=== PATIENT | female | born 1985 | race Caucasian/White ===

== ENCOUNTER 2025-04-06 15:46 | Emergency (ER) | payer OTHER, SELFPAY ==
--- OUTSIDE RECORDS SUMMARY | 2017-07-27 09:50 | XMS_ITS | Continuity of Care Document ---
Author Organization [facility] Address [address] [place] [address] Phone Care Team Providers Care Medical Technologist Chemistry Name Role Phone Unavailable Unavailable Unavailable Allergies, Adverse Reactions, Alerts Substance Reaction Status Criticality PSEUDOEPHEDRINE HCL hallucinations Active No Inf ormation PHENYLEPHRINE HCL hallucinations Active No Infor mation BROMPHENIRAMINE MALEATE hallucinations Active No Information Thiazides shut down organs, sepsis Active No Information Medications Medication Instructions Dosage Effective Dates (start - stop) Status Comments Blephamide 10 %-0.2 % eye drops,suspension one drop to erica left eye TID for six days - Active Ceftin 500 mg tablet take 1 tablet by or al route every 12 hours - Active Bystolic 2.5 mg tablet take 2 tablet by oral route every day 5 MG - Active Zantac 150 mg tablet take 1 tablet by or al route 2 times every day - Active Nexium 20 mg capsule,delayed release take 1 capsule by oral route every day - Active Xanax 0.5 mg tablet take 1 tablet by ora l route 3 times every day 0.5 MG - Active folic acid 1 mg tablet take 1 tablet by oral route every day 1 MG - Active Procedures Procedure Date OFFICE/OUTPATIENT VISIT, NEW Advance Directives Directive Yes / No Effective Date File Name No Information Encounters Encounter Description Practice Location Reason(s) For Visit Diagnoses Date Provider Providers Copied on Encounter OFFICE/OUTPAT IENT VISIT, [facility] , [address] [place], [address], tel:[phone] Formerly [facility] Urgents uveitis and iritis per ER (chief complaint) Acute recurrent maxillary sinusitisDry eye of left side 201 7 No Information Referring Provider: ER Emergency Room. Family History Family Member Type Diagnosis Age At Onset Mother Problem (finding) glaucoma Mother Problem (finding) Cancer, unknown Mother Problem (finding) Maternal history of luanne betes mellitus Mother Problem (finding) hypertension Payers Payer name Insurance type Covered constitution party ID Debbie Boyd (s) [id number] Social History Type Description Quantity Date Captured Comments Alcohol Use Details No Caffeine Use Details Unknown Tobacco Use Status Cigarette smoker Smoking Status Current every day smoker Non-Smoking Tobacco Use Details : No Details Available : No Details Available Sex Female Chief Complaint And Reason For Visit From encounter dated '07/27/2017 13:50'. uveitis and iritis per ER (chief complaint). Description: The 31 year old female presents for evaluation of uveitis and iritis per ER in the left eye. The patient awoke early this morning with intermittent diplopia, and intermittent pain. Both have worsened since starting. The diplopia stopped and the vision became constantly blurry. The pain has become constant, and is describes as stabbing . She went to [facility] ER where she was diagnosed with uveitis and iritis. No rx's given. Proparicaine given in ER helped with the pain. The ER referred her to [facility] for treatment. Reason For Referral Reason For Referral No Information Plan Of Treatment Date Type Action Status Referral Ordered: Ab Lee -Internal Medicine (related to Dry eye) ordered Referral Referred To: Ab Lee [address] [place] [address] [phone] Ordered: Referrals: Internal Medicine. Ab Lee. Assume care ordered History Of Present Illness Encounter Date Complaint History Of Prese nt Illness uveitis and iritis per ER The 31 year old female presents for evaluation of uveitis and iritis per ER in the left eye. The patient awoke early this morning with intermittent diplopia, and intermittent pain. Both have worsened since starting. The diplopia stopped and the vision became constantly blurry. The pain has become constant, and is describes as stabbing . She went to [facility] ER where she was diagnosed with uveitis and iritis. No rx's given. Proparicaine given in ER helped with the pain. The ER referred her to [facility] for treatment. Functional Status Date Functional Assessmen t No Information Instructions Date Instruction Additional Infor ronny - patient with recen t onset of left maxiallry sinusitis and otitis.today with c/o OS irriation and temproary blurred visionSPK on exam with rare cell OSAT QID as needed and Blephamide TID to the OS for 6 days Return PRN any new symptoms Related to See impression details Assessments Type Assessment Date assessment Acute recurrent maxillary sinusi tis assessment Dry eye of left side Patient Care Teams Name Effective Dates (start - stop) Status Members No Information
--- OUTSIDE RECORDS SUMMARY | 2024-04-16 13:15 | XMS_ITS ---
Author Organization [facility] Address [address] [place] [address] Care Team Providers Care Front Desk Team Member Name Role Phone [facility] ramirez bonds Primary Care Prov ider Unavailable Provider, [id number] [phone] Unavailable REASON FOR VISIT cough, sore throat, runny nose and fever Encounters Encounter Location Date Provider Diagnosis [address] [facility] [address] [place] [address] 04/16/2024 52133 Provider Plan Of Treatment No Information Progress Notes * Andria BUSHOB:1985 (39 yo F)Acc No.[id number]:04/16/2024 Progress Notes Patient: Arelis MCKEON Provider: 1 8403 Provider :1985 A ge:38 Y S ex:Female Date:04/16/2024 External Visit ID:[id number] 1 Address:[address] [place], [place] [address], [address] [facility] Subjective: * Chief Complaints: * 1 . Cough, sore throat, runny nose and fever. * Medical History: Objective: * Vitals: Assessment: Plan: * Treatment: * Billing Information: * Visit Code: * Procedure Codes: Care Plan Details* * Electronic signature of GH49 130 [id number] Provider on 04/06/2025 at 03:21 PM CDT Sign off status: Pending * Provider: 1 8403 Provider Date: 0 04/16/2024 Generated for Printi ng/Faxing/eTransmitting on: 0 04/06/2025 03:21 PM CDT
--- OUTSIDE RECORDS SUMMARY | 2024-12-18 05:00 | XMS_ITS ---
Author Organization [facility] Address [address] [place] [address] Care Team Providers Care Eyeglass Inspector Name Role Phone [facility] ramirez bonds Primary Care Prov ideNancy Alexander Unavailable [phone] REASON FOR VISIT Not Feeling Well Encounters Encounter Location Date Provider Diagnosis [address] [address] 12/18/2024 Nancy Asencio Plan Of Treatment No Information Progress Notes * Andria BUSHOB:1985 (39 yo F)Acc No.[id number]:12/18/2024 Progress Notes Patient: Arelis MCKEON Provider: Vlad Asencio CNP :1985 A ge:39 Y S ex:Female Date:12/18/2024 External Visit ID:[id number] 0 Address:[address] [place], [place] [address], [address] [facility] Pcp[facility] Subjective: * Chief Complaints: * 1 . Not Feeling Well. * Medical History: Objective: * Vitals: Assessment: Plan: * Treatment: * Billing Information: * Visit Code: * Procedure Codes: Care Plan Details* * Electronic signature of Mahin Asencio APRN on 04/06/2025 at 03:21 PM CDT Sign off status: Pending * Provider: Vlad Asencio CNP Date: 12/18/2024 Generated for Printi ng/Faestebang/eTransmitting on: 0 04/06/2025 03:21 PM CDT
--- OUTSIDE RECORDS SUMMARY | 2025-03-04 08:30 | XMS_ITS | Encounter Summary ---
Author Organization [facility] Address [address] [place] [address] [place] [address] Phone Care Team Providers Care Leaf Tier Name Role Phone Ab Lee MD Primary Care Provider [phone] Reason for Visit * Reason Comments Follow-up Pain scale 8/10 Pain Pain scale 8/10 Medication Refill Gabapentin 03/02/25 Encounter Details Date Type Department Care Team (Latest Contact Info) Description 03/04/2025 8:30 AM EDT Office Visit [facility] [place] [facility] [address] [place] [address] Floers Dawn, APPLICATIONS SUPPORT LEAD [address] [facility] [address] [place] [address] Lumbar radiculopathy (Primary Dx); Facet [...] file Not on file Not on file 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 Employer: [employer] Tobacco Use Smoking status: Former Types: [...] Resource Strain: Low Risk (11/16/2024) Received from [facility] Overall Financial Resource Strain (CARDIA) Difficulty of Paying Living Expenses: Not hard at all Food Insecurity: No Food Insecurity (11/16/2024) Received from [facility] Hunger Vital Sign Worried About Running Out of Food in the Last Year: Never true Ran Out of Food in the Last Year: Never true Transportation Needs: No Transportation Needs (11/16/2024) Received from [facility] IP Transportation In the past 12 months, has lack of reliable transportation kept you from medical appointments, meetings, work or from getting things needed for daily living?: No Physical Activity: Inactive (11/16/2024) Received from [facility] Exercise Vital Sign Days of Exercise per Week: 0 days Minutes of Exercise per Session: 0 min Stress: No Stress Concern Present (11/16/2024) Received from [facility] [place] [facility] [employer] [facility] - Occupational Stress Questionnaire [...] file Lisinopril, Metoprolol, Nitrofurantoin, Amitriptyline, Bromfed dm [[id number]], Chocolate (food), Diclofenac, and Thiazide-type diuretics Outpatient [...] Apply to affected areas BID nystatin (MYCOSTATIN) 433728 UNIT/GM OINT Apply topically 2 (two) times daily. chlorhexidine (HIBICLENS) 4 % LIQD Apply topically daily. Apply daily in shower ibuprofen (ADVIL,MOTRIN) 200 mg tablet Take 200 mg by mouth every 6 (six) hours as needed for Mild Pain (1-3). Liniments (BIOFREEZE EX) Apply topically. Multiple Vitamin (MULTIVITAMIN) TABS Take 1 tablet by mouth daily. nystatin (MYCOSTATIN) 314471 UNIT/GM POWD Apply topically 2 (two) times [...] LUMBOSACRAL JUNCTION: There are five lumbar type [id number]-[id number] vertebral bodies. The lowest lumbar type vertebral [...] Description 04/17/2025 3:15 PM EDT Office Visit [facility] [address] [place] [phone] Thalia Singer, APPLICATIONS SUPPORT LEAD [address] [place] [phone] 09/16/2025 8:30 AM EST Office Visit [facility] [place] - [facility] [address] [place] [address] Flores Dawn, APPLICATIONS SUPPORT LEAD [address] [facility] [address] [place] [address] documented as of this encounter [...] thigh documented in this encounter Care Teams Leaf Tier Relationship Specialty Start Date End Date Ab Lee MD PCP - General 11/13/07 documented as of this encounter
--- OUTSIDE RECORDS SUMMARY | 2025-03-04 09:50 | XMS_ITS | Encounter Summary ---
Author Organization [facility] Address [address] [place] [address] [place] [address] Phone Care Team Providers Care Support Manager Name Role Phone Ab Lee MD Primary Care Provider Reason for Visit * Reason Comments Blood Pressure Elevated @ 162/101 e arlier today Encounter Details Date Type Department Care Team (Late st Contact Info) Description 03/04/2025 9:50 AM EDT Office Visit [facility] [address] [place] [address] Cinthya May PA-C [address] [place] [address] Essential hypertension (Primary Dx) Social [...] file Not on file 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 * HYPERTENSION (PERSIAN) documented in this encounter Progress Notes * Cinthya May PA-C - 03/04/2025 9:50 AM EDT Primary Care Provider: Ab Lee MD [facility] Tripp Hoff [facility] [address] Subjective Subjective: Arelis Bush is a 39 [...] gi endoscopy,exam (1999); other (2007); Colonoscopy (04/04/2013); [place] tooth extraction; lap,cholecystectomy (06/03/2016); and hc kyleena [...] Angioedema and Anaphylaxis Amitriptyline moser Bromfed Dm [Jksbaffod-Avqktzwc-Eo] Other (See Comments) Blacked out. Shaking, hallucinations [...] Description 04/17/2025 3:15 PM EDT Office Visit [facility] [address] [place] [phone] Thalia Singer, CONTROL PANEL TESTER [address] [place] [phone] 09/16/2025 8:30 AM EST Office Visit [facility] [place] [facility] [address] [place] [phone] Flores Dawn, CONTROL PANEL TESTER [address] [facility] [address] [place], [place] [id number] documented as of this encounter Visit Diagnoses Diagnosis Essential hypertension- Primary Unspecified essential hypertension documented in this encounter Care Teams Support Manager Relationship Specialty Start Date End Date Ab Lee MD PCP - General 11/13/07 documented as of this encounter
--- OUTSIDE RECORDS SUMMARY | 2025-03-05 14:06 | XMS_ITS | Encounter Summary ---
Author Organization [place] [address] Care Team Providers Care Title I Director Name Role Phone Ab Lee MD Primary Care Provider Reason for Visit * Reason Comments Hypertension BP been running high , can't get into pcp until 03/14; been dizzy since 5am, pcp told to come in for possible TIA; +ROBINS, blurry vision Encounter Details Date Type Department Care Team (Late Contact Info) Description 03/05/2025 2:06 PM EDT - 03/05/2025 5:12 PM EDT Emergency [facility] Emergency [address] [place] [address] Lashawn Whelan MD [address] [place] [address] Uncontrolled hypertension (Primary Dx) Discharge Disposition: Home or Self Care Social History Tobacco Use Types Packs/Day Years Used Date Smoking Tobacco: Former Cigarettes 1 10 Smokeless Tobacco: Never Tobacco Cessation:Counseling Given: Not Answered Alcohol Use Standard Drinks/Week Comments No 0 (1 standard drink = 0.6 oz pur e alcohol) [facility] Utilities Answer Date Recorded In the past 12 months has [employer] electric, gas, oil, or water company threatened to shut off services in your home? No 11/16/2024 Overall Financial Resource Strain (CARDIA) Answe r Date Recorded How hard is it for you to pa y for the very basics like food, housing, medical care, and heating? Not hard at all 11/16/2024 PHQ-2 Answer Date Recorded PHQ-2 Total Score 0 11/16/2024 [facility] [place] of Occupat ional Health - Occupational Stress Questionnaire Answer Date Recorded Do you feel stress - tense, restless, nervous, or anxious, or unable to sleep at night because your mind is troubled all the time - these days? Only a little 11/16/2024 Exercise Vital Sign Answer Date Recorde d On average, how many days pe r week do you engage in moderate to strenuous exercise (like a brisk walk)? 0 days 11/16/2024 On average, how many minutes do you engage in exercise at this level? 0 min 11/16/2024 Hunger Vital Sign Answer Date Recorded Within the past 12 months, y ou worried that your food would run out before you got the money to buy more. Never true 11/17/19 25 Within the past 12 months, t he food you bought just didn't last and you didn't have money to get more. Never true 11/16/2024 [facility] IP Transportation Answer D ate Recorded In the past 12 months, has l ack of reliable transportation kept you from medical appointments, meetings, work or from getting things needed for daily living? No 11/16/2024 Sexually Active Control Partners Comments Yes Condom Male Comments No Sex and Gender Information Value Date Recorded Sex Assigned at Not on file Legal Sex Female 8:03 PM EDT Gender Identity Not on file Sexual Orientation Not on file documented as of this encounter Last Filed Vital Signs Vital Sign Reading Time Taken Comments Blood Pressure 143/92 03/05/2025 4:10 PM EDT Pulse 95 03/05/2025 5:00 PM EDT Temperature 36.5 C (97.7 F) 03/05/2025 2:03 PM EDT Respiratory Rate 23 03/05/2025 5:00 PM EDT Oxygen Saturation 100% 03/05/2025 5:00 PM EDT Inhaled Oxygen Concentration - - Weight 151 kg (333 lb) 03/05/2025 2:03 PM EDT Height - - Body Mass Index 47.78 11/16/2024 8:27 AM EST documented in this encounter Functional Status * Is the person deaf or does he/she have serious difficulty hearing? Answer Date of Assessment Author No 11/17/2024 9:17 AM EST Soraida Buckner RN * Is the person blind or does he/she have serious difficulty seeing even when wearing glasses? Answer Date of Assessment Author No 11/17/2024 9:17 AM Soraida Willoughby RN * Does this person have serious difficulty walking or climbing stairs? Answer Date of Assessment Author No 11/17/2024 9:17 AM Soraida Willoughby RN * Does this person have difficulty dressing or bathing? Answer Date of Assessment Author No 11/17/2024 9:17 AM Soraida Willoughby RN * Because of a physical, mental or emotional condition, does this person have difficulty doing errands alone such as visiting a doctor's office or shopping? Answer Date of Assessment Author No 11/17/2024 9:17 AM Soraida Willoughby RN * Suicide Severity Rating Answer Date of Assessment Author No Risk 03/05/2025 2:02 PM EDT Tina Lao RN * [place] Suicide Severity Rating Scale (Q shift for moderate and high) Question Answer Date of Assessment Author 1. In the past month, have y ou wished you were or wished you could go to sleep and not wake up? 0 03/05/2025 2:02 PM EDT Tina Lao RN 2. In the past month, have y ou actually had any thoughts of killing yourself? (If no, skip to question 6) 0 03/05/2025 2:02 PM EDT Tina Lao RN 6. Have you ever done anythi ng, started to do anything, or prepared to do anything to end your life? 0 03/05/2025 2:02 PM EDT Tina Lao RN documented as of this encounter Mental Status * Because of a physical, mental or emotional condition, does this person have serious difficulty concentrating, remembering or making decisions? Answer Entry Date Author No 11/17/2024 9:17 AM Soraida Willoughby RN documented in this encounter Discharge Instructions * Discharge Instructions* Nette Wyatt APRN - 03/05/2025 4:[address] imaging, blood work, EKG, x-ray are all reassuring. Your symptoms are likely related to thefluctuations in your blood pressure. Your blood pressure corrected without intervention. No indication for admission to rapidly lower your blood pressure. Please continue to check your blood pressure twice a day at the same time per day. Keep a log and take this with you to a formal blood pressure check with your primary care doctor. This will help your primary care doctor decide to restart blood pressure medication and whether to restart it in the morning or in the evening. Please return if worse. documented in this encounter Medications at Time of Discharge esomeprazole (NEXIUM) 20 mg Oral Capsule, Delayed Release(E.C.) Take by mouth daily. FLUoxetine (PROZAC) 20 mg Oral Capsule TAKE 1 CAPSULE BY MOUTH DAILY 100 Capsule 01/10/2025 ALPRAZolam (XANAX) 1 mg Oral TabletIndication s:Generalized anxiety disorder,Panic disorder with agoraphobia,Van c disorder,MIGUELINA (generalized anxiety disorder),Adjust ment disorder with anxiety,Anxiety and depression TAKE 1 TABLET BY MOUTH 4 TIMES A DAY NEEDED 120 Tablet 2 12/31/2024 03/26/2025 ondansetron (ZOFRAN-ODT) 4 mg Oral Tablet, Rapid Dissolve Dissolve 1 Tablet by mouth every 6 hours as needed for Nausea for up to 30 days. 10 Tablet 03/05/2025 04/04/2025 documented as of this encounter Ordered Prescriptions Prescription Sig Dispense Quantity Refills Last Filled Start Date End Date ondansetron (ZOFRAN-ODT) 4 mg Oral Tablet, Rapid Dissolve Dissolve 1 Tablet by mouth every 6 hours as needed for Nausea for up to 30 days. 10 Tablet 03/05/2025 documented in this encounter Discharge Disposition Disposition Code Departure Means Destination Comment s Home or Self Penitent[facility] documented in this encounter ED Notes * Nano Beard RN - 03/05/2025 3:14 PM EDT The patient declined to provide a urine specimen at this time * Nette Wyatt, ERECTOR OPERATOR - 03/05/2025 1:58 PM EDT CC: Chief Complaint Patient presents with Hypertension BP been running high, can't get into pcp until 03/14; been dizzy since 5am, pcp told to come in for possible TIA; +ROBINS, blurry vision Patient is seen for my supervising physician, Dr. Whelan who was available for consultation throughout the patient's emergency department course. HPI: Jaya Bush is a 39 y.o. female with a past medical history significant for hypertension, elevated BMI, fibromyalgia, POTS, dizziness, occupation related stress disorder who presents to the emergency department for evaluation of fluctuating blood pressures. States that she has been on several an tihypertensive medications over the past several years however has had multiple undesired side effects as well as electrolyte derangements and kidney injury which has caused her to change her antihypertensive medication. Most recently she was on amlodipine however discontinued this medication due to lower leg edema as well as generally feeling unwell. She has been off of antihypertensive medication for about the past 3 months. Recently stopped smoking. States that she has been getting fluctuating blood pressures with systolic blood pressures 110s-160s. Was seen yesterday at an urgent care with blood pressure 160/100. Intermittent dizziness, headache. Persistent general fatigue. Has not appre ciated any focal deficit. History obtained via: Patient, family member at bedside, electronic medical record review. ROS: All Pertinent ROS Negative Unless otherwise stated within HPI. VITALS: Vitals: 03/05/25 1401 03/05/25 1403 03/05/25 1412 03/05/25 1422 BP: (!) 183/103 140/83 Pulse: (!) 124 110 102 Resp: 20 17 20 Temp: 97.7 ??F (36.5 ??C) TempSrc: Oral SpO2: 97% 97% 98% Weight: (!) 328 lb (148.8 kg) (!) 333 lb (151 kg) 03/05/25 1430 03/05/25 1437 03/05/25 1452 03/05/25 1530 BP: 134/91 149/92 Pulse: 105 100 96 94 Resp: 18 20 (!) 22 (!) 25 Temp: TempSrc: SpO2: 97% 98% 95% 98% Weight: 03/05/25 1555 03/05/25 1600 03/05/25 1610 03/05/25 1619 BP: 137/91 143/92 Pulse: 96 92 90 86 Resp: 18 (!) 24 (!) 23 20 Temp: TempSrc: SpO2: 98% 98% 95% 98% Weight: 03/05/25 1700 BP: Pulse: 95 Resp: (!) 23 Temp: TempSrc: SpO2: 100% Weight: PHYSICAL EXAM: General: Appears generally well and nontoxic. Afebrile hemodynamically stable. HEENT: Atraumatic. Normocephalic. Pupils equal and round bilaterally. EOMI. Facial features symmetric. Speech is clear and intelligible. Phonation is appropriate. Neck: Full active ROM normal, supple. Chest: Equal Chest Rise. Cardiovascular: Well-perfused. Distal pulses and capillary refill appropriate. Lungs: Respiratory effort normal. No retractions or accessory muscle use. No orthopnea. Abdomen: Nondistended. /Anorectal: Deferred. Musculoskeletal: Moving all four extremities without difficulty or deformity. Skin: Warm and dry. Psych: Appropriate. Neurologic: Awake & Alert, Nonfocal. GCS 15. Cognition intact. Ambulatory with observed steady gait. LABS/IMAGING: Reviewed (See Orders) CT HEAD WO CONTRAST Final Result No acute intracranial abnormality. - Note: Radiology results need to be interpreted within a comprehensive clinical context. If you have questions about the radiology report, please contact the office of the ordering clinician. XR CHEST PA AND LATERAL Final Result No acute finding. - Note: Radiology results need to be interpreted within a comprehensive clinical context. If you have questions about the radiology report, please contact the office of the ordering clinician. EK EKG 12 LEAD ED Interpretation Sinus tachycardia at a rate of 103. IA interval shortened at 112. [place] is normal. There are nonspecific changes. Rate is increased otherwise not significantly changed from prior dated 11/16/2024 Final Result [facility] Test Date: 2025-03-05 Pat Name: JAYA BUSH Department: DEPID Room: Gender: Female 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: Mamadou : 1985 Requested By: [facility] Order Number: [id number] Christiano INGRAM: Frank Gloria Measurements Intervals [place] Rate: 103 P: -4 IA: 112 QRS: 32 QRSD: 110 T: 32 QT: 349 QTc: 459 Interpretive Statements SINUS TACHYCARDIA WITH SHORT IA INTERVAL ABNORMAL RHYTHM ECG WHEN COMPARED TO PREVIOUS ECG:NO SIGNIFICANT CHANGES ARE NOTED Electronically Signed On 03-05-2025 17:40:40 EDT by Frank Gloria Abnormal Labs Reviewed CBC WITH DIFF - Abnormal; Notable for the following components: Result Value Hct 45.7 (*) All other components within normal limits BASIC METABOLIC PANEL - Abnormal; Notable for the following components: Glucose Lvl 183 (*) All other components within normal limits GLUCOSE METER POC - Abnormal; Notable for the following components: Glucose Meter POC 177 (*) All other components within normal limits MEDICATIONS ADMINISTERED: Medications sodium chloride 0.9% syringe 5-10 mL (has no administration in time range) sodium chloride 0.9% IV line flush 50 mL (has no administration in time range) MEDICAL DECISION MAKING: Jaya Bush is a 39 y.o. female who presents with above much concerns as detailed in her HPI, Acute. Concerning for possible uncontrolled hypertension versus hypertensive urgency versus hypertensive emergency. No focal deficit or slurred speech from concern for LVO. No truncal instability or IVconcern for posterior circulation. Recommended cardiac workup. Patient is agreeable. Initial blood pressure reading on review of triage vitals 183/103 with heart rate 124. Independent Imaging/EKG Interpretations: Sinus rhythm with a rate of 103. Normal axis. IA interval 112 ms. QRS duration 110 ms. QTc 4 and 59ms. Generalized T wave flattening of lead III and V1 (on prior dated 11/16/2024 showed inversions in lead III and V1). No ST elevations. No ectopy or lethal dysrhythmia. Two-view chest x-ray unremarkable. Random [id number] fingerstick glucose 177. Stable CBC as wellas BMP. Glucose 183 with anion gap closing, dioxide appropriate at 22. Troponin 9 which is improvedfrom prior serology or the patient's values were 50-60. hCG quantitative negative. Urine analysis un remarkable. CT head without IV contrast unremarkable for lesions, masses, LVO. I had considered CTAhowever again there is no slurred speech, facial droop, focal deficit where I am concerned for LVO. Reviewed reassuring diagnostics directly with the patient and her family member at bedside. All questions were answered to satisfaction. Discussed likely uncontrolled hypertension as there is no evidence of endorgan damage suggestive of hypertensive urgency or emergency or the patient will require rapid blood pressure lowering. Patient without intervention in the emergency department has self corrected blood pressure with appropriate downtrend to 143/92, 120/80. Tachycardia additionally improved into the 80s and 90s. Patient does have a blood pressure cuff at home. Was encouraged to manage her blood pressure twice daily and maintain a log and take it to her primary care doctor for formal blood pressure check and consider restarting antihypertensive medication. I had considered restarting amlodipine however given the patient's blood pressure self corrected without intervention in the emergency department and restarting antihypertensive medication from emergency medicine was deferred asto avoid a hypotension. Patient is comfortable and agreeable with this plan. Care of patient discussed with nursing team and nursing documentation reviewed. Prescriptions Written: ED Current Prescriptions Medication Dispense Auth. Provider ondansetron (ZOFRAN-ODT) 4 mg Oral Tablet, Rapid Dissolve 10 Tablet Nette Wyatt APRN IMPRESSION: 1. Uncontrolled hypertension DISPOSITION: Appropriate for discharge with close PCP follow-up, home blood pressure log Condition at Discharge/Transfer from Department: Improved In cases where narcotics are prescribed, COLIN report was obtained, reviewed, and made part of record. After examining available information, and risks of prescribing or dispensing controlled substances was explained to the patient (including non-treatment or other treatment), it is considered medically appropriate to administer narcotics as prescribed. Nette Wyatt NP Emergency Medicine 03/05/25 This chart was completed using voice recognition technology and may contain unintended errors Nette Wyatt APRN 03/05/252037 Cosigned by Lashawn Whelan MD at 03/14/2025 7:49 AM EDT Associated attestation - Lashawn Whelan MD - 03/14/2025 7:49 AM EDT The patient was seen and evaluated independently by the advance practice provider. I was available in the ED for consultation. SCANNED EKG EK EKG 12 LEAD ED Interpretation by Lashawn Whealn MD (03/05 1428) Sinus tachycardia at a rate of 103. IA interval shortened at 112. [place] is normal. There are nonspecific changes. Rate is increased otherwise not significantly changed from prior dated 11/16/2024 This chart was completed using voice recognition technology and may contain unintended errors documented in this encounter Plan of Treatment Not on file documented as of this encounter Procedures Procedure Name Priority Date/Time Associated Diagnosis Comments SCANNED EKG 03/06/2025 9:[address] HEAD WO CONTRAST STAT 03/05/2025 4 :31 PM EDT URINALYSIS REFLEX STAT 03/05/2025 3:2 4 PM EDT UA W/REFLEX TO CULTURE STAT 03/05/2025 3:24 PM EDT EXTRA BAE URINE CX STAT 03/05/2025 3 :24 PM EDT XR CHEST PA AND LATERAL STAT 03/05/2025 3:06 PM EDT TROPONIN-T HIGH SENSITIVITY BASELINE W/ REFLEX STAT 03/05/2025 2:22 PM EDT CBC WITH DIFF STAT 03/05/2025 2:22 PM EDT HUMAN CHORIONIC GONADOTROPIN QUANTITATIVE STAT 03/05/2025 2:22 PM EDT BASIC METABOLIC PANEL STAT 03/05/2025 2:22 PM EDT GLUCOSE METER POC Routine 03/05/2025 2:0 7 PM EDT EK EKG 12 LEAD STAT 03/05/2025 2:01 PM EDT documented in this encounter Results * SCANNED EKG (03/06/2025 9:33 AM EDT) Anatomical Region Laterality Modality Other 03/06/2025 9:33 AM EDT us Unknown Provider IMG ECG ORDERABLES Final Result * CT HEAD WO CONTRAST (03/05/2025 4:31 PM EDT) Anatomical Region Laterality Modality Head Computed Tomogra phy 03/05/2025 4:31 PM EDT Impressions 03/05/2025 4:48 PM EDT No acute intracranial abnormality. - Note: Radiology results need to be interpreted within a comprehensive clinical context. If you have questions about the radiology report, please contact the office of the ordering clinician. Narrative 03/05/2025 4:[address] HEAD WO CONTRAST 03/05/2025 4:31 PM CLINICAL HISTORY: -headache, new characteristics. COMPARISON: None. PROCEDURE COMMENTS: Routine noncontrast head CT with multiplanar reconstructions. Dose 1 : CT DLP Total : 809.56 mGycm DLP Spiral Max : 803.68 mGycm Maximum CTDI Vol : 48.15 mGy FINDINGS: Ventricular size and configuration normal. No evidence of acute stroke, mass, or hemorrhage. No evidence of fracture or extra-axial collection. Included paranasal sinuses, mastoids, and orbits unremarkable. Procedure Note Zachary Grimm MD - 03/05/2025 CT HEAD WO CONTRAST 03/05/2025 4:31 PM CLINICAL HISTORY: -headache, new characteristics. COMPARISON: None. PROCEDURE COMMENTS: Routine noncontrast head CT with multiplanar reconstructions. Dose 1 : CT DLP Total : 809.56 mGycm DLP Spiral Max : 803.68 mGycm Maximum CTDI Vol : 48.15 mGy FINDINGS: Ventricular size and configuration normal. No evidence of acute stroke,mass, or hemorrhage. No evidence of fracture or extra-axial collection. Included paranasal sinuses, mastoids, and orbits unremarkable. IMPRESSION: No acute intracranial abnormality. - Note: Radiology results need to be interpreted within a comprehensiveclinical context. If you have questions about the radiology report, please contactthe office of the ordering clinician. us Nette Wyatt APRN IMG CT ORDERABLES Final Result * EXTRA BAE URINE CX (03/05/2025 3:24 PM EDT) Urine STRUCTURE OF URINARY TRACT PROPER / Unknown 03/05/2025 3:24 PM EDT 03/05/2025 3:27 PM EDT Nette Wyatt APRN MICROBIOLOGY - GENERAL ORDERABLES Final Result [facility] [address] [place] [address] * URINALYSIS REFLEX (03/05/2025 3:24 PM EDT) UA Color Yellow 03/05/2025 3:30 PM EDT [facility] UA Appear Clear Clear 03/05/2025 3:30 PM EDT [facility] UA Glucose Negative Negative mg/dL 03/05/2025 3:30 PM EDT [facility] UA Ketones Negative Negative mg/dL 03/05/2025 3:30 PM EDT [facility] UA Blood Negative Negative 03/05/2025 3:30 PM EDT [facility] UA pH 6.0 5.0 - 8.0 pH 03/05/2025 3:30 PM EDT [facility] UA Protein Negative Negative mg/dL 03/05/2025 3:30 PM EDT [facility] UA Urobilinogen 0.2 <=1 mg/dL 3:30 PM EDT [facility] UA Bili Negative Negative 03/05/2025 3:30 PM EDT [facility] UA Nitrite Negative Negative 03/05/2025 3:30 PM EDT [facility] UA Leuk Est Negative Negative 03/05/2025 3:30 PM EDT [facility] UA Spec Grav <=1.005 1.001 - 1.035 no units 03/05/2025 3:30 PM EDT [facility] Comment:Reference range pat d for random specimens only. Urine STRUCTURE OF URINARY TRACT PROPER / Unknown 03/05/2025 3:24 PM EDT 03/05/2025 3:27 PM EDT Nette Wyatt ERECTOR OPERATOR URINE ORDERABLES Final Result [facility] [address] [place] [address] * XR CHEST PA AND LATERAL (03/05/2025 3:06 PM EDT) Anatomical Region Laterality Modality Chest Radiographic Helen ging 03/05/2025 3:06 PM EDT Impressions 03/05/2025 3:09 PM EDT No acute finding. - Note: Radiology results need to be interpreted within a comprehensive clinical context. If you have questions about the radiology report, please contact the office of the ordering clinician. Narrative 03/05/2025 3:09 PM EDT PA AND LATERAL CHEST X-RAY, 03/05/2025 3:06 PM CLINICAL HISTORY: -HTN COMPARISON: 03/31/2025 PROCEDURE COMMENTS: Frontal and lateral views of the chest. FINDINGS: Heart and mediastinal contours within normal limits for technique. No active failure, pneumonia, or visible effusion. No visible pneumothorax. Procedure Note Ryan Meredith III, MD - 03/05/2025 PA AND LATERAL CHEST X-RAY, 03/05/2025 3:06 PM CLINICAL HISTORY: -HTN COMPARISON: 03/31/2025 PROCEDURE COMMENTS: Frontal and lateral views of the chest. FINDINGS: Heart and mediastinal contours within normal limits for technique. Noactive failure, pneumonia, or visible effusion. No visible pneumothorax. IMPRESSION: No acute finding. - Note: Radiology results need to be interpreted within a comprehensiveclinical context. If you have questions about the radiology report, please contactthe office of the ordering clinician. Nette Wyatt ERECTOR OPERATOR IMG DIAGNOSTIC IMAGING ORDERABLES Final Result * HUMAN CHORIONIC GONADOTROPIN QUANTITATIVE (03/05/2025 2:22 PM EDT) Hcg Quant <1 <5 mIU/mL 03/05/2025 2:48 PM EDT [facility] Blood VENOUS BLOOD / Unknown Venipuncture / Unknown 03/05/2025 2:22 PM EDT 03/05/2025 2:26 PM EDT Narrative [facility] - 03/05/2025 2:48 PM EDT Female (non-): 0-4.9 mIU/mL Female (postmenopausal): 0-8.1 mIU/mL Indeterminate values for (e.g., 5-25 mIU/mL) may be confirmed with a repeat test in 48-72 hours. Values in should double every 2-3 days for the first six weeks. Ingestion of nelly doses of biotin (>5 mg/day) taken within 8 hours of drawing blood sample can interfere with this immunoassay test. Nette Wyatt APRN CHEMISTRY ORDERABLES nal Result Performing Organization Address [facility] de Phone Number [facility] [address] [place] [address] * TROPONIN-T HIGH SENSITIVITY BASELINE W/ REFLEX (03/05/2025 2:22 PM EDT) [id number] 9 <14 ng/L 03/05/2025 2:48 PM EDT [facility] Blood VENOUS BLOOD / Unknown Venipuncture / Unknown 03/05/2025 2:22 PM EDT 03/05/2025 2:26 PM EDT Narrative [facility] - 03/05/2025 2:48 PM EDT Ingestion of nelly doses of biotin (>5 mg/day) taken within 8 hours of drawing blood sample can interfere with this immunoassay test. Nette Wyatt APRN CHEMISTRY ORDERABLES Fi nal Result Performing Organization Address [facility] de Phone Number [facility] [address] [place] [address] * (ABNORMAL) BASIC METABOLIC PANEL (03/05/2025 2:22 PM EDT) Sodium 139 136 - 145 mmol/L 03/05/2025 2:48 PM EDT [facility] Potassium 3.7 3.5 - 5.0 mmol/L 03/05/2025 2:48 PM EDT [facility] Chloride 103 98 - 107 mmol/L 03/05/2025 2:48 PM EDT [facility] Total CO2 22 22 - 29 mmol/L 03/05/2025 2:48 PM EDT [facility] Anion Gap 14 7 - 16 mmol/L 03/05/2025 2:48 PM EDT [facility] Calcium 8.8 8.6 - 10.4 mg/dL 03/05/2025 2:48 PM EDT [facility] Glucose Lvl 183(H) 70 - 99 mg/dL 03/05/2025 2:48 PM EDT [facility] BUN 8 6 - 20 mg/dL 03/05/2025 2:48 PM EDT [facility] Creatinine 0.60 0.51 - 1.30 mg/dL 03/05/2025 2:48 PM EDT [facility] eGFR (CKD-EPIcr 2020) 115 >=60 mL/min/1.7 3 m2 03/05/2025 2:48 PM EDT [facility] Comment:Estimated GFR was ca lculated using the CKD-EPIcr (2020) equation refit without race. The equation is recommended by the National Kidney Foundation - [place] [employer] of Nephrology Task Force. Blood VENOUS BLOOD / Unknown Venipuncture / Unknown 03/05/2025 2:22 PM EDT 03/05/2025 2:26 PM EDT us Nette Wyatt APRN CHEMISTRY ORDERABLES Fi nal Result [facility] [address] [place] [address] * (ABNORMAL) CBC WITH DIFF (03/05/2025 2:22 PM EDT) WBC 7.6 3.7 - 10.3 x10(3)/mcL 03/05/2025 2:29 PM EDT [facility] RBC 5.00 3.90 - 5.20 x10(6)/mcL 03/05/2025 2:29 PM EDT [facility] Hgb 15.6 11.2 - 15.7 g/dL 03/05/2025 2:29 PM EDT [facility] Hct 45.7(H) 34.0 - 45.0 % 03/05/2025 2:29 PM EDT [facility] MCV 91.4 80.0 - 100.0 fL 03/05/2025 2:29 PM EDT [facility] MCH 31.2 26.0 - 34.0 pg 03/05/2025 2:29 PM EDT [facility] MCHC 34.1 30.7 - 35.5 g/dL 03/05/2025 2:29 PM EDT [facility] RDW 11.9 <=14.9 % 03/05/2025 2:29 PM EDT [facility] Platelet 275 155 - 369 x10(3)/mcL 03/05/2025 2:29 PM EDT [facility] MPV 10.7 8.8 - 12.5 fL 03/05/2025 2:29 PM EDT [facility] Neut Percent 57.2 % 03/05/2025 2:29 PM EDT [facility] Comment:Neutrophils equals s egs plus bands Imm Gran% 0.1 % 03/05/2025 2:29 PM EDT [facility] Comment:Automated count of m etamyelocytes, myelocytes and promyelocytes. Lymph Percent 32.2 % 03/05/2025 2:29 PM EDT [facility] [place] Percent 8.2 % 03/05/2025 2:29 PM EDT [facility] Eos Percent 1.5 % 03/05/2025 2:29 PM EDT [facility] Baso Percent 0.8 % 03/05/2025 2:29 PM EDT [facility] Neut # 4.3 1.6 - 6.1 x10(3)/mcL 03/05/2025 2:29 PM EDT [facility] Comment:Neutrophils equals s egs plus bands IMMGRAN# 0.0 0.0 - 0.1 x10(3)/mcL 03/05/2025 2:29 PM EDT [facility] Comment:Automated count of m etamyelocytes, myelocytes and promyelocytes. An absolute IG <0.1 is reported as 0.0. Lymph # 2.4 1.2 - 3.9 x10(3)/mcL 03/05/2025 2:29 PM EDT [facility] [place] # 0.6 0.3 - 0.9 x10(3)/mcL 03/05/2025 2:29 PM EDT [facility] Eos# 0.1 0.0 - 0.5 x10(3)/[facility] 03/05/2025 2:29 PM EDT [facility] Baso # 0.1 0.0 - 0.1 x10(3)/mcL 03/05/2025 2:29 PM EDT [facility] Blood VENOUS BLOOD / Unknown Venipuncture / Unknown 03/05/2025 2:22 PM EDT 03/05/2025 2:26 PM EDT Nette Wyatt APRN HEMATOLOGY ORDERABLES F inal Result [facility] [address] [place] [address] * (ABNORMAL) GLUCOSE METER POC (03/05/2025 2:07 PM EDT) [facility] Glucose Meter POC 177(H) 70 - 100 mg/dL 03/05/2025 2:09 PM EDT [facility] Sample Type Capillary 03/05/2025 2:09 PM EDT [facility] Patient Status Non-Critical Patient 03/05/2025 2:09 PM EDT [facility] Blood BLOOD SPECIMEN / Unknown 03/05/2025 2:07 PM EDT 03/05/2025 2:09 PM EDT us Lab Test POINT OF CARE TEST ORDERABLES Fi nal Result 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 : 1985 Requested By: [employer] [facility] Order Number: [id number] Reading MD: Frank Gloria Measurements Intervals [place] Rate: 103 P: -4 IA: 112 QRS: 32 QRSD: 110 T: 32 QT: 349 QTc: 459 Interpretive Statements SINUS TACHYCARDIA WITH SHORT IA INTERVAL ABNORMAL RHYTHM ECG WHEN COMPARED TO PREVIOUS ECG:NO SIGNIFICANT CHANGES ARE NOTED Electronically Signed On 03-05-2025 17:40:40 EDT by Frank Gloria Narrative Procedure Note Frank Gloria MD - 03/05/2025 IMPRESSION [facility] Test Date: 2025-03-05 Pat Name: JAYA GOLWALDEMAR Department: DEPID Room: Gender: Female 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: Mamadou : 1985 Requested By: [employer] [facility] Order Number: [id number] Reading MD: Frank Gloria Measurements Intervals [place] Rate: 103 P: -4 IA: 112 QRS: 32 QRSD: 110 T: 32 QT: 349 QTc: 459 Interpretive Statements SINUS TACHYCARDIA WITH SHORT IA INTERVAL ABNORMAL RHYTHM ECG WHEN COMPARED TO PREVIOUS ECG:NO SIGNIFICANT CHANGES ARE NOTED Electronically Signed On 03-05-2025 17:40:40 EDT by Frank Gloria us Lashawn Whelan MD IMG ECG ORDERABLES Final Res ult documented in this encounter Visit Diagnoses Diagnosis Uncontrolled hypertension- Primary Unspecified essential hypertension documented in this encounter Administered Medications Inactive Administered Medications - up to 1 most recent administrations Medication Order MAR Action Action Date Dose Rate Site sodium chloride 0.9% IV line flush 50 mL 50 mL, Intravenous, at 999 mL/hr, PRN, Starting on Tue03/05/25 at 1412, Until Tue03/05/25 at 2111, Line Care, Flush with 50 mL after IVPB to insure complete administration of the dose. May use the saline infusion to back flush IVPB tubing as needed., Use this order to document priming and flushing IV line after medication administration. sodium chloride 0.9% syringe 5-10 mL 5-10 mL, Intravenous, PRN, Starting on Tue03/05/25 at 1412, Until Tue03/05/25 at 2111, Line Care, Flush with 5 mL saline pre/post IVP, and 5 mL prior to IVPB or blood product administration. Protocol for PERIPHERAL IV saline lock maintenance, flush with 3-5 mL saline syringe every 8 hours., Flush peripheral lines every 12 hours, central lines every 8 hours, and after IV medication documented in this encounter Active and Recently Administered Medications Times are shown in EDT. PRN Medication Order 03/03/2025 03/04/2025 03/05/2025 sodium chloride 0.9% IV line flush 50 mL 50 mL, Intravenous, at 999 mL/hr, PRN, Starting on Tue03/05/25 at 1412, Until Tue03/05/25 at 2111, Line Care, Flush with 50 mL after IVPB to insure complete administration of the dose. May use the saline infusion to back flush IVPB tubing as needed., Use this order to document priming and flushing IV line after medication administration. sodium chloride 0.9% syringe 5-10 mL 5-10 mL, Intravenous, PRN, Starting on Tue03/05/25 at 1412, Until Tue03/05/25 at 2111, Line Care, Flush with 5 mL saline pre/post IVP, and 5 mL prior to IVPB or blood product administration. Protocol for PERIPHERAL IV saline lock maintenance, flush with 3-5 mL saline syringe every 8 hours., Flush peripheral lines every 12 hours, central lines every 8 hours, and after IV medication documented in this encounter Orders Medications Ordered That Cornelius ht Not Have Been Administered Count Last Ordered Date First Ordered Date sodium chloride 0.9% IV line flush 50 mL 1 03/05/2025 sodium chloride 0.9% syringe 5-10 mL 1 02/11 documented in this encounter Care Teams Title I Director Relationship Specialty Start Date End Date Ab Lee MD PCP - General 09/15/08 documented as of this encounter
--- OUTSIDE RECORDS SUMMARY | 2025-03-06 09:45 | XMS_ITS | Encounter Summary ---
Author Organization [facility] SBO AND [facility] P Address [facility] [place] [address] Phone Care Team Providers Care Paster Operator Name Role Phone Ab Lee MD Primary Care Provider [phone] Reason for Referral * Consultation (Routine) - Pending Review Specialty Diagnoses / Procedures Referred By Rao katz Referred To Contact Neurology Diagnoses Chronic tension-type headache, not intractable Loss of balance Muscle twitching Family history of stroke Ab Lee MD [address] [place] [address] Phone: tel: fax: Ariel Malhotra MD [address] [place] [address] Phone: tel: fax: Referral ID Status Reason Start Date Expiration Date Visits Requested Visits Authorized [id number] Pending Review Specialty Services Required 03/06/2025 03/06/2026 1 1 Scheduling Instructions [facility] - Neurology Call to schedule [facility] [address] [place] [address] [place] [address] Reason for Visit * Reason Comments Follow-up Hypertension Headache Encounter Details Date Type Department Care Team (Late st Contact Info) Description 03/06/2025 9:45 AM EDT Office Visit [facility] [address] [place] [address] Ab Lee MD [address] [place] [address] Chronic tension-type headache, not intractable [...] file Not on file Not on file liquor clerk Not on file Not on file [...] yet scheduled her mammogram. She follow a convenience store clerk and reports no skin concerns. SOCIAL HISTORY [...] colon/normal IBS HC KYLEENA IUD 11/03/2017 lot: [id number] exp: 02/28 LAP,CHOLECYSTECTOMY 06/03/2016 Dr. Christiano Meza [...] Angioedema and Anaphylaxis Amitriptyline moser Bromfed Dm [Uhhtdinqy-Jfbozyos-Xd] Other (See Comments) Blacked out. Shaking, hallucinations [...] regular follow-ups with eye doctor, dentist, and convenience store clerk. - adv for aspirin 81 mg daily [...] contact the author as some errors in exhibit specialist may have occurred. documented in this encounter Plan of Treatment Upcoming Encounters Date Type Department Care Team (Late st Contact Info) Description 04/17/2025 3:15 PM EDT Office Visit [facility] [address] [place] [address] Thalia Singer BELT BUILDER HELPER [address] [place] [address] 09/16/2025 8:30 AM EST Office Visit [facility] [place] [facility] [address] [place] [phone] Flores Dawn, BELT BUILDER HELPER [address] [facility] [address] [place] [address] Scheduled Referrals Name Type Priority Associated Diagnoses [...] insulin documented in this encounter Care Teams Paster Operator Relationship Specialty Start Date End Date Ab Lee MD PCP - General 11/13/07 documented as of this encounter
[2025-04-06 15:59] VITALS: BP 149/104; PULSE 96; RESP 19; TEMP 36.4; O2SAT 98; BMI 48.7
--- NOTE | 2025-04-06 16:20 | ED_ITS ---
Discharge Plan Disposition Patient Disposition: Home, Self-Care Condition: Good Prescriptions Prescriptions: New ketorolac 10 mg tablet 10 mg PO Q8H 3 Days Qty: 9 0RF cephalexin 500 mg capsule 500 mg PO Q8H 7 Days Qty: 21 0RF Referrals Follow up/Referrals: Provider,Referral, [Primary Care Provider, Medical] - See instructions Activity Restrictions/Add. Instructions Additional Instructions/Restrictions: You were evaluated in the emergency department today. Out of an abundance of precaution, we are prescribing antibiotic in case this could be cellulitis, but I feel it is most likely superficial thrombophlebitis, for which I am prescribing you Toradol which is an NSAID. Also take Tylenol every 4-6 hours as needed for pain. Follow-up closely with your primary care provider. Please follow-up outpatient for your formal ultrasound of your leg, which will be scheduled during the week. Return to the emergency department for new or worsening symptoms. Clinical Impressions Clinical Impression: Superficial thrombophlebitis Stand Alone Forms Stand Alone Forms: Work/School Release Instructions Patient Instructions: DI for Superficial Thrombophlebitis, DI for Acute Pain -- Adult Print Language Print Language: Bolivian Discharge ED Provider: Catherine Diaz General Adult HPI General Chief complaint: PAIN Stated complaint: right leg and foot swelling knot formed Time Seen by Provider: 04/06/25 16:02 Mode of Arrival: Ambulatory Source of Information: Patient Description of Symptoms (Recalled from ER Triage Doc. by RN): Patient presents to ED from home with c/p right foot and leg pain, reports pain started yesterday. Denies injury. Reports a knot to the top of her right foot and the back of her right thigh. History of Present Illness HPI narrative: This patient is a 39-year-old female who denies significant past medical history presenting to the emergency department for evaluation with concern for a knot on her right calf. She also states that he has foot swelling and is concerned for a blood clot. She denies any history of blood clots or clotting disorders. No recent surgery, travel, or immobilizations and she does not use any sort of hormonal medications or control. No known recent trauma or injuries. No fevers, chills, or other concerns noted. Related Data Previous Rx's ?Medication ?Instructions ?Recorded cephalexin 500 mg capsule 500 mg PO Q8H 7 days #21 cap s 04/06/25 ketorolac 10 mg tablet 10 mg PO Q8H pain 3 days #9 tabs 04/06/25 Allergies Allergy/AdvReac Type Severity Reaction Status Date / Time amitriptyline AdvReac Unknown Verified 04/06/25 16:08 allergy reaction brompheniramine (From AdvReac Unknown Verified 04/06/25 16:08 Bromfed) allergy reaction chocolate AdvReac Unknown Verified 04/06/25 16:08 allergy reaction phenylephrine (From Bromfed) AdvReac Unknown Verified 04/06/25 16:08 allergy reaction pseudoephedrine (From AdvReac Unknown Verified 04/06/25 16:08 Bromfed) allergy reaction PFSH PFSH Disclaimer: The information contained in this section may have been updated after the patient was seen, as this information can be updated by other users. Social History Smoking Status: Current every day smoker alcohol intake: never current occupational status: employed Travel in the last 8 weeks?: None ROS Obtained: Yes All systems reviewed & no additional complaints except as documented Physical Exam General General appearance: alert, in no apparent distress and obese Head Head exam: atraumatic and normocephalic Eye Eye exam: Present normal appearance, PERRL and EOMI ENT ENT exam: Present normal exam, normal oropharynx, mucous membranes moist and normal external ear exam Neck Neck exam: Present normal inspection, full ROM and trachea midline; Absent tenderness Chest Chest inspection: Present normal inspection and symmetric chest wall rise; Absent tenderness Respiratory Respiratory exam: Present normal lung sounds bilaterally; Absent respiratory distress, wheezes, stridor or accessory muscle use Cardiovascular Cardiovascular exam: Present regular rate and normal rhythm Abdominal Exam Abdominal exam: Present soft; Absent distention, tenderness or guarding Extremities Exam Extremities exam: Present full ROM, tenderness and normal capillary refill; Absent edema Expanded Lower Extremity Exam Right: Leg image: 2 1. Small painful tender mobile firm lump with minimal overlying erythema. No fluctuance or induration. 2. Minimal pedal edema with tenderness to palpation as well. Comment: No significant joint swelling. No rashes or skin lesions. No calf pain, swelling, or tenderness aside from the 1 tiny nodule. Back Exam Back exam: Present normal inspection and full ROM; Absent tenderness Neurological Exam Neurological exam: Present alert, oriented X3, CN II-XII intact and normal gait; Absent motor sensory deficit Psychiatric Psychiatric exam: Present normal affect and normal mood Skin Skin exam: Present warm and dry Medical Decision Making Medical Records Medical records reviewed: Yes I reviewed the patient's medical records. Screening: Per USPSTF and CDC recommendations, given the prevalence of disease in our region, it is our hospital?s policy to screen for HIV and viral Hepatitis for all patients aged 18 and over and those with ongoing risk factors. Ac Inquiry Pt receiving controlled substance: No Vital Signs: 04/06/25 15:59 04/06/25 16:46 04/06/25 17:01 Temperature 97.5 F L Temperature Source Oral Pulse Rate 85 85 Pulse Rate [Left] 96 H Respiratory Rate 19 18 17 Blood Pressure 130/82 141/80 H Blood Pressure [Right Arm] 149/104 H Blood Pressure Mean 107 100 Blood Pressure Mean [Right Arm] 119 Blood Pressure Source Blood Pressure Source [Right Arm] Automatic Cuff Blood Pressure Position Blood Pressure Position [Right Arm] Sitting 02 Sat by Pulse Oximetry 98 97 97 Oxygen Delivery Method Room Air Room Air 04/06/25 17:31 04/06/25 17:36 04/06/25 17:56 Temperature 97.5 F L Temperature Source Oral Pulse Rate 80 85 74 Pulse Rate [Left] Respiratory Rate 17 17 19 Blood Pressure 91/72 L 133/85 133/85 Blood Pressure [Right Arm] Blood Pressure Mean 78 101 Blood Pressure Mean [Right Arm] Blood Pressure Source Automatic Cuff Blood Pressure Source [Right Arm] Blood Pressure Position Sitting Blood Pressure Position [Right Arm] 02 Sat by Pulse Oximetry 96 98 Oxygen Delivery Method Room Air Room Air Room Air Lab Data Lab results reviewed: Yes I reviewed the patient's lab results. Lab Results 04/06/25 16:35: WBC 6.4, RBC 4.93, Hgb 15.4, Hct 45.0, MCV 91.3, MCH 31.2, MCHC 34.2, RDW 11.9, Plt Count 265, MPV 10.5 H, Neut % (Auto) 64.1, Lymph % (Auto) 24.8, [place] % (Auto) 8.2, Eos % (Auto) 1.6, Baso % (Auto) 1.1, Neut # (Auto) 4.1, Lymph # (Auto) 1.6, [place] # (Auto) 0.5, Eos # (Auto) 0.1, Baso # (Auto) 0.1, D- Dimer 0.79 H, Sodium 141, Potassium 4.1, Chloride 101, Carbon Dioxide 34 H, Anion Gap 10.1, BUN 11, Creatinine 0.60, Estimated Creat Clear 129, Estimated GFR 110, Est GFR ( Amer) 133, Glucose 132 H, Calcium 9.4, Total Bilirubin 0.2, AST 48 H, ALT 42, Alkaline Phosphatase 109, Total Protein 7.0, Albumin 3.7, Globulin 3.3 H, Albumin/Globulin Ratio 1.1 04/06/25 16:35 04/06/25 16:35 Orders (Tests/Meds): ED MEDICATIONS Discontinued Medications Generic Name Dose Route Start Last Admin Trade Name Margarito PRN Reason Stop Dose Admin Cephalexin HCl 500 mg 04/06/25 17:29 04/06/25 17:37 Cephalexin 500mg Capsule PO 04/06/25 17:30 500 mg ONCE ONE Administration Ketorolac Tromethamine 30 mg 04/06/25 17:29 04/06/25 17:37 Ketorolac 30mg/Ml Vial IV 04/06/25 17:30 30 mg ONCE ONE Administration Ondansetron HCl 4 mg 04/06/25 17:29 04/06/25 17:37 Ondansetron 4mg/2ml Vial IV 04/06/25 17:30 4 mg ONCE ONE Administration ORDERS Category Date Time Status POCUS Point of Care (ER Only) Stat Exams 04/06/25 16:02 Completed CBC w/Auto Diff [Complete Blood Count Auto Diff] Stat Lab 04/06/25 16:35 Completed CMP [Comprehensive Metabolic Panel] Stat Lab 04/06/25 16:35 Completed D-Dimer Stat Lab 04/06/25 16:35 Completed Medical Decision Narrative: In summary, this patient is a 39-year-old female presenting to the Emergency Department for evaluation of a painful swollen lump to her right calf and pain and swelling of the dorsum of her right foot. She is worried about a blood clot. Differential diagnoses considered include but are not limited to superficial thrombophlebitis, musculoskeletal strain/sprain, cellulitis, DVT. Ruling out the most morbid conditions drove assessment. On exam, the patient is well-appearing. She has a small tender firm mobile lump to the right calf as well as a mild amount of pedal edema with tenderness on the right foot. She is neurovascularly intact with no rashes. She has no significant calf swelling or tenderness, so do not feel that DVT is most likely. I feel she be more likely to have superficial thrombophlebitis. Workup included CBC, CMP, D-dimer, POCUS. DVT ultrasound does not show DVT, there is also no cobblestoning consistent with cellulitis. She does have significant tenderness. No gas noted. Labs are reassuring with no significant leukocytosis to suggest bad infection. D-dimer is mildly elevated. The DVT ultrasound at bedside is negative, but out of an abundance of precaution I gave the patient an outpatient DVT ultrasound order for formal ultrasound during the weekday. I do not feel that it is important to start her on blood thinner right now since my ultrasound was reassuring. I feel she likely a superficial thrombophlebitis. Out of an abundance of precaution given redness and warmth, I elected to put her on Keflex. Also prescribed NSAIDs. She was discharged with strict return precautions Procedures Limited Ultrasound Findings:: Limited DVT ultrasound Indication: Limited compression ultrasonography of the right lower extremity was performed to evaluate for non-compressibility of the deep veins in the patient. The ultrasound was performed with the following indications, as noted in the H&P: Right leg pain and swelling Identified structures: Right [common femoral vein, femoral vein, popliteal vein were examined.] Findings: Lower Extremity: Right CFV: Good compressibility Right FV: Good compressibility Right Popliteal vein: Good compressibility Impression: Normal right lower extremity DVT Images were saved to permanent archive The study was technically adequate CPT: 92534-75-DJ [id number] 49553-72 (complete bilateral study) This study was performed by me, and I personally interpreted all images/videos. Based on my clinical judgement, these images were to quit and not necessitate further imaging. Critical Care Critical Care Time Critical Care Time: No
--- OUTSIDE RECORDS SUMMARY | 2025-04-06 16:21 | XMS_ITS | Encounter Summary ---
Author Organization [facility] SBO AND TP P Address [facility] [place] [address] Phone Care Team Providers Care Superintendent Construction Name Role Phone Ab Lee MD Primary Care Provider [phone] Encounter Details Date Type Department Care Team (Latest Contact Info) Description 05/03/2024 Telephone - Conversion [address] [place] [address] Flores Dawn, GINNER 100 [facility] [address] [place] [address] Neuralgia and neuritis, unspecified Social History Tobacco Use Types Packs/Day Years Used Date Smoking Tobacco: Every Day Cigarettes 0.5 14 Smokeless Tobacco: Never Alcohol Use Standard Drinks/Week Comments No 0 (1 standard drink = 0.6 oz pur e alcohol) Food Insecurities Answer Date Recorded Worried about [...] or the highest degree you have received? 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 (5 years old or older) Answer Entry Date Author No 07/22/2021 8:[address] xenia Rice Registered Nurse documented in this encounter Plan of Treatment Upcoming Encounters Date Type Department Care Team (Late st Contact Info) Description 04/17/2025 3:15 PM EDT Office Visit [address] [phone] Thalia Singer, GINNER [address] [place] [phone] 09/16/2025 8:30 AM EST Office Visit [facility] [place] - [facility] [address] [place] [phone] Flores Dawn, GINNER 100 [facility] [address] [place] [address] documented as of this encounter Visit Diagnoses Diagnosis Neuralgia and neuritis, unspecified documented in this encounter Care Teams Superintendent Construction Relationship Specialty Start Date End Date Ab Lee MD PCP - General 11/13/07 documented as of this encounter
--- OUTSIDE RECORDS SUMMARY | 2025-04-06 16:21 | XMS_ITS | Encounter Summary ---
Author Organization [facility] SBO AND TP P Address [facility] [address] [place] [address] Phone Care Team Providers Care County Sheriff Name Role Phone Ab Lee MD Primary Care Provider [phone] Reason for Visit * Reason Onset Date Comments Refill Request 02/24/2024 Encounter Details Date Type Department Care Team (Late st Contact Info) Description 02/24/[address] [place] [address] Flores Dawn, MAKE UP GIRL 100 [facility] [address] [place] [address] Neuropathic pain; Lumbar radiculopathy Social History Tobacco Use Types Packs/Day Years [...] Start Date Job End Date 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 Not on file [...] Rice, Registered Nurse documented in this encounter Plan of Treatment Upcoming Encounters Date Type Department Care Team (Late st Contact Info) Description 04/17/2025 3:15 PM EDT Office Visit [facility] [address] [place] [phone] Thalia Singer, MAKE UP GIRL [address] [place] [phone] 09/16/2025 8:30 AM EST Office Visit [facility] [place] [facility] [address] [place] [phone] Flores Dawn, MAKE UP GIRL 100 [facility] [address] [place] [address] documented as of this encounter Visit Diagnoses Diagnosis Neuropathic pain Neuralgia, neuritis, and radiculitis, unspecified Lumbar radiculopathy Thoracic or lumbosacral neuritis or radiculitis, unspecified documented in this encounter Care Teams County Sheriff Relationship Specialty Start Date End Date Ab Lee MD PCP - General 11/13/07 documented as of this encounter
--- OUTSIDE RECORDS SUMMARY | 2025-04-06 16:21 | XMS_ITS | Encounter Summary ---
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 Not on file [...] Description 04/17/2025 3:15 PM EDT Office Visit [address] [phone] Thalia Singer, LAB CLERK [address] [place] [phone] 09/16/2025 8:30 AM EST Office Visit [facility] [place] - [facility] [address] [place] [phone] Flores Dawn, LAB CLERK 100 [facility] [address] [place] [address] documented as of this encounter Visit Diagnoses Diagnosis Neuralgia and neuritis, unspecified documented in this encounter Care Teams Sandblast Operator Relationship Specialty Start Date End Date Ab Lee MD PCP - General 11/13/07 documented as of this encounter
--- OUTSIDE RECORDS SUMMARY | 2025-04-06 16:21 | XMS_ITS | Encounter Summary ---
Author Organization [facility] SBO AND TP P Address [facility] [place] [address] Phone Care Team Providers Care Sack Cleaner Name Role Phone Ab Lee MD Primary Care Provider [phone] Reason for Visit * Reason Comments Refill Request Encounter Details Date Type Department Care Team (Late st Contact Info) Description 06/25/2024 Refill [facility] [address] [place] [address] Thalia Flaherty MD [address] [place] [address] Chronic pelvic pain in female; General counseling and advice for contraceptive management Social History Tobacco Use Types Packs/Day Years [...] Start Date Job End Date 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 Flaherty Last pap date : 10/31/23 Result: Normal Last annual lead customer service representative exam date 10/31/23 Future office visit: none Patient notified of 24-48 hour turn around on refills, or new medication request or changes. Patient is informed to check with her pharmacy in 24-48 hours for prescription approval and is aware our office will only contact the patient if we have additional questions. Please review and sign orders. Route to triage pool. documented in this encounter Plan of Treatment Upcoming Encounters Date Type Department Care Team (Late st Contact Info) Description 04/17/2025 3:15 PM EDT Office Visit [facility] [address] [place] [phone] Thalia Singer, AERONAUTICAL PRODUCTS SALES ENGINEER [address] [place] [phone] 09/16/2025 8:30 AM EST Office Visit [facility] [place] [facility] [address] [place] [phone] Flores Dawn, AERONAUTICAL PRODUCTS SALES ENGINEER 100 [facility] [address] [place] [address] documented as of this encounter Visit Diagnoses Diagnosis Chronic pelvic pain in female Unspecified symptom associated with female genital organs General counseling and advice for contraceptive management Other general counseling and advice for contraceptive management documented in this encounter Care Teams Sack Cleaner Relationship Specialty Start Date End Date Ab Lee MD PCP - General 11/13/07 documented as of this encounter
--- OUTSIDE RECORDS SUMMARY | 2025-04-06 16:21 | XMS_ITS | Encounter Summary ---
Author Organization [facility] SBO AND TP P Address [address] [place] [address] [place] [address] Phone Care Team Providers Care Heart Doctor Name Role Phone Ab Lee MD Primary Care Provider [phone] Encounter Details Date Type Department Care Team (Late st Contact Info) Description 05/28/2024 Telephone - Conversion [facility] [place] [facility] [address] [place] [phone] Flores Dawn, GREY ROLL WORKER 100 [facility] [address] [place] [address] Social History Tobacco Use Types Packs/Day Years [...] Start Date 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 Date 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 Not on file [...] Description 04/17/2025 3:15 PM EDT Office Visit [address] [phone] Thalia Singer, GREY ROLL WORKER [address] [facility] [place] [phone] 09/16/2025 8:30 AM EST Office Visit [facility] [place] [facility] [address] [place] [phone] Flores Dawn, GREY ROLL WORKER 100 [facility] [address] [place] [address] documented as of this encounter Visit Diagnoses Not on filedocumented in this encounter Care Teams Heart Doctor Relationship Specialty Start Date End Date Ab Lee MD PCP - General 11/13/07 documented as of this encounter
--- OUTSIDE RECORDS SUMMARY | 2025-04-06 16:21 | XMS_ITS | Encounter Summary ---
Author Organization [facility] SBO AND TP P Address [facility] [place] [address] Phone Care Team Providers Care Accounting Recruiter Name Role Phone Ab Lee MD Primary Care Provider [phone] Reason for Visit * Reason Onset Date Comments Refill Request 08/22/2024 Encounter Details Date Type Department Care Team (Late st Contact Info) Description 08/22/2024 Refill [facility] [address] [place] [phone] [facility] [address] [place] [phone] Controlled type 2 diabetes mellitus without complication, without long-term current use of insulin (HCC) Social History Tobacco Use Types Packs/Day Years [...] Start Date 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 Date 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 Not on file [...] Author No 07/22/2021 8:[address] xenia Rcie Registered Nurse documented in this encounter Plan of Treatment Upcoming Encounters Date Type Department Care Team (Late Contact Info) Description 04/17/2025 3:15 PM EDT Office Visit [facility] [address] [place] [phone] Thalia Singer, SLIP PRESSER [address] [place] [phone] 09/16/2025 8:30 AM EST Office Visit [facility] [place] [facility] [address] [place] [phone] Flores Dawn, SLIP PRESSER 100 [facility] [address] [place] [address] documented as of this encounter Visit Diagnoses Diagnosis Controlled type 2 diabetes mellitus without complication, without long-term current use of insulin documented in this encounter Care Teams Accounting Recruiter Relationship Specialty Start Date End Date Ab Lee MD PCP - General 11/13/07 documented as of this encounter
--- OUTSIDE RECORDS SUMMARY | 2025-04-06 16:21 | XMS_ITS | Encounter Summary ---
Author Organization [facility] SBO AND TP P Address [facility] [place] [address] Phone Care Team Providers Care Supervisor Mold Shop Name Role Phone Ab Lee MD Primary Care Provider [phone] Encounter Details Date Type Department Care Team (Late st Contact Info) Description 02/09/2024 Telephone [facility] Medical Weight Management [facility] [address] [place] [address] Neha Katz, DINING CAR SERVER [address] [place] [address] Social History Tobacco Use Types Packs/Day Years [...] Start Date 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 documented in this encounter Plan of Treatment Upcoming Encounters Date Type Department Care Team (Late st Contact Info) Description 04/17/2025 3:15 PM EDT Office Visit [facility] [address] [place] [address] Thalia Singer, INSIDE METER TESTER [address] [place] [address] 09/16/2025 8:30 AM EST Office Visit [facility] [place] [facility] [address] [place] [phone] Flores Dawn, INSIDE METER TESTER 100 [facility] [address] [place] [address] documented as of this encounter Visit Diagnoses Not on filedocumented in this encounter Care Teams Supervisor Mold Shop Relationship Specialty Start Date End Date Ab Lee MD PCP - General 11/13/07 documented as of this encounter
--- OUTSIDE RECORDS SUMMARY | 2025-04-06 16:21 | XMS_ITS | Encounter Summary ---
Author Organization [facility] SBO AND TP P Address [facility] [address] [place] [address] Phone Care Team Providers Care Cashier Supervisor Name Role Phone Ab Lee MD Primary Care Provider [phone] Reason for Visit * Reason Onset Date Comments Refill Request 03/20/2024 Encounter Details Date Type Department Care Team (Late st Contact Info) Description 03/20/[address] [place] [address] Flores Dawn, FILLING HAULER 100 [facility] [address] [place] [address] Neuropathic pain; Lumbar radiculopathy; Left hip pain; Idiopathic peripheral neuropathy; High risk medication use Social History Tobacco Use Types Packs/Day Years [...] Start Date 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 Last OV-- 03/02/24 Next OV-- 05/28/24 documented in this encounter Plan of Treatment Upcoming Encounters Date Type Department Care Team (Late st Contact Info) Description 04/17/2025 3:15 PM EDT Office Visit [facility] [address] [place] [phone] Thalia Singer, FILLING HAULER [address] [place] [phone] 09/16/2025 8:30 AM EST Office Visit [facility] [place] [facility] [address] [place] [phone] Flores Dawn, FILLING HAULER 100 [facility] [address] [place] [address] documented as of this encounter Visit Diagnoses Diagnosis Neuropathic pain Neuralgia, neuritis, and radiculitis, unspecified Lumbar radiculopathy Thoracic or lumbosacral neuritis or radiculitis, unspecified Left hip pain Pain in joint, pelvic region and thigh Idiopathic peripheral neuropathy Unspecified hereditary and idiopathic peripheral neuropathy High risk medication use Encounter for long-term (current) use of other medications documented in this encounter Care Teams Cashier Supervisor Relationship Specialty Start Date End Date Ab Lee MD PCP - General 11/13/07 documented as of this encounter
--- OUTSIDE RECORDS SUMMARY | 2025-04-06 16:21 | XMS_ITS | Encounter Summary ---
Author Organization [facility] AND TP P Address [address] [place] [address] [place] [address] Phone Care Team Providers Care Car Spotter Name Role Phone Ab Lee MD Primary Care Provider [phone] Encounter Details Date Type Department Care Team (Late st Contact Info) Description 12/05/2023 Telephone - Conversion [facility] [place] [facility] [address] [place] [phone] Flores Dawn, PRINCIPAL CLOUD ARCHITECT 100 [facility] [address] [place] [address] Pain in left hip Social History Tobacco Use Types Packs/Day Years [...] 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 Date 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 Not [...] Description 04/17/2025 3:15 PM EDT Office Visit [address] [phone] Thalia Singer, PRINCIPAL CLOUD ARCHITECT [address] [place] [phone] 09/16/2025 8:30 AM EST Office Visit [facility] [place] [facility] [address] [place] [phone] Flores Dawn, PRINCIPAL CLOUD ARCHITECT 100 [facility] [address] [place] [address] documented as of this encounter Visit Diagnoses Diagnosis Pain in left hip Pain in joint, pelvic region and thigh documented in this encounter Care Teams Car Spotter Relationship Specialty Start Date End Date Ab Lee MD PCP - General 11/13/07 documented as of this encounter
--- OUTSIDE RECORDS SUMMARY | 2025-04-06 16:21 | XMS_ITS | Encounter Summary ---
Author Organization [facility] SBO AND TP P Address [facility] [place] [address] Phone Care Team Providers Care Taker Away Name Role Phone Ab Lee MD Primary Care Provider [phone] Reason for Visit * Reason Comments Refill Request Encounter Details Date Type Department Care Team (Late st Contact Info) Description 02/04/2024 Refill 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 Orth[facility] & [facility] [place] [facility] [address] [place] [phone] Flores Dawn, MAGNETO REPAIRER 100 [facility] [address] [place] [address] documented as of this encounter Visit Diagnoses Diagnosis Controlled type 2 diabetes mellitus without complication, without long-term current use of insulin documented in this encounter Care Teams Taker Away Relationship Specialty Start Date End Date Ab Lee MD PCP - General 11/13/07 documented as of this encounter
--- OUTSIDE RECORDS SUMMARY | 2025-04-06 16:21 | XMS_ITS | Encounter Summary ---
Author Organization [facility] SBO AND TP P Address [facility] [place] [address] Phone Care Team Providers Care Xray Tech Name Role Phone Ab Lee MD Primary Care Provider [phone] Encounter Details Date Type Department Care Team (Late st Contact Info) Description 06/28/2023 Telephone [facility] Medical Weight Management [facility] [address] [place] [phone] [facility] [address] [place] [address] Social History Tobacco Use Types Packs/Day Years Used Date Smoking Tobacco: Every Day Cigarettes 0.5 14 Smokeless Tobacco: Never Alcohol Use Standard Drinks/Week Comments No 0 (1 standard drink = 0.6 oz pur e alcohol) Education Answer Date Recorded What is the [...] Date 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 No / Unsure 06/25/2023 9:30 PM EDT documented as of this encounter Functional Status [...] encounter Miscellaneous Notes * Telephone Encounter - Amy Richardson (Adarsh) - 06/28/2023 7:51 AM EDT Pt requesting refill for Ozempic. She came in today and had to reschedule due to a scheduling error. Labs are in as well if you'd like to take a look. Please advise, Adarsh Sun documented in this encounter Plan of Treatment Upcoming Encounters Date Type Department Care Team (Late st Contact Info) Description 04/17/2025 3:15 PM EDT Office Visit [facility] [address] [place] [address] Thalia Singer, RERECORDING MIXER [address] [place] [phone] 09/16/2025 8:30 AM EST Office Visit [facility] [place] [facility] [address] [place] [phone] Flores Dawn, RERECORDING MIXER 100 [facility] [address] [place], [place] [phone] documented as of this encounter Visit Diagnoses Not on filedocumented in this encounter Care Teams Xray Tech Relationship Specialty Start Date End Date Ab Lee MD PCP - General 11/13/07 documented as of this encounter
--- OUTSIDE RECORDS SUMMARY | 2025-04-06 16:21 | XMS_ITS | Encounter Summary ---
Author Organization [facility] SBO AND TP P Address [facility] [place] [address] Phone Care Team Providers Care Senior Database Engineer Name Role Phone Ab Lee MD Primary Care Provider [phone] Reason for Visit * Reason Comments Refill Request Encounter Details Date Type Department Care Team (Late st Contact Info) Description 03/13/2023 Refill [facility] Medical Weight Management [facility] [address] [place] [phone] [facility] [address] [place] [phone] Controlled type 2 diabetes mellitus without complication, without long-term current use of insulin ([facility]) Social History Tobacco Use Types Packs/Day Years [...] Start Date 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 Not on file [...] Entry Date Author No 07/22/2021 8:[address] [facility] Registered Nurse documented in this encounter Plan of Treatment Upcoming Encounters Date Type Department Care Team (Late st Contact Info) Description 04/17/2025 3:15 PM EDT Office Visit [facility] [address] [place] [address] Thalia Singer, SALES PRODUCT MANAGER [address] [place] [address] 09/16/2025 8:30 AM EST Office Visit [facility] [place] [address] [phone] Flores Dawn, SALES PRODUCT MANAGER 100 [facility] [address] [place] [address] documented as of this encounter Visit Diagnoses Diagnosis Controlled type 2 diabetes mellitus without complication, without long-term current use of insulin documented in this encounter Care Teams Senior Database Engineer Relationship Specialty Start Date End Date Ab Lee MD PCP - General 11/13/07 documented as of this encounter
--- OUTSIDE RECORDS SUMMARY | 2025-04-06 16:21 | XMS_ITS | Encounter Summary ---
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 Not on [...] 07/22/2021 8:16 AM Sugey Rice Registered Nurse * Because of a physical, [...] Description 04/17/2025 3:15 PM EDT Office Visit [address] [phone] Thalia Singer, FORESTRY PATROLMAN [address] [place] [phone] 09/16/2025 8:30 AM EST Office Visit [facility] Orthopedic [facility] [place] [facility] [address] [place] [phone] Flores Dawn, FORESTRY PATROLMAN 100 [facility] [address] [place] [address] documented as of this encounter Visit Diagnoses Diagnosis Neuralgia and neuritis, unspecified documented in this encounter Care Teams Death Surveys Coder Relationship Specialty Start Date End Date Ab Lee MD PCP - General 11/13/07 documented as of this encounter
--- OUTSIDE RECORDS SUMMARY | 2025-04-06 16:21 | XMS_ITS | Encounter Summary ---
Author Organization [facility] SBO AND TP P Address [facility] [place] [address] Phone Care Team Providers Care Electrical Estimator Name Role Phone Ab Lee MD Primary Care Provider [phone] Reason for Visit * Reason Comments Refill Request Encounter Details Date Type Department Care Team (Late st Contact Info) Description 01/10/2023 Refill [facility] Medical Weight Management - [place] [address] [place] [address] Neha Katz, SCALPING MACHINE OPERATOR [address] [place] [address] Controlled type 2 diabetes mellitus without complication, [...] Start Date 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 [address] [place] [phone] Thalia Singer, PLANNER INTERNSHIP [address] [place] [phone] 09/16/2025 8:30 AM EST Office Visit [facility] Orthopedic & Sports [place] [facility] [address] [place] [phone] Flores Dawn, PLANNER INTERNSHIP 100 [facility] [address] [place], [place] [phone] documented as of this encounter Visit Diagnoses Diagnosis Controlled type 2 diabetes mellitus without complication, without long-term current use of insulin documented in this encounter Care Teams Electrical Estimator Relationship Specialty Start Date End Date Ab Lee MD PCP - General 11/13/07 documented as of this encounter
--- OUTSIDE RECORDS SUMMARY | 2025-04-06 16:21 | XMS_ITS | Referral Summary ---
Author Organization [facility] Address [address] [place] [address] Phone Care Team Providers Care Striping Machine Operator Name Role Phone Ab Lee MD Primary Care Provider Encounters Date Type Department Care Team Description 03/26/2025 Telephone [facility] Central Scheduling [address] [place] [address] Ariel Malhotra MD 03/25/2025 Refill [facility] [address] [place] [address] Thalia Singer, ELECTRICIAN APPRENTICE Hidradenitis suppurativa (Primary Dx) 03/06/2025 9:45 AM EDT Office Visit [facility] [address] [place] [address] Ab Lee MD Chronic tension-type headache, not intractable (Primary Dx); Loss of balance; Muscle twitching; Family history of stroke; Depression, recurrent (HCC); Essential hypertension; Morbid obesity with BMI of 45.0-49.9, adult (HCC); Controlled type 2 diabetes mellitus without complication, without long-term current use of insulin 03/05/[address] [facility] [address] [place] [address] Clinton Howell, Registered Nurse 03/04/2025 9:50 AM EDT Office Visit [facility] [address] [place] [phone] Cinthya May PA-C Essential hypertension (Primary Dx) 03/04/2025 8:30 AM EDT Office Visit [facility] [address] [place] [phone] Flores Dawn CNP Lumbar radiculopathy (Primary Dx); Facet arthritis of lumbar region; Encounter for medication management; High risk medication use; Neuropathic pain; Idiopathic peripheral neuropathy; Neuralgia and neuritis, unspecified; Left hip pain 02/28/2025 Refill [facility] [address] [place] [phone] Flores Dawn CNP Idiopathic peripheral neuropathy; High risk medication use; Neuropathic pain; Lumbar radiculopathy; Neuralgia and neuritis, unspecified; Left hip pain; Encounter for medication management 02/26/2025 Refill [facility] [address] [place] [address] Thalia Singer CNP 02/11/2025 Results Follow-Up [facility] [address] [place] [phone] Cielo Mock CNP CYTOLOGY CLOTHESPIN MACHINE OPERATOR 01/28/2025 6:25 PM EDT [facility] [address] [place] [address] Cielo Mock CNP Encounter for gynecological examination without abnormal finding 01/28/2025 6:00 PM EDT Office Visit [facility] [address] [place] [phone] Cielo Mock CNP Encounter for gynecological examination without abnormal finding (Primary Dx); Chronic pelvic pain in female; Encounter for surveillance of contraceptive pills; Visit for screening mammogram; Yeast vaginitis; PMS (premenstrual syndrome) from Last 3 Months Allergies Active Allergy Reactions Criticality Noted Date Comments Amitriptyline 12/14/2002 moser Xkoktafon-Lvdcmahh-Re Other (See Comments) 10/22/2013 Blacked out. Shaking, hallucinations Chocolate (Food) 11/21/2007 Sneeze, itch Diclofenac 12/14/2002 diarrhea Lisinopril Anaphylaxis High 11/20/2024 Metoprolol Anaphylaxis High 11/20/2024 Nitrofurantoin Angioedema,Anaphyla xis High 09/17/2021 Thiazide-Type Diuretics Other (See Comments) 01/04/2014 Increased liver enzymes Medications ALPRAZolam (XANAX) 1 MG TABSIndications: PRN Take 1 mg by mouth. Active nystatin (MYCOSTATIN) 653096 UNIT/GM POWD Apply topically 2 (two) times daily. 45 g 1 07/25/20 Active Additional Information Patient not taking.Reported on 03/04/2025 Multiple Vitamin (MULTIVITAMIN) TABS Take 1 tablet by mouth daily. Active ibuprofen (ADVIL,MOTRIN) 200 mg tablet Take 200 mg by mouth every 6 (six) hours as needed for Mild Pain (1-3). Active Liniments (BIOFREEZE EX) Apply topically. Active chlorhexidine (HIBICLENS) 4 % LIQD Apply topically daily. Apply daily in shower 236 mL 5 08/23/20 Active Additional Information Patient not taking.Reason: Other (PRN HS), Reported on 03/04/2025 nystatin (MYCOSTATIN) 776567 UNIT/GM OINT Apply topically 2 (two) times daily. 30 g 1 10/31/19 24 Active Additional Information Patient not taking.Reason: Other (PRN yeast), Reported on 03/04/2025 ketoconazole (NIZORAL) 2 % CREA Apply to affected areas BID 60 g 1 02/27/20 24 Active Additional Information Patient taking differently: No details specified, Reason: PRN for HS, Reported on 03/04/2025 famotidine (PEPCID) 20 mg TABS Take 1 tablet by mouth 2 (two) times daily. 180 tablet 5 3:24 PM EDT 11/21/19 25 Active amLODIPine (NORVASC) 5 MG TABS Take 1 tablet by mouth daily. 30 tablet 5 2:21 PM EDT 03/11/20 25 Active Additional Information Patient not taking.Reason: Other (made B/P go up per patient), Reported on 03/04/2025 norethindrone (JENCYCLA) 0.35 MG TABSIndications: Chronic pelvic pain in female,Encounter for surveillance of contraceptive pills TAKE 1 TABLET BY MOUTH DAILY 84 tablet 4 01/29/20 Active fluconazole (DIFLUCAN) 150 mg tabletIndication s:Yeast vaginitis One now and repeat in 3 days. 2 tablet 1 01/29/20 Active Additional Information Patient not taking.Reason: Other (completed), Reported on 03/04/2025 cyclobenzaprine (FLEXERIL) 5 MG TABSIndications: Muscle Spasm Take 1-2 tablets by mouth daily as needed for up to 15 days. Indications: Muscle Spasm 30 tablet 11:34 AM EDT 03/04/20 Active Additional Information Patient not taking.Reason: Other (not started yet), Reported on 03/04/2025 gabapentin (NEURONTIN) 400 MG CAPSIndications: Neuropathic Pain Take 1 capsule by mouth 4 (four) times daily as needed for up to 180 days. Indications: Neuropathic Pain 360 capsule 1 11:34 AM EDT 03/04/20 25 2024 Active hydroCHLOROthiaz edd (MICROZIDE) 12.5 MG CAPS Take 1 capsule by mouth every morning. 90 capsule 03/06/20 Active amLODIPine (NORVASC) 2.5 MG TABS Take 1 tablet by mouth daily. 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 Overview (07/06/2022): Found with Genesigt testing Idiopathic peripheral neuropathy 06/24/2021 Ganglion cyst of right foot 04/28/2021 Controlled type 2 diabetes m ellitus without complication, without long-term current use of insulin 12/21/2020 Major depression, recurrent, chronic 10/08/2020 Cholelithiasis without cholangitis 06/03/2016 Urinary frequency 02/17/2016 Vestibulitis of vagina 02/17/2016 High-tone pelvic floor dysfunction 02/17/2016 Dyspareunia 02/17/2016 Skin lesion 02/17/2016 Recurrent UTI 02/17/2016 Class 3 body mass index (BMI) of 50.0 to 59.9 Pure hypercholesterolemia 06/20/2014 Pelvic pain in female 04/08/2014 HTN (hypertension) 10/05/2013 Other and unspecified ovarian cyst 06/21/2012 Tobacco use disorder 04/11/2012 Myalgia and myositis 11/14/2002 Overview (11/14/2002): fibromyalgia Varicella Other acne Esophageal reflux Depression, recurrent Overview (05/29/2012): Dr. Clarence Bo Family history of malignant neoplasm of breast Overview (06/13/2012): MOTHER AGE 27 Resolved Problems Problem Noted Date Diagnosed Date Resolved Date Morbid obesity with BMI of 50.0-59.9, adult 12/06/2020 08/11/2022 Morbid obesity with body mas s index (BMI) of 45.0 to 49.9 in adult 09/22/2019 08/11/2022 GhaFired Patient 10/12/2004 10/20/2005 Immunizations Immunization Administration Dates Next Due Betamethasone 01/13/2015 COVID-19 mRNA Vaccine 100 mc g dose (Moderna 18+) 07/31/2021,12/04/2020,11/06/2020 FLU VACCINE, 3 YRS AND OLDER 07/03/2013 Hepatitis B, Adult 08/18/2000,02/27/1999, 999 Influenza Whole, IM 06/22/2017,07/02/2013,2002 Measles/Mumps/Rubella, SQ 04/15/1995 Pneumococcal Polysaccharide (PPV23) Pneumovax-23 10/23/2013 Tdap (Tetanus, Diphtheria & Pertussis) 1 dT, adult 01/03/1995 Social History Tobacco Use Types Packs/Day Years [...] file Not on file 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 Not on file Not on file Last Filed Vital Signs Vital Sign Reading Time Taken Comments Blood Pressure 148/108 03/06/2025 9:56 AM EDT Pulse 90 03/06/2025 9:56 AM EDT Temperature 36.8 C (98.2 F) 03/04/2025 9:58 AM EDT Respiratory Rate 16 03/04/2025 9:58 AM EDT Oxygen Saturation 100% 03/04/2025 9:58 AM EDT Inhaled Oxygen Concentration - - Weight 150.6 kg (332 lb) 03/06/2025 9:56 AM EDT Height 175.3 cm (5' 9 ) 03/06/2025 9:56 AM EDT Body Mass Index 49.03 03/06/2025 9:56 AM EDT Functional Status * Are you deaf or [...] 8:[address] xenia Rice, Registered Nurse Mental Status * Because of a physical, mental, or emotional condition, do you have serious difficulty concentrating, remembering, or making decisions? (5 years old or older) Answer Entry Date Author No 07/22/2021 8:16 AM Sugey Rice Registered Nurse Plan of Treatment Upcoming Encounters Date Type Department Care Team (Late st Contact Info) Description 04/17/2025 3:15 PM EDT Office Visit [facility] [address] [place] [phone] Thalia Singer, ELECTRICIAN APPRENTICE [address] [place] [phone] 09/16/2025 8:30 AM EST Office Visit [facility] [address] [place] [phone] Flores Dawn, ELECTRICIAN APPRENTICE [address] [facility] [address] [place] [address] Medical Devices Implanted Type Area Patent Attorney Device Identifier Shelf Expiration Date Model / Serial / Lot Gallbladder Clip-06/03/2016 Implanted: 016 (Quantity not on file) Clip ETHICON LIGAMAX 5MM CLIP / / Description:3T OR LESS MAX SPATIAL GRADIENT OF 6.5T/M 1.7 W/KG FOR 20 MIN OF SCANNING (PER SEQUENCE) Procedures Procedure Name Priority Date/Time Associated Diagnosis Comments CYTOLOGY CLOTHESPIN MACHINE OPERATOR Today 01/28/2025 6:22 PM EDT Encounter for gynecological examination without abnormal finding CMP (BAMP,TP,ALB,TBIL,A LK,AST,ALT) Routine 12/15/2024 10:13 AM EDT Abnormal chest x-ray HEMOGLOBIN A1C Routine 10/12/2024 1:47 PM EST Controlled type 2 diabetes mellitus without complication, without long-term current use of insulin (HCC) MICROALBUMIN, URINE RANDOM (INCLUDES MALB/CREAT RATIO) Routine 10/11/2023 9:57 AM EST Controlled type 2 diabetes mellitus without complication, without long-term current use of insulin (HCC) LIPID PANEL (CHOL, TRIG, HDL, LDL) Routine 06/20/2023 8:39 AM EDT Morbid obesity with BMI of 45.0-49.9, adult (HCC) Routine general medical examination at a health care facility SURI DIAG BILAT Routine 06/04/2010 2:57 PM EDT from Last 3 Months or Most Recently Relevant to Health Maintenance Results * CYTOLOGY CLOTHESPIN MACHINE OPERATOR (01/28/2025 6:22 PM EDT) CYTOLOGY-CLOTHESPIN MACHINE OPERATOR CYTOLOGY GYNECOLOGICAL REPORT Name: JAYA BUSH EPI#: [id number] Case #: [id number] Final Cytologic Diagnosis A. Thinprep Cervical/Endocervic al with HPV screen and 16/18 Genotyping if Indicated: Adequacy: Satisfactory for evaluation, ABSENT endocervical transformation zone component. Interpretation: Negative for intraepithelial lesion or malignancy. Fungal organisms morphologically consistent with Ana spp. This specimen has been analyzed by the ThinPrep Imaging System (Praedicat.), an automated imaging and review system, which assists the frit mixer and burner and/or pathologist in evaluation of cells on Thinprep Pap tests. Electronically Signed Out By TYRON Artis (ASCP) HPV HIGH RISK WITH REFLEX Not Detected 01/30/2025 Text/Comments: This test was performed using the FDA Approved APTIMA HPV mRNA assay which detects E6/E7 messenger RNA of High Risk HPV types (16, 18, 31, 33, 35, 39, 45, 51, 52, 56, 58, 59, 66, and 68). This assay is intended for use in women 21 years or older with ASC-US cervical cytology or women 30 years or older. This assay is not intended to substitute for regular cervical cytology screening. Detection of HPV using the APTIMA HPV Assay does not differentiate HPV types and cannot evaluate persistence of any one type. The use of this assay has not been evaluated for the management of HPV vaccinated women, women with prior ablative or excisional therapy, hysterectomy, or who are . Sensitivities may be affected by collection methods, stage of infection, and the presence of interfering substances. Results of this assay should be interpreted in conjunction with other available laboratory and clinical data. Thin Prep 01/29/2025 CERVIX 01/29/2025 Source of Specimen(s) A: Thinprep Cervical/Endocervic al with HPV screen and 16/18 Genotyping if Indicated Clinical History Menstrual History: Hormone therapy, NOS Normal Contraceptive History: OC/BCP Signed out at [facility], [address] [place] [address] [facility] Non-Formatted Report [facility] 01/28/2025 6:22 PM EDT 01/29/2025 9:04 AM EDT Cielo Mock CNP PATHOLOGY/CYTOLOGY ORDERABLES Fi nal Result [facility] [address] [place] [address] * (ABNORMAL) CMP (BMP,TP,ALB,TBIL,ALK,AST,ALT) (12/15/2024 10:13 AM EDT) SODIUM 137 135 - 145 mmol/L [facility] POTASSIUM 4.4 3.6 - 5.1 mmol/L [facility] CHLORIDE 105 98 - 111 mmol/L [facility] CO2 27 21 - 31 mmol/L [facility] GLUCOSE, RANDOM 167(H) 70 - 99 mg/dL [facility] BLD UREA NITROGEN 8 8 - 26 mg/dL [facility] CREATININE 0.71 0.60 - 1.20 mg/dL [facility] CALCIUM 8.4(L) 8.5 - 10.4 mg/dL [facility] TOTAL PROTEIN 6.2 6.0 - 8.0 g/dL [facility] ALBUMIN 3.8 3.5 - 5.7 g/dL [facility] TOTAL BILIRUBIN 0.4 0.0 - 1.2 mg/dL [facility] ALK PHOSPHATASE 70 35 - 135 IU/L [facility] AST 43(H) 10 - 40 IU/L [facility] ALT 33 10 - 60 IU/L [facility] ESTIMATED GFR 109 >59 mL/min/1.7 3 m2 [facility] Comment:Estimated GFR was ca lculated using the CKD-EPI cr (2020) equation refit without race. The equation is recommended by the National Kidney Foundation - [place] Society of Nephrology Task Force. ANION GAP 5 4 - 16 mmol/L [facility] Comment:Tested at [facility] [address] [place] [id number] Whole Blood 12/15/2024 10:1 3 AM EDT 12/15/2024 10:14 AM EDT us Ab Lee MD LAB BLOOD ORDERABLES Final Resu lt [facility] [address] [place] [address] [facility] [address] [place] [address] * (ABNORMAL) HEMOGLOBIN A1C (10/12/2024 1:47 PM EST) HEMOGLOBIN A1C 5.7(H) 4.2 - 5.6 % [facility] TEST SITE EST AVERAGE GLUCOSE 117 mg/dL [facility] Comment: (NOTE) REFERENCE RANGE: Normal: 4.0-5.6% Pre-diabetes: 5.7-6.4% Provisional diagnosis of diabetes: >6.4% Hgb F>10% and anything which shortens red cell survival, such as hemolytic anemia, or unstable hemoglobin variants such as HbSS, HbSC, or HbCC, will lower the HbA1c value associated with a given level of glycemic control. Tested at: [place] [address] Whole Blood 10/12/2024 1:47 PM EST 10/12/2024 5:38 PM EST Ab Lee MD LAB BLOOD ORDERABLES Final Resu lt Performing Organization Address [facility] de Phone Number [facility] [address] [place], [place] [id number] [facility] TEST SITE * MICROALBUMIN, URINE RANDOM (INCLUDES MALB/CREAT RATIO) (10/11/2023 9:57 AM EST) MICROALBUMIN, UR <12.0 mg/L [facility] 1 CREATININE, URINE RANDOM 127.5 mg/dL [facility] 1 MICROALB/CREAT RATIO See Comment mg/g [facility] 1 Comment: (NOTE) Because the albumin level is below the level of detection in this urine specimen, the laboratory is unable to calculate a reliable albumin/creatinine ratio. Microalbuminuria is unlikely if the urine albumin concentration is less than 20-30 mg/L in a random specimen. Tested at: [facility], [address] [place] [address] Urine 10/11/2023 9:57 AM EST 10/11/2023 12:00 PM EST Ab Lee MD URINE ORDERABLES NO PER Final R esult Performing Organization Address [facility] Co de Phone Number [facility] [address] [place] [address] [facility] 1 * (ABNORMAL) LIPID PANEL (CHOL, TRIG, HDL, LDL) (06/20/2023 8:39 AM EDT) CHOLESTEROL 191 <200 mg/dL CREDIT [facility]ARD INTERVIEW[facility] TRIGLYCERIDE 142 <150 mg/dL [facility] Comment: Reference Interval: Fasting <150 mg/dL Non-Fasting <175 mg/dL HDL CHOLESTEROL 47(L) >50 mg/dL [facility] LDL CHOLESTEROL (CALCULATED) 116 <130 mg/dL [facility] Comment: Interpretive Guidelines: <100 Optimal 100-129 Near Optimal 130-159 Borderline High >159 High TOTAL NON HDL CHOL 144(H) <130 mg/dL [facility] Comment:Tested at [facility] [address] [facility] [address] Whole Blood 06/20/2023 8:39 AM EDT 06/20/2023 12:07 PM EDT us Nadia Graff ELECTRICIAN APPRENTICE LAB BLOOD ORDERABLES Fin al Result Performing Organization Address City/State/[facility] Co de Phone Number [facility] [address] [place], [place] [phone] CHEMISTRY HEMATOLOGY [address] [place] [address] * Mammogram Bilat Digital W Cad (06/04/2010 2:57 PM EDT) Anatomical Region Laterality Modality Chest Bilateral Mammography 06/04/2010 2:57 PM EDT Narrative 06/05/2010 8:22 AM EDT This document is confidential medical information. Unauthorized disclosure or use of this information is prohibited by law. If you are not the intended recipient of this document, please advise us by calling immediately [phone]. [place], [place] [address] Mammography Report Date: 06/04/10 Name: JAYA GERMAN Unit #: [id number] Loc: [facility] Location: [facility] BREAST COVINA : 81 Ordering Physician: Paula Fink M.D. Procedure: Mammogram Bilat Digital W CAD Exam Date/Time: 06/04/10 1457 Admitting Diagnosis: RICKY BREAST LUMPS, POSSIBLE FBD BASELINE MAMMOGRAM WITH CAD 06/04/10 INDICATIONS: Lumpy breasts. Strong family history (mother, age 27; grandmother, age 27). FINDINGS: The breast tissue is almost entirely fat. No discrete mass or asymmetric density is identified. No suspicious calcifications are seen. CAD detects no abnormal findings. IMPRESSION: Negative. RECOMMENDATIONS: Annual screening mammography. ACR CATEGORY 1: NEGATIVE Dictated by: Shahram Parmar M.D. DD 22 12 Procedure Note Shahram Parmar MD - 02/12/2012 This document is confidential medical information. Unauthorizeddisclosure or use of this information is prohibited by law. If you are not the intended recipientof this document, please advise us by calling immediately [phone]. [place], [place] [address] Mammography Report Date: 06/04/10 Name: JAYA GERMAN Unit #: [id number] Loc: [facility] Location: [facility] : 81 Ordering Physician: Paula Fink M.D. Procedure: Mammogram Bilat Digital W CAD Exam Date/Time: 06/04/10 145 Admitting Diagnosis: RICKY BREAST LUMPS, POSSIBLE FBD BASELINE MAMMOGRAM WITH CAD 06/04/10 INDICATIONS: Lumpy breasts. Strong family history (mother, age 27;grandmother, age 27). FINDINGS: The breast tissue is almost entirely fat. No discrete massor asymmetric density is identified. No suspicious calcifications are seen. CAD detects no abnormal findings. IMPRESSION: Negative. RECOMMENDATIONS: Annual screening mammography. ACR CATEGORY 1: NEGATIVE Dictated by: Shahram Parmar M.D. DD 22 12 us Paula Fink MD [facility] Final Result from Last 3 Months or Most Recently Relevant to Health Maintenance Administered Medications Insurance [facility] LIZZY TIER 1 Care Teams Striping Machine Operator Relationship Specialty Start Date End Date Ab Lee MD PCP - General 11/13/07
--- OUTSIDE RECORDS SUMMARY | 2025-04-06 16:22 | XMS_ITS | Encounter Summary ---
Author Organization [facility] Address [address] [address] Phone Care Team Providers Care Shoe Cobbler Name Role Phone Ab Lee MD Primary Care Provider [phone] Reason for Referral * - Closed Specialty Diagnoses / Procedures Referred By Rao katz Referred To Contact Radiology Procedures CT HEAD WO CONTRAST [facility] Internal Medicine [address] [place] [address] Phone: tel: Referral ID Status Reason Start Date Expiration Date Visits Re quested Visits Authorized [id number] Closed 01/04/2013 01/04/2014 1 1 Encounter Details Date Type Department Care Team ([facility] Contact Info) Description 01/04/2013 SCAN [facility] Internal Medicine [address] [place] [address] Social History Tobacco Use Types Packs/Day Years Used Date Smoking Tobacco: Every Day Cigarettes 0.5 5 Smokeless Tobacco: Never Alcohol Use Standard Drinks/Week Comments No 0 (1 standard drink = 0.6 oz pur e alcohol) Comments No Sex and Gender Information Value Date Recorded Sex Assigned at Not on file Legal Sex Female 3:25 AM EDT Gender Identity Not on file Sexual Orientation Not on file Occupation Industry Job Start Date Job End Date Not on file Not on file Not on file Not on file documented as of this encounter Plan of Treatment Upcoming Encounters Date Type Department Care Team (Late st Contact Info) Description 04/17/2025 3:15 PM EDT Office Visit [facility] [address] [place] [address] Thalia Singer, POWERHOUSE ELECTRICIAN [address] [place] [phone] 09/16/2025 8:30 AM EST Office Visit [facility] [address] [place] [address] Flores Dawn, POWERHOUSE ELECTRICIAN [address] [facility] [place] [address] documented as of this encounter Procedures Procedure Name Priority Date/Time Associated Diagnosis Comments CT HEAD WO CONTRAST Routine 10/25/2012 documented in this encounter Results * CT HEAD WO CONTRAST (10/25/2012) Anatomical Region Laterality Modality Brain Computed Tomogra phy us Historical Med CT Final Result documented in this encounter Visit Diagnoses Not on filedocumented in this encounter Additional Health Concerns Infection Onset Date Last Indicated Resolved Time COVID-19 Suspect 10/20/2021 10/20/2021 10/20/2021 3:59 PM EST COVID-19 Suspect 10/20/2021 10/20/2021 10/20/2021 4:10 PM EST documented as of this encounter Care Teams Shoe Cobbler Relationship Specialty Start Date End Date Ab Lee MD PCP - General 11/13/07 documented as of this encounter
--- OUTSIDE RECORDS SUMMARY | 2025-04-06 16:22 | XMS_ITS | Encounter Summary ---
Author Organization [facility] Address [facility] [place] [address] Phone Care Team Providers Care Soda Room Operator Name Role Phone Ab Lee MD Primary Care Provider [phone] Reason for Visit * Reason Comments Refill Request Encounter Details Date Type Department Care Team (Late st Contact Info) Description 11/04/2024 Refill [facility] Medical Weight Management [facility] [address] [place] [phone] [facility] [address] [place] [phone] Controlled type 2 diabetes mellitus without complication, without long-term current use of insulin ([facility]) Social History Tobacco Use Types [...] Description 04/17/2025 3:15 PM EDT Office Visit [facility] [address] [place] [address] Thalia Singer, FLAME CUTTING MACHINE OPERATOR [address] [place] [address] 09/16/2025 8:30 AM EST Office Visit [facility] Orthopedic & Sports Paige [facility] [address] [place] [phone] Flores Dawn, FLAME CUTTING MACHINE OPERATOR [address] [facility] [address] [place] [address] documented as of this encounter Visit Diagnoses Diagnosis Controlled type 2 diabetes mellitus without complication, without long-term current use of insulin documented in this encounter Care Teams Soda Room Operator Relationship Specialty Start Date End Date Ab Lee MD PCP - General 11/13/07 documented as of this encounter
--- OUTSIDE RECORDS SUMMARY | 2025-04-06 16:22 | XMS_ITS | Encounter Summary ---
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 Not on file [...] Rice Registered Nurse documented in this encounter Miscellaneous Notes * Telephone Encounter - Skye Borrero - 03/26/2025 9:26 AM EDT Left message for patient to schedule appointment per Neurology referral / Outreach sent through Meme- delayed [email or web address] set for one week documented in this encounter Plan of Treatment Upcoming Encounters Date Type Department Care Team (Late st Contact Info) Description 04/17/2025 3:15 PM EDT Office Visit [facility] [address] [place] [phone] Thalia Singer, AWNING CRAFTSMAN [address] [place] [phone] 09/16/2025 8:30 AM EST Office Visit [facility] Orth[facility] [place] [facility] [address] [place] [phone] Flores Dawn, AWNING CRAFTSMAN [address] [facility] [address] [place] [address] documented as of this encounter Visit Diagnoses Not on filedocumented in this encounter Care Teams General Labor Forklift Operator Relationship Specialty Start Date End Date Ab Lee MD PCP - General 11/13/07 documented as of this encounter
--- OUTSIDE RECORDS SUMMARY | 2025-04-06 16:22 | XMS_ITS | Clinical Summary ---
Author Organization [facility] Address [place] [address] Phone Care Team Providers Care Nipping Machine Operator Name Role Phone Ab Lee MD Primary Care Provider [phone] Allergies Active Allergy Reactions Criticality Noted Date Comments Adhesive Tape-Silicones 10/24/2013 Amitriptyline 10/25/2012 Bromphed 10/23/2013 Chocolate Flavor Itching Medium Lisinopril Other (See Comments) 11/16/2024 Angiodema Brexpiprazole Nausea And Vomiting 03/03/2017 Thiazides Swelling Medium 12/02/2015 Medications * This document contains information received from the source organization and may not represent a complete record from that organization. esomeprazole (NEXIUM) 20 mg Oral Capsule, Delayed Release(E.C.) Take by mouth daily. Active FLUoxetine (PROZAC) 20 mg Oral Capsule TAKE 1 CAPSULE BY MOUTH DAILY 100 Capsule 5 Active dexmethylpheni date (FOCALIN) 10 mg Oral Tablet Take 1 Tablet by mouth 2 times daily. 60 Tablet 5 Active ALPRAZolam (XANAX) 1 mg Oral TabletIndicati ons:Generalize d anxiety disorder,Panic disorder with agoraphobia,Pa maren disorder,MIGUELINA (generalized anxiety disorder),Adju stment disorder with anxiety,Anxiet y and depression TAKE 1 TABLET BY MOUTH 4 TIMES A DAY NEEDED 120 Tablet 5 Active ALPRAZolam (XANAX) 1 mg Oral TabletIndicati ons:Generalize d anxiety disorder,Panic disorder with agoraphobia,Pa maren disorder,MIGUELINA (generalized anxiety disorder),Adju stment disorder with anxiety,Anxiet y and depression TAKE 1 TABLET BY MOUTH 4 TIMES A DAY NEEDED 120 Tablet 2 5 025 Discontinued ondansetron (ZOFRAN-ODT) 4 mg Oral Tablet, Rapid Dissolve Dissolve 1 Tablet by mouth every 6 hours as needed for Nausea for up to 30 days. 10 Tablet 5 025 Active Problems Patient Care Coordination No te Formatting of this note migh t be different from the original. Dr. Corrales CSA NEEDS UP DATED FOR UDS 09/27/16 DUE Ac 10/02/18 Problem Noted Date Diagnosed Date Delirium 11/16/2024 CO2 narcosis 11/16/2024 Acute on chronic respiratory failure with hyperc apnia 11/16/2024 Obesity hypoventilation syndrome 11/16/2024 Angioedema 11/16/2024 AMS (altered mental status) 04/26/2024 Episode of confusion 04/26/2024 Dizziness 04/26/2024 POTS (postural orthostatic tachycardia syndrome) 04/26/2024 Essential hypertension 04/26/2024 Decreased level of consciousness 04/25/2024 Occupation-related stress disorder 12/07/2016 Generalized anxiety disorder 12/07/2016 Binge eating 09/27/2016 Major depression, recurrent, chronic 09/27/2016 Chest pain 01/21/2016 Syncope, near 10/24/2013 Medication adverse effect 10/24/2013 Fatty liver 10/24/2013 HTN 10/25/2012 Morbid obesity 10/25/2012 Anxiety and depression 10/25/2012 Headache 10/25/2012 GERD (gastroesophageal reflux disease) 3 Fibromyalgia 10/25/2012 Tobacco abuse 10/25/2012 Resolved Problems Problem Noted Date Diagnosed Date Resolved Date Acute left-sided weakness 10/25/2012 Encounters * This document contains information received from the source organization and may not represent a complete record from that organization. Date Type Department Care Team Description 03/05/2025 2:06 PM EDT - 03/05/2025 5:12 PM EDT Emergency [facility] Emergency [address] [place] [address] Lashawn Whelan MD Uncontrolled hypertension (Primary Dx) Discharge Disposition: Home or Self Care from Last 3 Months Immunizations Immunization Administration Dates Next Due Influenza Patient Reported 07/02/2013 Pneumococcal Polysaccharide 23 Valent 10/23/2013 Surgical History Surgery Date Site/Laterality Comments WISDOM TOOTH EXTRACTION GENITAL WARTS SURGERY CHOLECYSTECTOMY 05/13/2016 - 06/11/2016 Medical History Medical History Date Comments Dystonia Hypertension Anxiety Obese Heartburn Fibromyalgia Concussion hit her head Oct 23 Brain ischemia october 2012 Miscarriage 2012 Fibromyalgia TIA (transient ischemic attack) PCOS (polycystic ovarian syndrome) Family History Medical History Relation Name Comments Diabetes Father Heart Disease Father High Blood Pressure Father Stroke Mother Relation Name Status Comments Father Mother Social History Tobacco Use Types Packs/Day Years Used Date Smoking Tobacco: Former Cigarettes 1 10 Smokeless Tobacco: Never Tobacco Cessation:Counseling Given: Not Answered Alcohol Use Standard Drinks/Week Comments No 0 (1 standard drink = 0.6 oz pur e alcohol) [facility] Utilities Answer Date Recorded In the past 12 months has th e electric, gas, oil, or water company threatened to shut off services in your home? No 11/16/2024 Overall Financial Resource Strain (CARDIA) Answe r Date Recorded How hard is it for you to pa y for the very basics like food, housing, medical care, and heating? Not hard at all 11/16/2024 PHQ-2 Answer Date Recorded PHQ-2 Total Score 0 11/16/2024 [facility] [place] [facility] Occupat ional Health - Occupational Stress [...] money to get more. Never true 11/16/2024 [facility] IP Transportation Answer D ate Recorded In [...] on file Sexual Orientation Not on file Obstetrics History Last Filed Vital Signs Vital Sign Reading Time Taken Comments Blood Pressure 143/92 03/05/2025 4:10 PM EDT Pulse 95 03/05/2025 5:00 PM EDT Temperature 36.5 C (97.7 F) 03/05/2025 2:03 PM EDT Respiratory Rate 23 03/05/2025 5:00 PM EDT Oxygen Saturation 100% 03/05/2025 5:00 PM EDT Inhaled Oxygen Concentration - - Weight 151 kg (333 lb) 03/05/2025 2:03 PM EDT Height 177.8 cm (5' 10 ) 11/16/2024 8:27 AM EST Body Mass Index 47.78 11/16/2024 8:27 AM EST Plan of Treatment Health Maintenance Due Date Last Done Comments Annual Wellness Exam 1986 Diabetic Eye Exam 2001 HPV/Pap Cotest 2013 DTaP/TDaP/Td (3 - Td or Tdap) 01/05/2021 01/05/2011, 01/03/1995 Breast Cancer Screening 2023 COVID-19 Vaccine ( season) 2024 06/03/2023, 07/31/2021, 12/04/2020, Additional history exists Lipids 06/20/2024 06/20/2023, 11/10, 01/21/2016, Additional history exists Kidney Health: uACR 10/11/2024 10/11/2023, 10/11/2023, 11/26/2021 Hemoglobin A1c 04/11/2025 10/12/2024, 09/14, 06/20/2023, Additional history exists Influenza Vaccine (#1) 2025 , 07/06/2019, 06/22/2017, Additional history exists Kidney Health: eGFR 03/05/2026 03/05/2025, 11/17/2024, 11/16/2024, Additional history exists Cervical Cancer Screening 01/29/2028 Pap Smear 01/29/2028 01/28/2025, 10/13, 10/06/2021, Additional history exists Hepatitis B Vaccine Completed 08/18/2000, 02/27/1999, 01/26/1999 Pneumococcal Vaccine 0-49 Aged Out 10/23/2013 No longer eligible based on patient's age to complete this topic Meningococcal B Vaccine Aged Out No l onger eligible based on patient's age to complete this topic Procedures Procedure Name Priority Date/Time Associated Diagnosis Comments SCANNED EKG 03/06/2025 9:[address] HEAD WO CONTRAST STAT 03/05/2025 4 :31 PM EDT URINALYSIS REFLEX STAT 03/05/2025 3:2 4 PM EDT UA W/REFLEX TO CULTURE STAT 03/05/2025 3:24 PM EDT EXTRA BAE URINE CX STAT 03/05/2025 3 :24 PM EDT XR CHEST PA AND LATERAL STAT 03/05/2025 3:06 PM EDT HUMAN CHORIONIC GONADOTROPIN QUANTITATIVE STAT 03/05/2025 2:22 PM EDT TROPONIN-T HIGH SENSITIVITY BASELINE W/ REFLEX STAT 03/05/2025 2:22 PM EDT BASIC METABOLIC PANEL STAT 03/05/2025 2:22 PM EDT CBC WITH DIFF STAT 03/05/2025 2:22 PM EDT GLUCOSE METER POC Routine 03/05/2025 2:0 7 PM EDT EK EKG 12 LEAD STAT 03/05/2025 2:01 PM EDT LIPID SCREEN Routine 01/21/2016 2:48 PM EDT HEMOGLOBIN A1C Routine 10/25/2012 12:02 PM EST from Last 3 Months or Most Recently Relevant to Health Maintenance Results * SCANNED EKG (03/06/2025 9:33 AM [...] the ordering clinician. Nette Wyatt APRN IMG CT ORDERABLES Final Result * URINALYSIS REFLEX (03/05/2025 3:24 PM EDT) UA Color Yellow 03/05/2025 3:30 PM EDT [facility] UA Appear Clear Clear 03/05/2025 3:30 PM EDT [facility] UA Glucose Negative Negative mg/dL 03/05/2025 3:30 PM EDT [facility] UA Ketones Negative Negative mg/dL 03/05/2025 3:30 PM EDT [facility] UA Blood Negative Negative 03/05/2025 3:30 PM EDT [facility] UA pH 6.0 5.0 - 8.0 pH 03/05/2025 3:30 PM EDT [facility] UA Protein Negative Negative mg/dL 03/05/2025 3:30 PM EDT [facility] UA Urobilinogen 0.2 <=1 mg/dL 3:30 PM EDT [facility] UA Bili Negative Negative 03/05/2025 3:30 PM EDT [facility] UA Nitrite Negative Negative 03/05/2025 3:30 PM EDT [facility] UA Leuk Est Negative Negative 03/05/2025 3:30 PM EDT [facility] UA Spec Grav <=1.005 1.001 - 1.035 no units 03/05/2025 3:30 PM EDT [facility] Comment:Reference range pat d for random specimens only. Urine STRUCTURE OF URINARY TRACT PROPER / Unknown 03/05/2025 3:24 PM EDT 03/05/2025 3:27 PM EDT Nette A Edmundo PROJECT CONTROLS SCHEDULER URINE ORDERABLES Final Result Performing Organization Address [facility]/ZIP Co de Phone Number [facility] [address] [facility] [place] [address] * EXTRA BAE URINE CX (03/05/2025 3:24 PM EDT) Urine STRUCTURE OF URINARY TRACT PROPER / Unknown 03/05/2025 3:24 PM EDT 03/05/2025 3:27 PM EDT Nette A Edmundo PROJECT CONTROLS SCHEDULER MICROBIOLOGY - GENERAL ORDERABLES Final Result Performing Organization Address [facility] Co de Phone Number [facility] [address] [facility] [place] [address] * XR CHEST PA AND LATERAL (03/05/2025 [...] contactthe office of the ordering clinician. Nette Wytat APRN IMG DIAGNOSTIC IMAGING ORDERABLES Final Result * TROPONIN-T HIGH SENSITIVITY BASELINE W/ REFLEX (03/05/2025 2:22 PM EDT) [facility] qj-nIxqzlooi-G 9 <14 ng/L 03/05/2025 2:48 PM EDT [facility] Blood VENOUS BLOOD / Unknown Venipuncture / Unknown 03/05/2025 2:22 PM EDT 03/05/2025 2:26 PM EDT Narrative [facility] - 03/05/2025 2:48 PM EDT Ingestion of nelly doses of biotin (>5 mg/day) taken within 8 hours of drawing blood sample can interfere with this immunoassay test. Nette Wyatt APRN CHEMISTRY ORDERABLES Fi nal Result [facility] [address] [place] [address] * (ABNORMAL) CBC WITH DIFF (03/05/2025 2:22 PM EDT) [facility] WBC 7.6 3.7 - 10.3 x10(3)/mcL 03/05/2025 2:29 PM EDT [facility] RBC 5.00 3.90 - 5.20 x10(6)/mcL 03/05/2025 2:29 PM EDT [facility] Hgb 15.6 11.2 - 15.7 g/dL 03/05/2025 2:29 PM EDT [facility] Hct 45.7(H) 34.0 - 45.0 % 03/05/2025 2:29 PM EDT [facility] MCV 91.4 80.0 - 100.0 fL 03/05/2025 2:29 PM EDT [facility] MCH 31.2 26.0 - 34.0 pg 03/05/2025 2:29 PM EDT [facility] MCHC 34.1 30.7 - 35.5 g/dL 03/05/2025 2:29 PM EDT [facility] RDW 11.9 <=14.9 % 03/05/2025 2:29 PM EDT [facility] Platelet 275 155 - 369 x10(3)/mcL 03/05/2025 2:29 PM EDT [facility] MPV 10.7 8.8 - 12.5 fL 03/05/2025 2:29 PM EDT [facility] Neut Percent 57.2 % 03/05/2025 2:29 PM EDT [facility] Comment:Neutrophils equals s egs plus bands Imm Gran% 0.1 % 03/05/2025 2:29 PM EDT [facility] Comment:Automated count of m etamyelocytes, myelocytes and promyelocytes. Lymph Percent 32.2 % 03/05/2025 2:29 PM EDT [facility] [place] Percent 8.2 % 03/05/2025 2:29 PM EDT [facility] Eos Percent 1.5 % 03/05/2025 2:29 PM EDT [facility] Baso Percent 0.8 % 03/05/2025 2:29 PM EDT [facility] Neut # 4.3 1.6 - 6.1 x10(3)/mcL 03/05/2025 2:29 PM EDT [facility] Comment:Neutrophils equals s egs plus bands IMMGRAN# 0.0 0.0 - 0.1 x10(3)/mcL 03/05/2025 2:29 PM EDT [facility] Comment:Automated count of m etamyelocytes, myelocytes and promyelocytes. An absolute IG <0.1 is reported as 0.0. Lymph # 2.4 1.2 - 3.9 x10(3)/mcL 03/05/2025 2:29 PM EDT [facility] [place] # 0.6 0.3 - 0.9 x10(3)/mcL 03/05/2025 2:29 PM EDT [facility] Eos# 0.1 0.0 - 0.5 x10(3)/mcL 03/05/2025 2:29 PM EDT [facility] Baso # 0.1 0.0 - 0.1 x10(3)/mcL 03/05/2025 2:29 PM EDT [facility] Blood VENOUS BLOOD / Unknown Venipuncture / Unknown 03/05/2025 2:22 PM EDT 03/05/2025 2:26 PM EDT Nette Wyatt APRN HEMATOLOGY ORDERABLES F inal Result Performing Organization Address [facility] de Phone Number [facility] [address] [place] [address] * HUMAN CHORIONIC GONADOTROPIN QUANTITATIVE (03/05/2025 2:22 PM EDT) Pathologist [facility] Hcg Quant <1 <5 mIU/mL 03/05/2025 2:48 PM EDT [facility] Blood VENOUS BLOOD / Unknown Venipuncture / Unknown 03/05/2025 2:22 PM EDT 03/05/2025 2:26 PM EDT Narrative [facility] - 03/05/2025 2:48 PM EDT [...] Organization Address [facility] de Phone Number [facility] [address] [place] [address] * (ABNORMAL) BASIC METABOLIC PANEL (03/05/2025 2:22 PM EDT) Sodium 139 136 - 145 mmol/L 03/05/2025 2:48 PM EDT [facility] Potassium 3.7 3.5 - 5.0 mmol/L 03/05/2025 2:48 PM EDT [facility] Chloride 103 98 - 107 mmol/L 03/05/2025 2:48 PM EDT [facility] Total CO2 22 22 - 29 mmol/L 03/05/2025 2:48 PM EDT [facility] Anion Gap 14 7 - 16 mmol/L 03/05/2025 2:48 PM EDT [facility] Calcium 8.8 8.6 - 10.4 mg/dL 03/05/2025 2:48 PM EDT [facility] Glucose Lvl 183(H) 70 - 99 mg/dL 03/05/2025 2:48 PM EDT [facility] BUN 8 6 - 20 mg/dL 03/05/2025 2:48 PM EDT [facility] Creatinine 0.60 0.51 - 1.30 mg/dL 03/05/2025 2:48 PM EDT [facility] eGFR (CKD-EPIcr 2020) 115 >=60 mL/min/1.7 3 m2 03/05/2025 2:48 PM EDT [facility] Comment:Estimated GFR was ca lculated using the CKD-EPIcr (2020) equation refit without race. The equation is recommended by the National Kidney Foundation - [place] [employer] of Nephrology Task Force. Blood VENOUS BLOOD / Unknown Venipuncture / Unknown 03/05/2025 2:22 PM EDT 03/05/2025 2:26 PM EDT us Nette Wyatt APRN CHEMISTRY ORDERABLES Fi nal Result [facility] [address] [place] [address] * (ABNORMAL) GLUCOSE METER POC (03/05/2025 2:07 PM EDT) Glucose Meter POC 177(H) 70 - 100 mg/dL 03/05/2025 2:09 PM EDT [facility] Sample Type Capillary 03/05/2025 2:09 PM EDT [facility] Patient Status Non-Critical Patient 03/05/2025 2:09 PM EDT [facility] Blood BLOOD SPECIMEN / Unknown 03/05/2025 2:07 PM EDT 03/05/2025 2:09 PM EDT us Lab Test POINT OF CARE TEST ORDERABLES Fi nal Result [facility] [address] [facility] [place] [address] * EK EKG 12 LEAD (03/05/2025 2:01 PM EDT) Anatomical Region Laterality Modality Electrocardiogra phy 03/05/2025 2:14 PM EDT Impressions 03/05/2025 5:40 PM EDT [facility] Test Date: 2025-03-05 Pat Name: JAYA BUSH Department: DEPID Room: Gender: Female Chemical Process Equipment Operator: Mamadou : 1985 Requested By: [facility] Order Number: [id number] Reading : Frank Gloria Measurements Intervals [place] Rate: 103 P: -4 TX: 112 QRS: 32 QRSD: 110 T: 32 QT: 349 QTc: 459 Interpretive Statements SINUS TACHYCARDIA WITH SHORT TX INTERVAL ABNORMAL RHYTHM ECG WHEN COMPARED TO PREVIOUS ECG:NO SIGNIFICANT CHANGES ARE NOTED Electronically Signed On 03-05-2025 17:40:40 EDT by Frank Gloria Narrative Procedure Note Frank Gloria MD - 03/05/2025 IMPRESSION [facility] Test Date: 2025-03-05 Pat Name: JAYA GOLWALDEMAR Department: DEPID Room: Gender: Female Chemical Process Equipment Operator: Mamadou : 1985 Requested By: [facility] Order Number: [id number] Reading MD: Frank Gloria Measurements Intervals [place] Rate: 103 P: -4 TX: 112 QRS: 32 QRSD: 110 T: 32 QT: 349 QTc: 459 Interpretive Statements SINUS TACHYCARDIA WITH SHORT TX INTERVAL ABNORMAL RHYTHM ECG WHEN COMPARED TO PREVIOUS ECG:NO SIGNIFICANT CHANGES ARE NOTED Electronically Signed On 03-05-2025 17:40:40 EDT by Frank Gloria Lashawn Whelan MD IMG ECG ORDERABLES Final Res ult * (ABNORMAL) LIPID SCREEN (01/21/2016 2:48 PM EDT) Cholesterol 200 <=200 mg/dL [facility] Comment: < 200 Desirable 200 - 239 Borderline High >= 240 High Triglyceride 116 <=150 mg/dL [facility] Comment: < 150 Normal 150 - 199 Borderline High 200 - 499 High >= 500 Very High HDL 49 >=40 mg/dL [facility] Comment: > 60 Optimal 40 - 60 Acceptable < 40 Low LDL Calculated 128(H) <=100 mg/dL [facility] Comment: < 100 Optimal 100 - 129 Near or above optimal 130 - 159 Borderline High 160 - 189 High >= 190 Very High Blood specimen (specimen) UPPER LIMB STRUCTURE / Unknown 01/21/2016 2:48 PM EDT 01/21/2016 2:54 PM EDT Joesph Crowder DO CHEMISTRY ORDERABLES Edited Resu lt - Final [facility] [address] [place] [address] * HEMOGLOBIN A1C (10/25/2012 12:02 PM EST) Hgb A1c 5.3 <=7.0 % [facility] Comment: Initial Diagnostic Criteria < 5.7 % Normal 5.7 - 6.4 % At risk for diabetes mellitus >= 6.5 % Consistent with diabetes mellitus Diabetes monitoring Target Value (ADA recommended): < 7 % Blood specimen (specimen) UPPER LIMB STRUCTURE / Unknown 10/25/2012 12:02 PM EST 10/25/2012 12:43 PM EST Gloria Farrell MD CHEMISTRY ORDERABLES Final Resul t [facility] [address] [place] [address] from Last 3 Months or Most Recently Relevant to Health Maintenance Insurance [email or web address] [id number] [email or web address] [phone] [place] [id number] Advance Directives For more information, please contact: [phone] * Full Code (Latest Code Status on File) Date Activated Date Inactivated Comments 11/16/2024 8:25 AM 11/17/2024 4:10 PM * Full Code Date Activated Date Inactivated Comments 04/26/2024 2:35 AM 04/26/2024 6:24 PM * Full Code Date Activated Date Inactivated Comments 04/26/2024 12:03 AM 04/26/2024 2:35 AM * Full Code Date Activated Date Inactivated Comments 01/21/2016 2:02 PM 01/22/2016 6:55 PM Care Teams Nipping Machine Operator Relationship Specialty Start Date End Date Ab Lee MD PCP - General 09/15/08
--- OUTSIDE RECORDS SUMMARY | 2025-04-06 16:22 | XMS_ITS | Encounter Summary ---
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 Not on file [...] Description 04/17/2025 3:15 PM EDT Office Visit [address] [phone] Thalia Singer, SCIENTIST/ENGINEER [address] [place] [phone] 09/16/2025 8:30 AM EST Office Visit [facility] [address] [place] [phone] Flores Dawn, SCIENTIST/ENGINEER [address] [facility] [address] [place] [address] documented as of this encounter Visit Diagnoses Not on filedocumented in this encounter Care Teams Morning Babysitter Relationship Specialty Start Date End Date Ab Lee MD PCP - General 11/13/07 documented as of this encounter
--- OUTSIDE RECORDS SUMMARY | 2025-04-06 16:22 | XMS_ITS | Encounter Summary ---
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 Not on file 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 Not on file Not on file COVID-19 Exposure Response Date Recorded In the last 10 days, have angela u been in contact with someone who [...] encounter Miscellaneous Notes * Telephone Encounter - Shital Denney LPN - 07/14/2023 7:49 AM EDT Medication requested: doxy Outcome of last refill request [Approved/denied/appt required/appt made]: 12/21/22 approved Date/quantity dispensed/refills given at last refill: 12/21/22 90 1R Date of last office visit: 12/21/22 Expected follow-up from last office visit note: 6 Next scheduled dermatology visit:08/23/23 No shows/cancellations since last office visit:07/11/23 documented in this encounter Plan of Treatment Upcoming Encounters Date Type Department Care Team (Late st Contact Info) Description 04/17/2025 3:15 PM EDT Office Visit [facility] [address] [place] [phone] Thalia Singer, FLUME RIDE OPERATOR [address] [place] [phone] 09/16/2025 8:30 AM EST Office Visit [facility] [place] [address] [phone] Flores Dawn, FLUME RIDE OPERATOR [address] [facility] [address] [place] [address] documented as of this encounter Visit Diagnoses Not on filedocumented in this encounter Care Teams Fire Extinguisher Mechanic Relationship Specialty Start Date End Date Ab Lee MD PCP - General 11/13/07 documented as of this encounter
--- OUTSIDE RECORDS SUMMARY | 2025-04-06 16:22 | XMS_ITS | Clinical Summary ---
Author Organization [facility] Address [address] [place] [address] Phone Care Team Providers Care Automatic Lathe Tender Name Role Phone Ab Lee MD Primary Care Provider [phone] Allergies Active Allergy Reactions Criticality Noted Date Comments Amitriptyline 12/14/2002 moser Jhargysnm-Guwlsyaj-Tp Other (See Comments) 10/22/2013 Blacked out. Shaking, hallucinations Chocolate (Food) 11/21/2007 Sneeze, itch Diclofenac 12/14/2002 diarrhea Lisinopril Anaphylaxis High 11/20/2024 Metoprolol Anaphylaxis High 11/20/2024 Nitrofurantoin Angioedema,Anaphyla xis High 09/17/2021 Thiazide-Type Diuretics Other (See Comments) 01/04/2014 Increased liver enzymes Medications ALPRAZolam (XANAX) 1 MG TABSIndications: PRN Take 1 mg by mouth. Active nystatin (MYCOSTATIN) 376338 UNIT/GM POWD Apply topically 2 (two) times daily. 45 g 1 07/25/20 20 Active Additional Information Patient not taking.Reported on [...] (PRN HS), Reported on 03/04/2025 nystatin (MYCOSTATIN) 524410 UNIT/GM OINT Apply topically 2 (two) times daily. 30 g 1 10/31/19 24 Active Additional Information Patient not taking.Reason: Other (PRN yeast), Reported on 03/04/2025 ketoconazole (NIZORAL) 2 % CREA Apply to affected areas BID 60 g 1 02/27/20 Active Additional Information Patient taking differently: No details specified, Reason: PRN for HS, Reported on 03/04/2025 famotidine (PEPCID) 20 mg TABS Take 1 tablet by mouth 2 (two) times daily. 180 tablet 5 3:24 PM EDT 11/21/19 Active amLODIPine (NORVASC) 5 MG TABS Take 1 tablet by mouth daily. 30 tablet 5 2:21 PM EDT 11/21/19 Active Additional Information Patient not taking.Reason: Other [...] 15 days. Indications: Muscle Spasm 30 tablet 5 11:34 AM EDT 03/04/20 25 Active Additional Information Patient not taking.Reason: Other (not started yet), Reported on 03/04/2025 gabapentin (NEURONTIN) 400 MG CAPSIndications: Neuropathic Pain Take 1 capsule by mouth 4 (four) times daily as needed for up to 180 days. Indications: Neuropathic Pain 360 capsule 1 5 11:34 AM EDT 03/04/20 25 2024 Active [...] adult 09/22/2019 08/11/2022 GhaFired Patient 10/12/2004 10/20/2005 Encounters Date Type Department Care Team Description 03/26/2025 Telephone [facility] Central Scheduling [address] [place] [address] [place] [address] Ariel Malhotra MD 03/25/[address] [facility] [address] [place] [address] Thalia Singer, MIKA Hidradenitis suppurativa (Primary Dx) 03/06/2025 9:45 AM EDT Office Visit [facility] [address] [place] [address] Ab Lee MD Chronic tension-type headache, not intractable (Primary Dx); Loss of balance; Muscle twitching; Family history of stroke; Depression, recurrent (HCC); Essential hypertension; Morbid obesity with BMI of 45.0-49.9, adult (HCC); Controlled type 2 diabetes mellitus without complication, without long-term current use of insulin 03/05/2025 Telephone [facility] [address] [place] [phone] Clinton Howell, Registered Nurse 03/04/2025 9:50 AM EDT Office Visit [address] [address] Cinthya May PA-C Essential hypertension (Primary Dx) 03/04/2025 8:30 AM EDT Office Visit [facility] [place] [address] [address] Flores Dawn, MIKA Lumbar radiculopathy (Primary Dx); Facet arthritis of lumbar region; Encounter for medication management; High risk medication use; Neuropathic pain; Idiopathic peripheral neuropathy; Neuralgia and neuritis, unspecified; Left hip pain 02/28/2025 Refill [facility] [place] [facility] [address] [place] [address] Flores Dawn CNP Idiopathic peripheral neuropathy; High risk medication use; Neuropathic pain; Lumbar radiculopathy; Neuralgia and neuritis, unspecified; Left hip pain; Encounter for medication management 02/26/[address] 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 01/28/2025 6:25 PM EDT [facility] [address] [place] [phone] Cielo Mock CNP Encounter for gynecological examination without abnormal finding 01/28/2025 6:00 PM EDT Office Visit [facility] [address] [place] [address] Cielo Mock CNP Encounter for gynecological examination without abnormal finding (Primary Dx); Chronic pelvic pain in female; Encounter for surveillance of contraceptive pills; Visit for screening mammogram; Yeast vaginitis; PMS (premenstrual syndrome) from Last 3 Months Immunizations Immunization Administration Dates Next Due Betamethasone 01/13/2015 COVID-19 mRNA Vaccine 100 mc g dose (Moderna 18+) 07/31/2021,12/04/2020,11/06/2020 FLU VACCINE, 3 YRS AND OLDER 07/03/2013 Hepatitis B, Adult 08/18/2000,02/27/1999, 999 Influenza Whole, IM 06/22/2017,07/02/2013,2002 Measles/Mumps/Rubella, SQ 04/15/1995 Pneumococcal Polysaccharide (PPV23) Pneumovax-23 10/23/2013 Tdap (Tetanus, Diphtheria & Pertussis) 1 dT, adult 01/03/1995 Family History Medical History Relation Name Comments Diabetes Father Heart Disease Father [place] Hypertension Father CGD Maternal Grandfather Chronic Granulomatous Disease Cancer Maternal Grandmother breast/ GREAT - BREAST/lung Diabetes Maternal Grandmother Heart Disease Maternal Grandmother [place] X 5 - OPENHEART SURGERY High BP Maternal Grandmother High Cholesterol Maternal Grandmother Colon cancer Maternal Uncle COLON CGD Mother Chronic Granulo matous Disease Diabetes Mother High BP Mother Hypertension Mother Psychiatry Mother h/o depression Rheumatoid Arthritis Mother Seizures Mother Stroke Mother tobacco use Thyroid cancer Mother Thyroid, Lung colon polyps Mother Other Other 2 cousins MS mo therside Kidney Disease Neg Hx Lung Disease Neg Hx Thyroid Disease Neg Hx Relation Name Status Comments Father Maternal Grandfather Maternal Grandmother Maternal Uncle Mother Other Social History Tobacco Use Types Packs/Day Years [...] file Not on file 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 Not on file [...] Mass Index 49.03 03/06/2025 9:56 AM EDT Plan of Treatment Upcoming Encounters Date Type Department Care Team (Late st Contact Info) Description 04/17/2025 3:15 PM EDT Office Visit [facility] [address] [place] [phone] Thalia Singer, LICENSED CLINICAL SOCIAL WORKER [address] [place] [phone] 09/16/2025 8:30 AM EST Office Visit [facility] [place] [facility] [address] [place] [phone] Flores Dawn, LICENSED CLINICAL SOCIAL WORKER [address] [facility] [address] [place] [address] Health Maintenance Due Date Last Done Comments Eye Exam 1983 HPV (1 - 3-dose SCDM series) 2010 Pneumococcal 0-49 (2 of 2 - PCV) 10/23/2014 10/23/2013 DTap,Tdap,and Td (2 - Td or Tdap) 01/05/2021 01/05/2011 Mammogram Screening 2023 06/04/2010 COVID-19 Vaccine ( season) 2024 07/31/2021, 12/04/2020, 11/06/2020 Cholesterol Diabetic 06/20/2024 06/20/2023, 11/28/2020, 07/23/2019, Additional history exists Foot Exam 09/12/2024 Microalb/Creat Ratio 09/12/2024 10/11/2023, 11/27/19 22 HbA1c 04/11/2025 10/12/2024, 05/2023, 06/03/2022, Additional history exists Influenza Vaccine (#1) 2025 , 07/06/2019, 06/22/2017, Additional history exists GFR 12/15/2025 12/15/2024, 09/14, 06/20/2023, Additional history exists Pap Screening 01/29/2028 01/28/2025, 10/13, 10/06/2021, Additional history exists RSV Vaccine (60+ or ) (1 - 1-dose 75+ series) 2058 Meningococcal conjugate valent 4 (MCV4) Aged Out No longer eligible based on patient's age to complete this topic RSV Immunization (<20 months) Aged Out No longer eligible based on patient's age to complete this topic Medical Devices Implanted Type Area Metal Molder Device Identifier Shelf Expiration Date Model / Serial / Lot Gallbladder Clip-06/03/2016 Implanted: 016 (Quantity not on file) Clip ETHICON LIGAMAX 5MM CLIP / / Description:3T OR LESS MAX SPATIAL GRADIENT OF 6.5T/M 1.7 W/KG FOR 20 MIN OF SCANNING (PER SEQUENCE) Procedures Procedure Name Priority Date/Time Associated Diagnosis Comments 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 Thinprep Cervical/Endocervic al with HPV screen and 16/18 Genotyping if Indicated: Adequacy: Satisfactory for evaluation, ABSENT endocervical transformation zone component. Interpretation: Negative for intraepithelial lesion or malignancy. Fungal organisms morphologically consistent with Ana spp. This specimen has been analyzed by the ThinPrep Imaging System (Preedo.), an automated imaging and review system, which assists the cooling system operator and/or pathologist in evaluation of cells on [...] Normal Contraceptive History: OC/BCP Signed out at [facility], [id number] [place] [address] [facility] Non-Formatted Report [facility] 01/28/2025 6:22 PM EDT 01/29/2025 9:04 AM EDT Cielo Mock CNP PATHOLOGY/CYTOLOGY ORDERABLES Fi nal Result [facility] [address] [place] [address] * (ABNORMAL) CMP (BMP,TP,ALB,TBIL,ALK,AST,ALT) (12/15/2024 10:13 AM EDT) SODIUM 137 135 - 145 mmol/L [facility] POTASSIUM 4.4 3.6 - 5.1 mmol/L [facility] CHLORIDE 105 98 - 111 mmol/L [facility] CO2 27 21 - 31 mmol/L [facility] GLUCOSE, RANDOM 167(H) 70 - 99 mg/dL [facility] BLD UREA NITROGEN 8 8 - 26 mg/dL [facility] CREATININE 0.71 0.60 - 1.20 mg/dL [facility] CALCIUM 8.4(L) 8.5 - 10.4 mg/dL [facility] TOTAL PROTEIN 6.2 6.0 - 8.0 g/dL [facility] ALBUMIN 3.8 3.5 - 5.7 g/dL [facility] TOTAL BILIRUBIN 0.4 0.0 - 1.2 mg/dL [facility] ALK PHOSPHATASE 70 35 - 135 IU/L [facility] AST 43(H) 10 - 40 IU/L [facility] ALT 33 10 - 60 IU/L [facility] ESTIMATED GFR 109 >59 mL/min/1.7 3 m2 [facility] Comment:Estimated GFR was ca lculated using the CKD-EPI cr (2020) equation refit without race. The equation is recommended by the National Kidney Foundation - [place] Society of Nephrology Task Force. ANION GAP 5 4 - 16 mmol/L [facility] Comment:Tested at [facility] [address] [facility] [address] Whole Blood 12/15/2024 10:1 3 AM EDT 12/15/2024 10:14 AM EDT Ab Lee MD LAB BLOOD ORDERABLES Final Resu lt Performing Organization Address City/[facility]/ZIP Co de Phone Number [address] [phone] [facility] [address] [place] [address] * (ABNORMAL) HEMOGLOBIN A1C (10/12/2024 1:47 PM [...] given level of glycemic control. Tested at: [place] [address] Whole Blood 10/12/2024 1:47 PM EST 10/12/2024 5:38 PM EST Ab Lee MD LAB BLOOD ORDERABLES Final Resu lt Performing Organization Address [facility]/ZIP Co de Phone Number [address] [address] [facility] TEST SITE * MICROALBUMIN, URINE RANDOM (INCLUDES MALB/CREAT RATIO) (10/11/2023 9:57 AM EST) MICROALBUMIN, UR <12.0 mg/L KRYSTINA Raegan [place] [address] CREATININE, URINE RANDOM 127.5 mg/dL [place] [address] MICROALB/CREAT RATIO See Comment mg/g CREAT [place] [address] Comment: (NOTE) Because the albumin level is below the level of detection in this urine specimen, the laboratory is unable to calculate a reliable albumin/creatinine ratio. Microalbuminuria is unlikely if the urine albumin concentration is less than 20-30 mg/L in a random specimen. Tested at: [place] [address] Urine 10/11/2023 9:57 AM EST 10/11/2023 12:00 PM EST us Ab Lee MD URINE ORDERABLES NO PER Final R esult Performing Organization Address [facility]/ZIP Co de Phone Number [facility] [address] [place], [place] [phone] [place] [address] * (ABNORMAL) LIPID PANEL (CHOL, TRIG, HDL, LDL) (06/20/2023 8:39 AM EDT) CHOLESTEROL 191 <200 mg/dL [facility] TRIGLYCERIDE 142 <150 mg/dL [facility] Comment: Reference Interval: Fasting <150 mg/dL Non-Fasting <175 mg/dL HDL CHOLESTEROL 47(L) >50 mg/dL [facility] LDL CHOLESTEROL (CALCULATED) 116 <130 mg/dL [facility] Comment: Interpretive Guidelines: <100 Optimal 100-129 Near Optimal 130-159 Borderline High >159 High TOTAL NON HDL CHOL 144(H) <130 mg/dL [facility] Comment:Tested at [facility] [address] [address] Whole Blood 06/20/2023 8:39 AM EDT 06/20/2023 12:07 PM EDT us Nadia Graff [facility] LAB BLOOD ORDERABLES Fin al Result Performing Organization Address City/[facility]/ZIP Co de Phone Number [facility] [address] [place] [address] CHEMISTRY HEMATOLOGY [address] [place] [address] * Mammogram Bilat Digital W Cad (06/04/2010 2:57 PM EDT) Anatomical Region Laterality Modality Chest Bilateral Mammography 06/04/2010 2:57 PM EDT Narrative 06/05/2010 8:22 AM EDT This document is confidential medical information. Unauthorized disclosure or use of this information is prohibited by law. If you are not the intended recipient of this document, please advise us by calling immediately [phone]. [place], [place] [address] Mammography Report Date: 06/04/10 Name: JAYA GERMAN Unit #: [id number] Loc: [facility] Location: [facility] : 83 Ordering Physician: Paula Fink M.D. [...] NEGATIVE Dictated by: Shahram Parmar M.D. DD 1523 [id number] Procedure Note Shahram Parmar MD - 02/12/2012 This document is confidential medical information. Unauthorizeddisclosure or use of this information is prohibited by law. If you are not the intended recipientof this document, please advise us by calling immediately [phone]. [place], [place] [address] Mammography Report Date: 06/04/10 Name: JAYA GERMAN Unit #: [id number] Loc: [facility] Location: [facility] : 83 Ordering Physician: Paula Fink M.D. [...] NEGATIVE Dictated by: Shahram Parmar M.D. DD 1523 12 Paula Fink MD [facility] Final Result from Last 3 Months or Most Recently Relevant to Health Maintenance Insurance Sam Rey Mikcarlos enrique [place] [phone] [facility] [address] [place] [phone] [address] [place] [phone] Advance Directives * Full Code (Latest Code Status on File) Date Activated Date Inactivated Comments 06/02/2016 4:37 PM 06/03/2016 6:05 PM Care Teams Automatic Lathe Tender Relationship Specialty Start Date End Date Ab Lee MD PCP - General 11/13/07
--- OUTSIDE RECORDS SUMMARY | 2025-04-06 16:22 | XMS_ITS | Patient Health Record ---
Author Organization [facility] Address [address] [place] [address] Care Team Providers Care Cell Tuber Machine Name Role Phone [facility] ramirez bonds Primary Care Prov ider Unavailable Provider, [id number] Unavailable [phone] Reshma Paige Unavailable [phone] Nancy Asencio Unavailable [phone] Allergies Allergen (clinical drug ingredient) Drug/Non Drug Allergy documented on EMR Reaction Allergy Type Onset Date Status Brompheniramine-Phen yle phrine anaphylaxis Drug Allergy Active hydrochlorothiazide hydroCHLOROthiazide liver toxicity Drug Allergy Active nitrofurantoin, macrocrystals / nitrofurantoin, monohydrate Macrobid hives Drug Allergy Active Reason For Referral No Information Medications Medication SIG (Take, Route, Frequency, Duration) Notes Start Date End Date Status Multivitamin - 1 tab(s) orally once a day Active Doxycycline 40 MG 1 capsule in the morning on an empty stomach Orally Once a day Active Xanax 0.25 MG 1 tab(s) orally Every 6 hours PRN PRN Active Albuterol Sulfate HFA 108 (90 Base) MCG/ACT 1 puff as needed Inhalation every 4 hrs for 7 days 04/13/2024 Active CONTROL PILL 0 0 0 0 ortho trycy clin *Please review for potential replacement for e-prescription and drug interaction check* Active Ozempic (0.25 or 0.5 MG/DOSE) 2 MG/1.5ML as directed Subcutaneous Active NexIUM 20 MG 1 cap(s) orally once a day Active Lisinopril 20 MG 1 tab(s) orally once a day Active Immunizations Vaccine Route Administration Date Status Comme [facility] [id number] Quad PFS (0.5mL Admin) 18 y/o & older IM Intramuscular 06/02/2020 Administered [id number] Quad PFS (0.5 mL Admin) 6 months & older Unknown 02/01/2022 Refused z2022 FluBLOK Quad PFS (0.5mL Admin) 18 y/o & older Unknown 08/27/2022 Others Social History Alcohol Misuse/Abuse (Audit C): Question Answer Notes Did you have a drink contain ing alcohol in the past year? Yes How often did you have a drink containing alcoho l? Monthly or less (1 point) How many drinks did you have on a typical occasi on? 1 or 2 (0 points) Points: 1 Interpretation: Negative Tobacco Use Question Answer Notes Are you a Current smoker How often do you smoke cigarettes Every day How many cigarettes a day do you smoke? Tobacco Control (Standard) Question Answer Notes Additional Findings: Tobacco user Moderate cigar ette smoker (10-19 cigs/day) Problems Problem Type SNOMED Code ICD Code Onset Dates Problem Status W/U Status Risk Notes Problem Gastroesophageal reflux disease (790582556) GERD (gastroesophageal reflux disease) (K21.9) Active confirmed Problem Essential hypertension (50730363) Essential hypertension (I10) Active confirmed Problem Anxiety (06617770) Anxiety (F41.9) Active confi rmed Problem Smoker (74896549) Smoker (F17.200) Active confi rmed Problem Essential hypertension (74447194) Essential (primary) hypertension (I10) Active confirmed Problem Fibromyalgia (284097381) Fibromyalgia (M79.7) Active confirmed Problem Type II diabetes mellitus without complication (179740897) Type 2 diabetes mellitus without complications (E11.9) Active confirmed Problem Anxiety disorder (288972650) Anxiety disorder, unspecified (F41.9) Active confirmed Problem Displacement of lumbar intervertebral disc without myelopathy (50312130) Other intervertebral disc displacement, 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) Active confirmed Problem Intervertebral disc disorder (98330531) Unspecified thoracic, thoracolumbar and lumbosacral intervertebral disc disorder (M51.9) Active confirmed Problem 055034855 Generalized hyperhidrosis (R61) Active confirmed Problem History of otitis media (259563229) History of otitis media (Z86.69) Active confirmed Problem Body mass index 40+ - severely obese (499746231) BMI 45.0-49.9, adult (Z68.42) Active confirmed Problem Essential hypertension (99897671) Elevated blood pressure reading with diagnosis of hypertension (I10) Active confirmed Vital Signs Temperature 98.9 degrees Fahrenheit 04/13/2024 Respiratory Rate 18 /min 04/13/2024 Blood pressure diastolic 78 mm Hg 04/13/2024 Height 69 in 04/13/2024 Blood pressure systolic 118 mm Hg 04/13/2024 Weight 300 lbs 04/13/2024 BMI 44.3 kg/m2 04/13/2024 Encounters Encounter Location Date Provider Diagnosis [address] [address] 04/13/2024 Reshma Paige Viral upper respiratory tract infection with cough J06.9 Assessments Encounter Date Diagnosis (ICD Code) Assessment Notes Treatment Notes Treatment Clinical Notes Section Notes 04/13/2024 Viral upper respiratory tract infection with cough (ICD-10 - J06.9) Symptoms appear viral in nature. If symptoms persist or worsen greater than 10 days, follow up in the clinic or with PCP for further evaluation. Use saline (saltwater) nasal washes. This can help keep your nasal passages open and wash out mucus and allergens.You can buy saline nose washes at a grocery store or drugstore. Follow the instructions on the package.You can make your own at home. Add 1 teaspoon of non-iodized salt and 1 teaspoon of baking soda to 2 cups of distilled or boiled and cooled water. Fill a squeeze bottle or a nasal cleansing pot (such as a neti pot) with the nasal wash. Then put the tip into your nostril, and lean over the sink. With your mouth open, gently squirt the liquid. Repeat on the other side.If needed, take an ivlp-vss-ndtbopw pain medicine, such as acetaminophen (Tylenol), ibuprofen (Advil, Motrin), or naproxen (Aleve). Read and follow all instructions on the label.Be careful when taking vhdn-ock-colzxtp cold or flu medicines and Tylenol at the same time. Many of these medicines have acetaminophen, which is Tylenol. Read the labels to make sure that you are not taking more than the recommended dose. Too much acetaminophen (Tylenol) can be harmful.Try a steroid nasal spray. It may help with your symptoms.Breathe warm, moist air. You can use a steamy shower, a hot bath, or a sink filled with hot water. Avoid cold, dry air. Using a humidifier in your home may help. Follow the directions for cleaning the machine. Patient refuses covid test. Plan Of Treatment No Information Insurance Providers Payer Name Payer Address Payer Phone Subscriber Number Group Number Insured Name Patient Relationship to Insured Coverage Start Date Coverage End Date [employer] [address] [place] [address] [id number] Arelis Bush Self - patient is the insured Medical (General) History Medical History History ICD Code Essential (primary) hypertension I10 Fibromyalgia M79.7 Anxiety disorder, unspecified F41.9 Type 2 diabetes mellitus without complic ations E11.9 Other intervertebral disc displacement, lumbosacral region M51.27 Surgical History Surgery Date(Month/Year) wisdom teeth gallbladder 2011 Hospitalization History Reason Date(Month/Year) see above
--- OUTSIDE RECORDS SUMMARY | 2025-04-06 16:22 | XMS_ITS | Encounter Summary ---
Author Organization [facility] Address [address] [place] [address] Phone Care Team Providers Care Runway Model Name Role Phone Ab Lee MD Primary Care Provider [phone] Encounter Details Date Type Department Care Team (Late st Contact Info) Description 09/01/2011 [facility] Internal Medicine [address] [place] [address] Social History Tobacco Use Types [...] Description 04/17/2025 3:15 PM EDT Office Visit [facility] [address] [place] [address] Thalia Singer, ACADEMIC COACH [address] [place] [phone] 09/16/2025 8:30 AM EST Office Visit [facility] [place] [address] [address] Flores Dawn, ACADEMIC COACH 100 [facility] [address] [place] [address] documented as of this encounter Procedures Procedure Name Priority Date/Time Associated Diagnosis Comments MRI, LUMBAR SPINE Routine 05/25/2011 documented in this encounter Results * MRI, LUMBAR SPINE (05/25/2011) Anatomical Region Laterality Modality Other Historical Med SPECIAL IMAGING STUDIES Final Re sult documented in this encounter Visit Diagnoses Not on filedocumented in this encounter Additional Health Concerns Infection Onset Date Last Indicated Resolved Time COVID-19 Suspect 10/20/2021 10/20/2021 10/20/2021 3:59 PM EST COVID-19 Suspect 10/20/2021 10/20/2021 10/20/2021 4:10 PM EST documented as of this encounter Care Teams Runway Model Relationship Specialty Start Date End Date Ab Lee MD PCP - General 11/13/07 documented as of this encounter
--- OUTSIDE RECORDS SUMMARY | 2025-04-06 16:22 | XMS_ITS | Encounter Summary ---
Author Organization [facility] Address 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 Pt was referred [facility] from her [facility] Management appointment for hypertension. She was asymptomatic at that time. BPwas 162/101. Pt was 136/101 at [facility]. Pt reports stopping her Amlodipine the last part of November 2024 because of side effects. Today she states she feels dizzy. She has a 3/10 bitemporal headache. She describes her balance as being off .She has bilateral leg weakness. BP now was 142/100 with pulse of 111. BP this morning was 160/111. LKW was when she went to bed at 1930 03/04/25. Woke today at 0430 with symptoms. Pt thinks she may have had a TIA . No unilateral symptoms, speech or visual complaints. Patient was referred to the ED for evaluation of symptomatic hypertension and tachycardia. Complaint of dizziness and imbalance with bilateral leg weakness. She will call for a hospital follow up after evaluation. documented in this encounter Plan of Treatment Upcoming Encounters Date Type Department Care Team (Late st Contact Info) Description 04/17/2025 3:15 PM EDT Office Visit [facility] [address] [place] [phone] Thalia Singer JOINTER OPERATOR [address] [place] [address] 09/16/2025 8:30 AM EST [facility] [place] [facility] [address] [place] [address] Flores Dawn, JOINTER OPERATOR 100 [facility] [address] [place] [address] documented as of this encounter Visit Diagnoses Not on filedocumented in this encounter Care Teams Fraternity Adviser Relationship Specialty Start Date End Date Ab Lee MD PCP - General 11/13/07 documented as of this encounter
--- OUTSIDE RECORDS SUMMARY | 2025-04-06 16:22 | XMS_ITS | Encounter Summary ---
Author Organization [facility] Address [address] [place] [address] [place] [address] Phone Care Team Providers Care Nut Processing Supervisor Name Role Phone Ab Lee MD Primary Care Provider [phone] Reason for Visit * Reason Comments Refill Request Encounter Details Date Type Department Care Team (Late st Contact Info) Description 02/28/2025 Refill [facility] Orth[facility] [place] [facility] [address] [place] [address] Flores Dawn, [employer] FLATBED TRUCK DRIVER 100 [facility] [address] [place] [address] Idiopathic peripheral neuropathy; High risk medication use; Neuropathic pain; Lumbar radiculopathy; Neuralgia and neuritis, unspecified; Left hip pain; Encounter for medication management Social History Tobacco Use Types Packs/Day [...] file Not on file Not on file 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 [address] [place] [address] Thalia Singer, [employer] FLATBED TRUCK DRIVER [address] [place] [phone] 09/16/2025 8:30 AM EST Office Visit [facility] [place] [facility] [address] [place] [phone] Flores Dawn, [employer] FLATBED TRUCK DRIVER 100 [facility] [address] [place] [address] documented as of this encounter Visit Diagnoses Diagnosis Idiopathic peripheral neuropathy Unspecified hereditary and idiopathic peripheral neuropathy High risk medication use Encounter for long-term (current) use of other medications Neuropathic pain Neuralgia, neuritis, and radiculitis, unspecified Lumbar radiculopathy Thoracic or lumbosacral neuritis or radiculitis, unspecified Neuralgia and neuritis, unspecified Left hip pain Pain in joint, pelvic region and thigh Encounter for medication management documented in this encounter Care Teams Nut Processing Supervisor Relationship Specialty Start Date End Date Ab Lee MD PCP - General 11/13/07 documented as of this encounter
--- OUTSIDE RECORDS SUMMARY | 2025-04-06 16:22 | XMS_ITS | Encounter Summary ---
Author Organization [facility] Address [facility] [place] [address] Phone Care Team Providers Care Decorator Hand Name Role Phone Ab Lee MD Primary Care Provider [phone] Encounter Details Date Type Department Care Team (Late st Contact Info) Description 05/03/2023 Telephone [facility] Medical Weight Management [facility] [address] [place] [address] Neha Katz, [facility] [address] [place] [address] Social History Tobacco Use Types [...] Start Date 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 Not on file [...] 04/17/2025 3:15 PM EDT Office Visit [facility] [address] [place] [address] Thalia Singer, MASH FILTER OPERATOR [address] [place] [phone] 09/16/2025 8:30 AM EST Office Visit [facility] Orthopedic & Sports [place] [facility] [address] [place] [phone] Flores Dawn, MASH FILTER OPERATOR 100 [facility] [address] [place], [place] [id number] documented as of this encounter Visit Diagnoses Not on filedocumented in this encounter Care Teams Decorator Hand Relationship Specialty Start Date End Date Ab Lee MD PCP - General 11/13/07 documented as of this encounter
--- OUTSIDE RECORDS SUMMARY | 2025-04-06 16:22 | XMS_ITS | Encounter Summary ---
Author Organization [facility] Address [facility] [place] [address] Phone Care Team Providers Care Ash Handler Name Role Phone Ab Lee MD Primary Care Provider [phone] Reason for Visit * Reason Onset Date Comments Appt. 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 Not on [...] encounter Miscellaneous Notes * Telephone Encounter - Meaghan Traore - 06/22/2023 12:48 PM EDT Patient needs to reschedule to next available, left a message to call and schedule documented in this encounter Plan of Treatment Upcoming Encounters Date Type Department Care Team (Late st Contact Info) Description 04/17/2025 3:15 PM EDT Office Visit [facility] [address] [place] [address] Thalia Singer, BEARING PR[employer] MACHINE OPERATOR [address] [place] [address] 09/16/2025 8:30 AM EST Office Visit [facility] Orthopedic & [facility] [place] [facility] [address] [place] [address] Flores Dawn, BEARING PRESS MACHINE OPERATOR 100 [facility] [address] [place], [place] [phone] documented as of this encounter Visit Diagnoses Not on filedocumented in this encounter Care Teams Ash Handler Relationship Specialty Start Date End Date Ab Lee MD PCP - General 11/13/07 documented as of this encounter
--- OUTSIDE RECORDS SUMMARY | 2025-04-06 16:22 | XMS_ITS | Encounter Summary ---
Author Organization [facility] Address [address] [place] [address] Phone Care Team Providers Care Deliverer Food Name Role Phone Ab Lee MD Primary Care Provider [phone] Encounter Details Date Type Department Care Team (Late Contact Info) Description 01/18/2013 [facility] Internal Medicine [address] [place] [address] Social History Tobacco Use Types [...] Description 04/17/2025 3:15 PM EDT Office Visit [facility] [address] [place] [address] Thalia Singer, [facility] [address] [place] [address] 09/16/2025 8:30 AM EST Office Visit [facility] Orthopedic & Sports [place] [facility] [address] [place] [address] Flores Dawn, CONE PICKER [address] [facility] [address] [place] [address] documented as of this encounter Procedures Procedure Name Priority Date/Time Associated Diagnosis Comments MRI BRAIN W & W/O CONTRAST Routine 10/25/2012 documented in this encounter Results * MRI BRAIN W & W/O CONTRAST (10/25/2012) Anatomical Region Laterality Modality Other us Historical Med SPECIAL IMAGING STUDIES Final Re sult documented in this encounter Visit Diagnoses Not on filedocumented in this encounter Additional Health Concerns Infection Onset Date Last Indicated Resolved Time COVID-19 Suspect 10/20/2021 10/20/2021 10/20/2021 3:59 PM EST COVID-19 Suspect 10/20/2021 10/20/2021 10/20/2021 4:10 PM EST documented as of this encounter Care Teams Deliverer Food Relationship Specialty Start Date End Date Ab Lee MD PCP - General 11/13/07 documented as of this encounter
--- OUTSIDE RECORDS SUMMARY | 2025-04-06 16:22 | XMS_ITS | Encounter Summary ---
Author Organization [facility] Address [facility] [place] [address] Phone Care Team Providers Care Side Hemmer Name Role Phone Ab Lee MD Primary Care Provider [phone] Reason for Visit * Reason Comments Refill Request Encounter Details Date Type Department Care Team (Late st Contact Info) Description 03/25/2025 Refill [facility] [address] [place] [address] [place] [address] Thalia Singer, PRODUCT SAFETY SPECIALIST [address] [place] [address] Hidradenitis suppurativa (Primary Dx) Social History Tobacco Use Types [...] file Not on file Not on file 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 Not on file [...] encounter Miscellaneous Notes * Telephone Encounter - Edmundo Bravo Registered Nurse - 03/25/2025 1:59 PM EDT Medication requested: doxycycline 100 mg Outcome of last refill request [Approved/denied/appt required/appt made]: approved Date/quantity dispensed/refills given at last refill: 02/26/25, 60 tablets, 0 refills Date of last office visit: 08/27/24 Expected follow-up from last office visit note: 6 mo Next scheduled dermatology visit:04/17/25 No shows/cancellations since last office visit:3 cancellations documented in this encounter Plan of Treatment Upcoming Encounters Date Type Department Care Team (Late st Contact Info) Description 04/17/2025 3:15 PM EDT Office Visit [facility] [address] [place] [phone] Thalia Singer, PRODUCT SAFETY SPECIALIST [address] [place] [address] 09/16/2025 8:30 AM EST Office Visit [facility] Orthopedic & Sports [place] - [facility] [place] [address] [place] [phone] Flores Dawn, PRODUCT SAFETY SPECIALIST 100 [facility] [address] [place] [address] documented as of this encounter Visit Diagnoses Diagnosis Hidradenitis suppurativa- Primary Hidradenitis documented in this encounter Care Teams Side Hemmer Relationship Specialty Start Date End Date Ab Lee MD PCP - General 11/13/07 documented as of this encounter
--- OUTSIDE RECORDS SUMMARY | 2025-04-06 16:22 | XMS_ITS | Encounter Summary ---
Author Organization [facility] Address [facility] [address] [place] [address] Phone Care Team Providers Care Barrel Washer Machine Name Role Phone Ab Lee MD Primary Care Provider [phone] Reason for Visit * Reason Comments Refill Request Encounter Details Date Type Department Care Team (Late st Contact Info) Description 02/26/2025 Refill [facility] [address] [place] [address] [place] [address] Thalia Singer, RAMP LEAD [address] [place] [address] Social History Tobacco Use Types Packs/Day [...] file Not on file 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 on 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 Not on file [...] encounter Miscellaneous Notes * Telephone Encounter - Thalia Singer, MIKA - 02/26/2025 12:27 PM EDT Sent refill ; needs f/u Thanks * Telephone Encounter - Edmundo Bravo Registered Nurse - 02/26/2025 7:51 AM EDT Medication requested: doxycycline 100 mg tabs Outcome of last refill request [Approved/denied/appt required/appt made]: approved Date/quantity dispensed/refills given at last refill: 08/27/24, 180 tablets, 1 refill Date of last office visit: 08/27/24 Expected follow-up from last office visit note: 6 mo Next scheduled dermatology visit:none No shows/cancellations since last office visit:3 cancellations documented in this encounter Plan of Treatment Upcoming Encounters Date Type Department Care Team (Late st Contact Info) Description 04/17/2025 3:15 PM EDT Office Visit [facility] [address] [place] [phone] Thalia Singer, RAMP LEAD [address] [place] [address] 09/16/2025 8:30 AM EST Office Visit [facility] Orthopedic & Sports [place] - [facility] [address] [place] [phone] Flores Dawn, RAMP LEAD 100 [facility] [address] [place] [address] documented as of this encounter Visit Diagnoses Not on filedocumented in this encounter Care Teams Barrel Washer Machine Relationship Specialty Start Date End Date Ab Lee MD PCP - General 11/13/07 documented as of this encounter
--- OUTSIDE RECORDS SUMMARY | 2025-04-06 16:22 | XMS_ITS | Encounter Summary ---
Author Organization [facility] Address [address] [place] [place] [address] Phone Care Team Providers Care Formula Maker Name Role Phone Ab Lee MD Primary Care Provider [phone] Encounter Details Date Type Department Care Team (Late st Contact Info) Description 07/23/2009 [facility] Internal Medicine [address] [place] [address] Social History Tobacco Use Types Packs/Day Years Used Date Smoking Tobacco: Every Day Cigarettes 0.5 5 Alcohol Use Standard Drinks/Week Comments No 0 [...] Description 04/17/2025 3:15 PM EDT Office Visit [facility] [address] [place] [address] Thalia Singer, [facility] [address] [place] [address] 09/16/2025 8:30 AM EST Office Visit [facility] Orthopedic & Sports [place] [address] [address] Flores Dawn, TOBACCO BUYER 100 [facility] [address] [place] [address] documented as of this encounter Procedures Procedure Name Priority Date/Time Associated Diagnosis Comments CHEST X-RAY 2VW Routine 07/04/2009 documented in this encounter Results * CHEST X-RAY 2VW (07/04/2009) Anatomical Region Laterality Modality Other Historical Med GENERAL IMAGING Final Result documented in this encounter Visit Diagnoses Not on filedocumented in this encounter Additional Health Concerns Infection Onset Date Last Indicated Resolved Time COVID-19 Suspect 10/20/2021 10/20/2021 10/20/2021 3:59 PM EST COVID-19 Suspect 10/20/2021 10/20/2021 10/20/2021 4:10 PM EST documented as of this encounter Care Teams Formula Maker Relationship Specialty Start Date End Date Ab Lee MD PCP - General 11/13/07 documented as of this encounter
[2025-04-06 16:46] VITALS: BP 130/82; PULSE 85; RESP 18; O2SAT 97
[2025-04-06 16:52] LABS: Hematocrit 45.0 % (37.0-47.0); Hemoglobin 15.4 g/dL (12.2-16.2); Immature Granulocytes % 0.2 %; Mean Corpuscular HGB Conc 34.2 g/dL (31.8-35.4); Mean Corpuscular Hemoglobin 31.2 pg (27.0-31.2); Mean Corpuscular Volume 91.3 fl (81-99); Nucleated Red Blood Cells % 0 %; Platelet Count 265 K/mm3 (142-424); Red Blood Count 4.93 M/mm3 (4.20-5.40); Red Cell Distribution Width-SD 39.0 fL; White Blood Count 6.4 K/mm3 (4.8-10.8)
[2025-04-06 16:57] LABS: Alanine Aminotransferase 42 U/L (12-78); Albumin Level 3.7 g/dl (3.5-5.0); Albumin/Globulin Ratio 1.1 (1.1-1.8); Alkaline Phosphatase 109 U/L (38-126); Anion Gap 10.1 mEq/L (5-15); Aspartate Amino Transferase 48 U/L (14-36); Bilirubin,Total 0.2 mg/dl (0.2-1.3); Blood Urea Nitrogen 11 mg/dl (7-17); Calcium 9.4 mg/dl (8.4-10.2); Carbon Dioxide 34 mmol/L (22.0-30.0); Chloride 101 mmol/L (98-107); Creatinine Clearance Estimated 129 mL/min (50-200); Creatinine,Serum 0.60 mg/dl (0.52-1.04); Estimated Glomerular Filt Rate 110 ml/min (>60); GFR (African American) 133 ML/MIN (>60); Globulin 3.3 g/dL (1.3-3.2); Glucose 132 mg/dl (74-100); Potassium 4.1 mmoL/L (3.5-5.1); Sodium 141 mmol/L (136-145); Total Protein,Serum 7.0 g/dl (6.3-8.2)
[2025-04-06 17:01] VITALS: BP 141/80; PULSE 85; RESP 17; O2SAT 97
[2025-04-06 17:02] LABS: D-Dimer 0.79 ug/mL (0.0-0.5)
[2025-04-06 17:31] VITALS: BP 91/72; PULSE 80; RESP 17; O2SAT 96
[2025-04-06 17:36] VITALS: BP 133/85; PULSE 85; RESP 17; O2SAT 98
[2025-04-06] MEDS: ONDANSETRON 4MG/2ML VIAL 4 MG IV (17:37)
[2025-04-06] MEDS: KETOROLAC 30MG/ML VIAL 30 MG IV (17:37)
[2025-04-06 17:56] VITALS: BP 133/85; PULSE 74; RESP 19; TEMP 36.4; O2SAT 99
== END 2025-04-06 17:58 | disposition home or self-care (01) ==
PROVIDERS: Emergency Provider Emergency Medicine
DX: I80.02 Phlebitis and thrombophlebitis of superficial vessels of left lower extremity (principal); R22.41 Localized swelling, mass and lump, right lower limb; F17.210 Nicotine dependence, cigarettes, uncomplicated
CPT/HCPCS: 80053; 85025; 85378; 96374; 96375; 99284; J1885; J2405

== ENCOUNTER 2025-04-09 10:10 | Emergency (ER) | payer OTHER, SELFPAY ==
--- OUTSIDE RECORDS SUMMARY | 2024-04-16 13:15 | XMS_ITS ---
Author Organization [facility] Address [address] [place] [address] Care Team Providers Care Premium Service Representative Name Role Phone [facility] ramirez bonds Primary Care Prov ider Unavailable Provider, [id number] Unavailable REASON FOR VISIT cough, sore throat, runny nose and fever Encounters Encounter Location Date Provider Diagnosis [address] [facility] [address] [place] [address] 04/16/2024 [address]4764 Provider Plan Of Treatment No Information Progress Notes * Andria BUSHOB:1985 (39 yo F)Acc No.[id number]:04/16/2024 Progress Notes Patient: Arelis MCKEON Provider: 1 8403 Provider :1985 A ge:38 Y S ex:Female Date:04/16/2024 External Visit ID:[id number] 1 Address:[address] [place], [place] [address], [address] [facility] Subjective: * Chief Complaints: * 1 . Cough, sore throat, runny nose and fever. * Medical History: Objective: * Vitals: Assessment: Plan: * Treatment: * Billing Information: * Visit Code: * Procedure Codes: Care Plan Details* * Electronic signature of GH49 130 [id number] Provider on 04/09/2025 at 09:20 AM CDT Sign off status: Pending * Provider: 1 8403 Provider Date: 0 04/16/2024 Generated for Printi ng/Faxing/eTransmitting on: 0 04/09/2025 09:20 AM CDT
--- OUTSIDE RECORDS SUMMARY | 2024-12-18 05:00 | XMS_ITS ---
Author Organization [facility] Address [address] [place] [address] Care Team Providers Care Architectural Representative Name Role Phone [facility] ramirez bonds Primary Care Prov ideNancy Alexander Unavailable [phone] REASON FOR VISIT Not Feeling Well Encounters Encounter Location Date Provider Diagnosis [address] [address] 12/18/2024 Nancy Asencio Plan Of Treatment No Information Progress Notes * Andria BUSHOB:1985 (39 yo F)Acc No.[id number]:12/18/2024 Progress Notes Patient: Arelis MCKEON Provider: Vlad Asencio CNP :1985 A ge:39 Y S ex:Female Date:12/18/2024 External Visit ID:[id number] 0 Address:[address] [place], [place] [address], [address] [facility] P[facility] Subjective: * Chief Complaints: * 1 . Not Feeling Well. * Medical History: Objective: * Vitals: Assessment: Plan: * Treatment: * Billing Information: * Visit Code: * Procedure Codes: Care Plan Details* * Electronic signature of Mahin Asencio APRN on 04/09/2025 at 09:20 AM CDT Sign off status: Pending * Provider: Vlad Asencio CNP Date: 12/18/2024 Generated for Printi ng/Faxing/eTransmitting on: 0 04/09/2025 09:20 AM CDT
--- OUTSIDE RECORDS SUMMARY | 2025-03-04 08:30 | XMS_ITS | Encounter Summary ---
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 develop UDT will be done. Patient is newand first time patient will always have a UDT preformed to potentially screen for illicit substances and verify medication use with the potential of opioids to be part of the treatment plan. UD compliance testing was reviewed and not tested today 12/17/21 started with Figure wt loss- now on adipex- no longer on this Testing: - Pertinent testing was reviewed - XRAY of cervical spine, thoracic spine and lumbar spine was reviewed in detail. - CT of lumbar spine will be considered if not improved with conservative management. - MRI of lumbar spine was reviewed in detail. - EMG of both legs will be considered if not improved with conservative management. - Labs: reviewed. Medications: <on xanax/zaleplon> -alprazolam 1mg Q6 per Zeiba -on zaleplon (Sonata) 10mg per Sleep MD x 2 tabs for sleep study -cont nabumetone 750mg BID - no refill needed -cont gabapentin 400mg QID PRN -restart cyclobenzaprine 5mg Daily PRN 12/05/2023 - we did discuss in detail that she would not take her xanax with her hydrocodone, discussed black box warning with opioids and benzo's(xanax), she only takes the xanax for panic attacks, managed per her Psychiatrist. -tried and failed lyrica: gained excessive weight - and she had withdrawal on this. She would also like to avoid gabapentin for this reason. She tried cyclobenzaporine but this causes her extreme sleepiness. -09/09/2021 - we did discuss in detail that she would not take her xanax with her hydrocodone, discussed black box warning with opioids and benzo's(xanax), she only takes the xanax for panic attacks,managed per her Psychiatrist. - She discussed that she's trying to wean off the xanax and does not take this daily. 01/06/2022 - call to Psych to discuss xanax wean or switch to alternate med for anxiety/panic attacks. Intolerant/Ineffective: -stop cyclobenzaprine 5mg x 15 tabs PRN -stop hydrocodone 5/325 Q12 PRN x 30 days <HIGH SOAPP -lyrica - wt gain -stop gabapentin 300mg 1-2# QHS - makes her feel fuzzy in her extremities/ wt gain -stop methocarmabol 500mg - ineffective -tried and failed tramadol in the past -stop methocarbamol 500mg for any muscle spasms - no refill needed I have received and assessed the information in the OARRS report, including information from Burt GIRARD, for this patient on 03/04/2025. Any concerns are documented in the note. - Gabapentin is indicated for neuropathic pain. - A muscle relaxant is indicated. She has a diagnosis of chronic pain (pain that has been present for longer than twelve weeks). A history, physical examination, and diagnostic data were obtained as outlined. Prior medications and treatments tried to date and responses were obtained and were reviewed as per chart. The patient was found to be adherent to medication and non-medication treatments without issue. Patient was screened for substance misuse and substance use disorder. An opiate risk assessment was performed, with patient scoring in the HIGH risk category. Diagnostic data (labs, results) were reviewed. Urine drug screening is used routinely and will be employed with any evidence of substance misuse or substance use disorder. Prior to treating / continuing to treat chronic pain with opiate medications, the attempt has been made to pursue non-opiate medication and non-pharmaceutical treatment options as documented. Based on an analysis of risks, benefits, and alternatives, prescription of opiates appears appropriate for management of her chronic pain. Opiate medications are part of her treatment plan for chronic pain as benefits outweigh risks and she has tried other medication / treatment options without adequate pain relief. Doses are and will be limited to the minimum quantity and potency needed to treat the expected duration of pain and improve the patient???s ability to function. The dangers of opiate medications (potential for abuse, dependence, nontherapeutic use, and divergence to the illicit market) have been taken into account and were weighed heavily. The purpose of the opiate prescriptionis to control chronic pain with additional treatment plans as outlined per chart notes. A functional pain assessment has been performed and includes the ability to engage in work or other purposeful activities, the pain intensity and its interference with activities of daily living, quality of family life and social activities, and the physical activity of the patient. Treatment plan is updated regularly and includes diagnosis (see chart), objective goals for treatment (treating pain with minimal dosing and quantity of medication with multifaceted approach as outlined), rationale for medication choice and dosage (medication is effective without intolerable side effects; failed other medications as outlined), and planned duration of treatment (currently chronic, to be reassessed within 90 d ays) and steps for further assessment and follow-up (as outlined). Activities of Daily Living: she is able to increase her activities, ability to function with medication. Adverse effects: none noted. Aberrant behavior / indicators of possible addiction, drug abuse, or drug diversion: none noted. Analgesia: effective. Progress with treatment goals: opiate medications are part of an overall plan for patient rehabilitation, including her ability to perform a home exercise program and activities of daily living. The importance of non- pharmacologic pain management techniques was discussed. The option of referral for cognitive behavioral therapy with counseling was considered. Our goal is to usea multifaceted approach to pain management with the patient's best health in mind. OARRS report wasobtained, reviewed 03/04/2025 ([place], [place], [place] states), with no unexpected activity noted. OARRS is reviewed at least every 90 days for use lasting more than 90 days. Based on OARRS report / opiate calculation, her morphine equivalent dosing (MED) was calculated as MED = 0 as the total morphine equivalent opiates per day. OARRS report was reviewed for presence of controlled substances other than opiates; if present, prescription of more than one controlled substance is medically necessary as benefitsoutweigh risks. It was discussed that alcohol and other medications such as benzodiazepines, sedative-hypnotics, or barbiturates, carisoprodol, tramadol, or gabapentin may interact with opiates. The FDA has created a black box warning for benzodiazepine use with opiates: there are serious risks associated with using these medications at the same time. Potential risks include increased extreme sleepiness, opiate toxicity, respiratory depression, increased sleep apnea risk, coma, and increased risk of overdose deaths and other potential adverse effects. Naloxone has been offered for any patients with the following: a) prior history of opioid overdose; b) dosage exceeding 50 MED or opiate co-prescribed with benzodiazepine, sedative hypnotic, carisoprodol, tramadol, or gabapentin; or c) patient with a concurrent substance abuse disorder. The patient should keep all physicians informed of all medications. A written pain agreement was signed on 12/05/2023-no longer on opioids ; she gave informed consent to proceed with treatment. A detailed discussion with the patient or guardian has occurred and includes the benefits and risks of medication (including potential for addiction and risk oroverdose) as well as the patient???s responsibility to safely store and appropriately dispose of the medication. The written pain agreement outlines the physician???s and patient???s responsibilitiesduring treatment and requires the patient or patient guardian???s agreement to all of the followingprovisions: (a) Permission for drug screening and release to speak with other practitioners concerning the patient???s condition or treatment; (b) Cooperation with pill counts or other checks designed to assure compliance with the treatment plan and to minimize the risk of misuse or diversion; (c) The understanding that the patient shall only receive opioid medications from the physician treatingthe chronic pain unless there is written agreement among all of the prescribers of opioids outlining the responsibilities and boundaries of prescribing for the patient; (d) The understanding that thedosage may be tapered if not effective or if the patient does not abide by the treatment agreement; and (e) The use of one pharmacy unless an exception is allowed. Discussed that regular office appointments are required for opiate prescriptions; she voiced understanding. This evaluation is considered to be a consultation with a specialist in the area of the body affected by the pain. Consideration will be made for 1) medication therapy management review by a pharmacist, or 2) consultation with a specialist in addiction medicine or addiction psychiatry if aberrant behaviors indicating medication misuse or substance use disorder are noted. - Risks / potential side effects, benefits, and alternatives of pain medications were discussed. Indications for medications are outlined in diagnoses. Benefits outweigh potential risk. Medications are prescribed as part of an overall monitoring / treatment plan with regular, scheduled follow up. The above medication counseling has been and will continue to be discussed with the patient, who agrees with the plan and voices understanding. Procedures: -To be determined -consider TF LESI Left L5 S1 - pending updated MRI (consider alt steroid: dexamethasone) - will discuss further next visit to space out next steroid injection History of Procedures: 07/24/21 LESI IL L5 S1 Referrals: -Working with [facility] - Continue to follow up with PCP for general health issues. -Weight management: Body mass index is 48.29 kg/m??. Goal BMI is 20-25. Therapy / self-care / exercise: - Physical therapy is indicated for stretching, progressive strengthening, modalities as indicated,and to establish home exercise program. - Continue home exercise program. - Discussed ergonomics in relation to activities. - Discussed back/neck hygiene, importance of stretching program. - Weight management:@ Goal BMI is 20-25. Discussed importance of maintaining an ideal weight. - Recommend anti-inflammatory diet with avoidance of simple sugars, processed / refined foods. - Weight management: Body mass index is 48.29 kg/m??. Goal BMI is 20-25. General medicine: - Vital signs were reviewed. Upper limit for BP is typically 120/80. Continue to follow up with PCPfor general health issues. Restrictions: - Discussed ergonomics in relation to activities. Future direction: - If she does not improve with conservative management, further work-up or treatment may be necessary. Patient understands that prescriptions for pain medications will be made only at the time of an office visit. Medications will not be phoned into the pharmacy or refilled without being seen at a scheduled clinic appointment. Orders Placed This Encounter Work Excuse cyclobenzaprine (FLEXERIL) 5 MG TABS gabapentin (NEURONTIN) 400 MG CAPS Provided patient with educational information Follow-up: Return in about 27 weeks (around 09/09/2025). Opioid agreement signed 12/05/2023 Narcan prescribed for opioid safety Patient understood and was in agreement with the plan. Patient understands that prescriptions for pain medications will be made only at the time of an office visit. Medications will not be phoned into the pharmacy or refilled without being seen at a scheduled pain clinic appointment. documented in this encounter Plan of Treatment Upcoming Encounters Date Type Department Care Team (Late st Contact Info) Description 04/17/2025 3:15 PM EDT Office Visit [facility] [address] [place] [phone] Thalia Singer, IS/IT PROJECT MANAGER [address] [place] [phone] 09/16/2025 8:30 AM EST Office Visit [facility] [place] [facility] [address] [place] [address] Flores Dawn, IS/IT PROJECT MANAGER [address] [facility] [address] [place] [address] documented as of this encounter Visit Diagnoses Diagnosis Lumbar radiculopathy- Primary Thoracic or lumbosacral neuritis or radiculitis, unspecified Facet arthritis of lumbar region Lumbosacral spondylosis without myelopathy Encounter for medication management High risk medication use Encounter for long-term (current) use of other medications Neuropathic pain Neuralgia, neuritis, and radiculitis, unspecified Idiopathic peripheral neuropathy Unspecified hereditary and idiopathic peripheral neuropathy Neuralgia and neuritis, unspecified Left hip pain Pain in joint, pelvic region and thigh documented in this encounter Care Teams Digital Editor Relationship Specialty Start Date End Date Ab Lee MD PCP - General 11/13/07 documented as of this encounter
--- OUTSIDE RECORDS SUMMARY | 2025-03-04 09:50 | XMS_ITS | Encounter Summary ---
Author Organization [facility] Address [address] [place] [address] [place] [address] Phone Care Team Providers Care Nursing Department Chairperson Name Role Phone Ab Lee MD Primary Care Provider [phone] Reason for Visit * Reason Comments Blood Pressure Elevated @ 162/101 e arlier today Encounter Details Date Type Department Care Team (Late st Contact Info) Description 03/04/2025 9:50 AM EDT Office Visit [facility] [address] [place] [address] Cinthya May PA-C [address] [place] [address] Essential hypertension (Primary Dx) Social [...] file Not on file 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 * HYPERTENSION (LUX[place]OURG[place]) documented in this encounter Progress Notes * Cinthya May PA-C - 03/04/2025 9:50 AM EDT Primary Care Provider: Ab Lee MD [facility] [address]pp [address] [facility] [address] Subjective Subjective: Arelis Bush is a 39 [...] gi endoscopy,exam (1999); other (2007); Colonoscopy (04/04/2013); [place] tooth extraction; lap,cholecystectomy (06/03/2016); and hc kyleena [...] Angioedema and Anaphylaxis Amitriptyline moser Bromfed Dm [[id number]-Yqwjcslh-Or] Other (See Comments) Blacked out. Shaking, hallucinations [...] 04/17/2025 3:15 PM EDT Office Visit [facility] [address] [place] [phone] Thalia Singer, FEED BLENDER [address] [place] [phone] 09/16/2025 8:30 AM EST Office Visit [facility] [place] [facility] [address] [place] [phone] Flores Dawn, FEED BLENDER [address] [facility] [address] [place], [place] [phone] documented as of this encounter Visit Diagnoses Diagnosis Essential hypertension- Primary Unspecified essential hypertension documented in this encounter Care Teams Nursing Department Chairperson Relationship Specialty Start Date End Date Ab Lee MD PCP - General 11/13/07 documented as of this encounter
--- OUTSIDE RECORDS SUMMARY | 2025-03-05 14:06 | XMS_ITS | Encounter Summary ---
Author Organization [place] [address] Care Team Providers Care Security Tester Name Role Phone Ab Lee MD Primary Care Provider [phone] Reason for Visit * Reason Comments Hypertension BP been running high , can't get into pcp until 03/14; been dizzy since 5am, pcp told to come in for possible TIA; +ROBINS, blurry vision Encounter Details Date Type Department Care Team (Late Contact Info) Description 03/05/2025 2:06 PM EDT - 03/05/2025 5:12 PM EDT Emergency [facility] Emergency [address] [place] [address] Lashawn Whelan MD [address] [place] [address] Uncontrolled hypertension (Primary Dx) Discharge Disposition: Home or Self Care Social History Tobacco Use Types Packs/Day Years Used Date Smoking Tobacco: Former Cigarettes 1 10 Smokeless Tobacco: Never Tobacco Cessation:Counseling Given: Not Answered Alcohol Use Standard Drinks/Week Comments No 0 (1 standard drink = 0.6 oz pur e alcohol) [facility] Utilities Answer Date Recorded In the past 12 months has [employer] electric, gas, oil, or water company threatened to shut off services in your home? No 11/16/2024 Overall Financial Resource Strain (CARDIA) Answe r Date Recorded How hard is it for you to pa y for the very basics like food, housing, medical care, and heating? Not hard at all 11/16/2024 PHQ-2 Answer Date Recorded PHQ-2 Total Score 0 11/16/2024 [facility] Onset of Occupat ional Health - Occupational Stress [...] money to get more. Never true 11/16/2024 [facility] IP Transportation Answer D ate Recorded In [...] 2:02 PM EDT Tina Lao RN * [place] Suicide Severity Rating Scale (Q shift for [...] Means Destination Comment s Home or Self Long-Term documented in this encounter ED Notes * [...] Sinus tachycardia at a rate of 103. WI interval shortened at 112. Sharon is normal. There are nonspecific changes. 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 Normal axis. WI interval 112 ms. QRS duration 110 ms. QTc 4 and 59ms. Generalized T wave flattening of lead III and V1 (on prior dated 11/16/2024 showed inversions in lead III and V1). No ST elevations. No ectopy or lethal dysrhythmia. Two-view chest x-ray unremarkable. Random [id number] fingerstick glucose 177. Stable CBC as wellas [...] Sinus tachycardia at a rate of 103. WI interval shortened at 112. Sharon is normal. There are nonspecific changes. Rate [...] APRN MICROBIOLOGY - GENERAL ORDERABLES Final Result [facility] [address] [place] [address] * URINALYSIS REFLEX (03/05/2025 3:24 PM EDT) UA Color Yellow 03/05/2025 3:30 PM EDT [facility] UA Appear Clear Clear 03/05/2025 3:30 PM EDT [facility] UA Glucose Negative Negative mg/dL 03/05/2025 3:30 PM EDT [facility] UA Ketones Negative Negative mg/dL 03/05/2025 3:30 PM EDT [facility] UA Blood Negative Negative 03/05/2025 3:30 PM EDT [facility] UA pH 6.0 5.0 - 8.0 pH 03/05/2025 3:30 PM EDT [facility] UA Protein Negative Negative mg/dL 03/05/2025 3:30 PM EDT [facility] UA Urobilinogen 0.2 <=1 mg/dL 3:30 PM EDT [facility] UA Bili Negative Negative 03/05/2025 3:30 PM EDT [facility] UA Nitrite Negative Negative 03/05/2025 3:30 PM EDT [facility] UA Leuk Est Negative Negative 03/05/2025 3:30 PM EDT [facility] UA Spec Grav <=1.005 1.001 - 1.035 no units 03/05/2025 3:30 PM EDT [facility] Comment:Reference range pat d for random specimens only. Urine STRUCTURE OF URINARY TRACT PROPER / Unknown 03/05/2025 3:24 PM EDT 03/05/2025 3:27 PM EDT Nette A Edmundo DELIVERY STOCK CLERK URINE ORDERABLES Final Result [facility] [address] [place] [address] * XR CHEST PA AND [...] <1 <5 mIU/mL 03/05/2025 2:48 PM EDT [facility] Blood VENOUS BLOOD / [...] ORDERABLES Fi nal Result Performing Organization Address [facility] de Phone Number [facility] [address] [place] [address] * TROPONIN-T HIGH SENSITIVITY BASELINE W/ REFLEX (03/05/2025 2:22 PM EDT) ii-[id number]-[id number] 9 <14 ng/L 03/05/2025 2:48 PM EDT [facility] Blood VENOUS BLOOD / Unknown Venipuncture / Unknown 03/05/2025 2:22 PM EDT 03/05/2025 2:26 PM EDT Narrative [facility] - 03/05/2025 2:48 PM EDT Ingestion of nelly doses of biotin (>5 mg/day) taken within 8 hours of drawing blood sample can interfere with this immunoassay test. Nette Wyatt APRN CHEMISTRY ORDERABLES Fi nal Result Performing Organization Address [facility] de Phone Number [facility] [address] [place] [address] * (ABNORMAL) BASIC METABOLIC PANEL (03/05/2025 2:22 PM EDT) Sodium 139 136 - 145 mmol/L 03/05/2025 2:48 PM EDT [facility] Potassium 3.7 3.5 - 5.0 mmol/L 03/05/2025 2:48 PM EDT [facility] Chloride 103 98 - 107 mmol/L 03/05/2025 2:48 PM EDT [facility] Total CO2 22 22 - 29 mmol/L 03/05/2025 2:48 PM EDT [facility] Anion Gap 14 7 - 16 mmol/L 03/05/2025 2:48 PM EDT [facility] Calcium 8.8 8.6 - 10.4 mg/dL 03/05/2025 2:48 PM EDT [facility] Glucose Lvl 183(H) 70 - 99 mg/dL 03/05/2025 2:48 PM EDT [facility] BUN 8 6 - 20 mg/dL 03/05/2025 2:48 PM EDT [facility] Creatinine 0.60 0.51 - 1.30 mg/dL 03/05/2025 2:48 PM EDT [facility] eGFR (CKD-EPIcr 2020) 115 >=60 mL/min/1.7 3 m2 03/05/2025 2:48 PM EDT [facility] Comment:Estimated GFR was ca lculated using the CKD-EPIcr (2020) equation refit without race. The equation is recommended by the National Kid[employer] - [place] [employer] Neph[employer] Task Force. Blood VENOUS BLOOD / Unknown Venipuncture / Unknown 03/05/2025 2:22 PM EDT 03/05/2025 2:26 PM EDT Nette Wyatt APRN CHEMISTRY ORDERABLES Fi nal Result [facility] [address] [place] [address] * (ABNORMAL) CBC WITH DIFF (03/05/2025 2:22 PM EDT) WBC 7.6 3.7 - 10.3 x10(3)/mcL 03/05/2025 2:29 PM EDT [facility] RBC 5.00 3.90 - 5.20 x10(6)/mcL 03/05/2025 2:29 PM EDT [facility] Hgb 15.6 11.2 - 15.7 g/dL 03/05/2025 2:29 PM EDT [facility] Hct 45.7(H) 34.0 - 45.0 % 03/05/2025 2:29 PM EDT [facility] MCV 91.4 80.0 - 100.0 fL 03/05/2025 2:29 PM EDT [facility] MCH 31.2 26.0 - 34.0 pg 03/05/2025 2:29 PM EDT [facility] MCHC 34.1 30.7 - 35.5 g/dL 03/05/2025 2:29 PM EDT [facility] RDW 11.9 <=14.9 % 03/05/2025 2:29 PM EDT [facility] Platelet 275 155 - 369 x10(3)/mcL 03/05/2025 2:29 PM EDT [facility] MPV 10.7 8.8 - 12.5 fL 03/05/2025 2:29 PM EDT [facility] Neut Percent 57.2 % 03/05/2025 2:29 PM EDT [facility] Comment:Neutrophils equals s egs plus bands Imm Gran% 0.1 % 03/05/2025 2:29 PM EDT [facility] Comment:Automated count of m etamyelocytes, myelocytes and promyelocytes. Lymph Percent 32.2 % 03/05/2025 2:29 PM EDT [facility] Gila Percent 8.2 % 03/05/2025 2:29 PM EDT [facility] Eos Percent 1.5 % 03/05/2025 2:29 PM EDT [facility] Baso Percent 0.8 % 03/05/2025 2:29 PM EDT [facility] Neut # 4.3 1.6 - 6.1 x10(3)/mcL 03/05/2025 2:29 PM EDT [facility] Comment:Neutrophils equals s egs plus bands IMMGRAN# 0.0 0.0 - 0.1 x10(3)/mcL 03/05/2025 2:29 PM EDT [facility] Comment:Automated count of m etamyelocytes, myelocytes and promyelocytes. An absolute IG <0.1 is reported as 0.0. Lymph # 2.4 1.2 - 3.9 x10(3)/mcL 03/05/2025 2:29 PM EDT [facility] Gila # 0.6 0.3 - 0.9 x10(3)/mcL 03/05/2025 2:29 PM EDT [facility] Eos# 0.1 0.0 - 0.5 x10(3)/mcL 03/05/2025 2:29 PM EDT [facility] Baso # 0.1 0.0 - 0.1 x10(3)/mcL 03/05/2025 2:29 PM EDT [facility] Blood VENOUS BLOOD / Unknown Venipuncture / Unknown 03/05/2025 2:22 PM EDT 03/05/2025 2:26 PM EDT Nette Wyatt APRN HEMATOLOGY ORDERABLES F inal Result [facility] [address] [place] [address] * (ABNORMAL) GLUCOSE METER POC (03/05/2025 2:07 PM EDT) [facility] Glucose Meter POC 177(H) 70 - 100 mg/dL 03/05/2025 2:09 PM EDT [facility] Sample Type Capillary 03/05/2025 2:09 PM EDT [facility] Patient Status Non-Critical Patient 03/05/2025 2:09 PM EDT [facility] Blood BLOOD SPECIMEN / Unknown 03/05/2025 2:07 PM EDT 03/05/2025 2:09 PM EDT Lab Test POINT OF CARE TEST ORDERABLES Fi nal Result 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
--- OUTSIDE RECORDS SUMMARY | 2025-03-06 09:45 | XMS_ITS | Encounter Summary ---
Author Organization [facility]BO AND [facility] P Address [facility] [place] [address] Phone Care Team Providers Care System Administration Advisor Name Role Phone Ab Lee MD Primary Care Provider [phone] Reason for Referral * Consultation (Routine) - Pending Review Specialty Diagnoses / Procedures Referred By Rao katz Referred To Contact Neurology Diagnoses Chronic tension-type headache, not intractable Loss of balance Muscle twitching Family history of stroke Ab Lee MD [address] [place] [address] Phone: tel: fax: Ariel Malhotra MD [address] [place] [address] Phone: tel: fax: Referral ID Status Reason Start Date Expiration Date Visits Requested Visits Authorized [id number] Pending Review Specialty Services Required 03/06/2025 03/06/2026 1 1 Scheduling Instructions [facility] - Neurology Call to schedule [facility] [address] [place] [address] [place] [address] Reason for Visit * Reason Comments Follow-up Hypertension Headache Encounter Details Date Type Department Care Team (Late st Contact Info) Description 03/06/2025 9:45 AM EDT Office Visit [facility] [address] [place] [address] Ab Lee MD [address] [place] [address] Chronic tension-type headache, not intractable [...] file Not on file Not on file judicial law clerk Not on file Not on file [...] yet scheduled her mammogram. She follow a marketing production coordinator and reports no skin concerns. SOCIAL HISTORY [...] colon/normal IBS HC KYLEENA IUD 11/03/2017 lot: [id number] exp: 02/28 LAP,CHOLECYSTECTOMY 06/03/2016 Dr. Christiano Meza [...] use Diabetes Father Heart Disease Father 55 NM Hypertension Father Heart Disease Maternal Grandmother 48 NM X 5- OPENHEART SURGERY Diabetes Maternal Grandmother [...] Angioedema and Anaphylaxis Amitriptyline moser Bromfed Dm [Gdfrdnytr-Ltomomyw-Si] Other (See Comments) Blacked out. Shaking, hallucinations [...] regular follow-ups with eye doctor, dentist, and marketing production coordinator. - adv for aspirin 81 mg daily [...] contact the author as some errors in death claim clerk may have occurred. documented in this encounter Plan of Treatment Upcoming Encounters Date Type Department Care Team (Late st Contact Info) Description 04/17/2025 3:15 PM EDT Office Visit [facility] [address] [place] [address] Thalia Singer SPECIAL EFFECTS PERSON [address] [place] [address] 09/16/2025 8:30 AM EST Office Visit [facility] [place] [facility] [address] [place] [id number] Flores Dawn, SPECIAL EFFECTS PERSON [address] [facility] [address] [place] [address] Scheduled Referrals Name Type Priority [...] insulin documented in this encounter Care Teams System Administration Advisor Relationship Specialty Start Date End Date Ab Lee MD PCP - General 11/13/07 documented as of this encounter
[2025-04-09] VITALS (7 sets, daily range): BP systolic 109–166; BP diastolic 65–88; PULSE 69–96; RESP 16–20; TEMP 36.6–36.9; O2SAT 98–100; BMI 48.7
--- OUTSIDE RECORDS SUMMARY | 2025-04-09 10:17 | XMS_ITS | Encounter Summary ---
Author Organization [facility] Address [facility] [place] [address] Phone Care Team Providers Care Regulator Pin Inserter Name Role Phone Ab Lee MD Primary Care Provider [phone] Encounter Details Date Type Department Care Team (Late st Contact Info) Description 02/09/2024 Telephone [facility] Medical Weight Management [facility] [address] [place] [address] Neha Katz, HISTORY FACULTY MEMBER [address] [place] [address] Social History Tobacco Use Types [...] Start Date 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 Date 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 Not [...] 3:15 PM EDT Office Visit [facility] [address] [place] [address] Thalia Singer, CLINICAL QUALITY RN [address] [place] [address] 09/16/2025 8:30 AM EST Office Visit [facility] [place] [facility] [address] [place] [phone] Flores Dawn, CLINICAL QUALITY RN 100 [facility] [address] [place] [address] documented as of this encounter Visit Diagnoses Not on filedocumented in this encounter Care Teams Regulator Pin Inserter Relationship Specialty Start Date End Date Ab Lee MD PCP - General 11/13/07 documented as of this encounter
--- OUTSIDE RECORDS SUMMARY | 2025-04-09 10:17 | XMS_ITS | Encounter Summary ---
Author Organization [facility] Address [address] [place] [address] [place] [address] Phone Care Team Providers Care Fat Pressroom Worker Name Role Phone Ab Lee MD Primary Care Provider [phone] Encounter Details Date Type Department Care Team (Late st Contact Info) Description 12/05/2023 Telephone - Conversion [facility] Orthopedic & Sports [place] [facility] [address] [place] [phone] Flores Dawn, FULL DECATOR OPERATOR 100 [facility] [address] [place] [address] Pain in left hip Social [...] Date 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 Not on [...] Description 04/17/2025 3:15 PM EDT Office Visit [address] [phone] Thalia Singer, FULL DECATOR OPERATOR [address] [place] [phone] 09/16/2025 8:30 AM EST Office Visit [facility] [place] [facility] [address] [place] [phone] Flores Dawn, FULL DECATOR OPERATOR 100 [facility] [address] [place] [address] documented as of this encounter Visit Diagnoses Diagnosis Pain in left hip Pain in joint, pelvic region and thigh documented in this encounter Care Teams Fat Pressroom Worker Relationship Specialty Start Date End Date Ab Lee MD PCP - General 11/13/07 documented as of this encounter
--- OUTSIDE RECORDS SUMMARY | 2025-04-09 10:17 | XMS_ITS | Encounter Summary ---
Author Organization [facility] Address [facility] [place] [address] Phone Care Team Providers Care Electric Plater Name Role Phone Ab Lee MD Primary Care Provider [phone] Reason for Visit * Reason Comments Refill Request Encounter Details Date Type Department Care Team (Late st Contact Info) Description 02/04/2024 Refill [facility] Medical Weight Management [facility] [address] [place] [address] [facility] [address] [place] [address] Controlled type 2 diabetes mellitus without complication, without long-term current use of insulin ([facility]) Social History Tobacco Use Types Packs/Day Years [...] Start Date 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 Not [...] 3:15 PM EDT Office Visit [facility] [address] [place] [address] Thalia Singer, APPRAISER REAL ESTATE [address] [place] [phone] 09/16/2025 8:30 AM EST Office Visit [facility] Orthopedic & Sports [place] [facility] [address] [place] [phone] Flores Dawn, APPRAISER REAL ESTATE 100 [facility] [address] [place] [address] documented as of this encounter Visit Diagnoses Diagnosis Controlled type 2 diabetes mellitus without complication, without long-term current use of insulin documented in this encounter Care Teams Electric Plater Relationship Specialty Start Date End Date Ab Lee MD PCP - General 11/13/07 documented as of this encounter
--- OUTSIDE RECORDS SUMMARY | 2025-04-09 10:17 | XMS_ITS | Encounter Summary ---
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 on [...] Description 04/17/2025 3:15 PM EDT Office Visit [address] [phone] Thalia Singer, MUFF WINDER [address] [place] [phone] 09/16/2025 8:30 AM EST Office Visit [facility] Orthopedic & Sports [place] [facility] [address] [place] [phone] Flores Dawn, MUFF WINDER 100 [facility] [address] [place] [address] documented as of this encounter Visit Diagnoses Diagnosis Neuralgia and neuritis, unspecified documented in this encounter Care Teams Supervisor Rubber Covering Relationship Specialty Start Date End Date Ab Lee MD PCP - General 11/13/07 documented as of this encounter
--- OUTSIDE RECORDS SUMMARY | 2025-04-09 10:18 | XMS_ITS | Referral Summary ---
Author Organization [facility] Address [address] [place] [address] Phone Care Team Providers Care Spinner Cap Frame Name Role Phone Ab Lee MD Primary Care Provider [phone] Encounters Date Type Department Care Team Description 03/26/2025 Telephone [facility] Central Scheduling [address] [place] [address] Ariel Malhotra MD 03/25/2025 Refill [facility] [address] [place] [address] Thalia Singer, GRAPHICS PRODUCTION SPECIALIST Hidradenitis suppurativa (Primary Dx) 03/06/2025 9:45 AM EDT Office Visit [facility] [address] [place] [address] Ab Lee MD Chronic tension-type headache, not intractable (Primary Dx); Loss of balance; Muscle twitching; Family history of stroke; Depression, recurrent (HCC); Essential hypertension; Morbid obesity with BMI of 45.0-49.9, adult (HCC); Controlled type 2 diabetes mellitus without complication, without long-term current use of insulin 03/05/2025 Telephone [facility] [address] [place] [address] Clinton Howell, Registered Nurse 03/04/2025 9:50 AM EDT Office Visit [facility] [address] [place] [phone] Cinthya May PA-C Essential hypertension (Primary Dx) 03/04/2025 8:30 AM EDT Office Visit [facility] [address] [place] [phone] Flores Dawn CNP Lumbar radiculopathy (Primary Dx); Facet arthritis of lumbar region; Encounter for medication management; High risk medication use; Neuropathic pain; Idiopathic peripheral neuropathy; Neuralgia and neuritis, unspecified; Left hip pain 02/28/2025 Refill [facility] [address] [place] [phone] Flores Dawn CNP Idiopathic peripheral neuropathy; High risk medication use; Neuropathic pain; Lumbar radiculopathy; Neuralgia and neuritis, unspecified; Left hip pain; Encounter for medication management 02/26/2025 Refill [facility] [address] [place] [address] Thalia Singer CNP 02/11/2025 Results Follow-Up [facility] [address] [place] [phone] Cielo Mock CNP CYTOLOGY PARCEL POST TRUCK DRIVER 01/28/2025 6:25 PM EDT Specimen [facility] [address] [place] [address] Cielo Mock CNP Encounter for gynecological examination without abnormal finding 01/28/2025 6:00 PM EDT Office Visit [facility] [address] [place] [phone] Cielo Mock CNP Encounter for gynecological examination without abnormal finding (Primary Dx); Chronic pelvic pain in female; Encounter for surveillance of contraceptive pills; Visit for screening mammogram; Yeast vaginitis; PMS (premenstrual syndrome) from Last 3 Months Allergies Active Allergy Reactions Criticality Noted Date Comments Amitriptyline 12/14/2002 moser Rezcfyahi-Llgubgqt-Kq Other (See Comments) 10/22/2013 Blacked out. Shaking, hallucinations Chocolate (Food) 11/21/2007 Sneeze, itch Diclofenac 12/14/2002 diarrhea Lisinopril Anaphylaxis High 11/20/2024 Metoprolol Anaphylaxis High 11/20/2024 Nitrofurantoin Angioedema,Anaphyla xis High 09/17/2021 Thiazide-Type Diuretics Other (See Comments) 01/04/2014 Increased liver enzymes Medications ALPRAZolam (XANAX) 1 MG TABSIndications: PRN Take 1 mg by mouth. 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 on file Not on file [...] 04/17/2025 3:15 PM EDT Office Visit [facility] [address] [place] [phone] Thalia Singer, GRAPHICS PRODUCTION SPECIALIST [address] [place] [phone] 09/16/2025 8:30 AM EST Office Visit [facility] Orthopedic [facility] [place] [facility] [address] [place] [phone] Flores Dawn, GRAPHICS PRODUCTION SPECIALIST 100 [facility] [address] [place] [address] Medical Devices Implanted Type Area Icd 9 Coder Device Identifier Shelf Expiration Date Model / Serial / Lot Gallbladder Clip-06/03/2016 Implanted: 016 (Quantity not on file) Clip ETHICON LIGAMAX 5MM CLIP / / Description:3T OR LESS MAX SPATIAL GRADIENT OF 6.5T/M 1.7 W/KG FOR 20 MIN OF SCANNING (PER SEQUENCE) Procedures Procedure Name Priority Date/Time Associated Diagnosis Comments CYTOLOGY PARCEL POST TRUCK DRIVER Today 01/28/2025 6:22 PM EDT Encounter for [...] Relevant to Health Maintenance Results * CYTOLOGY PARCEL POST TRUCK DRIVER (01/28/2025 6:22 PM EDT) CYTOLOGY-PARCEL POST TRUCK DRIVER CYTOLOGY GYNECOLOGICAL REPORT Name: JAYA BUSH EPI#: [id number] Case #: [id number] Final Cytologic Diagnosis A. Thinprep Cervical/Endocervic al with HPV screen and 16/18 Genotyping if Indicated: Adequacy: Satisfactory for evaluation, ABSENT endocervical transformation zone component. Interpretation: Negative for intraepithelial lesion or malignancy. Fungal organisms morphologically consistent with Ana spp. This specimen has been analyzed by the ThinPrep Imaging System ([email or web address].), an automated imaging and review system, which assists the core composer feeder and/or pathologist in evaluation of cells on [...] Normal Contraceptive History: OC/BCP Signed out at [facility], [address] [place] [address] [facility] Non-Formatted Report [facility] 01/28/2025 6:22 PM EDT 01/29/2025 9:04 AM EDT Cielo Mock CNP PATHOLOGY/CYTOLOGY ORDERABLES Fi nal Result [facility] [address] [place] [address] * (ABNORMAL) CMP (BMP,TP,ALB,TBIL,ALK,AST,ALT) (12/15/2024 10:13 AM EDT) SODIUM 137 135 - 145 mmol/L [facility] POTASSIUM 4.4 3.6 - 5.1 mmol/L [facility] CHLORIDE 105 98 - 111 mmol/L [facility] CO2 27 21 - 31 mmol/L [facility] GLUCOSE, RANDOM 167(H) 70 - 99 mg/dL [facility] BLD UREA NITROGEN 8 8 - 26 mg/dL [facility] CREATININE 0.71 0.60 - 1.20 mg/dL [facility] CALCIUM 8.4(L) 8.5 - 10.4 mg/dL [facility] TOTAL PROTEIN 6.2 6.0 - 8.0 g/dL [facility] ALBUMIN 3.8 3.5 - 5.7 g/dL [facility] TOTAL BILIRUBIN 0.4 0.0 - 1.2 mg/dL [facility] ALK PHOSPHATASE 70 35 - 135 IU/L [facility] AST 43(H) 10 - 40 IU/L [facility] ALT 33 10 - 60 IU/L [facility] ESTIMATED GFR 109 >59 mL/min/1.7 3 m2 [facility] Comment:Estimated GFR was ca lculated using the CKD-EPI cr (2020) equation refit without race. The equation is recommended by the National Kidney Foundation - [place] [employer] of Nephrology Task Force. ANION GAP 5 4 - 16 mmol/L [facility] Comment:Tested at [facility] [address] [place] [address] Whole Blood 12/15/2024 10:1 3 AM EDT 12/15/2024 10:14 AM EDT us Ab Lee MD LAB BLOOD ORDERABLES Final Resu lt [facility] [address] [place] [address] [facility] [address] [place] [address] * (ABNORMAL) HEMOGLOBIN A1C (10/12/2024 1:47 PM [...] given level of glycemic control. Tested at: [place] [address] Whole Blood 10/12/2024 1:47 PM EST 10/12/2024 5:38 PM EST Ab Lee MD LAB BLOOD ORDERABLES Final Resu lt Performing Organization Address [facility] de Phone Number [facility] [address] [place], [place] [phone] GSH TEST SITE * MICROALBUMIN, URINE RANDOM (INCLUDES MALB/CREAT RATIO) (10/11/2023 9:57 AM EST) MICROALBUMIN, UR <12.0 mg/L [facility] 1 CREATININE, URINE RANDOM 127.5 mg/dL [facility] 1 MICROALB/CREAT RATIO See Comment mg/g CREAT [facility] 1 Comment: (NOTE) Because the albumin level is below the level of detection in this urine specimen, the laboratory is unable to calculate a reliable albumin/creatinine ratio. Microalbuminuria is unlikely if the urine albumin concentration is less than 20-30 mg/L in a random specimen. Tested at: [facility] [place] [facility], [address] [place] [address] Urine 10/11/2023 9:57 AM EST 10/11/2023 12:00 PM EST Ab Lee MD URINE ORDERABLES NO PER Final R esult Performing Organization Address [facility] Co de Phone Number [facility] [address] [place] [address] [facility] 1 * (ABNORMAL) LIPID PANEL (CHOL, TRIG, HDL, LDL) (06/20/2023 8:39 AM EDT) CHOLESTEROL 191 <200 mg/dL CV[facility] RN RY HEMATOLOGY TRIGLYCERIDE 142 <150 mg/dL [facility] Comment: Reference Interval: Fasting <150 mg/dL Non-Fasting <175 mg/dL HDL CHOLESTEROL 47(L) >50 mg/dL [facility]M [facility] HEMATOLOGY LDL CHOLESTEROL (CALCULATED) 116 <130 mg/dL [facility] Comment: Interpretive Guidelines: <100 Optimal 100-129 Near Optimal 130-159 Borderline High >159 High TOTAL NON HDL CHOL 144(H) <130 mg/dL [facility] Comment:Tested at [facility] [address] [facility] [address] Whole Blood 06/20/2023 8:39 AM EDT 06/20/2023 12:07 PM EDT us Nadia Graff GRAPHICS PRODUCTION SPECIALIST LAB BLOOD ORDERABLES Fin al Result Performing Organization Address City/State/[facility] Co de Phone Number [facility] [address] [place], [place] [phone] CHEMISTRY HEMATOLOGY [address] [place] [address] * Mammogram Bilat Digital W Cad (06/04/2010 2:57 PM EDT) Anatomical Region Laterality Modality Chest Bilateral Mammography 06/04/2010 2:57 PM EDT Narrative 06/05/2010 8:22 AM EDT This document is confidential medical information. Unauthorized disclosure or use of this information is prohibited by law. If you are not the intended recipient of this document, please advise us by calling immediately [phone]. [place], [place] [address] Mammography Report Date: 06/04/10 Name: JAYA GERMAN Unit #: [id number] Loc: [facility] Location: [facility] [place] : 83 Ordering Physician: Paula Fink M.D. [...] document, please advise us by calling immediately [phone]. [place], [place] [address] Mammography Report Date: 06/04/10 Name: JAYA GERMAN Unit #: [id number] Loc: [facility] Location: [facility] : 83 Ordering Physician: Paula Fink [...] DD 22 12 us Paula Fink MD [facility] Final Result from Last 3 Months or Most Recently Relevant to Health Maintenance Administered Medications Insurance [facility] LIZZY TIER 1 Care Teams Spinner Cap Frame Relationship Specialty Start Date End Date Ab Lee MD PCP - General 11/13/07
--- OUTSIDE RECORDS SUMMARY | 2025-04-09 10:18 | XMS_ITS | Encounter Summary ---
Author Organization [facility] Address [facility] [place] [address] Phone Care Team Providers Care Supervisor Salvage Name Role Phone Ab Lee MD Primary Care Provider [phone] Encounter Details Date Type Department Care Team (Late st Contact Info) Description 05/03/2023 Telephone [facility] [place] [facility] Medical Weight Management [facility] [address] [place] [address] Neha Katz, [facility] [address] [place] [address] Social History Tobacco Use Types [...] 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 Date 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 Date 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 Not on file [...] Description 04/17/2025 3:15 PM EDT Office Visit [facility] [address] [place] [phone] hTalia Singer, INSTANT POTATO PROCESSING SUPERVISOR [address] [place] [phone] 09/16/2025 8:30 AM EST Office Visit [facility] Orthopedic & Sports [place] [facility] [address] [place] [phone] Flores Dawn, INSTANT POTATO PROCESSING SUPERVISOR 100 [facility] [address] [place], [place] [phone] documented as of this encounter Visit Diagnoses Not on filedocumented in this encounter Care Teams Supervisor Salvage Relationship Specialty Start Date End Date Ab Lee MD PCP - General 11/13/07 documented as of this encounter
--- OUTSIDE RECORDS SUMMARY | 2025-04-09 10:18 | XMS_ITS | Encounter Summary ---
Author Organization [facility] Address [address] [place] [address] [place] [address] Phone Care Team Providers Care Ancillary Specialist Name Role Phone Ab Lee MD Primary Care Provider [phone] Encounter Details Date Type Department Care Team (Late st Contact Info) Description 05/28/2024 Telephone - Conversion [facility] Orthopedic [facility] [place] [facility] [address] [place] [phone] Flores Dawn, MACHINE PRECISION ETCHER 100 [facility] [address] [place] [address] Social History Tobacco Use Types [...] Start Date Job End Date 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 [place] [phone] 09/16/2025 8:30 AM EST Office Visit [facility] Orth[facility] [place] [facility] [address] [place] [phone] Flores Dawn, MACHINE PRECISION ETCHER 100 [facility] [address] [place] [address] documented as of this encounter Visit Diagnoses Not on filedocumented in this encounter Care Teams Ancillary Specialist Relationship Specialty Start Date End Date Ab Lee MD PCP - General 11/13/07 documented as of this encounter
--- OUTSIDE RECORDS SUMMARY | 2025-04-09 10:18 | XMS_ITS | Encounter Summary ---
Author Organization [facility] Address [facility] [place] [address] Phone Care Team Providers Care Collection Officer Name Role Phone Ab Lee MD Primary Care Provider [phone] Reason for Visit * Reason Comments Refill Request Encounter Details Date Type Department Care Team (Late st Contact Info) Description 11/04/2024 Refill [facility] Medical Weight Management [facility] [address] [place] [address] [facility] [address] [place] [phone] Controlled type 2 diabetes mellitus without complication, without long-term current use of insulin ([facility]) Social History Tobacco Use Types Packs/Day Years [...] 3:15 PM EDT Office Visit [facility] [address] [place] [address] Thalia Singer, MOLD HOLDER [address] [place] [address] 09/16/2025 8:30 AM EST Office Visit [facility] Orthopedic & Sports [place] [facility] [address] [place] [phone] Flores Dawn, MOLD HOLDER 100 [facility] [address] [place] [address] documented as of this encounter Visit Diagnoses Diagnosis Controlled type 2 diabetes mellitus without complication, without long-term current use of insulin documented in this encounter Care Teams Collection Officer Relationship Specialty Start Date End Date Ab Lee MD PCP - General 11/13/07 documented as of this encounter
--- OUTSIDE RECORDS SUMMARY | 2025-04-09 10:18 | XMS_ITS | Encounter Summary ---
Author Organization [facility] SBO AND TP P Address [facility] [place] [address] Phone Care Team Providers Care Second Ride Fare Collector Name Role Phone Ab Lee MD Primary Care Provider [phone] Encounter Details Date Type Department Care Team (Latest Contact Info) Description 03/02/2024 Telephone - Conversion [address] [place] [address] Flores Dawn, GROUP ACCOUNT DIRECTOR 100 [facility] [address] [place] [address] Neuralgia and neuritis, unspecified Social [...] Start Date 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 Date 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 Not [...] Description 04/17/2025 3:15 PM EDT Office Visit [address] [phone] Thalia Singer, GROUP ACCOUNT DIRECTOR [address] [place] [phone] 09/16/2025 8:30 AM EST Office Visit [facility] [place] [facility] [address] [place] [phone] Flores Dawn, GROUP ACCOUNT DIRECTOR 100 [facility] [address] [place] [address] documented as of this encounter Visit Diagnoses Diagnosis Neuralgia and neuritis, unspecified documented in this encounter Care Teams Second Ride Fare Collector Relationship Specialty Start Date End Date Ab Lee MD PCP - General 11/13/07 documented as of this encounter
--- OUTSIDE RECORDS SUMMARY | 2025-04-09 10:18 | XMS_ITS | Encounter Summary ---
Author Organization [facility] AND TP P Address [facility] [place] [address] Phone Care Team Providers Care Assembler Mechanical Ordnance Name Role Phone Ab Lee MD Primary Care Provider [phone] Reason for Visit * Reason Comments Refill Request Encounter Details Date Type Department Care Team (Late st Contact Info) Description 06/25/2024 Refill [facility] [address] [place] [address] Thalia Flaherty MD [address] [place] [address] Chronic pelvic pain in female; [...] Start Date Job End Date 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 Flaherty Last pap date : 10/31/23 Result: Normal Last annual head piece assembler exam date 10/31/23 Future office visit: none [...] 3:15 PM EDT Office Visit [facility] [address] [place] [phone] Thalia Singer, PODIATRIST [address] [place] [phone] 09/16/2025 8:30 AM EST Office Visit [facility] [place] [facility] [address] [place] [phone] Flores Dawn, PODIATRIST 100 [facility] [address] [place] [address] documented as of this encounter Visit Diagnoses Diagnosis Chronic pelvic pain in female Unspecified symptom associated with female genital organs General counseling and advice for contraceptive management Other general counseling and advice for contraceptive management documented in this encounter Care Teams Assembler Mechanical Ordnance Relationship Specialty Start Date End Date Ab Lee MD PCP - General 11/13/07 documented as of this encounter
--- OUTSIDE RECORDS SUMMARY | 2025-04-09 10:18 | XMS_ITS | Encounter Summary ---
Author Organization [facility] TP P Address [facility] [place] [address] Phone Care Team Providers Care Boat Joiner Name Role Phone Ab Lee MD Primary Care Provider [phone] Reason for Visit * Reason Comments Refill Request Encounter Details Date Type Department Care Team (Late st Contact Info) Description 03/13/2023 Refill [facility] Medical Weight Management [facility] [address] [place] [phone] [facility] [address] [place] [phone] Controlled type 2 diabetes mellitus without complication, without long-term current use of insulin ([facility]) Social History Tobacco Use Types Packs/Day Years [...] Start Date Job 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 Date 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 e Not on file [...] Description 04/17/2025 3:15 PM EDT Office Visit [facility] [address] [place] [address] Thalia Singer, STICK WELDER [address] [place] [address] 09/16/2025 8:30 AM EST Office Visit [facility] [place] [address] [phone] Flores Dawn, STICK WELDER 100 [facility] [address] [place] [address] documented as of this encounter Visit Diagnoses Diagnosis Controlled type 2 diabetes mellitus without complication, without long-term current use of insulin documented in this encounter Care Teams Boat Joiner Relationship Specialty Start Date End Date Ab Lee MD PCP - General 11/13/07 documented as of this encounter
--- OUTSIDE RECORDS SUMMARY | 2025-04-09 10:18 | XMS_ITS | Encounter Summary ---
Author Organization [facility] TP P Address [facility] [place] [address] Phone Care Team Providers Care Senior Web Applications Developer Name Role Phone Ab Lee MD Primary Care Provider [phone] Reason for Visit * Reason Onset Date Comments Refill Request 02/24/2024 Encounter Details Date Type Department Care Team (Late st Contact Info) Description 02/24/[address] [place] [address] Flores Dawn, CASINO RUNNER 100 [facility] [address] [place] [address] Neuropathic pain; Lumbar radiculopathy Social [...] Start Date Job 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 Date 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 [...] Description 04/17/2025 3:15 PM EDT Office Visit [facility] [address] [place] [phone] Thalia Singer, CASINO RUNNER [address] [place] [phone] 09/16/2025 8:30 AM EST Office Visit [facility] [place] [facility] [address] [place] [phone] Flores Dawn, CASINO RUNNER 100 [facility] [address] [place] [address] documented as of this encounter Visit Diagnoses Diagnosis Neuropathic pain Neuralgia, neuritis, and radiculitis, unspecified Lumbar radiculopathy Thoracic or lumbosacral neuritis or radiculitis, unspecified documented in this encounter Care Teams Senior Web Applications Developer Relationship Specialty Start Date End Date Ab Lee MD PCP - General 11/13/07 documented as of this encounter
--- OUTSIDE RECORDS SUMMARY | 2025-04-09 10:18 | XMS_ITS | Encounter Summary ---
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 Date 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 Not on file [...] [facility] [address] [place] [phone] Thalia Singer, CLINIC SUPERVISOR [address] [place] [phone] 09/16/2025 8:30 AM EST Office Visit [facility] [place] [address] [phone] Flores Dawn, CLINIC SUPERVISOR 100 [facility] [address] [place] [address] documented as of this encounter Visit Diagnoses Not on filedocumented in this encounter Care Teams Student Support Advisor Relationship Specialty Start Date End Date Ab Lee MD PCP - General 11/13/07 documented as of this encounter
--- OUTSIDE RECORDS SUMMARY | 2025-04-09 10:18 | XMS_ITS | Encounter Summary ---
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 Orthopedic [facility] [place] [facility] [address] [place] [phone] Flores Dawn, SALVAGER HELPER 100 [facility] [address] [place] [address] documented as of this encounter Visit Diagnoses Diagnosis Neuralgia and neuritis, unspecified documented in this encounter Care Teams Cuffer Relationship Specialty Start Date End Date Ab Lee MD PCP - General 11/13/07 documented as of this encounter
--- OUTSIDE RECORDS SUMMARY | 2025-04-09 10:18 | XMS_ITS | Encounter Summary ---
Author Organization [facility] Address [facility] [place] [address] Phone Care Team Providers Care Steel Rule Die Maker Apprentice Name Role Phone Ab Lee MD Primary Care Provider [phone] Reason for Visit * Reason Onset Date Comments Refill Request 08/22/2024 Encounter Details Date Type Department Care Team (Late st Contact Info) Description 08/22/2024 Refill [facility] Medical Weight Management [facility] [address] [place] [phone] [facility] [address] [place] [phone] Controlled type 2 diabetes mellitus without complication, [...] Start Date Job 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 Date 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 [...] Description 04/17/2025 3:15 PM EDT Office Visit [facility] [address] [place] [phone] Thalia Singer, FISHER DIVING [address] [place] [phone] 09/16/2025 8:30 AM EST Office Visit [facility] [place] [address] [place] [phone] Flores Dawn, FISHER DIVING 100 [facility] [address] [place] [address] documented as of this encounter Visit Diagnoses Diagnosis Controlled type 2 diabetes mellitus without complication, without long-term current use of insulin documented in this encounter Care Teams Steel Rule Die Maker Apprentice Relationship Specialty Start Date End Date Ab Lee MD PCP - General 11/13/07 documented as of this encounter
--- OUTSIDE RECORDS SUMMARY | 2025-04-09 10:18 | XMS_ITS | Encounter Summary ---
Author Organization [facility] SBO AND TP P Address [facility] [address] [place] [address] Phone Care Team Providers Care Clean Up Helper Banquet Name Role Phone Ab Lee MD Primary Care Provider [phone] Reason for Visit * Reason Onset Date Comments Refill Request 03/20/2024 Encounter Details Date Type Department Care Team (Late st Contact Info) Description 03/20/[address] [place] [address] Flores Dawn, RN ONCOLOGY CLINICAL 100 [facility] [address] [place] [address] Neuropathic pain; Lumbar radiculopathy; Left [...] Start Date 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 Not on file [...] Description 04/17/2025 3:15 PM EDT Office Visit [facility] [address] [place] [phone] Thalia Singer, RN ONCOLOGY CLINICAL [address] [place] [phone] 09/16/2025 8:30 AM EST Office Visit [facility] Orth[facility] [place] [facility] [address] [place] [phone] Flores Dawn, RN ONCOLOGY CLINICAL 100 [facility] [address] [place] [address] documented as of this encounter Visit Diagnoses Diagnosis Neuropathic pain Neuralgia, neuritis, and radiculitis, unspecified Lumbar radiculopathy Thoracic or lumbosacral neuritis or radiculitis, unspecified Left hip pain Pain in joint, pelvic region and thigh Idiopathic peripheral neuropathy Unspecified hereditary and idiopathic peripheral neuropathy High risk medication use Encounter for long-term (current) use of other medications documented in this encounter Care Teams Clean Up Helper Banquet Relationship Specialty Start Date End Date Ab Lee MD PCP - General 11/13/07 documented as of this encounter
--- OUTSIDE RECORDS SUMMARY | 2025-04-09 10:18 | XMS_ITS | Encounter Summary ---
Author Organization [facility] AND TP P Address [facility] [place] [address] Phone Care Team Providers Care Machinist Set Up Name Role Phone Ab Lee MD Primary Care Provider Reason for Visit * Reason Onset Date Comments Appt. 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 Not on file [...] 3:15 PM EDT Office Visit [facility] [address] [place] [address] Thalia Singer, SLITTER AND REWINDER [address] [place] [address] 09/16/2025 8:30 AM EST Office Visit [facility] Orthopedic [facility] [place] [facility] [address] [place] [address] Flores Dawn, SLITTER AND REWINDER 100 [facility] [address] [place], [place] [phone] documented as of this encounter Visit Diagnoses Not on filedocumented in this encounter Care Teams Machinist Set Up Relationship Specialty Start Date End Date Ab Lee MD PCP - General 11/13/07 documented as of this encounter
--- OUTSIDE RECORDS SUMMARY | 2025-04-09 10:18 | XMS_ITS | Encounter Summary ---
Author Organization [facility] TP P Address [facility] [place] [address] Phone Care Team Providers Care Rolling Mill Operator Helper Name Role Phone Ab Lee MD Primary Care Provider [phone] Encounter Details Date Type Department Care Team (Late st Contact Info) Description 06/28/2023 Telephone [facility] Medical Weight Management [facility] [address] [place] [phone] [facility] [address] [place] [address] Social History Tobacco Use Types [...] Start Date 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 Date 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 Not on [...] Description 04/17/2025 3:15 PM EDT Office Visit [facility] [address] [place] [address] Thalai Singer, CORE DRILLING SUPERVISOR [address] [place] [phone] 09/16/2025 8:30 AM EST Office Visit [facility] [place] [facility] [address] [place] [phone] Flores Dawn, CORE DRILLING SUPERVISOR 100 [facility] [address] [place], [place] [phone] documented as of this encounter Visit Diagnoses Not on filedocumented in this encounter Care Teams Rolling Mill Operator Helper Relationship Specialty Start Date End Date Ab Lee MD PCP - General 11/13/07 documented as of this encounter
--- OUTSIDE RECORDS SUMMARY | 2025-04-09 10:18 | XMS_ITS | Clinical Summary ---
Author Organization [facility] Address [address] [place] [address] Phone Care Team Providers Care Chef Under Name Role Phone Ab Lee MD Primary Care Provider [phone] Allergies Active Allergy Reactions Criticality Noted Date Comments Amitriptyline 12/14/2002 moser Uaxjovmyg-Iqegypnl-Gu Other (See Comments) 10/22/2013 Blacked out. Shaking, hallucinations Chocolate (Food) 11/21/2007 Sneeze, itch Diclofenac 12/14/2002 diarrhea Lisinopril Anaphylaxis High 11/20/2024 Metoprolol Anaphylaxis High 11/20/2024 Nitrofurantoin Angioedema,Anaphyla xis High 09/17/2021 Thiazide-Type Diuretics Other (See Comments) 01/04/2014 Increased liver enzymes Medications ALPRAZolam (XANAX) 1 MG TABSIndications: PRN Take 1 mg by mouth. Active nystatin (MYCOSTATIN) 586604 UNIT/GM POWD Apply topically 2 (two) times [...] (PRN HS), Reported on 03/04/2025 nystatin (MYCOSTATIN) [id number] UNIT/GM OINT Apply topically 2 (two) times [...] Type Department Care Team Description 03/26/2025 Telephone [facility] Central Scheduling [address] [place] [address] [place] [address] Ariel Malhotra MD 03/25/2025 Refill [facility] [address] [place] [address] Thalia Singer, MIKA Hidradenitis suppurativa (Primary Dx) 03/06/2025 9:45 AM EDT Office Visit [facility] [address] [place] [address] Ab Lee MD Chronic tension-type headache, not intractable (Primary Dx); Loss of balance; Muscle twitching; Family history of stroke; Depression, recurrent (HCC); Essential hypertension; Morbid obesity with BMI of 45.0-49.9, adult (HCC); Controlled type 2 diabetes mellitus without complication, without long-term current use of insulin 03/05/2025 Telephone [facility] [address] [place] [phone] Clinton Howell, Registered Nurse 03/04/2025 9:50 AM EDT Office Visit [address] [address] Cinthya May PA-C Essential hypertension (Primary Dx) 03/04/2025 8:30 AM EDT Office Visit [facility] [place] [address] [address] Flores Dawn, MIKA Lumbar radiculopathy (Primary Dx); Facet arthritis of lumbar region; Encounter for medication management; High risk medication use; Neuropathic pain; Idiopathic peripheral neuropathy; Neuralgia and neuritis, unspecified; Left hip pain 02/28/2025 Refill [facility] [place] [facility] [address] [place] [address] Flores Dawn CNP Idiopathic peripheral neuropathy; High risk medication use; Neuropathic pain; Lumbar radiculopathy; Neuralgia and neuritis, unspecified; Left hip pain; Encounter for medication management 02/26/2025 Refill [facility] [address] [place] [phone] Thalia Singer CNP 02/11/2025 Results Follow-Up [facility] [address] [place] [address] Cielo Mock CNP CYTOLOGY INSPECTOR WEIGHTS AND MEASURES 01/28/2025 6:25 PM EDT [facility] [address] [place] [id number] Cielo Mock CNP Encounter for gynecological examination without abnormal finding 01/28/2025 6:00 PM EDT Office Visit [facility] [address] [place] [address] Cielo Mock CNP Encounter for [...] Name Comments Diabetes Father Heart Disease Father MD Hypertension Father CGD Maternal Grandfather Chronic Granulomatous Disease Cancer Maternal Grandmother breast/ GREAT - BREAST/lung Diabetes Maternal Grandmother Heart Disease Maternal Grandmother MD X 5 - OPENHEART SURGERY High BP [...] file Not on file Not on file 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 Not on file Not [...] 3:15 PM EDT Office Visit [facility] [address] [place] [address] Thalia Singer, SSN/SSBN [employer] E[employer]IPMENT OPERATOR [address] [place] [phone] 09/16/2025 8:30 AM EST Office Visit [facility] [place] [facility] [address] [place] [phone] Flores Dawn, SSN/SSBN WE[employer]ONS EQUIPMENT OPERATOR [address] [facility] [address] [place] [address] Health Maintenance Due Date Last [...] this topic Medical Devices Implanted Type Area Capacity Planner Device Identifier Shelf Expiration Date Model / Serial / Lot Gallbladder Clip-06/03/2016 Implanted: 016 (Quantity not on file) Clip ETHICON LIGAMAX 5MM CLIP / / Description:3T OR LESS MAX SPATIAL GRADIENT OF 6.5T/M 1.7 W/KG FOR 20 MIN OF SCANNING (PER SEQUENCE) Procedures Procedure Name Priority Date/Time Associated Diagnosis Comments CYTOLOGY INSPECTOR WEIGHTS AND MEASURES Today 01/28/2025 6:22 PM EDT Encounter for [...] Relevant to Health Maintenance Results * CYTOLOGY INSPECTOR WEIGHTS AND MEASURES (01/28/2025 6:22 PM EDT) CYTOLOGY-INSPECTOR WEIGHTS AND MEASURES CYTOLOGY GYNECOLOGICAL REPORT Name: JAYA BUSH EPI#: [id number] Case #: [id number] Final Cytologic Diagnosis A. Thinprep Cervical/Endocervic al with HPV screen and 16/18 Genotyping if Indicated: Adequacy: Satisfactory for evaluation, ABSENT endocervical transformation zone component. Interpretation: Negative for intraepithelial lesion or malignancy. Fungal organisms morphologically consistent with Ana spp. This specimen has been analyzed by the ThinPrep Imaging System (takokat.), an automated imaging and review system, which assists the steel tester and/or pathologist in evaluation of cells on [...] Normal Contraceptive History: OC/BCP Signed out at [facility], [address] [place] [address] [facility] Non-Formatted Report [facility] 01/28/2025 6:22 PM EDT 01/29/2025 9:04 AM EDT Cielo Mock CNP PATHOLOGY/CYTOLOGY ORDERABLES Fi nal Result [facility] [address] [place] [address] * (ABNORMAL) CMP (BMP,TP,ALB,TBIL,ALK,AST,ALT) (12/15/2024 10:13 AM EDT) SODIUM 137 135 - 145 mmol/L [facility] POTASSIUM 4.4 3.6 - 5.1 mmol/L [facility] CHLORIDE 105 98 - 111 mmol/L [facility] CO2 27 21 - 31 mmol/L [facility] GLUCOSE, RANDOM 167(H) 70 - 99 mg/dL [facility] BLD UREA NITROGEN 8 8 - 26 mg/dL [facility] CREATININE 0.71 0.60 - 1.20 mg/dL [facility] CALCIUM 8.4(L) 8.5 - 10.4 mg/dL [facility] TOTAL PROTEIN 6.2 6.0 - 8.0 g/dL [facility] ALBUMIN 3.8 3.5 - 5.7 g/dL [facility] TOTAL BILIRUBIN 0.4 0.0 - 1.2 mg/dL [facility] ALK PHOSPHATASE 70 35 - 135 IU/L [facility] AST 43(H) 10 - 40 IU/L [facility] ALT 33 10 - 60 IU/L [facility] ESTIMATED GFR 109 >59 mL/min/1.7 3 m2 [facility] Comment:Estimated GFR was ca lculated using the CKD-EPI cr (2020) equation refit without race. The equation is recommended by the National Kidney Foundation - [place] Society of Nephrology Task Force. ANION GAP 5 4 - 16 mmol/L [facility] Comment:Tested at [facility] [place] [facility] [address] [facility] [place] [address] Whole Blood 12/15/2024 10:1 3 AM EDT 12/15/2024 10:14 AM EDT Ab Lee MD LAB BLOOD ORDERABLES Final Resu lt Performing Organization Address City/[facility]/ZIP Co de Phone Number [address] [phone] [facility] [address] [place] [address] * (ABNORMAL) HEMOGLOBIN A1C (10/12/2024 1:47 PM [...] given level of glycemic control. Tested at: [place] [address] Whole Blood 10/12/2024 1:47 PM EST 10/12/2024 5:38 PM EST Ab Lee MD LAB BLOOD ORDERABLES Final Resu lt Performing Organization Address City/[facility]/ZIP Co de Phone Number [address] [address] [facility] TEST SITE * MICROALBUMIN, URINE RANDOM (INCLUDES MALB/CREAT RATIO) (10/11/2023 9:57 AM EST) MICROALBUMIN, UR <12.0 mg/L KRYSTINA Raegan [place] [address] CREATININE, URINE RANDOM 127.5 mg/dL [place] [address] MICROALB/CREAT RATIO See Comment mg/g CREAT [place] [address] Comment: (NOTE) Because the albumin level is below the level of detection in this urine specimen, the laboratory is unable to calculate a reliable albumin/creatinine ratio. Microalbuminuria is unlikely if the urine albumin concentration is less than 20-30 mg/L in a random specimen. Tested at: [place] [address] Urine 10/11/2023 9:57 AM EST 10/11/2023 12:00 PM EST us Ab Lee MD URINE ORDERABLES NO PER Final R esult Performing Organization Address [facility]/ZIP Co de Phone Number [facility] [address] [place], [place] [phone] [place] [address] * (ABNORMAL) LIPID PANEL (CHOL, TRIG, HDL, LDL) (06/20/2023 8:39 AM EDT) CHOLESTEROL 191 <200 mg/dL AGRONOMY ADVISOR [facility]AT[facility] TRIGLYCERIDE 142 <150 mg/dL [facility] Comment: Reference Interval: Fasting <150 mg/dL Non-Fasting <175 mg/dL HDL CHOLESTEROL 47(L) >50 mg/dL [facility] LDL CHOLESTEROL (CALCULATED) 116 <130 mg/dL [facility] Comment: Interpretive Guidelines: <100 Optimal 100-129 Near Optimal 130-159 Borderline High >159 High TOTAL NON HDL CHOL 144(H) <130 mg/dL [facility] Comment:Tested at [facility] [address] [address] Whole Blood 06/20/2023 8:39 AM EDT 06/20/2023 12:07 PM EDT us Nadia Graff [facility] LAB BLOOD ORDERABLES Fin al Result Performing Organization Address City/[facility]/ZIP Co de Phone Number [facility] [address] [place] [address] CHEMISTRY HEMATOLOGY [address] [place] [address] * Mammogram Bilat Digital W Cad (06/04/2010 2:57 PM EDT) Anatomical Region Laterality Modality Chest Bilateral Mammography 06/04/2010 2:57 PM EDT Narrative 06/05/2010 8:22 AM EDT This document is confidential medical information. Unauthorized disclosure or use of this information is prohibited by law. If you are not the intended recipient of this document, please advise us by calling immediately [phone]. [place], [place] [address] Mammography Report Date: 06/04/10 Name: JAYA GERMAN Unit #: [id number] Loc: [facility] Location: [facility] : 83 Ordering Physician: Paula [...] document, please advise us by calling immediately [phone]. [place] [address] Mammography Report Date: 06/04/10 Name: JAYA GERMAN Unit #: [id number] Loc: [facility] Location: [facility] : 83 Ordering [...] M.D. DD 1523 12 Paula Fink MD [facility] Final Result from Last 3 Months or Most Recently Relevant to Health Maintenance Insurance Sam Rey Mikcarlos enrique [place] [phone] [facility] TIER [address] [place] [phone] Sam [place] [phone] Advance Directives * Full Code (Latest Code Status on File) Date Activated Date Inactivated Comments 06/02/2016 4:37 PM 06/03/2016 6:05 PM Care Teams Chef Under Relationship Specialty Start Date End Date Ab Lee MD PCP - General 11/13/07
--- OUTSIDE RECORDS SUMMARY | 2025-04-09 10:20 | XMS_ITS | Patient Health Record ---
Author Organization [facility] Address [address] [place] [address] Care Team Providers Care Retail Representative Name Role Phone [facility] ramirez bonds Primary Care Prov ider Unavailable Provider, [id number] [phone] Unavailable Reshma Paige Unavailable [phone] Nancy Asencio Unavailable [phone] Allergies Allergen (clinical drug ingredient) Drug/Non Drug [...] Immunizations Vaccine Route Administration Date Status Comme [facility] [id number] Quad PFS (0.5mL Admin) 18 y/o & older IM Intramuscular 06/02/2020 Administered [id number] Quad PFS (0.5 mL Admin) 6 months [...] Status Risk Notes Problem Gastroesophageal reflux disease (773091192) GERD (gastroesophageal reflux disease) (K21.9) Active confirmed Problem Essential hypertension (I10) Active confirmed Problem Anxiety (54310581) Anxiety (F41.9) Active confi rmed Problem Smoker (51329859) Smoker (F17.200) Active confi rmed Problem Essential hypertension (81405090) Essential (primary) hypertension (I10) Active confirmed Problem Fibromyalgia (327046465) Fibromyalgia (M79.7) Active confirmed Problem Type II diabetes mellitus without complication (108544681) Type 2 diabetes mellitus without complications (E11.9) Active confirmed Problem Anxiety disorder (442001915) Anxiety disorder, unspecified (F41.9) Active confirmed Problem Displacement of lumbar intervertebral disc without myelopathy (01589256) Other intervertebral disc displacement, 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) Active confirmed Problem Unspecified thoracic, thoracolumbar and lumbosacral intervertebral disc disorder (M51.9) Active confirmed Problem 494471454 Generalized hyperhidrosis (R61) Active confirmed Problem History of otitis media (611962692) History of otitis media (Z86.69) Active confirmed Problem BMI 45.0-49.9, adult (Z68.42) Active confirmed Problem Elevated blood pressure reading with diagnosis of hypertension (I10) Active confirmed Vital Signs Temperature 98.9 degrees Fahrenheit 04/13/2024 Respiratory Rate 18 /min 04/13/2024 Blood pressure diastolic 78 mm Hg 04/13/2024 Height 69 in 04/13/2024 Blood pressure systolic 118 mm Hg 04/13/2024 Weight 300 lbs 04/13/2024 BMI 44.3 kg/m2 04/13/2024 Encounters Encounter Location Date Provider Diagnosis [address] [place] [address] 04/13/2024 Reshma Paige Viral upper respiratory tract [...] on the other side.If needed, take an jrqt-rsp-sumaocm pain medicine, such as acetaminophen (Tylenol), ibuprofen (Advil, Motrin), or naproxen (Aleve). Read and follow all instructions on the label.Be careful when taking sgic-bvb-evmnlyc cold or flu medicines and Tylenol at [...] Insured Coverage Start Date Coverage End Date [employer] [address] [place] [address] [id number] Arelis Bush Self - patient is the insured Medical (General) History Medical History History ICD Code Essential (primary) hypertension I10 Fibromyalgia M79.7 Anxiety disorder, unspecified F41.9 Type 2 diabetes mellitus without complic ations E11.9 Other intervertebral disc displacement, lumbosacral region M51.27 Surgical History Surgery Date(Month/Year) wisdom teeth gallbladder 2011 Hospitalization History Reason Date(Month/Year) see above
--- OUTSIDE RECORDS SUMMARY | 2025-04-09 10:20 | XMS_ITS | Encounter Summary ---
Author Organization [facility] Address [address] [place] [address] Phone Care Team Providers Care Head Of Mathematics Name Role Phone Ab Lee MD Primary Care Provider [phone] Reason for Referral * - Closed Specialty Diagnoses / Procedures Referred By Rao katz Referred To Contact Radiology Procedures CT HEAD WO CONTRAST [facility] Internal Medicine [address] [place] [address] Phone: tel: Referral ID Status Reason Start Date Expiration Date Visits Re quested Visits Authorized [id number] Closed 01/04/2013 01/04/2014 1 1 Encounter Details Date Type Department Care Team ([facility] Contact Info) Description 01/04/2013 SCAN [facility] Internal Medicine [address] [place] [address] Social History Tobacco Use Types [...] Description 04/17/2025 3:15 PM EDT Office Visit [facility] [address] [place] [address] Thalia Singer, CATALYST CONCENTRATION OPERATOR [address] [place] [address] 09/16/2025 8:30 AM EST Office Visit [facility] [address] [place] [address] Flores Dawn, CATALYST CONCENTRATION OPERATOR [address] [facility] [address] [place] [address] documented as of this encounter [...] documented as of this encounter Care Teams Head Of Mathematics Relationship Specialty Start Date End Date Ab Lee MD PCP - General 11/13/07 documented as of this encounter
--- OUTSIDE RECORDS SUMMARY | 2025-04-09 10:20 | XMS_ITS | Encounter Summary ---
Author Organization [facility] Address [address] [place] [address] Phone Care Team Providers Care Casino Floor Person Name Role Phone Ab Lee MD Primary Care Provider [phone] Encounter Details Date Type Department Care Team (Late st Contact Info) Description 07/23/2009 [facility] Internal Medicine [address] [place] [address] Social History Tobacco Use Types [...] EDT Office Visit [facility] [address] [place] [address] Thalia Singer, [facility] [address] [place] [address] 09/16/2025 8:30 AM EST Office Visit [facility] [place] [address] [address] Flores Dawn, ROUTE CONTRACTOR [address] [facility] [address] [place] [address] documented as of this encounter Procedures Procedure [...] documented as of this encounter Care Teams Casino Floor Person Relationship Specialty Start Date End Date Ab Lee MD PCP - General 11/13/07 documented as of this encounter
--- OUTSIDE RECORDS SUMMARY | 2025-04-09 10:20 | XMS_ITS | Clinical Summary ---
Author Organization [facility]ORI GALVANEsvin OD Address [address] [place] [address] Phone Care Team Providers Care Professional Wrestler Name Role Phone Ab Lee MD Primary Care Provider [phone] Allergies Active Allergy Reactions Criticality Noted Date [...] Delayed Release(E.C.) Take by mouth daily. Active ALPRAZolam (XANAX) 1 mg Oral TabletIndicati ons:Generalize d anxiety disorder,Panic disorder with agoraphobia,Pa maren disorder,MIGUELINA (generalized anxiety disorder),Adju stment disorder with anxiety,Anxiet y and depression Take 1 Tablet by mouth 3 times daily as needed (anxiety). 90 Tablet 2 5 Active dexmethylpheni date (FOCALIN) 10 mg Oral Tablet Take 1 Tablet by mouth 2 times daily. 60 Tablet 5 Active FLUoxetine (PROZAC) 20 mg Oral Capsule Take 1 Capsule by mouth daily. 100 Capsule 5 Active ALPRAZolam (XANAX) 1 mg Oral [...] Dr. Corrales CSA NEEDS UP DATED FOR UDSugey 09/27/16 DUE Ac 10/02/18 Problem Noted Date [...] EDT - 03/05/2025 5:12 PM EDT Emergency [facility] Emergency [address] [place] [address] Lashawn Whelan MD Uncontrolled hypertension (Primary Dx) [...] drink = 0.6 oz pur e alcohol) [facility] Utilities Answer Date Recorded In the past [...] Date Recorded PHQ-2 Total Score 0 11/16/2024 [facility] Occupat ional Health - Occupational Stress [...] money to get more. 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), predominantly inattentive type Moderate episode of recurrent major depressive disorder (HCC) Panic disorder MIGUELINA (generalized anxiety disorder) Adjustment disorder with anxiety Anxiety and depression SCANNED EKG 03/06/2025 9:[address] [...] Recently Relevant to Health Maintenance Results * (ABNORMAL) DRUGS OF ABUSE WITH REFLEX TO CONFIRMATION, URINE (04/08/2025 3:03 PM EDT) 6 AM (Heroin) Absent Cutoff 10 ng/mL 04/08/2025 11:38 PM EDT [facility] Amphetamines Absent Cutoff 500 ng/mL 04/08/2025 11:38 PM EDT [facility] Barbiturates Absent Cutoff 200 ng/mL 04/08/2025 11:38 PM EDT [facility] Benzodiazepines Presumptive Pos(A) Cutoff 200 ng/mL 04/08/2025 11:38 PM EDT [facility] Buprenorphine Absent Cutoff 5 ng/mL 04/08/2025 11:38 PM EDT [facility] Cannabinoid Metabolite Presumptive Pos(A) Cutoff 50 ng/mL 04/08/2025 11:38 PM EDT [facility] Cocaine Metabolite Absent Cutoff 150 ng/mL 04/08/2025 11:38 PM EDT [facility] Fentanyl Absent Cutoff 5 ng/mL 04/08/2025 11:38 PM EDT [facility] Methadone and Metabolite Absent Cutoff 300 ng/mL 04/08/2025 11:38 PM EDT [facility] Opiate Absent Cutoff 300 ng/mL 04/08/2025 11:38 PM EDT [facility] Oxycodone Lvl Absent Cutoff 100 ng/mL 04/08/2025 11:38 PM EDT [facility] Urine Creatinine 39.1 mg/dL 04/08/20 11:38 PM EDT [facility] Comment: Greater than 20: Consistent with valid sample Greater than 2 but less than 20: Possible dilution Less than 2: Questionable valid sample Urine STRUCTURE OF URINARY TRACT PROPER / Unknown 04/08/2025 3:03 PM EDT 04/08/2025 3:03 PM EDT Narrative [facility] - 04/08/2025 11:38 PM EDT These drug classes have been qualitatively screened by immunoassay and are for medical purposes only. Results should not be used for non-medical purposes. Results reported as presumptive positive will be sent for confirmation. Due to possible factors, such as, dilute/adulterated urine, concentration of drug/metabolite being below the cut-off, or antibody specificity of test reagent, a negative result does not rule out drug use. These results are only valid for urine specimens. Any contamination with vaginal pool/amniotic fluid could cause erroneous results. us Hi Corrales MD URINE ORDERABLES Final Result [facility] [address] [facility], [place] [place] [address] * SCANNED EKG (03/06/2025 9:33 AM EDT) [...] APRN IM CT ORDERABLES Final Result * URINALYSIS REFLEX (03/05/2025 3:24 PM EDT) UA Color Yellow 03/05/2025 3:30 PM EDT [facility] UA Appear Clear Clear 03/05/2025 3:30 PM EDT [facility] UA Glucose Negative Negative mg/dL 03/05/2025 3:30 PM EDT [facility] UA Ketones Negative Negative mg/dL 03/05/2025 3:30 PM EDT [facility] UA Blood Negative Negative 03/05/2025 3:30 PM EDT [facility] UA pH 6.0 5.0 - 8.0 pH 03/05/2025 3:30 PM EDT [facility] UA Protein Negative Negative mg/dL 03/05/2025 3:30 PM EDT [facility] UA Urobilinogen 0.2 <=1 mg/dL 3:30 PM EDT [facility] UA Bili Negative Negative 03/05/2025 3:30 PM EDT [facility] UA Nitrite Negative Negative 03/05/2025 3:30 PM EDT [facility] UA Leuk Est Negative Negative 03/05/2025 3:30 PM EDT [facility] UA Spec Grav <=1.005 1.001 - 1.035 no units 03/05/2025 3:30 PM EDT [facility] Comment:Reference range pat d for random specimens only. Urine STRUCTURE OF URINARY TRACT PROPER / Unknown 03/05/2025 3:24 PM EDT 03/05/2025 3:27 PM EDT Nette Wyatt APRN URINE ORDERABLES Final Result Performing Organization Address [facility] Phone Number [address] [address] * EXTRA BAE URINE CX (03/05/2025 3:24 PM EDT) Urine STRUCTURE OF URINARY TRACT PROPER / Unknown 03/05/2025 3:24 PM EDT 03/05/2025 3:27 PM EDT Nette Wyatt GEOPHYSICAL LABORATORY SUPERVISOR MICROBIOLOGY - GENERAL ORDERABLES Final Result Performing Organization Address [facility] de Phone Number [address] [address] * XR CHEST PA AND LATERAL (03/05/2025 [...] BASELINE W/ REFLEX (03/05/2025 2:22 PM EDT) [facility] [id number] 9 <14 ng/L 03/05/2025 2:48 PM EDT [facility] Blood VENOUS BLOOD / Unknown Venipuncture / Unknown 03/05/2025 2:22 PM EDT 03/05/2025 2:26 PM EDT Narrative [facility] - 03/05/2025 2:48 PM EDT Ingestion of nelly doses of biotin (>5 mg/day) taken within 8 hours of drawing blood sample can interfere with this immunoassay test. Nette Wyatt APRN CHEMISTRY ORDERABLES Fi nal Result [facility] [address] [place] [address] * (ABNORMAL) CBC WITH DIFF (03/05/2025 2:22 PM EDT) [facility] WBC 7.6 3.7 - 10.3 x10(3)/mcL 03/05/2025 2:29 PM EDT [facility] RBC 5.00 3.90 - 5.20 x10(6)/mcL 03/05/2025 2:29 PM EDT [facility] Hgb 15.6 11.2 - 15.7 g/dL 03/05/2025 2:29 PM EDT [facility] Hct 45.7(H) 34.0 - 45.0 % 03/05/2025 2:29 PM EDT [facility] MCV 91.4 80.0 - 100.0 fL 03/05/2025 2:29 PM EDT [facility] MCH 31.2 26.0 - 34.0 pg 03/05/2025 2:29 PM EDT [facility] MCHC 34.1 30.7 - 35.5 g/dL 03/05/2025 2:29 PM EDT [facility] RDW 11.9 <=14.9 % 03/05/2025 2:29 PM EDT [facility] Platelet 275 155 - 369 x10(3)/mcL 03/05/2025 2:29 PM EDT [facility] MPV 10.7 8.8 - 12.5 fL 03/05/2025 2:29 PM EDT [facility] Neut Percent 57.2 % 03/05/2025 2:29 PM EDT [facility] Comment:Neutrophils equals s egs plus bands Imm Gran% 0.1 % 03/05/2025 2:29 PM EDT [facility] Comment:Automated count of m etamyelocytes, myelocytes and promyelocytes. Lymph Percent 32.2 % 03/05/2025 2:29 PM EDT [facility] [place] Percent 8.2 % 03/05/2025 2:29 PM EDT [facility] Eos Percent 1.5 % 03/05/2025 2:29 PM EDT [facility] Baso Percent 0.8 % 03/05/2025 2:29 PM EDT [facility] Neut # 4.3 1.6 - 6.1 x10(3)/mcL 03/05/2025 2:29 PM EDT [facility] Comment:Neutrophils equals s egs plus bands IMMGRAN# 0.0 0.0 - 0.1 x10(3)/mcL 03/05/2025 2:29 PM EDT [facility] Comment:Automated count of m etamyelocytes, myelocytes and promyelocytes. An absolute IG <0.1 is reported as 0.0. Lymph # 2.4 1.2 - 3.9 x10(3)/[facility] 03/05/2025 2:29 PM EDT [facility] [place] # 0.6 0.3 - 0.9 x10(3)/[facility] 03/05/2025 2:29 PM EDT [facility] Eos# 0.1 0.0 - 0.5 x10(3)/[facility] 03/05/2025 2:29 PM EDT [facility] Baso # 0.1 0.0 - 0.1 x10(3)/[facility] 03/05/2025 2:29 PM EDT [facility] Blood VENOUS BLOOD / Unknown Venipuncture / Unknown 03/05/2025 2:22 PM EDT 03/05/2025 2:26 PM EDT Nette Wyatt APRN HEMATOLOGY ORDERABLES F inal Result [address] [address] * HUMAN CHORIONIC GONADOTROPIN QUANTITATIVE (03/05/2025 2:22 PM EDT) [facility] Hcg Quant <1 <5 mIU/mL 03/05/2025 2:48 PM EDT [facility] Blood VENOUS BLOOD / Unknown Venipuncture / Unknown 03/05/2025 2:22 PM EDT 03/05/2025 2:26 PM EDT Narrative [facility] - 03/05/2025 2:48 PM EDT [...] Nette Wyatt APRN CHEMISTRY ORDERABLES nal Result [facility] [address] [place] [address] * (ABNORMAL) BASIC METABOLIC PANEL (03/05/2025 2:22 PM EDT) Sodium 139 136 - 145 mmol/L 03/05/2025 2:48 PM EDT [facility] Potassium 3.7 3.5 - 5.0 mmol/L 03/05/2025 2:48 PM EDT [facility] Chloride 103 98 - 107 mmol/L 03/05/2025 2:48 PM EDT [facility] Total CO2 22 22 - 29 mmol/L 03/05/2025 2:48 PM EDT [facility] Anion Gap 14 7 - 16 mmol/L 03/05/2025 2:48 PM EDT [facility] Calcium 8.8 8.6 - 10.4 mg/dL 03/05/2025 2:48 PM EDT [facility] Glucose Lvl 183(H) 70 - 99 mg/dL 03/05/2025 2:48 PM EDT [facility] BUN 8 6 - 20 mg/dL 03/05/2025 2:48 PM EDT [facility] Creatinine 0.60 0.51 - 1.30 mg/dL 03/05/2025 2:48 PM EDT [facility] eGFR (CKD-EPIcr 2020) 115 >=60 mL/min/1.7 3 m2 03/05/2025 2:48 PM EDT [facility] Comment:Estimated GFR was ca lculated using the CKD-EPIcr (2020) equation refit without race. The equation is recommended by the National Kidney Foundation - [place] Society of Nephrology Task Force. Blood VENOUS BLOOD / Unknown Venipuncture / Unknown 03/05/2025 2:22 PM EDT 03/05/2025 2:26 PM EDT Nette Wyatt APRN CHEMISTRY ORDERABLES Fi nal Result Performing Organization Address [facility] Phone Number [facility] [address] [place] [address] * (ABNORMAL) GLUCOSE METER POC (03/05/2025 2:07 PM EDT) [facility] Glucose Meter POC 177(H) 70 - 100 mg/dL 03/05/2025 2:09 PM EDT [facility] Sample Type Capillary 03/05/2025 2:09 PM EDT [facility] Patient Status Non-Critical Patient 03/05/2025 2:09 PM EDT [facility] Blood BLOOD SPECIMEN / Unknown 03/05/2025 2:07 PM EDT 03/05/2025 2:09 PM EDT Lab Test POINT OF CARE TEST ORDERABLES Fi nal Result Performing Organization Address [facility] Phone Number [facility] [address] [place] [address] * EK EKG 12 LEAD (03/05/2025 2:01 PM EDT) Anatomical Region Laterality Modality Electrocardiogra phy 03/05/2025 2:14 PM EDT Impressions 03/05/2025 5:40 PM EDT [facility] Test Date: 2025-03-05 Pat Name: JAYA BUSH Department: DEPID Room: Gender: Female Supervisor Data Processing: Mamadou : 1985 Requested By: [facility] Order Number: [id number] Reading MD: Frank Gloria Measurements Intervals [place] Rate: 103 P: -4 ME: 112 QRS: 32 QRSD: 110 T: 32 QT: 349 QTc: 459 Interpretive Statements SINUS TACHYCARDIA WITH SHORT ME INTERVAL ABNORMAL RHYTHM ECG WHEN COMPARED TO PREVIOUS ECG:NO SIGNIFICANT CHANGES ARE NOTED Electronically Signed On 03-05-2025 17:40:40 EDT by Frank Gloria Narrative Procedure Note Frank Gloria MD - 03/05/[address] [facility] Test Date: 2025-03-05 Pat Name: JAYA BUSH Department: DEPID Room: Gender: Female Supervisor Data Processing: [facility] : 1985 Requested By: [facility] Order Number: [id number] Reading MD: Frank Gloria Measurements Intervals [place] Rate: 103 P: -4 ME: 112 QRS: 32 QRSD: 110 T: 32 QT: 349 QTc: 459 Interpretive Statements SINUS TACHYCARDIA WITH SHORT ME INTERVAL ABNORMAL RHYTHM ECG WHEN COMPARED TO PREVIOUS ECG:NO SIGNIFICANT CHANGES ARE NOTED Electronically Signed On 03-05-2025 17:40:40 EDT by Frank Gloria Lashawn Whelan MD IMG ECG ORDERABLES Final Res ult * (ABNORMAL) LIPID SCREEN (01/21/2016 2:48 PM EDT) Cholesterol 200 <=200 mg/dL [facility] Comment: < 200 Desirable 200 - 239 Borderline High >= 240 High Triglyceride 116 <=150 mg/dL [facility] Comment: < 150 Normal 150 - 199 Borderline High 200 - 499 High >= 500 Very High HDL 49 >=40 mg/dL [facility] Comment: > 60 Optimal 40 - 60 Acceptable < 40 Low LDL Calculated 128(H) <=100 mg/dL [facility] Comment: < 100 Optimal 100 - 129 Near or above optimal 130 - 159 Borderline High 160 - 189 High >= 190 Very High Blood specimen (specimen) UPPER LIMB STRUCTURE / Unknown 01/21/2016 2:48 PM EDT 01/21/2016 2:54 PM EDT us Joesph Crowder DO CHEMISTRY ORDERABLES Edited Resu lt - Final Performing Organization Address City/[facility]/ZIP Co de Phone Number [facility] [address] [place] [address] * HEMOGLOBIN A1C (10/25/2012 12:02 PM EST) Hgb A1c 5.3 <=7.0 % [facility] Comment: Initial Diagnostic Criteria < 5.7 % Normal 5.7 - 6.4 % At risk for diabetes mellitus >= 6.5 % Consistent with diabetes mellitus Diabetes monitoring Target Value (ADA recommended): < 7 % Blood specimen (specimen) UPPER LIMB STRUCTURE / Unknown 10/25/2012 12:02 PM EST 10/25/2012 12:43 PM EST us Gloria Farrell MD CHEMISTRY ORDERABLES Final Resul t Performing Organization Address City/[facility]/ZIP Co de Phone Number [facility] [address] [place] [address] from Last 3 Months or Most Recently Relevant to Health Maintenance Insurance [place] [id number] [place] [id number] 361Mahi SMALLJAVIERGALA Mikcarlos enrique [address] [place] [id number] Advance Directives For more information, please contact: [phone] * Full Code (Latest Code Status on File) Date Activated Date Inactivated Comments 11/16/2024 8:25 AM 11/17/2024 4:10 PM * Full Code Date Activated Date Inactivated Comments 04/26/2024 2:35 AM 04/26/2024 6:24 PM * Full Code Date Activated Date Inactivated Comments 04/26/2024 12:03 AM 04/26/2024 2:35 AM * Full Code Date Activated Date Inactivated Comments 01/21/2016 2:02 PM 01/22/2016 6:55 PM Care Teams Professional Wrestler Relationship Specialty Start Date End Date Lee, Ab, MD PCP - General 09/15/08
--- OUTSIDE RECORDS SUMMARY | 2025-04-09 10:20 | XMS_ITS | Encounter Summary ---
Author Organization [facility] Address [address] [place] [address] Phone Care Team Providers Care Chicken And Fish Butcher Name Role Phone Ab Lee MD Primary Care Provider [phone] Encounter Details Date Type Department Care Team (Late Contact Info) Description 01/18/[address] [facility] Internal Medicine [address] [place] [address] Social History Tobacco Use Types [...] 04/17/2025 3:15 PM EDT Office Visit [facility] [address] [place] [address] Thalia Singer, [facility] [address] [place] [phone] 09/16/2025 8:30 AM EST Office Visit [facility] [address] [place] [address] Flores Dawn, OBJECT ORIENTED PROGRAMMER [address] [facility] [address] [place] [address] documented as of this encounter Procedures Procedure [...] documented as of this encounter Care Teams Chicken And Fish Butcher Relationship Specialty Start Date End Date Ab Lee MD PCP - General 11/13/07 documented as of this encounter
--- OUTSIDE RECORDS SUMMARY | 2025-04-09 10:20 | XMS_ITS | Encounter Summary ---
Author Organization [facility] Address [facility] [place] [address] [place] [address] Phone Care Team Providers Care Technical Solutions Director Name Role Phone Ab Lee MD Primary Care Provider [phone] Encounter Details Date Type Department Care Team (Late st Contact Info) Description 02/11/2025 Results Follow-Up [facility] [address] [place] [address] Cielo Mock CNP [address] [place] [address] CYTOLOGY VERIFICATION LEAD Social History Tobacco Use Types Packs/Day Years [...] file Not on file Not on file 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 file Not on file [...] Description 04/17/2025 3:15 PM EDT Office Visit [address] [address] Thalia Singer, ON AIR ANNOUNCER [address] [place] [phone] 09/16/2025 8:30 AM EST Office Visit [facility] [place] [facility] [address] [place] [phone] Flores Dawn, ON AIR ANNOUNCER 100 [facility] [address] [place] [address] documented as of this encounter Visit Diagnoses Not on filedocumented in this encounter Care Teams Technical Solutions Director Relationship Specialty Start Date End Date Ab Lee MD PCP - General 11/13/07 documented as of this encounter
--- OUTSIDE RECORDS SUMMARY | 2025-04-09 10:21 | XMS_ITS | Encounter Summary ---
Author Organization [facility] Address [address] [place] [address] Phone Care Team Providers Care Playground Director Name Role Phone Ab Lee MD Primary Care Provider [phone] Encounter Details Date Type Department Care Team (Late st Contact Info) Description 09/01/2011 [facility] Internal Medicine [address] [place] [address] Social History Tobacco Use Types [...] Description 04/17/2025 3:15 PM EDT Office Visit [facility] [address] [place] [address] Thalia Singer, SCHOOL ADMISSIONS REPRESENTATIVE [address] [place] [phone] 09/16/2025 8:30 AM EST Office Visit [facility] [place] [address] [phone] Flores Dawn, SCHOOL ADMISSIONS REPRESENTATIVE [address] [facility] [address] [place] [address] documented as of this encounter Procedures Procedure [...] documented as of this encounter Care Teams Playground Director Relationship Specialty Start Date End Date Ab Lee MD PCP - General 11/13/07 documented as of this encounter
--- OUTSIDE RECORDS SUMMARY | 2025-04-09 10:21 | XMS_ITS | Encounter Summary ---
Author Organization [facility] Address [facility] [place] [address] Phone Care Team Providers Care Reverse Unit Operator Name Role Phone Ab Lee MD Primary Care Provider [phone] Reason for Visit * Reason Comments Refill Request Encounter Details Date Type Department Care Team (Late st Contact Info) Description 02/26/2025 Refill [facility] [address] [place] [address] [place] [address] Thalia Singer, HOSPICE CLINICAL SUPERVISOR [address] [place] [address] Social History Tobacco Use Types [...] file Not on file Not on file 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 Not on file [...] 04/17/2025 3:15 PM EDT Office Visit [facility] [address] [place] [phone] Thalia Singer, HOSPICE CLINICAL SUPERVISOR [address] [place] [phone] 09/16/2025 8:30 AM EST Office Visit [facility] [address] [place] [phone] Flores Dawn, HOSPICE CLINICAL SUPERVISOR [address] [facility] [address] [place] [address] documented as of this encounter Visit Diagnoses Not on filedocumented in this encounter Care Teams Reverse Unit Operator Relationship Specialty Start Date End Date Ab Lee MD PCP - General 11/13/07 documented as of this encounter
--- OUTSIDE RECORDS SUMMARY | 2025-04-09 10:21 | XMS_ITS | Encounter Summary ---
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 on file Not on file [...] Description 04/17/2025 3:15 PM EDT Office Visit [facility] [address] [place] [phone] Thalia Singer COOK APPRENTICE [address] [place] [address] 09/16/2025 8:30 AM EST Office Visit [facility] [address] [place] [address] Flores Dawn, COOK APPRENTICE 100 [facility] [address] [place] [address] documented as of this encounter Visit Diagnoses Not on filedocumented in this encounter Care Teams Negative Checker Relationship Specialty Start Date End Date Ab Lee MD PCP - General 11/13/07 documented as of this encounter
--- OUTSIDE RECORDS SUMMARY | 2025-04-09 10:21 | XMS_ITS | Encounter Summary ---
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 on file Not on file [...] per Neurology referral / Outreach sent through [employer]- delayed [employer] set for one week documented in this encounter Plan of Treatment Upcoming Encounters Date Type Department Care Team (Late st Contact Info) Description 04/17/2025 3:15 PM EDT Office Visit [facility] [address] [place] [phone] Thalia Singer, CIGAR PACKER AND GRADER [address] [place] [phone] 09/16/2025 8:30 AM EST Office Visit [facility] [place] [facility] [address] [place] [phone] Flores Dawn, CIGAR PACKER AND GRADER [address] [facility] [address] [place] [address] documented as of this encounter Visit Diagnoses Not on filedocumented in this encounter Care Teams Bag Printer Relationship Specialty Start Date End Date Ab Lee MD PCP - General 11/13/07 documented as of this encounter
--- OUTSIDE RECORDS SUMMARY | 2025-04-09 10:21 | XMS_ITS | Encounter Summary ---
Author Organization [facility] Address [facility] [place] [address] Phone Care Team Providers Care Small Parts Shaper Operator Name Role Phone Ab Lee MD Primary Care Provider [phone] Reason for Visit * Reason Comments Refill Request Encounter Details Date Type Department Care Team (Late st Contact Info) Description 03/25/2025 Refill [facility] [address] [place] [address] [place] [address] Thalia Singer, TELEPHONY ENGINEER [address] [place] [address] Hidradenitis suppurativa (Primary Dx) Social [...] file Not on file Not on file 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 [address] [place] [address] documented as of this encounter Visit Diagnoses Diagnosis Hidradenitis suppurativa- Primary Hidradenitis documented in this encounter Care Teams Small Parts Shaper Operator Relationship Specialty Start Date End Date Ab Lee MD PCP - General 11/13/07 documented as of this encounter
--- OUTSIDE RECORDS SUMMARY | 2025-04-09 10:21 | XMS_ITS | Encounter Summary ---
Author Organization [facility] Address [address] [place] [address] [place] [address] Phone Care Team Providers Care Mold Filler Plastic Dolls Name Role Phone Ab Lee MD Primary Care Provider [phone] Reason for Visit * Reason Comments Refill Request Encounter Details Date Type Department Care Team (Late st Contact Info) Description 02/28/2025 Refill [facility] [place] [facility] [address] [place] [address] Flores Dawn, NURSES DIRECTOR [address] [facility] [address] [place] [address] Idiopathic peripheral neuropathy; High risk [...] file Not on file Not on file 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 on file Not on file [...] Miscellaneous Notes * Telephone Encounter - Harry Causey LPN - 02/28/2025 3:52 PM EDT [facility] requesting refill Last refill date 11/26/24 Last office visit 11/26/24 Future office visit 03/04/25 documented in this encounter Plan of Treatment Upcoming Encounters Date Type Department Care Team (Late st Contact Info) Description 04/17/2025 3:15 PM EDT Office Visit [facility] [address] [place] [address] Thalia Singer, NURSES DIRECTOR [address] [place] [phone] 09/16/2025 8:30 AM EST Office Visit [facility] [place] [facility] [address] [place] [phone] Flores Dawn, NURSES DIRECTOR [address] [facility] [address] [place] [address] documented as of this encounter [...] management documented in this encounter Care Teams Mold Filler Plastic Dolls Relationship Specialty Start Date End Date Ab Lee MD PCP - General 11/13/07 documented as of this encounter
--- NOTE | 2025-04-09 10:29 | ED_ITS ---
Discharge Plan Disposition Patient Disposition: Home, Self-Care Condition: Good Prescriptions Prescriptions: New sulfamethoxazole-trimethoprim [Bactrim DS] 800-160 mg tablet 1 tab PO BID 5 Days Qty: 10 0RF No Action ketorolac 10 mg tablet 10 mg PO Q8H 3 Days Qty: 9 0RF cephalexin 500 mg capsule 500 mg PO Q8H 7 Days Qty: 21 0RF Referrals Follow up/Referrals: Hillary Mccarthy MD [Referring, Dermatology] - See instructions Provider,MD Leann [Primary Care Provider, Medical] - See instructions Activity Restrictions/Add. Instructions Additional Instructions/Restrictions: Please return to the emergency department with any worsening signs or symptoms, continue take all your medication as prescribed, utilize general wound care, please follow-up with your cat cracker operator in the upcoming weeks. Clinical Impressions Clinical Impression: Cellulitis Stand Alone Forms Stand Alone Forms: Work/School Release Instructions Patient Instructions: DI for Cellulitis -- Adult Print Language Print Language: Croatian Discharge ED Provider: Pete Byrd General Adult HPI <MUKESH Lima - Last Filed: 04/09/25 12:08> General Chief complaint: Extremity Problem,Nontraumatic Stated complaint: Poss. DVT, R foot rash/blister up towards leg Time Seen by Provider: 04/09/25 10:15 Mode of Arrival: Ambulatory Source of Information: Patient History of Present Illness HPI narrative: 39-year-old female presents the emergency department with right foot pain and leg pain, redness swelling, worsening within the last 5 days, patient was seen in the emergency department on 04/06/2025, had bedside POCUS ultrasound formed, negative for DVT, was set up to have formal DVT ultrasound to rule out DVT, she is found to have a knot , on top of her foot, in the back of her right thigh, diagnosed superficial thrombophlebitis, started on medications, Keflex, patient states that the pain has gotten worse as well as redness and swelling over the last several days, she also notes that she utilized a heating pad , on her right calf lesion, she states that she left it on there too long trying to get the clot out , and developed a small burn to the area, with some bullae/blister formation, however the knot area has resolved. Patient denies any fever chills chest pain shortness of breath nausea vomiting constipation diarrhea, denies urinary tested pathology, patient is a current everyday smoker (vapes), denies any alcohol or drug use, denies any history of blood clots or clotting disorders, no recent surgery or travel or immobilizations, denies any envenomation or insect bite, other past medical history consistent with hypertension, Hidraentis suppartiva, on chronic doxycycline therapy, 100 mg p.o. twice daily, has been on this chronically by her cat cracker operator for HS. initial triage vitals unremarkable. Please note that above description of symptoms, in this electronic medical record under categorization of recalled from ER triage doctor by RN are reflective of an initial nursing assessment, however, is not reflective of my full history and physical exam that was personally taken and clarified. Consequentially, this preceding description of symptoms, which may include the patient's categorized chief complaint in the EMR, do not reflect my personal clinical impression, and the ultimate description of history of present illness and patient stated complaints should be deferred to this section of the note. Unless stated otherwise or congruent with this section of the note, additional signs, symptoms, or incongruence should be interpreted as inaccurate with my clinical impression. Onset (ago): day(s) Related Data Previous Rx's ?Medication ?Instructions ?Recorded cephalexin 500 mg capsule 500 mg PO Q8H 7 days #21 cap s 04/06/25 ketorolac 10 mg tablet 10 mg PO Q8H pain 3 days #9 tabs 04/06/25 sulfamethoxazole 800 1 tab PO BID 5 days #10 tabs 04/09/25 mg-trimethoprim 160 mg tablet (Bactrim DS) Allergies Allergy/AdvReac Type Severity Reaction Status Date / Time amitriptyline AdvReac Unknown Verified 04/06/25 16:08 allergy reaction brompheniramine (From AdvReac Unknown Verified 04/06/25 16:08 Bromfed) allergy reaction chocolate AdvReac Unknown Verified 04/06/25 16:08 allergy reaction phenylephrine (From Bromfed) AdvReac Unknown Verified 04/06/25 16:08 allergy reaction pseudoephedrine (From AdvReac Unknown Verified 04/06/25 16:08 Bromfed) allergy reaction PFSH <MUKESH Lima - Last Filed: 04/09/25 12:08> PFS Disclaimer: The information contained in this section may have been updated after the patient was seen, as this information can be updated by other users. Social History (Updated 04/07/25 @ 00:13 by Catherine Diaz DO) Smoking Status: Current every day smoker alcohol intake: never current occupational status: employed Travel in the last 8 weeks?: None Have you lived/traveled outside US in past 30 days?: No Contact w/someone who lives/traveled outside US past 30 days?: No Exposure to someone with infectious disease in past 14 days?: No Do you have a fever (greater than 100.4 F or 38 C)?: No Have you tested positive for COVID-19?: No Exposed to someone with COVID-19 in past 14 days?: No Do you have a sore throat?: No Do you have a cough?: No Do you have any weakness?: No Do you have any diarrhea?: No Are you experiencing any unusual bleeding?: No Do you have any muscle aches/pain?: No Do you have any abdominal pain?: No Are you experiencing loss of taste or smell?: No <MUKESH Lima - Last Filed: 04/09/25 12:08> ROS Obtained: Yes All systems reviewed & no additional complaints except as documented Physical Exam <MUKESH Lima - Last Filed: 04/09/25 12:08> General General appearance: alert and in no apparent distress Head Head exam: atraumatic and normocephalic Eye Eye exam: Present PERRL and EOMI ENT ENT exam: Present mucous membranes moist Neck Neck exam: Present normal inspection Chest Chest inspection: Present normal inspection and symmetric chest wall rise Respiratory Respiratory exam: Present normal lung sounds bilaterally; Absent respiratory distress Cardiovascular Cardiovascular exam: Present regular rate and normal rhythm Abdominal Exam Abdominal exam: Present soft; Absent tenderness, guarding, rebound or rigidity Extremities Exam Extremities exam: Present normal inspection Neurological Exam Neurological exam: Present alert and oriented X3 Psychiatric Psychiatric exam: Present normal affect Skin Skin exam: Present warm, dry, erythema and other (There is a erythema migrans type rash, with a central clearing,/target-like lesion, with pain palpation to the area of the dorsum of the foot,, otherwise neurovascular intact, the area of previous knot ,/nodule lesion is no longer visualized, and lieu, there is some area of blistering/bullous forma) Medical Decision Making <MUKESH Lima - Last Filed: 04/09/25 12:08> Medical Records Medical records reviewed: Yes I reviewed the patient's medical records. Screening: Per USPSTF and CDC recommendations, given the prevalence of disease in our region, it is our hospital?s policy to screen for HIV and viral Hepatitis for all patients aged 18 and over and those with ongoing risk factors. Ac Inquiry Pt receiving controlled substance: No Ac was queried for this patient: No Vital Signs: 04/09/25 10:24 04/09/25 10:28 04/09/25 10:31 Temperature 98.5 F Temperature Source Oral Pulse Rate 95 H 96 H Pulse Rate [Right] 94 H Respiratory Rate 20 Blood Pressure 149/88 H 166/80 H Blood Pressure [Right Arm] 149/88 H Blood Pressure Mean [Right Arm] 108 Blood Pressure Source Blood Pressure Position 02 Sat by Pulse Oximetry 100 100 100 Oxygen Delivery Method 04/09/25 10:39 04/09/25 11:01 04/09/25 11:30 Temperature Temperature Source Pulse Rate 86 84 89 Pulse Rate [Right] Respiratory Rate Blood Pressure 109/75 L 116/77 116/80 Blood Pressure [Right Arm] Blood Pressure Mean [Right Arm] Blood Pressure Source Blood Pressure Position 02 Sat by Pulse Oximetry 100 99 99 Oxygen Delivery Method 04/09/25 12:26 Temperature 97.8 F Temperature Source Oral Pulse Rate 69 Pulse Rate [Right] Respiratory Rate 16 Blood Pressure 116/65 Blood Pressure [Right Arm] Blood Pressure Mean [Right Arm] Blood Pressure Source Automatic Cuff Blood Pressure Position Sitting 02 Sat by Pulse Oximetry Oxygen Delivery Method Room Air Lab Data Lab results reviewed: Yes I reviewed the patient's lab results. Lab Results 04/09/25 10:50: WBC 6.0, RBC 4.69, Hgb 14.3, Hct 43.5, MCV 92.8, MCH 30.5, MCHC 32.9, RDW 11.9, Plt Count 261, MPV 10.2, Neut % (Auto) 67.8, Lymph % (Auto) 25.2, [place] % (Auto) 5.0, Eos % (Auto) 1.0, Baso % (Auto) 0.8, Neut # (Auto) 4.1, Lymph # (Auto) 1.5, [place] # (Auto) 0.3, Eos # (Auto) 0.1, Baso # (Auto) 0.1, Sodium 136, Potassium 4.2, Chloride 98, Carbon Dioxide 35 H, Anion Gap 7.2, BUN 9, Creatinine 0.60, Estimated Creat Clear 129, Estimated GFR 110, Est GFR ( Amer) 133, Glucose 207 H, Hemoglobin A1c 6.1 H, Calcium 9.2, Total Bilirubin 0.4, AST 51 H, ALT 38, Alkaline Phosphatase 79, Total Protein 6.9, Albumin 3.5, Globulin 3.4 H, Albumin/Globulin Ratio 1.0 L 04/09/25 10:50 04/09/25 10:50 Orders (Tests/Meds): ORDERS Category Date Time Status Complete Blood Count Auto Diff Stat Lab 04/09/25 10:50 Completed Comprehensive Metabolic Panel Stat Lab 04/09/25 10:50 Completed Hemoglobin A1C Stat Lab 04/09/25 10:50 Completed CA venous doppler LE RT Stat Y 04/09/25 10:44 Completed Medical Decision Narrative: 39-year-old female presents to the emergency department with a rash and lesions, with worsening pain and swelling, differential diagnosis include but not limited to erythema migrans, cellulitis, DVT, superficial thrombophlebitis, HS. I discussed this patient's case with attending physician Dr. Byrd, he saw and examined the patient as well. Will obtain basic laboratory studies, will obtain formal DVT ultrasound, as patient is slated for this outpatient. CBC unremarkable CMP is notable for hyperglycemia at 207, Hemoglobin A1c is 6.1, AST is minimally elevated at 51, otherwise unremarkable CMP. I discussed these results with the patient and with the bedside, could be some degree of erythema migraine/target-like lesion, however patient is already on doxycycline which will cover her from a Lyme disease/tickborne illness standpoint, will add Bactrim DS twice daily for 5 days to pursue any MRSA or other Staphylococcus pathogens, due to the spreading nature of her cellulitic type rash, unsure of any envenomation or insect bite, patient will need to follow-up with cat cracker operator, I reviewed the patient's formal lower extremity duplex ultrasound, negative for any DVT, will call patient with formal radiology report/read. Patient was given strict ED return precautions, dermatology follow-up. Patient voiced understanding and agreement with current plan/discharge plan. <Pete Byrd MD - Last Filed: 04/09/25 18:21> Vital Signs: 04/09/25 10:24 04/09/25 10:28 04/09/25 10:31 Temperature 98.5 F Temperature Source Oral Pulse Rate 95 H 96 H Pulse Rate [Right] 94 H Respiratory Rate 20 Blood Pressure 149/88 H 166/80 H Blood Pressure [Right Arm] 149/88 H Blood Pressure Mean [Right Arm] 108 Blood Pressure Source Blood Pressure Position 02 Sat by Pulse Oximetry 100 100 100 Oxygen Delivery Method 04/09/25 10:39 04/09/25 11:01 04/09/25 11:30 Temperature Temperature Source Pulse Rate 86 84 89 Pulse Rate [Right] Respiratory Rate Blood Pressure 109/75 L 116/77 116/80 Blood Pressure [Right Arm] Blood Pressure Mean [Right Arm] Blood Pressure Source Blood Pressure Position 02 Sat by Pulse Oximetry 100 99 99 Oxygen Delivery Method 04/09/25 12:26 Temperature 97.8 F Temperature Source Oral Pulse Rate 69 Pulse Rate [Right] Respiratory Rate 16 Blood Pressure 116/65 Blood Pressure [Right Arm] Blood Pressure Mean [Right Arm] Blood Pressure Source Automatic Cuff Blood Pressure Position Sitting 02 Sat by Pulse Oximetry Oxygen Delivery Method Room Air Lab Data Lab Results 04/09/25 10:50: WBC 6.0, RBC 4.69, Hgb 14.3, Hct 43.5, MCV 92.8, MCH 30.5, MCHC 32.9, RDW 11.9, Plt Count 261, MPV 10.2, Neut % (Auto) 67.8, Lymph % (Auto) 25.2, [place] % (Auto) 5.0, Eos % (Auto) 1.0, Baso % (Auto) 0.8, Neut # (Auto) 4.1, Lymph # (Auto) 1.5, [place] # (Auto) 0.3, Eos # (Auto) 0.1, Baso # (Auto) 0.1, Sodium 136, Potassium 4.2, Chloride 98, Carbon Dioxide 35 H, Anion Gap 7.2, BUN 9, Creatinine 0.60, Estimated Creat Clear 129, Estimated GFR 110, Est GFR ( Amer) 133, Glucose 207 H, Hemoglobin A1c 6.1 H, Calcium 9.2, Total Bilirubin 0.4, AST 51 H, ALT 38, Alkaline Phosphatase 79, Total Protein 6.9, Albumin 3.5, Globulin 3.4 H, Albumin/Globulin Ratio 1.0 L Orders (Tests/Meds): ORDERS Category Date Time Status Complete Blood Count Auto Diff Stat Lab 04/09/25 10:50 Completed Comprehensive Metabolic Panel Stat Lab 04/09/25 10:50 Completed Hemoglobin A1C Stat Lab 04/09/25 10:50 Completed CA venous doppler LE RT Stat Y 04/09/25 10:44 Completed Medical Decision Narrative: 39-year-old female presents to the emergency department with a rash and lesions, with worsening pain and swelling, differential diagnosis include but not limited to erythema migrans, cellulitis, DVT, superficial thrombophlebitis, HS. I discussed this patient's case with attending physician Dr. Byrd, he saw and examined the patient as well. Will obtain basic laboratory studies, will obtain formal DVT ultrasound, as patient is slated for this outpatient. CBC unremarkable CMP is notable for hyperglycemia at 207, Hemoglobin A1c is 6.1, AST is minimally elevated at 51, otherwise unremarkable CMP. I discussed these results with the patient and with the bedside, could be some degree of erythema migraine/target-like lesion, however patient is already on doxycycline which will cover her from a Lyme disease/tickborne illness standpoint, will add Bactrim DS twice daily for 5 days to pursue any MRSA or other Staphylococcus pathogens, due to the spreading nature of her cellulitic type rash, unsure of any envenomation or insect bite, patient will need to follow-up with cat cracker operator, I reviewed the patient's formal lower extremity duplex ultrasound, negative for any DVT, will call patient with formal radiology report/read. Patient was given strict ED return precautions, dermatology follow-up. Patient voiced understanding and agreement with current plan/discharge plan. I was consulted by the ANTHONY, and we discussed the complexity of the problems being addressed. I approve the treatment and management plan for this patient's care in the emergency department, thus performing a substantive portion of the medical decision making. Pete Byrd MD Critical Care <MUKESH Lima - Last Filed: 04/09/25 12:08> Critical Care Time Critical Care Time: No
--- NOTE | 2025-04-09 10:44 | CA_ITS ---
FINAL REPORT CLINICAL HISTORY: REDNESS TOP OF RIGHT FOOT-POSSIBLE CELLULITIS,PAIN RLE FINDINGS: DUPLEX VENOUS SONOGRAPHY OF THE RIGHT LOWER EXTREMITY Multiple transverse and longitudinal scans were performed of the femoropopliteal deep venous system, with augmentation and compression maneuvers. Normal phasic flow was noted in the visualized deep venous system. No intraluminal increased echogenicity is noted to suggest thrombus. There is normal compression and augmentation of the venous structures. No abnormal venous collaterals are seen. IMPRESSION: No evidence of deep venous thrombosis of the right lower extremity. Reviewed, Interpreted and Dictated by Maria Del Rosario Calzada MD Transcribed by Amada Carrera Authenticated and [facility]
--- NOTE | 2025-04-09 10:58 | PC.NURSE ---
Emerita, vascular at bedside.
[2025-04-09 10:59] LABS: Hematocrit 43.5 % (37.0-47.0); Hemoglobin 14.3 g/dL (12.2-16.2); Mean Corpuscular HGB Conc 32.9 g/dL (31.8-35.4); Mean Corpuscular Hemoglobin 30.5 pg (27.0-31.2); Mean Corpuscular Volume 92.8 fl (81-99); Platelet Count 261 K/mm3 (142-424); Red Blood Count 4.69 M/mm3 (4.20-5.40); Red Cell Distribution Width-SD 39.8 fL; White Blood Count 6.0 K/mm3 (4.8-10.8)
[2025-04-09 11:00] LABS: Immature Granulocytes % 0.2 %; Nucleated Red Blood Cells % 0 %
[2025-04-09 11:08] LABS: Anion Gap 7.2 mEq/L (5-15); Carbon Dioxide 35 mmol/L (22.0-30.0); Chloride 98 mmol/L (98-107); Potassium 4.2 mmoL/L (3.5-5.1); Sodium 136 mmol/L (136-145)
[2025-04-09 11:09] LABS: Blood Urea Nitrogen 9 mg/dl (7-17); Calcium 9.2 mg/dl (8.4-10.2); Creatinine Clearance Estimated 129 mL/min (50-200); Creatinine,Serum 0.60 mg/dl (0.52-1.04); Estimated Glomerular Filt Rate 110 ml/min (>60); GFR (African American) 133 ML/MIN (>60); Glucose 207 mg/dl (74-100)
[2025-04-09 11:28] LABS: Alanine Aminotransferase 38 U/L (12-78); Aspartate Amino Transferase 51 U/L (14-36); Bilirubin,Total 0.4 mg/dl (0.2-1.3)
[2025-04-09 11:29] LABS: Albumin Level 3.5 g/dl (3.5-5.0); Albumin/Globulin Ratio 1.0 (1.1-1.8); Alkaline Phosphatase 79 U/L (38-126); Globulin 3.4 g/dL (1.3-3.2); Total Protein,Serum 6.9 g/dl (6.3-8.2)
[2025-04-09 11:51] LABS: Hemoglobin A1C 6.1 % (4.0-6.0)
== END 2025-04-09 12:27 | disposition home or self-care (01) ==
PROVIDERS: Physician Assistant; Emergency Provider Student in an Organized Health Care Education/Training Program
DX: L03.90 Cellulitis, unspecified (principal); F17.210 Nicotine dependence, cigarettes, uncomplicated
CPT/HCPCS: 80053; 83036; 85025; 93971; 99284

== ENCOUNTER 2025-05-01 05:21 | Emergency (ER) | payer OTHER, SELFPAY ==
--- OUTSIDE RECORDS SUMMARY | 2024-04-16 13:15 | XMS_ITS ---
Author Organization [facility] Address [address] [place] [address] Care Team Providers Care Stain Sprayer Name Role Phone [facility] ramirez bonds Primary Care Prov ider Unavailable Provider, [id number] Unavailable [phone] REASON FOR VISIT cough, sore throat, runny nose and fever Encounters Encounter Location Date Provider Diagnosis [address] [facility] [address] [place] [address] 04/16/2024 316[address] Provider Plan Of Treatment No Information Progress Notes * Andria BUSHOB:1985 (39 yo F)Acc No.[id number]:04/16/2024 Progress Notes Patient: Arelis MCKEON Provider: 1 8403 Provider :1985 A ge:38 Y S ex:Female Date:04/16/2024 External Visit ID:[id number] 1 Address:[address] [place], [place] [address], [address] [facility] Subjective: * Chief Complaints: * 1 . Cough, sore throat, runny nose and fever. * Medical History: Objective: * Vitals: Assessment: Plan: * Treatment: * Billing Information: * Visit Code: * Procedure Codes: Care Plan Details* * Electronic signature of GH49 130 [id number] Provider on 05/01/2025 at 04:30 AM CDT Sign off status: Pending * Provider: 1 8403 Provider Date: 0 04/16/2024 Generated for Printi ng/Faxing/eTransmitting on: 0 05/01/2025 04:30 AM CDT
--- OUTSIDE RECORDS SUMMARY | 2024-12-18 05:00 | XMS_ITS ---
Author Organization [facility] Address [address] [place] [address] Care Team Providers Care Film Rental Clerk Name Role Phone [facility] ramirez bonds Primary Care Prov ideNancy Alexander Unavailable [phone] REASON FOR VISIT Not Feeling Well Encounters Encounter Location Date Provider Diagnosis [address] [address] 12/18/2024 Nancy Asencio Plan Of Treatment No Information Progress Notes * Andria BUSHOB:1985 (39 yo F)Acc No.[id number]:12/18/2024 Progress Notes Patient: Arelis MCKEON Provider: Vlad Asencio CNP :1985 A ge:39 Y S ex:Female Date:12/18/2024 External Visit ID:[id number] 0 Address:[address] [place], [place] [address], [address] [facility] Subjective: * Chief Complaints: * 1 . Not Feeling Well. * Medical History: Objective: * Vitals: Assessment: Plan: * Treatment: * Billing Information: * Visit Code: * Procedure Codes: Care Plan Details* * Electronic signature of Mahin Asencio APRN on 05/01/2025 at 04:30 AM CDT Sign off status: Pending * Provider: Vlad Asencio CNP Date: 12/18/2024 Generated for Printi ng/Faxing/eTransmitting on: 0 05/01/2025 04:30 AM CDT
--- OUTSIDE RECORDS SUMMARY | 2025-03-04 08:30 | XMS_ITS | Encounter Summary ---
Author Organization [facility] Address [address] [place] [address] [place] [address] Phone Care Team Providers Care Dairy Farm Worker Name Role Phone Ab Lee MD Primary Care Provider [phone] Reason for Visit * Reason Comments Follow-up Pain scale 8/10 Pain Pain scale 8/10 Medication Refill Gabapentin 03/02/25 Encounter Details Date Type Department Care Team (Latest Contact Info) Description 03/04/2025 8:30 AM EDT Office Visit [facility] [place] [facility] [address] [place] [address] Flores Dawn, ASSOCIATE PROFESSOR OF BIOLOGY [address] [facility] [address] [place] [address] Lumbar radiculopathy (Primary Dx); Facet [...] file Not on file Not on file 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[place] [employer] Tobacco Use Smoking status: Former Types: Cigarettes [...] Resource Strain: Low Risk (11/16/2024) Received from [facility] Overall Financial Resource Strain (CARDIA) Difficulty of Paying Living Expenses: Not hard at all Food Insecurity: No Food Insecurity (11/16/2024) Received from [facility] Hunger Vital Sign Worried About Running Out of Food in the Last Year: Never true Ran Out of Food in the Last Year: Never true Transportation Needs: No Transportation Needs (11/16/2024) Received from [facility] IP Transportation In the past 12 months, has lack of reliable transportation kept you from medical appointments, meetings, work or from getting things needed for daily living?: No Physical Activity: Inactive (11/16/2024) Received from [facility] Exercise Vital Sign Days of Exercise per Week: 0 days Minutes of Exercise per Session: 0 min Stress: No Stress Concern Present (11/16/2024) Received from [facility] [place]ian [place] of Occupational Health - Occupational Stress Questionnaire [...] file Lisinopril, Metoprolol, Nitrofurantoin, Amitriptyline, Bromfed dm [[id number]], Chocolate (food), Diclofenac, and Thiazide-type diuretics Outpatient [...] Apply to affected areas BID nystatin (MYCOSTATIN) [id number] UNIT/GM OINT Apply topically 2 (two) times daily. chlorhexidine (HIBICLENS) 4 % LIQD Apply topically daily. Apply daily in shower ibuprofen (ADVIL,MOTRIN) 200 mg tablet Take 200 mg by mouth every 6 (six) hours as needed for Mild Pain (1-3). Liniments (BIOFREEZE EX) Apply topically. Multiple Vitamin (MULTIVITAMIN) TABS Take 1 tablet by mouth daily. nystatin (MYCOSTATIN) 494372 UNIT/GM POWD Apply topically 2 (two) times [...] LUMBOSACRAL JUNCTION: There are five lumbar type yhm-qvz-zzveeku vertebral bodies. The lowest lumbar type vertebral [...] Care Team (Late st Contact Info) Description 09/16/2025 8:30 AM EST Office Visit [facility] [place] [facility] [address] [place] [address] Flores Dawn, ASSOCIATE PROFESSOR OF BIOLOGY [address] [facility] [address] [place] [address] documented as of this encounter Visit Diagnoses [...] thigh documented in this encounter Care Teams Dairy Farm Worker Relationship Specialty Start Date End Date Ab Lee MD PCP - General 11/13/07 documented as of this encounter
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
--- OUTSIDE RECORDS SUMMARY | 2025-03-05 14:06 | XMS_ITS | Encounter Summary ---
Author Organization [place] [address] Care Team Providers Care Customer Technical Services Manager Name Role Phone Ab Lee MD [...] EDT - 03/05/2025 5:12 PM EDT Emergency [facility] Emergency [address] [facility] [address] Lashawn Whelan MD [address] [place] [address] Uncontrolled hypertension (Primary Dx) Discharge Disposition: Home or Self Care Social History Tobacco Use Types Packs/Day Years Used Date Smoking Tobacco: Former Cigarettes 1 10 Smokeless Tobacco: Never Tobacco Cessation:Counseling Given: Not Answered Alcohol Use Standard Drinks/Week Comments No 0 (1 standard drink = 0.6 oz pur e alcohol) [facility] Utilities Answer Date Recorded In the past 12 months has [employer] electric, gas, oil, or water company threatened to shut off services in your home? No 11/16/2024 Overall Financial Resource Strain (CARDIA) Answe r Date Recorded How hard is it for you to pa y for the very basics like food, housing, medical care, and heating? Not hard at all 11/16/2024 PHQ-2 Answer Date Recorded PHQ-2 Total Score 0 11/16/2024 [facility] - Occupational Stress [...] money to get more. Never true 11/16/2024 [facility] IP Transportation Answer D ate Recorded In [...] 2:02 PM EDT Tina Lao RN * [place] Suicide Severity Rating Scale (Q shift for [...] Capsule, Delayed Release(E.C.) Take by mouth daily. ALPRAZolam (XANAX) 1 mg Oral TabletIndication s:Generalized [...] Means Destination Comment s Home or Self Senior Living documented in this encounter ED Notes * Nano Beard RN - 03/05/2025 3:14 PM EDT The patient declined to provide a urine specimen at this time * Nette Wyatt APRN - 03/05/2025 1:58 PM EDT CC: Chief [...] Sinus tachycardia at a rate of 103. NC interval shortened at 112. Antonito is normal. There are nonspecific changes. 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 Normal axis. NC interval 112 ms. QRS duration 110 ms. QTc 4 and 59ms. Generalized T wave flattening of lead III and V1 (on prior dated 11/16/2024 showed inversions in lead III and V1). No ST elevations. No ectopy or lethal dysrhythmia. Two-view chest x-ray unremarkable. Random [id number] fingerstick glucose 177. Stable CBC as wellas [...] EKG 12 LEAD ED Interpretation by Lashawn Whelan MD (03/05 1428) Sinus tachycardia at a rate of 103. NC interval shortened at 112. Antonito is normal. There are nonspecific changes. Rate [...] office of the ordering clinician. Nette Wyatt APRN IM CT ORDERABLES Final Result * EXTRA BAE URINE CX (03/05/2025 3:24 PM EDT) Urine STRUCTURE OF URINARY TRACT PROPER / Unknown 03/05/2025 3:24 PM EDT 03/05/2025 3:27 PM EDT Nette Wyatt APRN MICROBIOLOGY - GENERAL ORDERABLES Final Result [facility] [address] [facility] [place] [address] * URINALYSIS REFLEX (03/05/2025 3:24 PM EDT) UA Color Yellow 03/05/2025 3:30 PM EDT [facility] UA Appear Clear Clear 03/05/2025 3:30 PM EDT [facility] UA Glucose Negative Negative mg/dL 03/05/2025 3:30 PM EDT [facility] UA Ketones Negative Negative mg/dL 03/05/2025 3:30 PM EDT [facility] UA Blood Negative Negative 03/05/2025 3:30 PM EDT [facility] UA pH 6.0 5.0 - 8.0 pH 03/05/2025 3:30 PM EDT [facility] UA Protein Negative Negative mg/dL 03/05/2025 3:30 PM EDT [facility] UA Urobilinogen 0.2 <=1 mg/dL 3:30 PM EDT [facility] UA Bili Negative Negative 03/05/2025 3:30 PM EDT [facility] UA Nitrite Negative Negative 03/05/2025 3:30 PM EDT [facility] UA Leuk Est Negative Negative 03/05/2025 3:30 PM EDT [facility] UA Spec Grav <=1.005 1.001 - 1.035 no units 03/05/2025 3:30 PM EDT [facility] Comment:Reference range pat d for random specimens only. Urine STRUCTURE OF URINARY TRACT PROPER / Unknown 03/05/2025 3:24 PM EDT 03/05/2025 3:27 PM EDT Nette A Edmundo COST REPORT CLERK URINE ORDERABLES Final Result [facility] [address] [place] [address] * XR CHEST PA AND [...] office of the ordering clinician. Nette Wyatt APRN IMG DIAGNOSTIC IMAGING ORDERABLES Final Result * HUMAN CHORIONIC GONADOTROPIN QUANTITATIVE (03/05/2025 2:22 PM EDT) Hcg Quant <1 <5 mIU/mL 03/05/2025 2:48 PM EDT [facility] Blood VENOUS BLOOD / Unknown Venipuncture / Unknown 03/05/2025 2:22 PM EDT 03/05/2025 2:26 PM EDT Narrative [facility] - 03/05/2025 2:48 PM EDT Female [...] ORDERABLES Fi nal Result Performing Organization Address [facility] de Phone Number [facility] [address] [place] [address] * TROPONIN-T HIGH SENSITIVITY BASELINE W/ REFLEX (03/05/2025 2:22 PM EDT) [id number] 9 <14 ng/L 03/05/2025 2:48 PM EDT [facility] Blood VENOUS BLOOD / Unknown Venipuncture / Unknown 03/05/2025 2:22 PM EDT 03/05/2025 2:26 PM EDT Narrative [facility] - 03/05/2025 2:48 PM EDT Ingestion of nelly doses of biotin (>5 mg/day) taken within 8 hours of drawing blood sample can interfere with this immunoassay test. Nette Wyatt APRN CHEMISTRY ORDERABLES Fi nal Result Performing Organization Address [facility] de Phone Number [facility] [address] [place] [address] * (ABNORMAL) BASIC METABOLIC PANEL (03/05/2025 2:22 PM EDT) Sodium 139 136 - 145 mmol/L 03/05/2025 2:48 PM EDT [facility] Potassium 3.7 3.5 - 5.0 mmol/L 03/05/2025 2:48 PM EDT [facility] Chloride 103 98 - 107 mmol/L 03/05/2025 2:48 PM EDT [facility] Total CO2 22 22 - 29 mmol/L 03/05/2025 2:48 PM EDT [facility] Anion Gap 14 7 - 16 mmol/L 03/05/2025 2:48 PM EDT [facility] Calcium 8.8 8.6 - 10.4 mg/dL 03/05/2025 2:48 PM EDT [facility] Glucose Lvl 183(H) 70 - 99 mg/dL 03/05/2025 2:48 PM EDT [facility] BUN 8 6 - 20 mg/dL 03/05/2025 2:48 PM EDT [facility] Creatinine 0.60 0.51 - 1.30 mg/dL 03/05/2025 2:48 PM EDT [facility] eGFR (CKD-EPIcr 2020) 115 >=60 mL/min/1.7 3 m2 03/05/2025 2:48 PM EDT [facility] Comment:Estimated GFR was ca lculated using the CKD-EPIcr (2020) equation refit without race. The equation is recommended by the National Kidney Foundation - [place] [employer] of Nephrology Task Force. Blood VENOUS BLOOD / Unknown Venipuncture / Unknown 03/05/2025 2:22 PM EDT 03/05/2025 2:26 PM EDT Nette Wyatt APRN CHEMISTRY ORDERABLES Fi nal Result [facility] [address] [place] [address] * (ABNORMAL) CBC WITH DIFF (03/05/2025 2:22 PM EDT) WBC 7.6 3.7 - 10.3 x10(3)/mcL 03/05/2025 2:29 PM EDT [facility] RBC 5.00 3.90 - 5.20 x10(6)/mcL 03/05/2025 2:29 PM EDT [facility] Hgb 15.6 11.2 - 15.7 g/dL 03/05/2025 2:29 PM EDT [facility] Hct 45.7(H) 34.0 - 45.0 % 03/05/2025 2:29 PM EDT [facility] MCV 91.4 80.0 - 100.0 fL 03/05/2025 2:29 PM EDT [facility] MCH 31.2 26.0 - 34.0 pg 03/05/2025 2:29 PM EDT [facility] MCHC 34.1 30.7 - 35.5 g/dL 03/05/2025 2:29 PM EDT [facility] RDW 11.9 <=14.9 % 03/05/2025 2:29 PM EDT [facility] Platelet 275 155 - 369 x10(3)/mcL 03/05/2025 2:29 PM EDT [facility] MPV 10.7 8.8 - 12.5 fL 03/05/2025 2:29 PM EDT [facility] Neut Percent 57.2 % 03/05/2025 2:29 PM EDT [facility] Comment:Neutrophils equals s egs plus bands Imm Gran% 0.1 % 03/05/2025 2:29 PM EDT [facility] Comment:Automated count of m etamyelocytes, myelocytes and promyelocytes. Lymph Percent 32.2 % 03/05/2025 2:29 PM EDT [facility] [place] Percent 8.2 % 03/05/2025 2:29 PM EDT [facility] Eos Percent 1.5 % 03/05/2025 2:29 PM EDT [facility] Baso Percent 0.8 % 03/05/2025 2:29 PM EDT [facility] Neut # 4.3 1.6 - 6.1 x10(3)/mcL 03/05/2025 2:29 PM EDT [facility] Comment:Neutrophils equals s egs plus bands IMMGRAN# 0.0 0.0 - 0.1 x10(3)/mcL 03/05/2025 2:29 PM EDT [facility] Comment:Automated count of m etamyelocytes, myelocytes and promyelocytes. An absolute IG <0.1 is reported as 0.0. Lymph # 2.4 1.2 - 3.9 x10(3)/mcL 03/05/2025 2:29 PM EDT [facility] [place] # 0.6 0.3 - 0.9 x10(3)/mcL 03/05/2025 2:29 PM EDT [facility] Eos# 0.1 0.0 - 0.5 x10(3)/mcL 03/05/2025 2:29 PM EDT [facility] Baso # 0.1 0.0 - 0.1 x10(3)/mcL 03/05/2025 2:29 PM EDT [facility] Blood VENOUS BLOOD / Unknown Venipuncture / Unknown 03/05/2025 2:22 PM EDT 03/05/2025 2:26 PM EDT Nette Wyatt APRN HEMATOLOGY ORDERABLES F inal Result [facility] [address] [place] [address] * (ABNORMAL) GLUCOSE METER POC (03/05/2025 2:07 PM EDT) [facility] Glucose Meter POC 177(H) 70 - 100 mg/dL 03/05/2025 2:09 PM EDT [facility] Sample Type Capillary 03/05/2025 2:09 PM EDT [facility] Patient Status Non-Critical Patient 03/05/2025 2:09 PM EDT [facility] Blood BLOOD SPECIMEN / Unknown 03/05/2025 2:07 PM EDT 03/05/2025 2:09 PM EDT Lab Test POINT OF CARE TEST ORDERABLES Fi nal Result [facility] [address] [place] [address] * EK EKG 12 LEAD (03/05/2025 2:01 PM EDT) Anatomical Region Laterality Modality Electrocardiogra phy 03/05/2025 2:14 PM EDT Impressions 03/05/2025 5:40 PM EDT [facility]: 2025-[facility]-05 Pat Name: JAYA [facility] Department: DEPID Room: Gender: Female Crop And Soil Scientist: Mamadou : 1985 Requested By: [employer] [facility] Order Number: [id number] Christiano MD: Frank Gloria Measurements Intervals [place] Rate: 103 P: -4 NC: 112 QRS: 32 QRSD: 110 T: 32 QT: 349 QTc: 459 Interpretive Statements SINUS TACHYCARDIA WITH SHORT NC INTERVAL ABNORMAL RHYTHM ECG WHEN COMPARED TO PREVIOUS ECG:NO SIGNIFICANT CHANGES ARE NOTED Electronically Signed On 03-05-2025 17:40:40 EDT by Frank Gloria Narrative Procedure Note Frank Gloria MD - 03/05/[address] [facility] Test Date: 2025-03-05 Pat Name: JAYA 

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
--- OUTSIDE RECORDS SUMMARY | 2025-04-15 13:45 | XMS_ITS | Encounter Summary ---
Author Organization [facility] SBO AND TP P Address [facility] [place] [address] Phone Care Team Providers Care Gambling Dealer Name Role Phone Ab Lee MD Primary Care Provider [phone] Reason for Visit * Reason Comments Bite (ANIMAL OR HUMAN) Inset bite. 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 She initially sought medical attention at [facility] in [place] due to a suspected blood clot in [...] upcoming appointment with Dr. Flores Dale, a paint department supervisor, on 04/27/2025. She reports no fever but [...] colon/normal IBS HC KYLEENA IUD 11/03/2017 lot: [id number] exp: 02/28 LAP,CHOLECYSTECTOMY 06/03/2016 Dr. Christiano Meza [...] use Diabetes Father Heart Disease Father 55 MO Hypertension Father Heart Disease Maternal Grandmother 48 MO X 5- OPENHEART SURGERY Diabetes Maternal Grandmother [...] Angioedema and Anaphylaxis Amitriptyline moser Bromfed Dm [Salfxdrzt-Hbsihbyz-Dg] Other (See Comments) Blacked out. Shaking, hallucinations [...] contact the author as some errors in braille and talking books clerk may have occurred. I have received and assessed the information in the OARRS report, in cluding information from COLIN and SHAJI, for this patient on 04/15/2025 and the following concerns were noted: none. documented in this encounter Plan of Treatment Upcoming Encounters Date Type Department Care Team (Late st Contact Info) Description 09/16/2025 8:30 AM EST Office Visit [facility] [place] [facility] [address] [place] [address] Flores Dawn, PUBLIC EMPLOYMENT MEDIATOR [address] [facility] [address] [place] [address] documented as of this encounter Visit Diagnoses Diagnosis Right foot pain- Primary Pain in limb Controlled type 2 diabetes mellitus without complication, without long-term current use of insulin documented in this encounter Care Teams Gambling Dealer Relationship Specialty Start Date End Date Ab Lee MD PCP - General 11/13/07 documented as of this encounter
--- OUTSIDE RECORDS SUMMARY | 2025-04-17 15:15 | XMS_ITS | Encounter Summary ---
Author Organization [facility] SBO AND TP P Address [facility] [place] [address] Phone Care Team Providers Care Attorney At Law Name Role Phone Ab Lee MD Primary Care Provider Reason for Visit * Reason Comments Follow-up Encounter Details Date Type Department Care Team (Late st Contact Info) Description 04/17/2025 3:15 PM EDT Office Visit [facility] [address] [place] [phone] Thalia Singer, [facility] [address] [place] [address] Wound of foot (Primary Dx) [...] file Not on file Not on file 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 file Not on file [...] documented in this encounter Progress Notes * Edmundo Bravo Registered Nurse - 04/17/2025 3:15 PM [...] Description 09/16/2025 8:30 AM EST Office Visit [facility] [place] [facility] [address] [place] [phone] Flores Dawn, FREIGHT ADJUSTER [address] [facility] [address] [place] [address] documented as of this encounter Visit Diagnoses Diagnosis Wound of foot- Primary documented in this encounter Care Teams Attorney At Law Relationship Specialty Start Date End Date Ab Lee MD PCP - General 11/13/07 documented as of this encounter
--- NOTE | 2025-05-01 | CA_ITS ---
FINAL REPORT TECHNIQUE: Multiple transverse and longitudinal images were performed of the right femoral-popliteal deep venous system with augmentation and compression maneuvers. CLINICAL HISTORY: spider bite with swelling of right calf, previous superficial thrombophlebitis FINDINGS: Right lower extremity duplex ultrasound demonstrates normal flow in the deep venous system. There is no abnormal echogenicity to suggest thrombus. There is normal compression and augmentation. IMPRESSION: No evidence of right DVT. Reviewed, Interpreted and Dictated by Bienvenido Worthy MD Transcribed by Amada Carrera Authenticated and [facility]
--- OUTSIDE RECORDS SUMMARY | 2025-05-01 05:30 | XMS_ITS | Clinical Summary ---
Author Organization Trina GALVANEsvin OD Address [place] [address] Phone Care Team Providers Care Boat Oar Maker Name Role Phone Ab Lee MD Primary Care Provider [phone] Allergies Active Allergy Reactions Criticality Noted Date [...] 1 CAPSULE BY MOUTH DAILY 100 Capsule 1 5 Active ondansetron (ZOFRAN-ODT) 4 mg Oral Tablet, Rapid Dissolve Dissolve 1 Tablet by mouth every 6 hours as needed for Nausea for up to 30 days. 10 Tablet 5 025 FLUoxetine (PROZAC) 20 mg Oral Capsule Take 1 Capsule by mouth daily. 100 Capsule 5 025 Discontinued Active Problems Patient Care Coordination No te [...] EDT - 03/05/2025 5:12 PM EDT Emergency [facility] Emergency [address] [place] [address] Lashawn Whelan MD Uncontrolled hypertension (Primary Dx) [...] drink = 0.6 oz pur e alcohol) [facility] Utilities Answer Date Recorded In the past 12 months has e electric, gas, oil, or water company threatened to shut off services in your home? No 11/16/2024 Overall Financial Resource Strain (CARDIA) Answe r Date Recorded How hard is it for you to pa y for the very basics like food, housing, medical care, and heating? Not hard at all 11/16/2024 PHQ-2 Answer Date Recorded PHQ-2 Total Score 0 11/16/2024 [facility] - Occupational Stress [...] money to get more. 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), predominantly inattentive type Moderate episode of recurrent major depressive disorder (HCC) Panic disorder MIGUELINA (generalized anxiety disorder) Adjustment disorder with anxiety Anxiety and depression DRUG CONFIRMATION, BENZODIAZEPINES - URINE Routine 04/08/2025 3:03 PM EDT Generalized anxiety disorder Panic disorder with agoraphobia Attention deficit hyperactivity disorder (ADHD), predominantly inattentive type Moderate episode of recurrent major depressive disorder (HCC) Panic disorder MIGUELINA (generalized anxiety disorder) Adjustment disorder with anxiety Anxiety and depression DRUGS OF ABUSE WITH REFLEX TO CONFIRMATION, [...] PM EDT UA W/REFLEX TO CULTURE STAT 3:24 PM EDT EXTRA BAE URINE CX STAT 03/05/2025 3 :24 PM EDT XR CHEST PA AND LATERAL STAT 03/05/20 3:06 PM EDT HUMAN CHORIONIC GONADOTROPIN QUANTITATIVE [...] Relevant to Health Maintenance Results * (ABNORMAL) DRUG CONFIRMATION, CANNABINOIDS - URINE (04/08/2025 3:03 PM EDT) THC <10 Cutoff 10 ng/mL ng/mL 04/10/2025 8:24 AM EDT [facility] THC Glucuronide 35(H) Cutoff 10 ng/mL ng/mL 04/10/2025 8:24 AM EDT [facility] Urine STRUCTURE OF URINARY TRACT PROPER / Unknown 04/08/2025 3:03 PM EDT 04/08/2025 3:03 PM EDT us Hi Corrales MD URINE ORDERABLES Final Result [facility] [employer] [facility] [address] [facility] , [place] [address] * (ABNORMAL) DRUG CONFIRMATION, BENZODIAZEPINES - URINE (04/08/2025 3:03 PM EDT) Diazepam <10 Cutoff 10 ng/mL ng/mL 04/10/2025 8:24 AM EDT [facility] [employer] Oxazepam <50 Cutoff 50 ng/mL ng/mL 04/10/2025 8:24 AM EDT [facility] Oxazepam Glucuronide <50 Cutoff 50 ng/mL ng/mL 04/10/2025 8:24 AM EDT [facility] Temazepam <50 Cutoff 50 ng/mL ng/mL 04/10/2025 8:24 AM EDT [facility] Temazepam Glucuronide <50 Cutoff 50 ng/mL ng/mL 04/10/2025 8:24 AM EDT [facility] Nordiazepam <25 Cutoff 25 ng/mL ng/mL 04/10/2025 8:24 AM EDT [facility] Lorazepam <50 Cutoff 50 ng/mL ng/mL 04/10/2025 8:24 AM EDT [facility] Lorazepam Glucuronide <50 Cutoff 50 ng/mL ng/mL 04/10/2025 8:24 AM EDT [facility] Alprazolam 10(H) Cutoff 8 ng/mL ng/mL 04/10/2025 8:24 AM EDT [facility] alpha-Hydroxyalprazolam <25 Cutoff 2 5 ng/mL ng/mL 04/10/2025 8:24 AM EDT [facility] Clonazepam <10 Cutoff 10 ng/mL ng/mL 04/10/2025 8:24 AM EDT [facility] 7-Aminoclonazepam 150(H) Cutoff 25 ng/mL ng/mL 04/10/2025 8:24 AM EDT [facility] Midazolam <50 Cutoff 50 ng/mL ng/mL 04/10/2025 8:24 AM EDT [facility] alpha-hydroxymidazolam <50 Cutoff 50 ng/mL ng/mL 04/10/2025 8:24 AM EDT [facility] Triazolam <50 Cutoff 50 ng/mL ng/mL 04/10/2025 8:24 AM EDT [facility] alpha-hydroxytriazolam <50 Cutoff 50 ng/mL ng/mL 04/10/2025 8:24 AM EDT [facility] Flunitrazepam <50 Cutoff 50 ng/mL ng/mL 04/10/2025 8:24 AM EDT [facility] 7-Aminoflunitrazepam <50 Cutoff 50 ng/mL ng/mL 04/10/2025 8:24 AM EDT [facility] Flurazepam <50 Cutoff 50 ng/mL ng/mL 04/10/2025 8:24 AM EDT [facility] Hydroxyethylflurazepam <50 Cutoff 50 ng/mL ng/mL 04/10/2025 8:24 AM EDT [facility] Urine STRUCTURE OF URINARY TRACT PROPER / Unknown 04/08/2025 3:03 PM EDT 04/08/2025 3:03 PM EDT us Hi Corrlaes MD URINE ORDERABLES Final Result [facility] [address] [facility] , [address] [place] [id number] * (ABNORMAL) DRUGS OF ABUSE WITH REFLEX [...] 100 ng/mL 04/08/2025 11:38 PM EDT [facility] Urine Creatinine 39.1 mg/dL 04/08/20 11:38 PM EDT [facility] Comment: Greater than 20: Consistent with valid sample Greater than 2 but less than 20: Possible dilution Less than 2: Questionable valid sample Urine STRUCTURE OF URINARY TRACT PROPER / Unknown 04/08/2025 3:03 PM EDT 04/08/2025 3:03 PM EDT Narrative [facility] - 04/08/2025 11:38 PM EDT These drug [...] Hi Corrales MD URINE ORDERABLES Final Result [facility], [place] [address] * SCANNED EKG (03/06/2025 9:33 AM EDT) [...] of the ordering clinician. Nette Wyatt APRN [facility] ORDERABLES Final Result * URINALYSIS REFLEX (03/05/2025 3:24 PM EDT) UA Color Yellow 03/05/2025 3:30 PM EDT [facility] UA Appear Clear Clear 03/05/2025 3:30 PM EDT [facility] UA Glucose Negative Negative mg/dL 03/05/2025 3:30 PM EDT [facility] UA Ketones Negative Negative mg/dL 03/05/2025 3:30 PM EDT [facility] UA Blood Negative Negative 03/05/2025 3:30 PM EDT [facility] UA pH 6.0 5.0 - 8.0 pH 03/05/2025 3:30 PM EDT [facility] UA Protein Negative Negative mg/dL 03/05/2025 3:30 PM EDT [facility] UA Urobilinogen 0.2 <=1 mg/dL 3:30 PM EDT [facility] UA Bili Negative Negative 03/05/2025 3:30 PM EDT [facility] UA Nitrite Negative Negative 03/05/2025 3:30 PM EDT [facility] UA Leuk Est Negative Negative 03/05/2025 3:30 PM EDT [facility] UA Spec Grav <=1.005 1.001 - 1.035 no units 03/05/2025 3:30 PM EDT [facility] Comment:Reference range pat d for random specimens only. Urine STRUCTURE OF URINARY TRACT PROPER / Unknown 03/05/2025 3:24 PM EDT 03/05/2025 3:27 PM EDT Nette Wyatt EMAIL MARKETING MANAGER URINE ORDERABLES Final Result Performing Organization Address [facility] Co de Phone Number [address] [address] * EXTRA BAE URINE CX (03/05/2025 3:24 PM EDT) Urine STRUCTURE OF URINARY TRACT PROPER / Unknown 03/05/2025 3:24 PM EDT 03/05/2025 3:27 PM EDT Nette Wyatt APRN MICROBIOLOGY - GENERAL ORDERABLES Final Result Performing Organization Address [facility] Co de Phone Number [address] [address] * XR CHEST PA AND LATERAL [...] BASELINE W/ REFLEX (03/05/2025 2:22 PM EDT) [id number]-[id number] 9 <14 ng/L 03/05/2025 2:48 PM EDT [facility] Blood VENOUS BLOOD / Unknown Venipuncture / Unknown 03/05/2025 2:22 PM EDT 03/05/2025 2:26 PM EDT Narrative [facility] - 03/05/2025 2:48 PM EDT Ingestion of nelly doses of biotin (>5 mg/day) taken within 8 hours of drawing blood sample can interfere with this immunoassay test. Nette Wyatt APRN CHEMISTRY ORDERABLES Fi nal Result [facility] [address] [facility] [place] [address] * (ABNORMAL) CBC WITH DIFF (03/05/2025 2:22 PM EDT) [facility] Signature WBC 7.6 3.7 - 10.3 x10(3)/mcL 03/05/2025 2:29 PM EDT [facility] RBC 5.00 3.90 - 5.20 x10(6)/mcL 03/05/2025 2:29 PM EDT [facility] Hgb 15.6 11.2 - 15.7 g/dL 03/05/2025 2:29 PM EDT [facility] Hct 45.7(H) 34.0 - 45.0 % 03/05/2025 2:29 PM EDT [facility] MCV 91.4 80.0 - 100.0 fL 03/05/2025 2:29 PM EDT [facility] MCH 31.2 26.0 - 34.0 pg 03/05/2025 2:29 PM EDT [facility] MCHC 34.1 30.7 - 35.5 g/dL 03/05/2025 2:29 PM EDT [facility] RDW 11.9 <=14.9 % 03/05/2025 2:29 PM EDT [facility] Platelet 275 155 - 369 x10(3)/mcL 03/05/2025 2:29 PM EDT [facility] MPV 10.7 8.8 - 12.5 fL 03/05/2025 2:29 PM EDT [facility] Neut Percent 57.2 % 03/05/2025 2:29 PM EDT [facility] Comment:Neutrophils equals s egs plus bands Imm Gran% 0.1 % 03/05/2025 2:29 PM EDT [facility] Comment:Automated count of m etamyelocytes, myelocytes and promyelocytes. Lymph Percent 32.2 % 03/05/2025 2:29 PM EDT [facility] Smith Percent 8.2 % 03/05/2025 2:29 PM EDT [facility] Eos Percent 1.5 % 03/05/2025 2:29 PM EDT [facility] Baso Percent 0.8 % 03/05/2025 2:29 PM EDT [facility] Neut # 4.3 1.6 - 6.1 x10(3)/[facility] 03/05/2025 2:29 PM EDT [facility] Comment:Neutrophils equals s egs plus bands IMMGRAN# 0.0 0.0 - 0.1 x10(3)/[facility] 03/05/2025 2:29 PM EDT [facility] Comment:Automated count of m etamyelocytes, myelocytes and promyelocytes. An absolute IG <0.1 is reported as 0.0. Lymph # 2.4 1.2 - 3.9 x10(3)/[facility] 03/05/2025 2:29 PM EDT [facility] Smith # 0.6 0.3 - 0.9 x10(3)/[facility] 03/05/2025 2:29 PM EDT [facility] Eos# 0.1 0.0 - 0.5 x10(3)/[facility] 03/05/2025 2:29 PM EDT [facility] Baso # 0.1 0.0 - 0.1 x10(3)/[facility] 03/05/2025 2:29 PM EDT [facility] Blood VENOUS BLOOD / Unknown Venipuncture / Unknown 03/05/2025 2:22 PM EDT 03/05/2025 2:26 PM EDT us Nette Wyatt APRN HEMATOLOGY ORDERABLES F inal Result [facility] [address] [place] [address] * HUMAN CHORIONIC GONADOTROPIN QUANTITATIVE (03/05/2025 2:22 PM EDT) Pathologist [facility] Hcg Quant <1 <5 mIU/mL 03/05/2025 2:48 PM EDT [facility] Blood VENOUS BLOOD / Unknown Venipuncture / Unknown 03/05/2025 2:22 PM EDT 03/05/2025 2:26 PM EDT Narrative [facility] - 03/05/2025 2:48 PM EDT [...] Wyatt APRN CHEMISTRY ORDERABLES Fi nal Result [facility] [address] [place] [address] * (ABNORMAL) BASIC METABOLIC PANEL (03/05/2025 2:22 PM EDT) Sodium 139 136 - 145 mmol/L 03/05/2025 2:48 PM EDT [facility] Potassium 3.7 3.5 - 5.0 mmol/L 03/05/2025 2:48 PM EDT [facility] Chloride 103 98 - 107 mmol/L 03/05/2025 2:48 PM EDT [facility] Total CO2 22 22 - 29 mmol/L 03/05/2025 2:48 PM EDT [facility] Anion Gap 14 7 - 16 mmol/L 03/05/2025 2:48 PM EDT [facility] Calcium 8.8 8.6 - 10.4 mg/dL 03/05/2025 2:48 PM EDT [facility] Glucose Lvl 183(H) 70 - 99 mg/dL 03/05/2025 2:48 PM EDT [facility] BUN 8 6 - 20 mg/dL 03/05/2025 2:48 PM EDT [facility] Creatinine 0.60 0.51 - 1.30 mg/dL 03/05/2025 2:48 PM EDT [facility] eGFR (CKD-EPIcr 2020) 115 >=60 mL/min/1.7 3 m2 03/05/2025 2:48 PM EDT [facility] Comment:Estimated GFR was ca lculated using the CKD-EPIcr (2020) equation refit without race. The equation is recommended by the National Kidney Foundation - [place] [employer] of Nephrology Task Force. Blood VENOUS BLOOD / Unknown Venipuncture / Unknown 03/05/2025 2:22 PM EDT 03/05/2025 2:26 PM EDT Nette Wyatt APRN CHEMISTRY ORDERABLES Fi nal Result Performing Organization Address [facility] Co de Phone Number [facility] [address] [place] [address] * (ABNORMAL) GLUCOSE METER POC (03/05/2025 2:07 PM EDT) [facility] Glucose Meter POC 177(H) 70 - 100 mg/dL 03/05/2025 2:09 PM EDT [facility] Sample Type Capillary 03/05/2025 2:09 PM EDT [facility] Patient Status Non-Critical Patient 03/05/2025 2:09 PM EDT [facility] Blood BLOOD SPECIMEN / Unknown 03/05/2025 2:07 PM EDT 03/05/2025 2:09 PM EDT Lab Test POINT OF CARE TEST ORDERABLES Fi nal Result Performing Organization Address [facility] Co de Phone Number [facility] [address] [place] [address] * EK EKG 12 LEAD (03/05/2025 2:01 PM EDT) Anatomical Region Laterality Modality Electrocardiogra phy 03/05/2025 2:14 PM EDT Impressions 03/05/2025 5:40 PM EDT [facility] Test Date: 2025-03-05 Pat Name: JAYA BUSH Department: DEPID Room: Gender: Female Equipment Tech: Mamadou : 1985 Requested By: [email or web address] Order Number: [id number] Reading MD: Frank Gloria Measurements Intervals [place] Rate: 103 P: -4 WA: 112 QRS: 32 QRSD: 110 T: 32 QT: 349 QTc: 459 Interpretive Statements SINUS TACHYCARDIA WITH SHORT WA INTERVAL ABNORMAL RHYTHM ECG WHEN COMPARED TO PREVIOUS ECG:NO SIGNIFICANT CHANGES ARE NOTED Electronically Signed On 03-05-2025 17:40:40 EDT by Frank Gloria Narrative Procedure Note Frank Gloria MD - 03/05/2025 IMPRESSION [facility] Test Date: 2025-03-05 [facility]: [facility] Room: Gender: Female Equipment Tech: Mamadou : 1985 Requested By: [facility] Order Number: [id number] Reading MD: Frank Gloria Measurements Intervals [place] Rate: 103 P: -4 WA: 112 QRS: 32 QRSD: 110 T: 32 QT: 349 QTc: 459 Interpretive Statements SINUS TACHYCARDIA WITH SHORT WA INTERVAL ABNORMAL RHYTHM ECG WHEN COMPARED TO PREVIOUS ECG:NO SIGNIFICANT CHANGES ARE NOTED Electronically Signed On 03-05-2025 17:40:40 EDT by Frank Gloria us Lashawn Whelan MD IMG ECG ORDERABLES Final Res ult * (ABNORMAL) LIPID SCREEN (01/21/2016 2:48 PM EDT) Cholesterol 200 <=200 mg/dL [facility] Comment: < 200 Desirable 200 - 239 Borderline High >= 240 High Triglyceride 116 <=150 mg/dL [facility] Comment: < 150 Normal 150 - 199 Borderline High 200 - 499 High >= 500 Very High HDL 49 >=40 mg/dL [facility] Comment: > 60 Optimal 40 - 60 Acceptable < 40 Low LDL Calculated 128(H) <=100 mg/dL [facility] Comment: < 100 Optimal 100 - 129 Near or above optimal 130 - 159 Borderline High 160 - 189 High >= 190 Very High Blood specimen (specimen) UPPER LIMB STRUCTURE / Unknown 01/21/2016 2:48 PM EDT 01/21/2016 2:54 PM EDT us Joesph Crowder DO CHEMISTRY ORDERABLES Edited Resu lt - Final Performing Organization Address [facility] Co de Phone Number [facility] [address] [place] [address] * HEMOGLOBIN A1C (10/25/2012 12:02 PM EST) Hgb A1c 5.3 <=7.0 % [facility] Comment: Initial Diagnostic Criteria < 5.7 % Normal 5.7 - 6.4 % At risk for diabetes mellitus >= 6.5 % Consistent with diabetes mellitus Diabetes monitoring Target Value (ADA recommended): < 7 % Blood specimen (specimen) UPPER LIMB STRUCTURE / Unknown 10/25/2012 12:02 PM EST 10/25/2012 12:43 PM EST us Gloria Farrell MD CHEMISTRY ORDERABLES Final Resul t Performing Organization Address [facility] de Phone Number [facility] [address] [place] [address] from Last 3 Months or Most Recently Relevant to Health Maintenance Insurance [employer] [facility] [id number] [address] [place] [id number] [place] [id number] Advance Directives For more information, please contact: [phone] * Full Code (Latest Code Status on File) Date Activated Date Inactivated Comments 11/16/2024 8:25 AM 11/17/2024 4:10 PM * Full Code Date Activated Date Inactivated Comments 04/26/2024 2:35 AM 04/26/2024 6:24 PM * Full Code Date Activated Date Inactivated Comments 04/26/2024 12:03 AM 04/26/2024 2:35 AM * Full Code Date Activated Date Inactivated Comments 01/21/2016 2:02 PM 01/22/2016 6:55 PM Care Teams Boat Oar Maker Relationship Specialty Start Date End Date Ab Lee MD PCP - General 09/15/08
--- OUTSIDE RECORDS SUMMARY | 2025-05-01 05:30 | XMS_ITS | Encounter Summary ---
Author Organization [facility] Address [address] [place] [address] Phone Care Team Providers Care Supervisor Taping Name Role Phone Ab Lee MD Primary Care Provider [phone] Encounter Details Date Type Department Care Team (Late st Contact Info) Description 07/23/2009 [facility] Internal Medicine [address] [place] [phone] Social History Tobacco Use Types Packs/Day Years [...] Description 09/16/2025 8:30 AM EST Office Visit [facility] [place] - [facility] [address] [place] [address] Flores Dawn, SHIPPING ASSISTANT [address] [facility] [address] [place] [address] documented as of this encounter Procedures Procedure Name Priority Date/Time Associated Diagnosis Comments CHEST X-RAY 2VW Routine 07/04/2009 documented in this encounter Results * CHEST X-RAY 2VW (07/04/2009) Anatomical Region Laterality Modality Other us Historical Med GENERAL IMAGING Final Result documented in this encounter Visit Diagnoses Not on filedocumented in this encounter Additional Health Concerns Infection Onset Date Last Indicated Resolved Time COVID-19 Suspect 10/20/2021 10/20/2021 10/20/2021 3:59 PM EST COVID-19 Suspect 10/20/2021 10/20/2021 10/20/2021 4:10 PM EST documented as of this encounter Care Teams Supervisor Taping Relationship Specialty Start Date End Date Ab Lee MD PCP - General 11/13/07 documented as of this encounter
--- OUTSIDE RECORDS SUMMARY | 2025-05-01 05:30 | XMS_ITS | Encounter Summary ---
Author Organization [facility] Address [address] [place] [address] [place] [address] Phone Care Team Providers Care Psychiatry Resident Name Role Phone Ab Lee MD Primary Care Provider [phone] Encounter Details Date Type Department Care Team (Late st Contact Info) Description 12/05/2023 Telephone - Conversion [facility] [place] - [facility] [address] [place] [phone] Flores Dawn, HYPOID GEAR GENERATOR [address] [facility] [address] [place] [address] Pain in left hip Social [...] Start Date 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
--- OUTSIDE RECORDS SUMMARY | 2025-05-01 05:30 | XMS_ITS | Encounter Summary ---
Author Organization [facility] Address [address] [place] [address] Phone Care Team Providers Care Spray Painting Machine Operator Name Role Phone Ab Lee MD Primary Care Provider [phone] Encounter Details Date Type Department Care Team (Late st Contact Info) Description 09/01/2011 [facility] [address] [facility] [place] [phone] Social History Tobacco Use Types Packs/Day Years [...] Description 09/16/2025 8:30 AM EST Office Visit [facility] [place] [facility] [address] [place] [phone] Flores Dawn, ENGINEERING RESEARCH MANAGER [address] [facility] [address] [place] [address] documented as of this encounter Procedures Procedure Name Priority Date/Time Associated Diagnosis Comments MRI, LUMBAR SPINE Routine 05/25/2011 documented in this encounter Results * MRI, LUMBAR SPINE (05/25/2011) Anatomical Region Laterality Modality Other us Historical Med SPECIAL IMAGING STUDIES Final Re sult documented in this encounter Visit Diagnoses Not on filedocumented in this encounter Additional Health Concerns Infection Onset Date Last Indicated Resolved Time COVID-19 Suspect 10/20/2021 10/20/2021 10/20/2021 3:59 PM EST COVID-19 Suspect 10/20/2021 10/20/2021 10/20/2021 4:10 PM EST documented as of this encounter Care Teams Spray Painting Machine Operator Relationship Specialty Start Date End Date Ab Lee MD PCP - General 11/13/07 documented as of this encounter
--- OUTSIDE RECORDS SUMMARY | 2025-05-01 05:30 | XMS_ITS | Encounter Summary ---
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 Not on file [...] per Neurology referral / Outreach sent through [facility]- delayed [employer] set for one week documented in this encounter Plan of Treatment Upcoming Encounters Date Type Department Care Team (Late st Contact Info) Description 09/16/2025 8:30 AM EST Office Visit [facility] [place] [facility] [address] [place] [address] Flores Dawn, MIDDLE SCHOOL HISTORY TEACHER 100 [facility] [address] [place] [address] documented as of this encounter Visit Diagnoses Not on filedocumented in this encounter Care Teams Funeral Director'S Assistant Relationship Specialty Start Date End Date Ab Lee MD PCP - General 11/13/07 documented as of this encounter
--- OUTSIDE RECORDS SUMMARY | 2025-05-01 05:30 | XMS_ITS | Referral Summary ---
Author Organization [facility] Address [address] [place] [address] Phone Care Team Providers Care Motor Operator Name Role Phone Ab Lee MD Primary Care Provider Encounters Date Type Department Care Team Description 04/30/[address] [place] [phone] Thalia Singer, TUBE MOUNTER Hidradenitis suppurativa 04/17/2025 3:15 PM EDT Office Visit [facility] [address] [place] [phone] Thalia Singer, TUBE MOUNTER Wound of foot (Primary Dx) 04/15/2025 Telephone [facility] [address] [place] [address] Ab Lee MD 04/15/2025 1:45 PM EDT Office Visit [facility] [address] [place] [phone] Ab Lee MD Right foot pain (Primary Dx); Controlled type 2 diabetes mellitus without complication, without long-term current use of insulin 03/26/2025 Telephone [facility] Central Scheduling [address] [place] [address] Ariel Malhotra MD 03/25/2025 Refill [facility] [address] [place] [phone] Thalia Singer CNP Hidradenitis suppurativa (Primary Dx) 03/06/2025 9:45 AM EDT Office Visit [facility] [address] [place] [phone] Ab Lee MD Chronic tension-type headache, not intractable (Primary Dx); Loss of balance; Muscle twitching; Family history of stroke; Depression, recurrent (HCC); Essential hypertension; Morbid obesity with BMI of 45.0-49.9, adult ([facility]); Controlled type 2 diabetes mellitus without complication, without long-term current use of insulin 03/05/2025 Telephone [facility] [address] [place] [phone] Clinton Howell, Registered Nurse 03/04/2025 9:50 AM EDT Office Visit [address] [phone] Cinthya May PA-C Essential hypertension (Primary Dx) 03/04/2025 8:30 AM EDT Office Visit [facility] [address] [phone] Flores Dawn CNP Lumbar radiculopathy (Primary Dx); Facet arthritis of lumbar region; Encounter for medication management; High risk medication use; Neuropathic pain; Idiopathic peripheral neuropathy; Neuralgia and neuritis, unspecified; Left hip pain 02/28/2025 Refill [facility] [address] [phone] Flores Dawn CNP Idiopathic peripheral neuropathy; High risk medication use; Neuropathic pain; Lumbar radiculopathy; Neuralgia and neuritis, unspecified; Left hip pain; Encounter for medication management 02/26/2025 Refill [facility] [address] [place] [phone] Thalia Singer CNP 02/11/2025 Results Follow-Up [facility] [address] [place] [address] Cielo Mock, MIKA CYTOLOGY SUPERVISOR ROSE GRADING from Last 3 Months Allergies Active Allergy Reactions Criticality Noted Date Comments Amitriptyline 12/14/2002 moser Gibinpyjv-Uluckmcc-[place] Other (See Comments) 10/22/2013 Blacked out. Shaking, hallucinations Chocolate (Food) 11/21/2007 Sneeze, itch Diclofenac 12/14/2002 diarrhea Lisinopril Anaphylaxis High 11/20/2024 Metoprolol Anaphylaxis High 11/20/2024 Nitrofurantoin Angioedema,Anaphyla xis High 09/17/2021 Thiazide-Type Diuretics Other (See Comments) 01/04/2014 Increased liver enzymes Medications ALPRAZolam (XANAX) 1 MG TABSIndications:P RN Take 1 mg by mouth. Active nystatin (MYCOSTATIN) 938340 UNIT/GM POWD Apply topically 2 (two) times daily. 45 g 1 0 Active Multiple Vitamin (MULTIVITAMIN) TABS Take 1 tablet by mouth daily. Active ibuprofen (ADVIL,MOTRIN) 200 mg tablet Take 200 mg by mouth every 6 (six) hours as needed for Mild Pain (1-3). Active Liniments (BIOFREEZE EX) Apply topically. Active chlorhexidine (HIBICLENS) 4 % LIQD Apply topically daily. Apply daily in shower 236 mL 5 3 Active nystatin (MYCOSTATIN) 054646 UNIT/GM OINT Apply topically 2 (two) times daily. 30 g 1 4 Active ketoconazole (NIZORAL) 2 % CREA Apply to affected areas BID 60 g 1 4 Active Additional Information Patient taking differently: No details specified, Reason: PRN for HS, Reported on 04/17/2025 famotidine (PEPCID) 20 mg TABS Take 1 tablet by mouth 2 (two) times daily. 180 tablet 11/22/2024 3:24 PM EDT 5 Active amLODIPine (NORVASC) 5 MG TABS Take 1 tablet by mouth daily. 30 tablet 11/20/2024 2:21 PM EDT 5 Active norethindrone (JENCYCLA) 0.35 MG TABSIndications:C hronic pelvic pain in female,Encounter for surveillance of contraceptive pills TAKE 1 TABLET BY MOUTH DAILY 84 tablet 4 5 Active fluconazole (DIFLUCAN) 150 mg tabletIndications :Yeast vaginitis One now and repeat in 3 days. 2 tablet 1 5 Active cyclobenzaprine (FLEXERIL) 5 MG TABSIndications:M uscle Spasm Take 1-2 tablets by mouth daily as needed for up to 15 days. Indications: Muscle Spasm 30 tablet 03/04/2025 11:34 AM EDT 5 Active gabapentin (NEURONTIN) 400 MG CAPSIndications:N europathic Pain Take 1 capsule by mouth 4 (four) times daily as needed for up to 180 days. Indications: Neuropathic Pain 360 capsule 1 03/04/2025 11:34 AM EDT 5 025 Active hydroCHLOROthiazi de (MICROZIDE) 12.5 MG CAPS Take 1 capsule by mouth every morning. 90 capsule 5 Active amLODIPine (NORVASC) 2.5 MG TABS Take 1 tablet by mouth daily. 90 tablet 5 Active doxycycline (VIBRA-TABS) 100 MG TABSIndications:H idradenitis suppurativa TAKE 1 TABLET BY MOUTH 2 TIMES A DAY 60 tablet 5 Active predniSONE (DELTASONE) 10 mg tablet 6 TABS (ALL AT ONCE) FOR ONE DAY, THEN DECREASE ONE TAB/DAY UNTIL GONE 21 tablet 5 Active predniSONE (DELTASONE) 10 mg tablet TAKE 6 TABS (ALL AT ONCE) FOR ONE DAY, THEN DECREASE ONE TAB/DAY UNTIL GONE 21 tablet 04/15/2025 3:07 PM EDT 5 Active triamcinolone (KENALOG) 0.1 % OINT Apply to rash on foot twice daily as needed 30 g 04/17/2025 3:58 PM EDT 5 Active Active Problems Problem Noted Date Diagnosed Date [...] Pneumovax-23 10/23/2013 Tdap (Tetanus, Diphtheria & Pertussis) ,01/05/2011 dT, adult 01/03/1995 Social History Tobacco Use [...] file Not on file Not on file clerk 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 on file Not on file Not on file Last Filed Vital Signs Vital Sign Reading Time Taken Comments Blood Pressure 130/83 04/15/2025 2:09 PM EDT Pulse 89 04/15/2025 2:09 PM EDT Temperature 36.8 C (98.2 F) 03/04/2025 9:58 AM EDT Respiratory Rate 16 03/04/2025 9:58 AM EDT Oxygen Saturation 100% 03/04/2025 9:58 AM EDT Inhaled Oxygen Concentration - - Weight 155.2 kg (342 lb 3.2 oz) 04/15/2025 2:09 PM EDT Height 175.3 cm (5' 9 ) 04/15/2025 2:09 PM EDT Body Mass Index 50.53 04/15/2025 2:09 PM EDT Functional Status * Are you deaf [...] 8:[address] [facility] [place] Registered Nurse Plan of Treatment Upcoming Encounters Date Type Department Care Team (Late st Contact Info) Description 09/16/2025 8:30 AM EST Office Visit [facility] [place] [facility] [address] [place] [address] Flores Dawn, TUBE MOUNTER 100 [facility] [address] [place] [address] Medical Devices Implanted Type Area Feed Weigher Device Identifier Shelf Expiration Date Model / Serial / Lot Gallbladder Clip-06/03/2016 Implanted: 016 (Quantity not on file) Clip ETHICON LIGAMAX 5MM CLIP / / Description:3T OR LESS MAX SPATIAL GRADIENT OF 6.5T/M 1.7 W/KG FOR 20 MIN OF SCANNING (PER SEQUENCE) Procedures Procedure Name Priority Date/Time Associated Diagnosis Comments CYTOLOGY SUPERVISOR ROSE GRADING Today 01/28/2025 6:22 PM EDT Encounter for [...] Relevant to Health Maintenance Results * CYTOLOGY SUPERVISOR ROSE GRADING (01/28/2025 6:22 PM EDT) CYTOLOGY-SUPERVISOR ROSE GRADING CYTOLOGY GYNECOLOGICAL REPORT Name: JAYA BUSH EPI#: [id number] Case #: [id number] Final Cytologic Diagnosis A. Thinprep Cervical/Endocervic al with HPV screen and 16/18 Genotyping if Indicated: Adequacy: Satisfactory for evaluation, ABSENT endocervical transformation zone component. Interpretation: Negative for intraepithelial lesion or malignancy. Fungal organisms morphologically consistent with Ana spp. This specimen has been analyzed by the inMEDIA CorporationPrep Imaging System (Vestor.), an automated imaging and review system, which assists the jigger crown pouncing machine operator and/or pathologist in evaluation of cells [...] Normal Contraceptive History: OC/BCP Signed out at [facility], [address] [place] [address] [facility] Non-Formatted Report [facility] 01/28/2025 6:22 PM EDT 01/29/2025 9:04 AM EDT us Cielo Mock CNP PATHOLOGY/CYTOLOGY ORDERABLES Fi nal Result [facility] [address] [place] [address] * (ABNORMAL) CMP (BMP,TP,ALB,TBIL,ALK,AST,ALT) (12/15/2024 10:13 AM EDT) SODIUM 137 135 - 145 mmol/L [facility] POTASSIUM 4.4 3.6 - 5.1 mmol/L [facility] CHLORIDE 105 98 - 111 mmol/L [facility] CO2 27 21 - 31 mmol/L [facility] GLUCOSE, RANDOM 167(H) 70 - 99 mg/dL [facility] BLD UREA NITROGEN 8 8 - 26 mg/dL [facility] CREATININE 0.71 0.60 - 1.20 mg/dL [facility] CALCIUM 8.4(L) 8.5 - 10.4 mg/dL [facility] TOTAL PROTEIN 6.2 6.0 - 8.0 g/dL [facility] ALBUMIN 3.8 3.5 - 5.7 g/dL [facility] TOTAL BILIRUBIN 0.4 0.0 - 1.2 mg/dL [facility] ALK PHOSPHATASE 70 35 - 135 IU/L [facility] AST 43(H) 10 - 40 IU/L [facility] ALT 33 10 - 60 IU/L [facility] ESTIMATED GFR 109 >59 mL/min/1.7 3 m2 [facility] Comment:Estimated GFR was ca lculated using the CKD-EPI cr (2020) equation refit without race. The equation is recommended by the National Kidney Foundation - [place] Society of Nephrology Task Force. ANION GAP 5 4 - 16 mmol/L [facility] Comment:Tested at [facility] [address] [place], [place] [address]jerrica Perrin [address] Whole Blood 12/15/2024 10:1 3 AM EDT 12/15/2024 10:14 AM EDT us Ab Lee MD LAB BLOOD ORDERABLES Final Resu lt [facility] [address] [place] [address] [facility] [address] [place] [address] [place] [address] * (ABNORMAL) HEMOGLOBIN A1C (10/12/2024 1:47 PM [...] given level of glycemic control. Tested at: [facility], [address] [place] [address] Whole Blood 10/12/2024 1:47 PM EST 10/12/2024 5:38 PM EST Ab Lee MD LAB BLOOD ORDERABLES Final Resu lt Performing Organization Address [facility] de Phone Number [facility] [address] [place] [address] GSH TEST SITE * MICROALBUMIN, URINE RANDOM (INCLUDES MALB/CREAT RATIO) (10/11/2023 9:57 AM EST) MICROALBUMIN, UR <12.0 mg/L [facility] 1 CREATININE, URINE RANDOM 127.5 mg/dL [facility] 1 MICROALB/CREAT RATIO See Comment mg/g CREAT [facility] 1 Comment: (NOTE) Because the albumin level is below the level of detection in this urine specimen, the laboratory is unable to calculate a reliable albumin/creatinine ratio. Microalbuminuria is unlikely if the urine albumin concentration is less than 20-30 mg/L in a random specimen. Tested at: [facility], [address] [place] [address] Urine 10/11/2023 9:57 AM EST 10/11/2023 12:00 PM EST Ab Lee MD URINE ORDERABLES NO PER Final R esult Performing Organization Address [facility] [place] [address] [facility] 1 * (ABNORMAL) LIPID PANEL (CHOL, TRIG, HDL, LDL) (06/20/2023 8:39 AM EDT) CHOLESTEROL 191 <200 mg/dL [employer] PAN[employer] [facility] TRIGLYCERIDE 142 <150 mg/dL [facility] Comment: Reference Interval: Fasting <150 mg/dL Non-Fasting <175 mg/dL HDL CHOLESTEROL 47(L) >50 mg/dL [facility] LDL CHOLESTEROL (CALCULATED) 116 <130 mg/dL [facility] Comment: Interpretive Guidelines: <100 Optimal 100-129 Near Optimal 130-159 Borderline High >159 High TOTAL NON HDL CHOL 144(H) <130 mg/dL [facility] Comment:Tested at [address] [address] Whole Blood 06/20/2023 8:39 AM EDT 06/20/2023 12:07 PM EDT us Nadia Graff TUBE MOUNTER LAB BLOOD ORDERABLES Fin al Result [facility] [address] [place] [address] CHEMISTRY HEMATOLOGY [address] [place] [address] * Mammogram Bilat Digital W Cad (06/04/2010 2:57 PM EDT) Anatomical Region Laterality Modality Chest Bilateral Mammography 06/04/2010 2:57 PM EDT Narrative 06/05/2010 8:22 AM EDT This document is confidential medical information. Unauthorized disclosure or use of this information is prohibited by law. If you are not the intended recipient of this document, please advise us by calling immediately [phone]. [place], [place] [address] Mammography Report Date: 06/04/10 Name: JAYA GERMAN Unit #: [id number] Loc: [facility] Location: [facility] BREAST DECORAH : 81 Ordering Physician: Paula Fink M.D. Procedure: Mammogram Bilat Digital W CAD Exam Date/Time: 06/04/10 7857 Admitting Diagnosis: RICKY BREAST LUMPS, POSSIBLE FBD [...] CATEGORY 1: NEGATIVE Dictated by: Shahram Parmar M.D., DD 152 12 Procedure Note Shahram Parmar MD - 02/12/2012 This document is confidential medical information. Unauthorizeddisclosure or use of this information is prohibited by law. If you are not the intended recipientof this document, please advise us by calling immediately [phone]. [place], [place] [address] Mammography Report Date: 06/04/10 Name: MONSERRATJAYA González Unit #: [id number] Loc: [facility] Location: [facility] [place] : 81 Ordering Physician: Paula Fink M.D. [...] NEGATIVE Dictated by: Shahram Parmar M.D. DD 152 [id number] Paula Fink MD [facility] Final Result from Last 3 Months or Most Recently Relevant to Health Maintenance Administered Medications Insurance [facility] LIZZY TIER 1 Care Teams Motor Operator Relationship Specialty Start Date End Date Ab Lee MD PCP - General 11/13/07
--- OUTSIDE RECORDS SUMMARY | 2025-05-01 05:30 | XMS_ITS | Encounter Summary ---
Author Organization [facility] SBO AND TP P Address [facility] [address] [place] [address] Phone Care Team Providers Care Class C Truck Driver Name Role Phone Ab Lee MD Primary Care Provider [phone] Reason for Visit * Reason Onset Date Comments Refill Request 02/24/2024 Encounter Details Date Type Department Care Team (Late st Contact Info) Description 02/24/[address] [place] [address] Flores Dawn, GEOLOGY TEACHER 100 [facility] [address] [place] [address] Neuropathic pain; Lumbar radiculopathy Social [...] Start Date 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 Not on file [...] AM St xenia [facility] Registered Nurse documented as of this encounter [...] [facility] [place] [facility] [place] [address] [place] [address] Flores Dawn, GEOLOGY TEACHER 100 [facility] [address] [place] [address] documented as of this encounter Visit Diagnoses Diagnosis Neuropathic pain Neuralgia, neuritis, and radiculitis, unspecified Lumbar radiculopathy Thoracic or lumbosacral neuritis or radiculitis, unspecified documented in this encounter Care Teams Class C Truck Driver Relationship Specialty Start Date End Date Ab Lee MD PCP - General 11/13/07 documented as of this encounter
--- OUTSIDE RECORDS SUMMARY | 2025-05-01 05:30 | XMS_ITS | Patient Health Record ---
Author Organization [facility] Address [address] [place] [address] Care Team Providers Care Electrical Equipment Assembler Name Role Phone [facility] Primary Care Prov ider Unavailable Nancy Asencio Unavailable [phone] Allergies Allergen (clinical drug ingredient) Drug/Non Drug [...] 1 puff as needed Inhalation every 4 hrs; Duration: 7 days 04/13/2024 Active CONTROL PILL 0 0 0 0 ortho trycy clin *Please review for potential replacement for e-prescription and drug interaction check* Active Ozempic (0.25 or 0.5 MG/DOSE) 2 MG/1.5ML as directed Subcutaneous Active NexIUM 20 MG 1 cap(s) orally once a day Active Lisinopril 20 MG 1 tab(s) orally once a day Active Immunizations Vaccine Route Administration Date Status Comme nts [id number] Quad PFS (0.5mL Admin) 18 y/o & older IM Intramuscular 06/02/2020 Administered [id number] Quad PFS (0.5 mL Admin) 6 months [...] many cigarettes a day do you smoke? 21-30 Tobacco Control (Standard) Question Answer Notes Additional Findings: Tobacco user Moderate cigar ette smoker (10-19 cigs/day) Problems Problem Type SNOMED Code ICD Code Onset Dates Problem Status W/U Status Risk Notes Problem Essential hypertension (65402623) Essential hypertension (I10) Active confirmed Problem Gastroesophageal reflux disease (139386108) GERD (gastroesophageal reflux disease) (K21.9) Active confirmed Problem Body mass index 40+ - severely obese (517332858) BMI 45.0-49.9, adult (Z68.42) Active confirmed Problem Smoker (09754832) Smoker (F17.200) Active confi rmed Problem Anxiety (94765438) Anxiety (F41.9) Active confi rmed Problem Fibromyalgia (360449027) Fibromyalgia (M79.7) Active confirmed Problem Intervertebral disc disorder (18515428) Unspecified thoracic, thoracolumbar and lumbosacral intervertebral disc disorder (M51.9) Active confirmed Problem History of otitis media (147627182) History of otitis media (Z86.69) Active confirmed Problem Essential hypertension (53614180) Essential (primary) hypertension (I10) Active confirmed Problem Anxiety disorder (720814526) Anxiety disorder, unspecified (F41.9) Active confirmed Problem Type II diabetes mellitus without complication (107137997) Type 2 diabetes mellitus without complications (E11.9) Active confirmed Problem Displacement of lumbar intervertebral disc without myelopathy (13137393) Other intervertebral disc displacement, 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) Active confirmed Problem Generalized hyperhidrosis (134539773) Generalized hyperhidrosis (R61) Active confirmed Problem Essential hypertension (17945908) Elevated blood pressure reading with diagnosis of hypertension (I10) Active confirmed Plan Of Treatment No Information Insurance Providers Payer Name Payer Address Payer Phone Subscriber Number Group Number Insured Name Patient Relationship to Insured Coverage Start Date Coverage End Date [employer] [address] [place] [address] [id number] Arelis Bush Self - patient is the insured Medical (General) History Medical History History ICD Code Essential (primary) hypertension I10 Fibromyalgia M79.7 Anxiety disorder, unspecified F41.9 Type 2 diabetes mellitus without complic ations E11.9 Other intervertebral disc displacement, lumbosacral region M51.27 Surgical History Surgery Date(Month/Year) wisdom teeth gallbladder 2011 Hospitalization History Reason Date(Month/Year) see above
--- OUTSIDE RECORDS SUMMARY | 2025-05-01 05:30 | XMS_ITS | Encounter Summary ---
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
--- OUTSIDE RECORDS SUMMARY | 2025-05-01 05:30 | XMS_ITS | Encounter Summary ---
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 [place] [facility] [address] [place] [address] [place] Dawn, GENERAL REPAIRER 100 [facility] [address] [place] [address] documented as of this encounter Visit Diagnoses Diagnosis Neuralgia and neuritis, unspecified documented in this encounter Care Teams Drop Shipment Clerk Relationship Specialty Start Date End Date Ab Lee MD PCP - General 11/13/07 documented as of this encounter
--- OUTSIDE RECORDS SUMMARY | 2025-05-01 05:30 | XMS_ITS | Encounter Summary ---
Author Organization [facility] SBO AND TP P Address [facility] [place] [address] [place] [address] Phone Care Team Providers Care Chief Pharmacist Name Role Phone Ab Lee MD Primary Care Provider [phone] Encounter Details Date Type Department Care Team (Late st Contact Info) Description 02/11/2025 Results Follow-Up [facility] [address] [place] [address] Cielo Mock CNP [address] [place] [address] CYTOLOGY DRIVER LICENSE REVIEWING OFFICER Social History Tobacco Use Types Packs/Day Years [...] Not on file Not on file 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
--- OUTSIDE RECORDS SUMMARY | 2025-05-01 05:30 | XMS_ITS | Encounter Summary ---
Author Organization [facility] SBO AND TP P Address [facility] [place] [address] Phone Care Team Providers Care Hearth Feeder Name Role Phone Ab Lee MD Primary Care Provider [phone] Reason for Visit * Reason Comments Refill Request Encounter Details Date Type Department Care Team (Late st Contact Info) Description 02/26/2025 Refill [facility] [address] [place] [address] [place] [address] Thalia Singer, LEAD SHAREPOINT DEVELOPER [address] [place] [address] Social History Tobacco Use Types [...] file Not on file 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
--- OUTSIDE RECORDS SUMMARY | 2025-05-01 05:30 | XMS_ITS | Encounter Summary ---
Author Organization 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
--- OUTSIDE RECORDS SUMMARY | 2025-05-01 05:30 | XMS_ITS | Encounter Summary ---
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 Pt was referred to Priority [...] [facility] Orthopedic & Sports [place] [facility] [address] [place] [address] Flores Dawn, WHEELCHAIR VAN OPERATOR FIRST RESPONDER [address] [facility] [address] [place] [address] documented as of this encounter Visit Diagnoses Not on filedocumented in this encounter Care Teams Forensic Materials Engineer Relationship Specialty Start Date End Date Ab Lee MD PCP - General 11/13/07 documented as of this encounter
--- OUTSIDE RECORDS SUMMARY | 2025-05-01 05:30 | XMS_ITS | Encounter Summary ---
Author Organization [facility] SBO AND TP P Address [facility] [place] [address] Phone Care Team Providers Care Intake Assessor Name Role Phone Ab Lee MD Primary Care Provider [phone] Reason for Visit * Reason Comments Refill Request Encounter Details Date Type Department Care Team (Late st Contact Info) Description 02/04/2024 Refill [facility] Medical Weight Management [facility] [address] [place] [address] [facility] [address] [place] [address] Controlled type 2 diabetes mellitus without complication, without long-term current use of insulin ([facility]) Social History Tobacco Use Types Packs/Day [...] Start Date 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
--- OUTSIDE RECORDS SUMMARY | 2025-05-01 05:30 | XMS_ITS | Encounter Summary ---
Author Organization [facility] SBO AND TP P Address [facility] [place] [address] Phone Care Team Providers Care Travel Rn Or Name Role Phone Ab Lee MD Primary Care Provider [phone] Reason for Visit * Reason Comments Refill Request Encounter Details Date Type Department Care Team (Late st Contact Info) Description 03/25/2025 Refill [facility] [address] [place] [address] [place] [address] Thalia Singer, INDUSTRIAL HEALTH AND SAFETY PROFESSOR [address] [place] [address] Hidradenitis suppurativa (Primary Dx) Social [...] Not on file Not on file 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 Not on file [...] Description 09/16/2025 8:30 AM EST Office Visit [facility] Orthopedic & Sports [place] [facility] [address] [place] [address] Flores Dawn, INDUSTRIAL HEALTH AND SAFETY PROFESSOR 100 [facility] [address] [place] [address] documented as of this encounter Visit Diagnoses Diagnosis Hidradenitis suppurativa- Primary Hidradenitis documented in this encounter Care Teams Travel Rn Or Relationship Specialty Start Date End Date Ab Lee MD PCP - General 11/13/07 documented as of this encounter
--- OUTSIDE RECORDS SUMMARY | 2025-05-01 05:30 | XMS_ITS | Clinical Summary ---
Author Organization [facility] Address [address] [place] [address] Phone Care Team Providers Care Automated Equipment Engineer Technician Name Role Phone Ab Lee MD Primary Care Provider [phone] Allergies Active Allergy Reactions Criticality Noted Date Comments Amitriptyline 12/14/2002 moser Ufsuamght-Anbthzne-Gr Other (See Comments) 10/22/2013 Blacked out. Shaking, hallucinations Chocolate (Food) 11/21/2007 Sneeze, itch Diclofenac 12/14/2002 diarrhea Lisinopril Anaphylaxis High 11/20/2024 Metoprolol Anaphylaxis High 11/20/2024 Nitrofurantoin Angioedema,Anaphyla xis High 09/17/2021 Thiazide-Type Diuretics Other (See Comments) 01/04/2014 Increased liver enzymes Medications ALPRAZolam (XANAX) 1 MG TABSIndications:P RN Take 1 mg by mouth. Active nystatin (MYCOSTATIN) 707661 UNIT/GM POWD Apply topically 2 (two) times [...] 236 mL 5 3 Active nystatin (MYCOSTATIN) 210014 UNIT/GM OINT Apply topically 2 (two) times [...] Type Department Care Team Description 04/30/2025 Refill [facility] [address] [facility] [place] [address] Thalia Singer CNP Hidradenitis suppurativa 04/17/2025 3:15 PM EDT Office Visit [facility] [address] [place] [phone] Thalia Singer CNP Wound of foot (Primary Dx) 04/15/2025 1:45 PM EDT Office Visit Merg[facility] with [facility] [address] [place] [phone] Ab Lee MD Right foot pain (Primary Dx); Controlled type 2 diabetes mellitus without complication, without long-term current use of insulin 04/15/2025 Telephone Merged with [facility] [address] [place] [address] Ab Lee MD 03/26/2025 Telephone [facility] [address] [place] [phone] Ariel Malhotra MD 03/25/2025 Refill [facility] [address] [place] [address] [place] [address] Thalia Singer, MIKA Hidradenitis suppurativa (Primary Dx) 03/06/2025 9:45 AM EDT Office Visit Merg[facility] with [facility] [address] [place] [phone] Ab Lee MD Chronic tension-type headache, not intractable (Primary Dx); Loss of balance; Muscle twitching; Family history of stroke; Depression, recurrent (HCC); Essential hypertension; Morbid obesity with BMI of 45.0-49.9, adult (HCC); Controlled type 2 diabetes mellitus without complication, without long-term current use of insulin 03/05/2025 Telephone Merged with [facility] [address] [place] [address] Clinton Howell, Registered Nurse 03/04/2025 9:50 AM EDT Office Visit [address] [address] Cinthya May PA-C Essential hypertension (Primary Dx) 03/04/2025 8:30 AM EDT Office Visit [address] [address] Flores Dawn CNP Lumbar radiculopathy (Primary Dx); Facet arthritis of lumbar region; Encounter for medication management; High risk medication use; Neuropathic pain; Idiopathic peripheral neuropathy; Neuralgia and neuritis, unspecified; Left hip pain 02/28/2025 Refill [facility] [address] [place] [address] Flores Dawn CNP Idiopathic peripheral neuropathy; High risk medication use; Neuropathic pain; Lumbar radiculopathy; Neuralgia and neuritis, unspecified; Left hip pain; Encounter for medication management 02/26/2025 Refill [facility] [address] [facility] [address] [place] [address] Thalia Singer CNP 02/11/2025 Results Follow-Up Merged with [facility] [address] [place] [address] Cielo Mock, MIKA CYTOLOGY FIELD HOCKEY COACH from Last 3 Months Immunizations Immunization Administration Dates Next Due Betamethasone 01/13/2015 COVID-19 mRNA Vaccine 100 mc g dose (Moderna 18+) 07/31/2021,12/04/2020,11/06/2020 FLU VACCINE, 3 YRS AND OLDER 07/03/2013 Hepatitis B, Adult 08/18/2000,02/27/1999, 999 Influenza Whole, IM 06/22/2017,07/02/2013,2002 Measles/Mumps/Rubella, SQ 04/15/1995 Pneumococcal Polysaccharide (PPV23) Pneumovax-23 10/23/2013 Tdap (Tetanus, Diphtheria & Pertussis) ,01/05/2011 dT, adult 01/03/1995 Family History Medical History Relation Name Comments Diabetes Father Heart Disease Father [place] Hypertension Father CGD Maternal Grandfather Chronic Granulomatous Disease Cancer Maternal Grandmother breast/ GREAT - BREAST/lung Diabetes Maternal Grandmother Heart Disease Maternal Grandmother [place] X 5 - OPENHEART SURGERY High BP Maternal Grandmother High Cholesterol Maternal Grandmother Colon cancer Maternal Uncle COLON CGD Mother Chronic Granulo matous Disease Diabetes Mother High BP Mother Hypertension Mother Psychiatry Mother h/o depression Rheumatoid Arthritis Mother Seizures Mother Stroke Mother tobacco use Thyroid cancer Mother Thyroid, Lung colon polyps Mother Other Other 2 cousins MS stephanie therside Kidney Disease Neg Hx Lung Disease [...] file Not on file Not on file 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 Not on file [...] Mass Index 50.53 04/15/2025 2:09 PM EDT Plan of Treatment Upcoming Encounters Date Type Department Care Team (Late st Contact Info) Description 09/16/2025 8:30 AM EST Office Visit [facility] Orthopedic & Sports [place] [facility] [address] [place] [address] Flores Dawn, FRAMING MECHANIC 100 [facility] [address] [place], [place] [phone] Health Maintenance Due Date Last Done Comments Eye Exam 1983 HPV (1 - 3-dose SCDM series) 2010 Pneumococcal 0-49 (2 of 2 - PCV) 10/23/2014 10/23/2013 Mammogram Screening 2023 06/04/2010 COVID-19 Vaccine ( [...] 01/29/2028 01/28/2025, 10/13, 10/06/2021, Additional history exists DTap,Tdap,and Td (3 - Td or Tdap) 09/12/2030 09/12/2020, 01/05/2011 RSV Vaccine (60+ or ) (1 - 1-dose 75+ series) 2058 Meningococcal conjugate valent 4 (MCV4) Aged Out No longer eligible based on patient's age to complete this topic RSV Immunization (<20 months) Aged Out No longer eligible based on patient's age to complete this topic Medical Devices Implanted Type Area Feeder Catcher Tobacco Device Identifier Shelf Expiration Date Model / Serial / Lot Gallbladder Clip-06/03/2016 Implanted: 016 (Quantity not on file) Clip ETHICON LIGAMAX 5MM CLIP / / Description:3T OR LESS MAX SPATIAL GRADIENT OF 6.5T/M 1.7 W/KG FOR 20 MIN OF SCANNING (PER SEQUENCE) Procedures Procedure Name Priority Date/Time Associated Diagnosis Comments CYTOLOGY FIELD HOCKEY COACH Today 01/28/2025 6:22 PM EDT Encounter for [...] Relevant to Health Maintenance Results * CYTOLOGY FIELD HOCKEY COACH (01/28/2025 6:22 PM EDT) CYTOLOGY-FIELD HOCKEY COACH CYTOLOGY GYNECOLOGICAL REPORT Name: JAYA BUSH EPI#: [id number] Case #: [id number] Final Cytologic Diagnosis A. Thinprep Cervical/Endocervic al with HPV screen and 16/18 Genotyping if Indicated: Adequacy: Satisfactory for evaluation, ABSENT endocervical transformation zone component. Interpretation: Negative for intraepithelial lesion or malignancy. Fungal organisms morphologically consistent with Ana spp. This specimen has been analyzed by the ThinPrep Imaging System ([employer] an automated imaging and review system, which assists the trucksmith and/or pathologist in evaluation of cells on [...] Normal Contraceptive History: OC/BCP Signed out at [facility], [address] [place] [address] [facility] Non-Formatted Report [facility] 01/28/2025 6:22 PM EDT 01/29/2025 9:04 AM EDT Cielo Mock CNP PATHOLOGY/CYTOLOGY ORDERABLES Fi nal Result [facility] [address] [place] [phone] * (ABNORMAL) CMP (BMP,TP,ALB,TBIL,ALK,AST,ALT) (12/15/2024 10:13 AM EDT) SODIUM 137 135 - 145 mmol/L [facility] POTASSIUM 4.4 3.6 - 5.1 mmol/L [facility] CHLORIDE 105 98 - 111 mmol/L [facility] CO2 27 21 - 31 mmol/L [facility] GLUCOSE, RANDOM 167(H) 70 - 99 mg/dL [facility] BLD UREA NITROGEN 8 8 - 26 mg/dL [facility] CREATININE 0.71 0.60 - 1.20 mg/dL [facility] CALCIUM 8.4(L) 8.5 - 10.4 mg/dL [facility] TOTAL PROTEIN 6.2 6.0 - 8.0 g/dL [facility] ALBUMIN 3.8 3.5 - 5.7 g/dL [facility] TOTAL BILIRUBIN 0.4 0.0 - 1.2 mg/dL [facility] ALK PHOSPHATASE 70 35 - 135 IU/L [facility] AST 43(H) 10 - 40 IU/L [facility] ALT 33 10 - 60 IU/L [facility] ESTIMATED GFR 109 >59 mL/min/1.7 3 m2 [facility] Comment:Estimated GFR was ca lculated using the CKD-EPI cr (2020) equation refit without race. The equation is recommended by the National Kidney Foundation - [place] Society of Nephrology Task Force. ANION GAP 5 4 - 16 mmol/L [facility] Comment:Tested at [facility] [address] [place], [place] [address]jerrica Perrin [address] Whole Blood 12/15/2024 10:1 3 AM EDT 12/15/2024 10:14 AM EDT Ab Lee MD LAB BLOOD ORDERABLES Final Resu lt Performing Organization Address City/[facility]/ZIP Co de Phone Number [address] [phone] [facility] [address] [place] [address] * (ABNORMAL) HEMOGLOBIN A1C (10/12/2024 1:47 PM [...] given level of glycemic control. Tested at: [place] [address] Whole Blood 10/12/2024 1:47 PM EST 10/12/2024 5:38 PM EST Ab Lee MD LAB BLOOD ORDERABLES Final Resu lt Performing Organization Address City/[facility]/ZIP Co de Phone Number [address] [phone] [facility] TEST SITE * MICROALBUMIN, URINE RANDOM (INCLUDES MALB/CREAT RATIO) (10/11/2023 9:57 AM EST) MICROALBUMIN, UR <12.0 mg/L KRYSTINAO Raegan [place] [address] CREATININE, URINE RANDOM 127.5 mg/dL [place] [address] MICROALB/CREAT RATIO See Comment mg/g CREAT [place] [address] Comment: (NOTE) Because the albumin level is below the level of detection in this urine specimen, the laboratory is unable to calculate a reliable albumin/creatinine ratio. Microalbuminuria is unlikely if the urine albumin concentration is less than 20-30 mg/L in a random specimen. Tested at: [place] [address] Urine 10/11/2023 9:57 AM EST 10/11/2023 12:00 PM EST us Ab Lee MD URINE ORDERABLES NO PER Final R esult Performing Organization Address [facility]/ZIP Co de Phone Number [facility] [address] [place], [place] [phone] [place] [address] * (ABNORMAL) LIPID PANEL (CHOL, TRIG, HDL, LDL) (06/20/2023 8:39 AM EDT) CHOLESTEROL 191 <200 mg/dL MACHINE WIPER [facility]AT[facility] TRIGLYCERIDE 142 <150 mg/dL [facility] Comment: Reference Interval: Fasting <150 mg/dL Non-Fasting <175 mg/dL HDL CHOLESTEROL 47(L) >50 mg/dL [facility] LDL CHOLESTEROL (CALCULATED) 116 <130 mg/dL [facility] Comment: Interpretive Guidelines: <100 Optimal 100-129 Near Optimal 130-159 Borderline High >159 High TOTAL NON HDL CHOL 144(H) <130 mg/dL [facility] Comment:Tested at [facility] [address] [address] Whole Blood 06/20/2023 8:39 AM EDT 06/20/2023 12:07 PM EDT us Nadia Graff FRAMING MECHANIC LAB BLOOD ORDERABLES Fin al Result Performing Organization Address City/[facility]/ZIP Co de Phone Number [facility] [address] [place] [phone] CHEMISTRY HEMATOLOGY [address] [place] [address] * Mammogram Bilat Digital W Cad (06/04/2010 2:57 PM EDT) Anatomical Region Laterality Modality Chest Bilateral Mammography 06/04/2010 2:57 PM EDT Narrative 06/05/2010 8:22 AM EDT This document is confidential medical information. Unauthorized disclosure or use of this information is prohibited by law. If you are not the intended recipient of this document, please advise us by calling immediately [phone]. [place], [place] [address] Mammography Report Date: 06/04/10 Name: JAYA GERMAN Unit #: [id number] Loc: [facility] [place] [place] Location: [facility] : 83 Ordering Physician: Paula [...] document, please advise us by calling immediately [phone]. [place], [place] [address] Mammography Report Date: 06/04/10 Name: JAYA GERMAN Unit #: [id number] Loc: [facility] [place] [place] Location: [facility] : 83 Ordering [...] Dictated by: Shahram Parmar M.D. DD 1523 221 us Paula Fink MD [facility] Final Result from Last 3 Months or Most Recently Relevant to Health Maintenance Insurance Sam DUNG García [phone] [facility] [address] DUN[place] [phone] Sam DUNG García [phone] Advance Directives * Full Code (Latest Code Status on File) Date Activated Date Inactivated Comments 06/02/2016 4:37 PM 06/03/2016 6:05 PM Care Teams Automated Equipment Engineer Technician Relationship Specialty Start Date End Date Ab Lee MD PCP - General 11/13/07
[2025-05-01 05:31] VITALS: BP 142/92; PULSE 90; RESP 18; TEMP 36.7; O2SAT 96; BMI 49.8
--- OUTSIDE RECORDS SUMMARY | 2025-05-01 05:31 | XMS_ITS | Encounter Summary ---
Author Organization [facility] SBO AND TP P Address [facility] [place] [address] Phone Care Team Providers Care Night Warehouse Manager Name Role Phone Ab Lee MD Primary Care Provider [phone] Encounter Details Date Type Department Care Team (Late st Contact Info) Description 04/15/[address] 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 Thank you. documented in this encounter Plan of Treatment Upcoming Encounters Date Type Department Care Team (Late st Contact Info) Description 09/16/2025 8:30 AM EST Office Visit [facility] Orthopedic & Sports [place] [facility] [address] [place] [address] [place] Dawn, BARREL CHARRER HELPER 100 [facility] [address] [place] [address] documented as of this encounter Visit Diagnoses Not on filedocumented in this encounter Care Teams Night Warehouse Manager Relationship Specialty Start Date End Date Ab Lee MD PCP - General 11/13/07 documented as of this encounter
--- OUTSIDE RECORDS SUMMARY | 2025-05-01 05:31 | XMS_ITS | Encounter Summary ---
Author Organization [facility] SBO AND TP P Address [address] [place] [address] [place] [address] Phone Care Team Providers Care Family And Consumer Science Professor Name Role Phone Ab Lee MD Primary Care Provider [phone] Encounter Details Date Type Department Care Team (Late st Contact Info) Description 05/28/2024 Telephone - Conversion [facility] Orth[facility] & [facility] [place] [facility] [address] [place] [address] [place] Dawn, SECURITY OPERATIONS ENGINEER 100 [facility] [address] [place] [address] Social History Tobacco Use Types [...] Start Date 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
--- OUTSIDE RECORDS SUMMARY | 2025-05-01 05:31 | XMS_ITS | Encounter Summary ---
Author Organization [facility] Address [address] [place] [address] Phone Care Team Providers Care Occupational Health And Safety Officer Name Role Phone Ab Lee MD Primary Care Provider [phone] Reason for Referral * - Closed Specialty Diagnoses / Procedures Referred By Rao katz Referred To Contact Radiology Procedures CT HEAD WO CONTRAST [facility] Internal Medicine [address] [place] [address] Phone: tel: Referral ID Status Reason Start Date Expiration Date Visits Re quested Visits Authorized [id number] Closed 01/04/2013 01/04/2014 1 1 Encounter Details Date Type Department Care Team ([facility] Contact Info) Description 01/04/[address] [facility] Internal Medicine [address] [place] [address] Social History Tobacco Use Types [...] Description 09/16/2025 8:30 AM EST Office Visit [facility] Orthopedic & Sports [place] [facility] [address] [place] [address] Flores Dawn, MULE SPINNER 100 [facility] [address] [place] [address] documented as of this encounter Procedures Procedure Name Priority Date/Time Associated Diagnosis Comments CT HEAD WO CONTRAST Routine 10/25/2012 documented in this encounter Results * CT HEAD WO CONTRAST (10/25/2012) Anatomical Region Laterality Modality Brain Computed Tomogra phy [facility] Med CT Final Result documented in this encounter Visit Diagnoses Not on filedocumented in this encounter Additional Health Concerns Infection Onset Date Last Indicated Resolved Time COVID-19 Suspect 10/20/2021 10/20/2021 10/20/2021 3:59 PM EST COVID-19 Suspect 10/20/2021 10/20/2021 10/20/2021 4:10 PM EST documented as of this encounter Care Teams Occupational Health And Safety Officer Relationship Specialty Start Date End Date Ab Lee MD PCP - General 11/13/07 documented as of this encounter
--- OUTSIDE RECORDS SUMMARY | 2025-05-01 05:31 | XMS_ITS | Encounter Summary ---
Author Organization [facility] Address 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
--- OUTSIDE RECORDS SUMMARY | 2025-05-01 05:31 | XMS_ITS | Encounter Summary ---
Author Organization [facility] Address [address] [place] [address] Phone Care Team Providers Care Licensed Vocational Nurse Name Role Phone Ab Lee MD Primary Care Provider [phone] Encounter Details Date Type Department Care Team (Late st Contact Info) Description 01/18/2013 [facility] Internal Medicine [address] [place] [address] Social History Tobacco Use Types Packs/Day Years [...] Description 09/16/2025 8:30 AM EST Office Visit [facility] Orthopedic & Sports [place] [facility] [address] [place] [address] Flores Dawn, RPG DEVELOPER 100 [facility] [address] [place] [address] documented as of this encounter [...] documented as of this encounter Care Teams Licensed Vocational Nurse Relationship Specialty Start Date End Date Ab Lee MD PCP - General 11/13/07 documented as of this encounter
--- OUTSIDE RECORDS SUMMARY | 2025-05-01 05:31 | XMS_ITS | Clinical Summary ---
Author Organization [facility] Address [address] [facility] [address], [address] [place] [address] Care Team Providers Care Industrial Mechanic Name Role Phone Ab Lee Primary Care Provider [phone] Allergies Active Allergy Reactions Criticality Noted Date Comments Diclofenac 12/14/2002 diarrhea Nitrofurantoin Angioedema High 09/17/2021 Lkuiekfuj-Afddrjst-Ih Other (See Comments) 10/22/2013 Blacked out. Shaking, hallucinations Medications lisinopril (PRINIVIL;ZESTRIL) 10 MG tablet Take 10 mg by mouth daily. Active ALPRAZolam (XANAX) 1 MG tablet Take 1 mg by mouth. 2 Active Norgestim-Eth Estrad Triphasic (TRI-SPRINTEC) 0.18/0.215/0.25 MG-35 MCG TABS TAKE ONE TABLET BY MOUTH DAILY 2 Active esomeprazole (NEXIUM) 20 MG delayed release capsule Take by mouth daily Active raNITIdine (ZANTAC) 150 MG tablet Take 150 mg by mouth 2 times daily Active dicyclomine (BENTYL) 10 MG capsule Take 1 capsule by mouth every 8 hours as needed (abd cramps) 20 capsule 3 2 Active ondansetron (ZOFRAN ODT) 4 MG disintegrating tablet Take 1 tablet by mouth every 8 hours as needed for Nausea or Vomiting 10 tablet 2 Active Social History Tobacco Use Types Packs/Day Years Used Date Smoking Tobacco: Every Day Cigarettes Alcohol Use Standard Drinks/Week Comments No 0 (1 standard drink = 0.6 oz pur e alcohol) Comments No Sex and Gender Information Value Date Recorded Sex Assigned at Not on file Legal Sex Female 6:44 PM EST Gender Identity Not on file Sexual Orientation Not on file Last Filed Vital Signs Vital Sign Reading Time Taken Comments Blood Pressure 151/93 10/20/2021 7:16 PM EST Pulse 91 10/20/2021 7:16 PM EST Temperature 36.8 C (98.2 F) 10/20/2021 4:42 PM EST Respiratory Rate 16 10/20/2021 7:16 PM EST Oxygen Saturation 97% 10/20/2021 7:16 PM EST Inhaled Oxygen Concentration - - Weight 158.8 kg (350 lb) 10/20/2021 4:42 PM EST Height 177.8 cm (5' 10 ) 10/20/2021 4:42 PM EST Body Mass Index 50.22 10/20/2021 4:42 PM EST Plan of Treatment Not on file Insurance [employer] Care Teams Industrial Mechanic Relationship Specialty Start Date End Date Ab Lee [address] [place] [address] PCP - General 08/27/11
--- OUTSIDE RECORDS SUMMARY | 2025-05-01 05:31 | XMS_ITS | Clinical Summary ---
Author Organization [facility] Address [address] [place] [address] Phone [email or web address] Care Team Providers Care Policy Writer Name Role Phone Melissa Lee MD Primary Care Provider [phone] Allergies Active Allergy Reactions Criticality Noted Date Comments Adhesive 10/24/2013 Amitriptyline 12/14/2002 moser Chocolate 11/21/2007 Sneeze, itch Diclofenac 12/14/2002 diarrhea Nitrofurantoin Anaphylaxis High 09/17/2021 Eqmldjqiw-Efngcrqd-Wd Other (see comments) 10/22/2013 Blacked out. Shaking, hallucinations Thiazide-Type Diuretics Other (see comments) 01/04/2014 Increased liver enzymes Medications ALPRAZolam (XANAX) 1 MG tablet Take 1 mg by mouth 3 times daily as needed. 2 Active dicyclomine (BENTYL) 10 MG capsule Take 10 mg by mouth. 2 Active doxycycline (VIBRA-TABS) 100 MG tablet Take 100 mg by mouth once daily as needed. 3 Active esomeprazole (NexIUM) [address] capsule Take by mouth once daily as needed. Active lisinopril (ZESTRIL) 20 MG tablet Take 1 tablet by mouth 1 (one) time each day. 3 Active Multiple Vitamin (Multi-Vitamin Daily) tablet Active norethindrone-et hinyl estradiol-ferrou s fumarate (LOESTIN 24 FE) 1-20 MG-MCG(24) per tablet Active norethindrone (MICRONOR) 0.35 MG tablet Take 1 tablet by mouth once daily as needed. Active nystatin (MYCOSTATIN) powder Apply 1 application topically in the morning and 1 application in the evening. 0 Active Semaglutide, 1 MG/DOSE, (Ozempic, 1 MG/DOSE,) 2 MG/1.5ML solution pen-injector Active HYDROcodone-acet aminophen (NORCO) 5-325 MG per tabletIndication s:Acute bilateral low back pain with sciatica, sciatica laterality unspecified Take 1 tablet by mouth every 12 (twelve) hours if needed for moderate pain (dont take with xanax or other sedating meds. and especially do not combine with alcohol). 10 tablet 4 Active cyclobenzaprine (FLEXERIL) 10 MG tabletIndication s:Acute bilateral low back pain with sciatica, sciatica laterality unspecified Take 1 tablet (10 mg total) by mouth 3 (three) times a day if needed for muscle spasms (dont take with norco) for up to 10 days. 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 09/2022 Encounter for immunization 07/06/2019 Overview (07/07/2021): Encounter for general adult medical examination without abnormal findings 08/09/2018 Overview (07/07/2021): Immunizations Immunization Administration Dates Next Due Influenza (Flucelvax) MDCK, PF, quad (CVX-171) 1 Influenza, (Afluria Fluarix Flulaval Fluzone) quad, PF (CVX-150) 06/25/2022 Family History Medical History Relation Name Comments Cancer Mother Xiao Thyroid Relation Name Status Comments Mother Xiao Social History Tobacco Use Types Packs/Day Years Used Date Smoking Tobacco: Every Day Cigarettes 1 15 Smokeless Tobacco: Never Tobacco Cessation:Ready to Q uit: Not Asked; Counseling Given: Not Answered Comments:Smoke about a pack a day Alcohol Use Standard Drinks/Week Comments Never 0 (1 standard drink = 0.6 oz pur e alcohol) I dont drink Intimate Partner Violence Answer Date R ecorded Insults You Not on file 07/07/2021 Threatens You Not on file 07/07/2021 Screams at You Not on file 07/07/2021 Physically Hurt Not on file 07/07/2021 Intimate Partner Violence Score Not on file 07/07/2021 Alcohol Use Answer Date Recorded Alcohol Use Status Never 04/12/2023 Depression Answer Date Recorded PHQ Total Score Not on file 05/09/2024 Stress Answer Date Recorded Stress in your Life Not on file 07/15/2024 Dealing with Stress 3 07/15/2024 Comments Unknown Sex and Gender Information Value Date Recorded Sex Assigned at Female 04/11/2023 3:32 PM CDT Legal Sex Female 7:26 AM CDT Gender Identity Female 04/11/2023 3:32 PM CDT Sexual Orientation Not on file Last Filed Vital Signs Vital Sign Reading Time Taken Comments Blood Pressure 138/88 10/28/2023 8:31 AM EST Pulse 80 10/28/2023 8:31 AM EST Temperature 37.1 C (98.7 F) 10/28/2023 8:31 AM EST Respiratory Rate - - Oxygen Saturation 99% 10/28/2023 8:31 AM EST Inhaled Oxygen Concentration - - Weight 142 kg (314 lb) 10/28/2023 8:31 AM EST Height 175.3 cm (5' 9 ) 10/28/2023 8:31 AM EST Body Mass Index 46.37 10/28/2023 8:31 AM EST Plan of Treatment Health Maintenance Due Date Last Done Comments Cervical Cancer Screening Combo 1983 Dental Cleaning/Exam 1983 HIV Screening 1983 HPV / Cotest 1983 Hepatitis C Screening 1983 Pap Testing 1983 HPV Immunization (1 - 2-dose series) 1994 Annual Preventive Exam 2001 Hep B Infection Screening - Triple Screen 2001 Hepatitis A Immunization (1 of 2 - Risk 2-dose series) 2002 Breast Cancer Screening 2013 Pneumococcal: Ped (0 to 5 Yrs) and At-Risk Member (6 to 64 Yrs) (2 of 2 - PCV) 10/23/2014 10/23/2013 Tetanus Diphtheria and Pertussis Immunization (3 - Td or Tdap) 01/05/2021 01/05/2011, 01/03/1995 Covid-19 Immunization ( - season) 2024 07/31/2021, 12/04/2020, 11/06/2020 Influenza Immunization (#1) 05/13/202506/12, 06/15/2021, 07/06/2019, Additional history exists Hepatitis B Immunization Completed , 02/27/1999, 01/26/1999 HIB Immunization Aged Out No longer e ligible based on patient's age to complete this topic Polio Immunization Aged Out No longer eligible based on patient's age to complete this topic Varicella Immunization Aged Out No lo nger eligible based on patient's age to complete this topic Insurance #[address] [place] [address] NO COPAY NB Care Teams Policy Writer Relationship Specialty Start Date End Date Melissa Lee MD [address] [place] [address] PCP - General Internal Medicine 04/12/23
--- OUTSIDE RECORDS SUMMARY | 2025-05-01 05:31 | XMS_ITS | Encounter Summary ---
Author Organization [facility] Address [facility] [place] [address] Phone Care Team Providers Care Principal Technical Writer Name Role Phone Ab Lee MD Primary Care Provider [phone] Reason for Visit * Reason Onset Date Comments Appt. 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
--- OUTSIDE RECORDS SUMMARY | 2025-05-01 05:31 | XMS_ITS | Encounter Summary ---
Author Organization [facility] Address [facility] [place] [address] Phone Care Team Providers Care Human Anatomy Teacher Name Role Phone Ab Lee MD Primary Care Provider [phone] Reason for Visit * Reason Comments Refill Request Encounter Details Date Type Department Care Team (Late st Contact Info) Description 11/04/2024 Refill [facility] Medical Weight Management [facility] [address] [place] [address] [facility] [address] [place] [address] Controlled type 2 diabetes mellitus without complication, without long-term current use of insulin ([facility]) Social History Tobacco Use Types [...] Assessment Author No 07/22/2021 8:[address] xneia Rice, Registered Nurse * Do you have [...] 8:30 AM EST Office Visit [facility] Orthopedic & Sports [place] - [facility] [address] [place] [address] Flores Dawn, COLLEGE ASSOCIATE 100 [facility] [address] [place] [address] documented as of this encounter Visit Diagnoses Diagnosis Controlled type 2 diabetes mellitus without complication, without long-term current use of insulin documented in this encounter Care Teams Human Anatomy Teacher Relationship Specialty Start Date End Date Ab Lee MD PCP - General 11/13/07 documented as of this encounter
--- OUTSIDE RECORDS SUMMARY | 2025-05-01 05:31 | XMS_ITS | Encounter Summary ---
Author Organization [facility] Address [facility] [place] [place] [address] Phone Care Team Providers Care Mold Cooler Name Role Phone Ab Lee MD Primary Care Provider [phone] Reason for Visit * Reason Comments Refill Request Encounter Details Date Type Department Care Team (Late st Contact Info) Description 03/13/2023 Refill [facility] Medical Weight Management [facility] [address] [place] [address] [facility] [address] [place] [address] Controlled type 2 diabetes mellitus without complication, without long-term current use of insulin (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
--- OUTSIDE RECORDS SUMMARY | 2025-05-01 05:31 | XMS_ITS | Encounter Summary ---
Author Organization [facility] Address [facility] [place] [address] Phone Care Team Providers Care Activities Officer Name Role Phone Ab Lee MD Primary Care Provider [phone] Encounter Details Date Type Department Care Team (Late st Contact Info) Description 05/03/2023 Telephone [facility] Medical Weight Management [facility] [address] [place] [address] Neha Katz, [facility] [address] [place] [address] Social History Tobacco Use Types [...] Start Date 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
--- OUTSIDE RECORDS SUMMARY | 2025-05-01 05:31 | XMS_ITS | Encounter Summary ---
Author Organization [facility] TP P Address [facility] [address] [address] Phone Care Team Providers Care Yarn Spinner Name Role Phone Ab Lee MD Primary Care Provider [phone] Reason for Visit * Reason Onset Date Comments Refill Request 03/20/2024 Encounter Details Date Type Department Care Team (Late st Contact Info) Description 03/20/[address] [place] [address] Flores Dawn, PROMOTION WRITER 100 [facility] [address] [place] [address] Neuropathic pain; Lumbar radiculopathy; Left [...] Date Job End Date 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 [place] [facility] [address] [place] [address] Flores Dawn, PROMOTION WRITER 100 [facility] [address] [place] [address] documented as of this encounter Visit Diagnoses Diagnosis Neuropathic pain Neuralgia, neuritis, and radiculitis, unspecified Lumbar radiculopathy Thoracic or lumbosacral neuritis or radiculitis, unspecified Left hip pain Pain in joint, pelvic region and thigh Idiopathic peripheral neuropathy Unspecified hereditary and idiopathic peripheral neuropathy High risk medication use Encounter for long-term (current) use of other medications documented in this encounter Care Teams Yarn Spinner Relationship Specialty Start Date End Date Ab Lee MD PCP - General 11/13/07 documented as of this encounter
--- OUTSIDE RECORDS SUMMARY | 2025-05-01 05:31 | XMS_ITS | Encounter Summary ---
Author Organization [facility] Address [facility] [place] [address] Phone Care Team Providers Care Adon Name Role Phone Ab Lee MD Primary Care Provider [phone] Encounter Details Date Type Department Care Team (Late st Contact Info) Description 06/28/2023 Telephone 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 Orthopedic & Sports [place] - [facility] [address] [place] [address] Flores Dawn, WEBLOGIC DEVELOPER 100 [facility] [address] [place] [address] documented as of this encounter Visit Diagnoses Not on filedocumented in this encounter Care Teams Adon Relationship Specialty Start Date End Date Ab Lee MD PCP - General 11/13/07 documented as of this encounter
--- OUTSIDE RECORDS SUMMARY | 2025-05-01 05:31 | XMS_ITS | Encounter Summary ---
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 Orthopedic & Sports [place] [facility] [address] [place] [address] Flores Dawn, CREW CALLER 100 [facility] [address] [place] [address] documented as of this encounter Visit Diagnoses Not on filedocumented in this encounter Care Teams Commercial Hvac Service Technician Relationship Specialty Start Date End Date Ab Lee MD PCP - General 11/13/07 documented as of this encounter
--- OUTSIDE RECORDS SUMMARY | 2025-05-01 05:31 | XMS_ITS | Encounter Summary ---
Author Organization [facility] SBO AND TP P Address [facility] [place] [address] Phone Care Team Providers Care Bingo Checker Name Role Phone Ab Lee MD Primary Care Provider [phone] Reason for Visit * Reason Onset Date Comments Refill Request 08/22/2024 Encounter Details Date Type Department Care Team (Late st Contact Info) Description 08/22/2024 Refill [facility] Medical Weight Management [facility] [address] [place] [address] [facility] [address] [place] [address] Controlled type 2 diabetes mellitus without complication, [...] Start Date 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 Not on file [...] Department Care Team (Late Contact Info) Description 09/16/2025 8:30 AM EST Office Visit [facility] Orthopedic & Sports [place] [facility] [address] [place] [address] Flores Dawn, JACQUARD LOOM CARD CHANGER 100 [facility] [address] [place] [address] documented as of this encounter Visit Diagnoses Diagnosis Controlled type 2 diabetes mellitus without complication, without long-term current use of insulin documented in this encounter Care Teams Bingo Checker Relationship Specialty Start Date End Date Ab Lee MD PCP - General 11/13/07 documented as of this encounter
--- OUTSIDE RECORDS SUMMARY | 2025-05-01 05:31 | XMS_ITS | Encounter Summary ---
Author Organization [facility] P Address [facility] [place] [address] Phone Care Team Providers Care Major Gifts Director Name Role Phone Ab Lee MD Primary Care Provider [phone] Reason for Visit * Reason Comments Refill Request Encounter Details Date Type Department Care Team (Late st Contact Info) Description 06/25/2024 Refill [facility] [address] [place] [address] Thalia Flaherty MD [address] [place] [address] Chronic pelvic pain in female; [...] Date Job End Date [employer]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 Flaherty Last pap date : 10/31/23 Result: Normal Last annual lettuce cutter exam date 10/31/23 Future office visit: none [...] 8:30 AM EST Office Visit [facility] [place] [facility] [address] [place] [address] Flores Dawn, FIXED INCOME MANAGER [address] [facility] [address] [place] [address] documented as of this encounter Visit Diagnoses Diagnosis Chronic pelvic pain in female Unspecified symptom associated with female genital organs General counseling and advice for contraceptive management Other general counseling and advice for contraceptive management documented in this encounter Care Teams Major Gifts Director Relationship Specialty Start Date End Date Ab Lee MD PCP - General 11/13/07 documented as of this encounter
--- OUTSIDE RECORDS SUMMARY | 2025-05-01 05:31 | XMS_ITS | Encounter Summary ---
Author Organization [facility] P Address [facility] [place] [address] Phone Care Team Providers Care Solar Project Engineer Name Role Phone Ab Lee MD Primary Care Provider [phone] Reason for Visit * Reason Comments Refill Request Encounter Details Date Type Department Care Team (Late st Contact Info) Description 04/30/2025 Refill [facility] [address] [place] [address] [place] [address] Thalia Singer, GENERAL II FARMWORKER [address] [place] [address] Hidradenitis suppurativa Social History Tobacco Use Types Packs/Day Years [...] file Not on file Not on file linen clerk Not on file Not on file [...] Description 09/16/2025 8:30 AM EST Office Visit [facility] [place] [facility] [address] [place] [address] Flores Dawn, GENERAL II FARMWORKER [address] [facility] [address] [place] [address] documented as of this encounter Visit Diagnoses Diagnosis Hidradenitis suppurativa Hidradenitis documented in this encounter Care Teams Solar Project Engineer Relationship Specialty Start Date End Date Ab Lee MD PCP - General 11/13/07 documented as of this encounter
[2025-05-01] MEDS: BACITRACIN ZINC OINT 30GM TUBE TP (05:37)
--- NOTE | 2025-05-01 06:00 | HMH.EDGENADL ---
Discharge Plan Disposition Patient Disposition: Home, Self-Care Condition: Good Prescriptions Prescriptions: New cephalexin 500 mg capsule 500 mg PO Q6H 5 Days Qty: 20 0RF No Action ketorolac 10 mg tablet 10 mg PO Q8H 3 Days Qty: 9 0RF cephalexin 500 mg capsule 500 mg PO Q8H 7 Days Qty: 21 0RF sulfamethoxazole-trimethoprim [Bactrim DS] 800-160 mg tablet 1 tab PO BID 5 Days Qty: 10 0RF Referrals Follow up/Referrals: Provider,Referral, MD [Primary Care Provider, Medical] - See instructions Activity Restrictions/Add. Instructions Additional Instructions/Restrictions: You were evaluated in the ER and are believed to be appropriate for discharge at this time. Take the prescribed cephalexin as directed, do not skip doses, do not stop taking early. Use the provided bacitracin ointment on the wounds twice daily. Make sure they are clean and dry, wash them with warm soapy water and allow them to completely dry before using the bacitracin. You have been referred to wound care. They should reach out for an appointment please answer any unfamiliar numbers to ensure you get your appointment time. Follow-up with your primary care doctor in 1 to 2 days for reevaluation. 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 Discuss further wound management with them as well. Return to the ER with any new, worsening, or otherwise concerning symptoms. Clinical Impressions Clinical Impression: Non-healing wound of right lower extremity, Swelling of right foot Cellulitis Qualifiers: Site of cellulitis: extremity Site of cellulitis of extremity: lower extremity Laterality: right Qualified Code(s): L03.115 - Cellulitis of right lower limb Instructions Patient Instructions: DI for Cellulitis -- Adult, Cellulitis, DI for Spider Bites Print Language Print Language: Malian Discharge ED Provider: Kathy Soot General Adult HPI General Chief complaint: Animal Bite Stated complaint: spider bite month ago R foot,hein R leg,swelling Time Seen by Provider: 05/01/25 05:27 Mode of Arrival: Ambulatory Source of Information: Patient Description of Symptoms (Recalled from ER Triage Doc. by RN): pt presents to the ED d/t complaints of leg pain d/t spider bite a couple weeks ago and burn to leg. History of Present Illness HPI narrative: 39-year-old female presents to the ER complaining of pain in the right leg and swelling of the right foot related to spider bite and second-degree burn 2 to 3 weeks ago. Patient reports she was found to have superficial thrombophlebitis and was treating her leg with a heating pad that she left on too long and gave herself second-degree hein at the same time she sustained what was believed to be a brown recluse bite on her foot. She has poorly healing wounds on the right foot and medial aspect of the right calf which she shows to me during initial exam. She reports she is on chronic doxycycline for bacterial suppression due to hidradenitis suppurativa but she was also recently on Bactrim for cellulitis of the wounds per my review of recent records. Patient states her pain has not gotten any better from the time it started and her foot has also been slightly more swollen than previous so she was worried about new infection. She has no numbness, tingling, or weakness. She is taking Tylenol and ibuprofen at home and using hydrocolloid Band-Aids on the wounds. No fevers or chills, no swelling of the leg, no chest pain or difficulty breathing, no abdominal complaints, no other complaints or concerns Related Data Previous Rx's ?Medication ?Instructions ?Recorded cephalexin 500 mg capsule 500 mg PO Q8H 7 days #21 caps 04/06/25 ketorolac 10 mg tablet 10 mg PO Q8H pain 3 days #9 tabs 04/06/25 sulfamethoxazole 800 1 tab PO BID 5 days #10 tabs 04/09/25 mg-trimethoprim 160 mg tablet (Bactrim DS) cephalexin 500 mg capsule 500 mg PO Q6H 5 days #20 caps 05/01/25 Allergies Allergy/AdvReac Type Severity Reaction Status Date / Time amitriptyline AdvReac Unknown Verified 04/06/25 16:08 allergy reaction brompheniramine (From AdvReac Unknown Verified 04/06/25 16:08 Bromfed) allergy reaction chocolate AdvReac Unknown Verified 04/06/25 16:08 allergy reaction phenylephrine (From Bromfed) AdvReac Unknown Verified 04/06/25 16:08 allergy reaction pseudoephedrine (From AdvReac Unknown Verified 04/06/25 16:08 Bromfed) allergy reaction PFSH PFSH Disclaimer: The information contained in this section may have been updated after the patient was seen, as this information can be updated by other users. Social History (Updated 04/07/25 @ 00:13 by Catherine Diaz DO) Smoking Status: Never smoker alcohol intake: never current occupational status: employed Travel in the last 8 weeks?: None Have you lived/traveled outside US in past 30 days?: No Contact w/someone who lives/traveled outside US past 30 days?: No Exposure to someone with infectious disease in past 14 days?: No Do you have a fever (greater than 100.4 F or 38 C)?: No Have you tested positive for COVID-19?: No Exposed to someone with COVID-19 in past 14 days?: No Do you have a sore throat?: No Do you have a cough?: No Do you have any weakness?: No Do you have any diarrhea?: No Are you experiencing any unusual bleeding?: No Do you have any muscle aches/pain?: No Do you have any abdominal pain?: No Are you experiencing loss of taste or smell?: No ROS Obtained: Yes Systems reviewed as appropriate & no additional complaints except as documented Per HPI Physical Exam General General appearance: alert, in no apparent distress and obese Head Head exam: atraumatic and normocephalic Eye Eye exam: Present PERRL and EOMI ENT ENT exam: Present mucous membranes moist Neck Neck exam: Present normal inspection and full ROM Chest Chest inspection: Present symmetric chest wall rise Respiratory Respiratory exam: Absent respiratory distress or stridor Cardiovascular Cardiovascular exam: Present regular rate and normal rhythm Extremities Exam Extremities exam: Present full ROM Expanded Lower Extremity Exam Right: Leg image:  1. 2 cm wound with mildly erythematous borders, tender to palpation, good granulation tissue filling in the wound, no significant induration, no fluctuance 2. 2 cm wound with mildly erythematous borders, tender to palpation, good granulation tissue filling in the wound, no significant induration, no fluctuance Lower leg exam: Present other (Neurovascularly intact distally to wounds) Foot/toe exam: Present tenderness (At wound) and swelling (Mild, diffuse, nonpitting) Top foot image:  1. 3 cm wound without significant associated induration, appears to have good granulation tissue filling in the wound, no fluctuance, mild erythema, neurovascularly intact distally. Neurological Exam Neurological exam: Present alert and oriented X3; Absent motor sensory deficit Psychiatric Psychiatric exam: Present normal affect and normal mood Skin Skin exam: Present warm and dry Medical Decision Making Medical Records Medical records reviewed: Yes I reviewed the patient's medical records. Screening: Per USPSTF and CDC recommendations, given the prevalence of disease in our region, it is our hospital?s policy to screen for HIV and viral Hepatitis for all patients aged 18 and over and those with ongoing risk factors. MR Comment: See HPI Ac Inquiry Pt receiving controlled substance: No Vital Signs: 05/01/25 05:31 05/01/25 06:01 Temperature 98.0 F Temperature Source Oral Pulse Rate 80 Pulse Rate [Right Radial] 90 Respiratory Rate 18 Blood Pressure 130/91 H Blood Pressure [Right Arm] 142/92 H Blood Pressure Mean [Right Arm] 108 Blood Pressure Position [Right Arm] Supine 02 Sat by Pulse Oximetry 96 97 Oxygen Delivery Method Room Air Orders (Tests/Meds): ED MEDICATIONS Discontinued Medications Generic Name Dose Route Start Last Admin Trade Name Freq PRN Reason Stop Dose Admin Bacitracin 1 gm 05/01/25 05:32 05/01/25 05:37 Bacitracin Zinc Oint 30gm Tube TP 05/01/25 05:33 1 gm ONCE ONE Administration Cephalexin HCl 500 mg 05/01/25 05:47 05/01/25 05:49 Cephalexin 500mg Capsule PO 05/01/25 05:48 500 mg ONCE ONE Administration Ondansetron HCl 4 mg 05/01/25 06:03 05/01/25 06:08 Ondansetron 4mg Odt SL 05/01/25 06:04 4 mg ONCE ONE Administration ORDERS Category Date Time Status POCUS Point of Care (ER Only) Stat Exams 05/01/25 05:30 Ordered Wound Culture and Gram Stain Stat Micro 05/01/25 05:52 Results Wound Culture and Gram Stain Stat Micro 05/01/25 05:52 Results CA venous doppler LE RT Stat Y 05/01/25 06:03 Ordered Medical Decision Narrative: In summary, this 39-year-old female presents to the emergency department today with concerns of wounds on the right lower extremity with associated pain and swelling in the foot. On initial evaluation patient is hemodynamically stable, afebrile, exam notable for wounds on the medial right calf and top of the right foot as discussed in the physical exam. There really is no obvious induration with these wounds and no fluctuance but there is mild surrounding erythema and they are exquisitely tender to the touch. They do appear to be healing well with good granulation tissue. The right foot is slightly swollen compared to the left but there is no pitting edema. Aside from wound right leg looks grossly normal compared to the left. Differential diagnosis includes but is not limited to cellulitis, abscess, nonhealing wound, also consider the possibility of DVT though I think this is a very remote possibility since there is no swelling or erythema of the leg aside from very trace swelling of the right foot without associated erythema, she also has had a recent DVT ultrasound with these similar symptoms that was negative except for superficial thrombophlebitis. Do not believe patient requires any labs at this time. I did perform [id number] ultrasound of the soft tissues around the wounds as well as DVT ultrasound. [id number]-rd-tuoi ultrasound demonstrates trace cobblestoning which could be consistent with cellulitis, given patient's pain and mild erythema at the wounds we will treat with cephalexin. She has recently been treated with Bactrim but is on chronic suppression with doxycycline so I do not believe she requires additional MRSA coverage. Wound cultures were collected. DVT ultrasound does not demonstrate DVT with 3 point compression. I discussed at length the lack of utility of narcotic pain medication for these chronic wounds and that I would not be providing a prescription for any pain medications like this at this time. I encouraged her to continue using [id number] medications. Bacitracin applied to the wounds, Keflex administered in the ER and prescribed for outpatient use. Patient given instructions on bacitracin use and antibiotic use. Additionally she was given referral to wound care for further evaluation. Patient was given instructions on symptomatic management, follow up instructions including with wound care and for DVT ultrasound outpatient, and return precautions for the emergency department. Patient indicated understanding. I was going to provide a referral for outpatient DVT ultrasound for complete evaluation of the right lower extremity and I had the patient ready to discharge however when I was placing the outpatient order, I was informed that the ultrasound team is arriving and will be available to do the exam before the patient leaves the ER. Pending DVT ultrasound at this time. Patient is complaining of mild nausea which she states has been happening since she has had pain in the leg so Zofran was administered. DVT ultrasound is reported to be negative. Patient is appropriate for discharge at this time. She indicated understanding to all previous instructions and was discharged in stable condition. Procedures Miscellaneous Procedure Procedure Performed: Limited DVT ultrasound Indication: Limited compression ultrasonography of the right lower extremity was performed to evaluate for non-compressibility of the deep veins in the patient. The ultrasound was performed with the following indications, as noted in the H&P: Right foot swelling Identified structures: Right [common femoral vein, femoral vein, popliteal vein were examined.] Findings: Lower Extremity: Right CFV: Good compressibility Right FV: Good compressibility Right Popliteal vein: Good compressibility Impression: Normal right lower extremity DVT ultrasound Images were saved to permanent archive The study was technically adequate CPT: 11908-13-GL [id number] 14774-33 (complete bilateral study) This study was performed by me, and I personally interpreted all images/videos. Based on my clinical judgement, these images were adequate and did not necessitate further imaging. Soft tissue ultrasound Indication: Soft tissue redness, tenderness, associated wounds Identified structures: Soft tissues of the right medial calf and dorsal aspect of the right foot Location: Right medial calf and dorsal aspect of the right foot Findings: Trace cobblestoning appreciated at the wound edges likely representing mild cellulitis, no abscess Impression: Mild cellulitis Images were saved to the permanent archive. The study was technically adequate. Soft tissue CPT codes Lower extremity: 27504-08 This study was performed by me, and I personally interpreted all images/videos. Based on my clinical judgment, these images were adequate and did not necessitate further imaging. Critical Care Critical Care Time Critical Care Time: No
[2025-05-01 06:01] VITALS: BP 130/91; PULSE 80; O2SAT 97
[2025-05-01] MEDS: ONDANSETRON 4MG ODT 4 MG SL (06:08)
[2025-05-01 06:45] VITALS: BP 130/80; PULSE 68; RESP 16; TEMP 36.6; O2SAT 98
[2025-05-01 06:46] VITALS: BP 130/80; PULSE 68; RESP 16; TEMP 36.6; O2SAT 98
--- NOTE | 2025-05-04 05:52 | PC.NURSE ---
notified of wound culture results, MD notifed no new orders
--- NOTE | 2025-05-05 06:27 | PC.NURSE ---
Pt returned call to the ED, this RN spoke with pt and noticed antibiotic had not been sent in, notified MD Soto and prescription ordered to correct pharmacy. Spoke with patient again to reiterate importance of taking full dose and to inform her the prescription was sent.
--- NOTE | 2025-05-11 08:00 | PC.NURSE ---
culture previously completed by Bing LAU.
== END 2025-05-01 06:48 | disposition home or self-care (01) ==
PROVIDERS: Emergency Provider Emergency Medicine
DX: L03.115 Cellulitis of right lower limb (principal); M79.661 Pain in right lower leg
CPT/HCPCS: 87070; 87077; 87186; 87205; 93971; 99283; 99284; Q0162

== ENCOUNTER 2025-05-29 11:04 | Emergency (ER) | payer OTHER, SELFPAY ==
--- OUTSIDE RECORDS SUMMARY | 2024-04-16 13:15 | XMS_ITS ---
Author Organization [facility] Address [address] [place] [address] Care Team Providers Care Blueprint Maker Name Role Phone [facility] ramirez bonds Primary Care Prov ider Unavailable Provider, [id number] [phone] Unavailable REASON FOR VISIT cough, sore throat, runny nose and fever Encounters Encounter Location Date Provider Diagnosis [address] [facility] [address] [place] [address] 04/16/2024 [address]1258 Provider Plan Of Treatment No Information Progress Notes * Andria BUSHOB:1985 (39 yo F)Acc No.[id number]:04/16/2024 Progress Notes Patient: Arelis MCKEON Provider: 1 [id number] Provider :1985 A ge:38 Y S ex:Female Date:04/16/2024 External Visit ID:[id number] 1 Address:[address] [place], [place] [address], [address] [facility] Subjective: * Chief Complaints: * 1 . Cough, sore throat, runny nose and fever. * Medical History: Objective: * Vitals: Assessment: Plan: * Treatment: * Billing Information: * Visit Code: * Procedure Codes: Care Plan Details* * Electronic signature of GH49 130 [id number] Provider on 05/29/2025 at 10:41 AM CDT Sign off status: Pending * Provider: 1 8403 Provider Date: 0 04/16/2024 Generated for Printi ng/Faxing/eTransmitting on: 0 05/29/2025 10:41 AM CDT
--- OUTSIDE RECORDS SUMMARY | 2024-12-18 05:00 | XMS_ITS ---
Author Organization [facility] Address [address] [place] [address] Care Team Providers Care Bias Cutting Machine Operator Vertical Name Role Phone [facility] ramirez bonds Primary Care Prov ideNancy Alexander Unavailable [phone] REASON FOR VISIT Not Feeling Well Encounters Encounter Location Date Provider Diagnosis [address] [address] 12/18/2024 Nancy Asencio Plan Of Treatment No Information Progress Notes * Andria BUSHOB:1985 (39 yo F)Acc No.[id number]:12/18/2024 Progress Notes Patient: Arelis MCKEON Provider: Vlad Asencio CNP :1985 A ge:39 Y S ex:Female Date:12/18/2024 External Visit ID:[id number] 0 Address:[address] [place], [place] [address], [address] [facility] Pcp:[facility] Subjective: * Chief Complaints: * 1 . Not Feeling Well. * Medical History: Objective: * Vitals: Assessment: Plan: * Treatment: * Billing Information: * Visit Code: * Procedure Codes: Care Plan Details* * Electronic signature of Mahin Asencio APRN on 05/29/2025 at 10:40 AM CDT Sign off status: Pending * Provider: Vlad Asencio CNP Date: 12/18/2024 Generated for Printi ng/Faxing/eTransmitting on: 0 05/29/2025 10:40 AM CDT
--- OUTSIDE RECORDS SUMMARY | 2025-04-15 13:45 | XMS_ITS | Encounter Summary ---
Author Organization [facility] SBO AND TP P Address [facility] [place] [address] Phone Care Team Providers Care Ammonia Print Operator Name Role Phone Ab Lee MD Primary Care Provider [phone] Reason for Visit * Reason Comments Bite (ANIMAL OR HUMAN) Inset bite. 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 Not on file Not on file documented as of this encounter Last Filed Vital Signs Vital Sign Reading Time Taken Comments Blood Pressure 130/83 04/15/2025 2:09 PM EDT Pulse 89 04/15/2025 2:09 PM EDT Temperature - - Respiratory Rate - - Oxygen Saturation - - Inhaled Oxygen Concentration - - Weight 155.2 kg (342 lb 3.2 oz) 04/15/2025 2:09 PM EDT Height 175.3 cm (5' 9 ) 04/15/2025 2:09 PM EDT Body Mass Index 50.53 04/15/2025 2:09 PM EDT documented in this encounter Functional Status [...] Progress Notes * Ab Lee MD - 04/15/2025 1:45 PM EDT Subjective History of Present Illness SUBJECTIVE: Arelis Bush is a 39 year old female presents for evaluation of a suspected brown recluse spiderbite. She initially sought medical attention at [facility] in [place] due to a suspected blood clot in her leg, which was later diagnosed as subcutaneous phlebitis. Concurrently, she noticed an unrelated condition characterized by worsening pain and swelling. Two days after her initial hospital visit, she returned to the ER with severe pain. Despite not observing any insect bite, she suspects it might be a brown recluse spider bite. The pain is described as deep and constant, similar to the sensation of an open wound. The pain is so severe that even the slightest touch, such as from a sheet, causes intense discomfort. She has tried Tylenol, ibuprofen, ice packs, and elevation without relief. The only relief she finds is from applying Benadryl cream and wrapping the area with an ice pack for about 30minutes. However, the swelling becomes so severe by midday that she has to remove her shoe due to circulation issues. She continues to take gabapentin 400 mg and has an upcoming appointment with Dr. Flores Dale, a panel edge painter, on 04/27/2025. She reports no fever but mentions occasional throat soreness. She confirms that there are no foreign bodies in the wound. She has been using Hibiclens on the wound. She was prescribed doxycycline, Keflex, and Bactrim, which she has completed. She also used ketoconazole cream as a precaution against ringworm. She has been applying hydrocolloid bandages, but these have not provided relief. She is under the care of Dr. Padilla for diabetes management. Her A1c level is currently 6.1. She received a Tdap vaccine in 2020. Social History: Sleep: She reports difficulty sleeping due to pain. Past Medical History: Diagnosis Date Adult emotional/psychological [...] colon/normal IBS HC KYLEENA IUD 11/03/2017 lot: [id number] exp: 02/28 LAP,CHOLECYSTECTOMY 06/03/2016 Dr. Christiano Meza [...] use Diabetes Father Heart Disease Father 55 SD Hypertension Father Heart Disease Maternal Grandmother 48 SD X 5- OPENHEART SURGERY Diabetes Maternal Grandmother [...] Angioedema and Anaphylaxis Amitriptyline moser Bromfed Dm [Kibmbrhyz-Jaghsmvn-Zl] Other (See Comments) Blacked out. Shaking, hallucinations Chocolate (Food) Sneeze, itch Diclofenac diarrhea Thiazide-Type Diuretics Other (See Comments) Increased liver enzymes Outpatient Medications Marked as Taking for the 04/15/25 encounter (Office Visit) with Ab Lee MD Medication Sig predniSONE (DELTASONE) 10 mg tablet 6 TABS (ALL AT ONCE) FOR ONE DAY, THEN DECREASE ONE TAB/DAY UNTIL GONE predniSONE (DELTASONE) 10 mg tablet TAKE 6 TABS (ALL AT ONCE) FOR ONE DAY, THEN DECREASE ONE TAB/DAY UNTIL GONE Review Of Systems General: Denies fever sweating chills ENT denies any sore throat swollen glands Respiratory: no cough, dyspnea Cardiovascular: No chest pain or palpitations Gastrointestinal: no nausea, vomiting, diarrhea or abdominal pain Gynecologic no abnormal bleeding, pelvic pain or discharge and no breast pain or new or enlarging lumps identified by pt. Musculoskeletal: No arthralgia, myalgia Endocrine: no polyphagia, polydipsia, or polyuria Skin: Right foot pain swelling redness warmth Neurologic: no Dizziness or headache Psychiatric: depression, anxiety, sleep disturbance, denies substance abuse PHYSICAL EXAMINATION: she appears in no distress BP 130/83 Pulse 89 Ht 69 (175.3 cm) Wt (!) 342 lb 3.2 oz (155.2 kg) BMI 50.53 kg/m?? Neck: No adenopathy Lungs: clear to auscultation bilaterally Heart: regular rhythm, normal rate, no gallop and no murmur Abdomen: soft without significant tenderness or guarding Back and Spine: no flank/spinal tenderness Neurological: alert and oriented x 3 Lower Extremity: No cyanosis calf tenderness and No edema Right foot dorsum moderately tender on palpation no warmth mild redness no neurovascular deficit size of a kenna blister with surrounding redness Assessment & Plan 1. Suspected brown recluse spider bite. - Symptoms suggest a possible brown recluse spider bite, causing local damage from the toxin. The blister appears to be non-infected. - Pain is likely due to nerve endings under the skin and gravity causing pressure and distention. No foreign body detected; no need for an x-ray. - Discussed the use of prednisone Dosepak for internal inflammation management. Advised to continuegabapentin 400 mg, apply ice packs, and use Benadryl cream for relief. Elevation of the affected area is also recommended. - Ensure shoes are clean and do not exert pressure on the affected area. Avoid topical treatments to prevent further irritation. Leave the blister open to air for healing. If the blister becomes infected, a biopsy may be considered. 2. Diabetes mellitus. - A1c is 6.1, indicating good control of diabetes. - Continue current diabetes management plan. 3. Health maintenance. - Received Tdap vaccine in 2020; up to date with tetanus vaccination until 2030. Call or return to clinic prn if these symptoms worsen or fail to improve as anticipated. Patient voices her understanding and agree with the plan. Please note that some or all of this record was generated using voice recognition software. If there are any questions about the content of this document, please contact the author as some errors in profiling machine operator may have occurred. I have received and assessed the information in the OARRS report, in cluding information from COLIN and SHAJI, for this patient on 04/15/2025 and the following concerns were noted: none. documented in this encounter Plan of Treatment Upcoming Encounters Date Type Department Care Team (Late st Contact Info) Description 09/16/2025 8:30 AM EST Office Visit [facility] [place] [facility] [address] [place] [address] Flores Dawn, DIRECTOR OF APPLICATION DEVELOPMENT [address] [facility] [address] [place] [address] documented as of this encounter Visit Diagnoses Diagnosis Right foot pain- Primary Pain in limb Controlled type 2 diabetes mellitus without complication, without long-term current use of insulin documented in this encounter Care Teams Ammonia Print Operator Relationship Specialty Start Date End Date Ab Lee MD PCP - General 11/13/07 documented as of this encounter
--- OUTSIDE RECORDS SUMMARY | 2025-04-17 15:15 | XMS_ITS | Encounter Summary ---
Author Organization [facility] SBO AND TP P Address [facility] [place] [address] Phone Care Team Providers Care Log Operations Coordinator Name Role Phone Ab Lee MD Primary Care Provider [phone] Reason for Visit * Reason Comments Follow-up Encounter Details Date Type Department Care Team (Late st Contact Info) Description 04/17/2025 3:15 PM EDT Office Visit [facility] [address] [place] [phone] Thalia Singer, [facility] [address] [place] [address] Wound of foot (Primary Dx) Social History Tobacco Use Types [...] file Not on file Not on file 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 Arelis Bush 1985 Chief complaint: Chief Complaint Patient presents with Follow-up History of Present Illness: 39 year old WF, LV with me 08/2024; here for new sore on foot; has been treated with oral prednisone taper, keflex and bactrim; is improving but remains sore; unknown injury; woke up with pain one day after small SVT in L calf Dermatology History: Family history of melanoma HS Social History: + smoker Physical Examination: General: pleasant, alert and oriented, no distress Areas examined: R foot Significant findings: Assessment/Plan: 39 year old WF with 1. Inflammatory reaction; suspect likely secondary to arthropod; is improving clinically; add triamcinolone 0.1% BID; continue wound care and monitor; recommended biopsy today, pt declined RTC as scheduled Pt verbalizes understanding of plan of care, all questions addressed and answered. documented in this encounter Plan of Treatment Upcoming Encounters Date Type Department Care Team (Late st Contact Info) Description 09/16/2025 8:30 AM EST Office Visit [facility] [place] [facility] [address] [place] [phone] Flores Dawn, MOTOR DRIVER [address] [facility] [address] [place] [address] documented as of this encounter Visit Diagnoses Diagnosis Wound of foot- Primary documented in this encounter Care Teams Log Operations Coordinator Relationship Specialty Start Date End Date Ab Lee MD PCP - General 11/13/07 documented as of this encounter
--- OUTSIDE RECORDS SUMMARY | 2025-05-08 14:42 | XMS_ITS | Encounter Summary ---
Author Organization [place] [address] Care Team Providers Care Bookie Name Role Phone Ab Lee MD Primary Care Provider [phone] Reason for Visit * Reason Comments Wound Infection Wounds on right foot and leg, infection Encounter Details Date Type Department Care Team (Late st Contact Info) Description 05/08/2025 2:42 PM EDT - 05/08/2025 6:24 PM EDT Emergency [facility] [place] [id number] Luis Valderrama MD [address] [place] [address] Wound infection (Primary Dx); Morbid obesity (HCC) Discharge Disposition: Home or Self Care Social History Tobacco Use Types Packs/Day Years Used Date Smoking Tobacco: Former Cigarettes 1 10 Smokeless Tobacco: Never Alcohol Use Standard Drinks/Week Comments No 0 (1 standard drink = 0.6 oz pur e alcohol) [facility] Utilities Answer Date Recorded In the past 12 months has [employer], gas, oil, or water [employer] threatened to shut off services in your home? No 11/16/2024 Overall Financial Resource Strain (CARDIA) Answe r Date Recorded How hard is it for you to pa y for the very basics like food, housing, medical care, and heating? Not hard at all 11/16/2024 PHQ-2 Answer Date Recorded PHQ-2 Total Score 0 11/16/2024 [facility] of Occupat ional Health - Occupational Stress [...] money to get more. Never true 11/16/2024 [facility] IP Transportation Answer D ate Recorded [...] Sign Reading Time Taken Comments Blood Pressure 147/81 05/08/2025 5:26 PM EDT Pulse 91 05/08/2025 5:26 PM EDT Temperature 36.7 C (98 F) 05/08/2025 2:40 PM EDT Respiratory Rate 16 05/08/2025 5:26 PM EDT Oxygen Saturation 100% 05/08/2025 5:30 PM EDT Inhaled Oxygen Concentration - - Weight - - Height - - Body Mass Index - - documented in this encounter Functional Status * Is the person deaf or does he/she have serious difficulty hearing? Answer Date of Assessment Author No 11/17/2024 9:17 AM Soraida Willoughby RN * Is the person blind or [...] Answer Date of Assessment Author No Risk 05/08/2025 3:39 PM EDT Kami Corey RN * [place] Suicide Severity Rating Scale (Q shift for moderate and high) Question Answer Date of Assessment Author 1. In the past month, have y ou wished you were or wished you could go to sleep and not wake up? 0 05/08/2025 3:39 PM EDT Kami Corey RN 2. In the past month, have y ou actually had any thoughts of killing yourself? (If no, skip to question 6) 0 05/08/2025 3:39 PM EDT Kami Corey RN 6. Have you ever done anythi ng, started to do anything, or prepared to do anything to end your life? 0 05/08/2025 3:39 PM EDT Kami Corey RN documented as of this encounter Mental Status * Because of a physical, mental or emotional condition, does this person have serious difficulty concentrating, remembering or making decisions? Answer Entry Date Author No 11/17/2024 9:17 AM Soraida Willoughby RN documented in this encounter Discharge Instructions * Discharge Instructions* Alberta Torrez PA - 05/08/2025 5:24 PM EDT Continue to take prescribed antibiotics as we discussed. Continue to rest elevate your right leg. documented in this encounter Medications at Time of Discharge ALPRAZolam (XANAX) 1 mg Oral TabletIndications :Generalized anxiety disorder,Panic disorder with agoraphobia,Panic disorder,MIGUELINA (generalized anxiety disorder),Adjustm ent disorder with anxiety,Anxiety and depression Take 1 Tablet by mouth 3 times daily as needed (anxiety). 90 Tablet 2 04/08/2025 esomeprazole (NEXIUM) 20 mg Oral Capsule, Delayed Release(E.C.) Take by mouth daily. FLUoxetine (PROZAC) 20 mg Oral Capsule TAKE 1 CAPSULE BY MOUTH DAILY 100 Capsule 1 04/15/2025 dexmethylphenidat e (FOCALIN) 10 mg Oral Tablet Take 1 Tablet by mouth 2 times daily. 60 Tablet 04/08/2025 05/14/2025 documented as of this encounter Discharge Disposition Disposition Code Departure Means Destination Comment s Home or Self Skilled Nursing documented in this encounter ED Notes * Alberta Torrez PA - 05/08/2025 2:40 PM EDT Images from the original note were not included. CHIEF COMPLAINT Chief Complaint Patient presents with Wound Infection Wounds on right foot and leg, infection HPI Arelis Bush is a 39 y.o. female who presents to the ED with a complaint of a 1 month history ofwound to her right leg. States that is very painful and is not improving. States it was a brown recluse bite. Patient has seen numerous providers for this and taken numerous doses of antibiotics without any improvement in her symptoms. States that she is taking ibuprofen and Tylenol for her pain and it is not helping. Patient indicates that she is unable to go to work secondary to the pain and having difficulty sleeping secondary to the pain. She has seen dermatology and podiatry. Has an appt on Tuesday with wound care. states hotel sales manager advised her to come in for admission for IV abx. linazolid 600 mg, BID for 2 days doxycyline 200 mg daily (chronically) for hydratitinits REVIEW OF SYSTEMS See HPI for further details. Review of systems otherwise negative. PAST MEDICAL HISTORY Past Medical History: Diagnosis Date Anxiety Brain ischemia october 2012 Concussion hit her head Oct 23 Dystonia Fibromyalgia Fibromyalgia Heartburn Hypertension Miscarriage 2012 Obese PCOS (polycystic ovarian syndrome) TIA (transient ischemic attack) FAMILY HISTORY Family History Problem Relation Age of Onset Stroke Mother Diabetes Father Heart Disease Father High Blood Pressure Father SOCIAL HISTORY Social History Socioeconomic History Marital status: Tobacco Use Smoking status: Former Current packs/day: 1.00 Average packs/day: 1 pack/day for 10.0 years (10.0 ttl pk-yrs) Types: Cigarettes Smokeless tobacco: Never Vaping Use Vaping status: Every Day Substances: Nicotine Substance and Sexual Activity Alcohol use: No Alcohol/week: 0.0 oz Drug use: No Sexual activity: Yes Partners: Male control/protection: Condom Social Drivers of Health Financial Resource Strain: Low Risk (11/16/2024) Overall Financial Resource Strain (CARDIA) Difficulty of Paying Living Expenses: Not hard at all Food Insecurity: No Food Insecurity (11/16/2024) Hunger Vital Sign Worried About Running Out of Food in the Last Year: Never true Ran Out of Food in the Last Year: Never true Transportation Needs: No Transportation Needs (11/16/2024) [facility] IP Transportation In the past 12 months, has lack of reliable transportation kept you from medical appointments, meetings, work or from getting things needed for daily living?: No Physical Activity: Inactive (11/16/2024) Exercise Vital Sign Days of Exercise per Week: 0 days Minutes of Exercise per Session: 0 min Stress: No Stress Concern Present (11/16/2024) [facility] of Occupational Health - Occupational Stress Questionnaire Feeling of Stress : Only a little Received from [facility] Interpersonal Safety Received from [facility] Housing/Utilities SURGICAL HISTORY Past Surgical History: Procedure Laterality Date CHOLECYSTECTOMY 05/2016 GENITAL WARTS SURGERY WISDOM TOOTH EXTRACTION CURRENT MEDICATIONS Current Facility-Administered Medications: sodium chloride 0.9% IV line flush 50 mL, 50 mL, Intravenous, PRN, Shan, Alberta M, PA sodium chloride 0.9% syringe 5-10 mL, 5-10 mL, Intravenous, PRN, Shan, Alberta M, PA Current Outpatient Medications: ALPRAZolam (XANAX) 1 mg Oral Tablet, Take 1 Tablet by mouth 3 times daily as needed (anxiety)., Disp: 90 Tablet, Rfl: 2 dexmethylphenidate (FOCALIN) 10 mg Oral Tablet, Take 1 Tablet by mouth 2 times daily., Disp: 60 Tablet, Rfl: 0 esomeprazole (NEXIUM) 20 mg Oral Capsule, Delayed Release(E.C.), Take by mouth daily., Disp: , Rfl: FLUoxetine (PROZAC) 20 mg Oral Capsule, TAKE 1 CAPSULE BY MOUTH DAILY, Disp: 100 Capsule, Rfl: 1 ALLERGIES Allergies Allergen Reactions Chocolate Flavor Itching Thiazides Swelling Adhesive Tape-Silicones Amitriptyline Bromphed Lisinopril Other (See Comments) Angiodema Rexulti [Brexpiprazole] Nausea And Vomiting PHYSICAL EXAM VITAL SIGNS: BP (!) 147/81 Pulse 91 Temp 98 ??F (36.7 ??C) (Oral) Resp 16 SpO2 100% Constitutional: Well developed, Well nourished, No acute distress, Non-toxic appearance. Cardiovascular: Normal heart rate, Normal rhythm, No murmurs, No rubs, No gallops. Thorax & Lungs: Normal breath sounds, No respiratory distress, No wheezing, No chest tenderness. Skin: RLE wound to dorsal aspect of right foot, proximal fib 2 wounds, see below Extremities: Intact distal pulses, No edema, No tenderness, No cyanosis, No clubbing. CBC with Auto Diff Component Value Flag Ref Range Units Status WBC 7.3 3.7 - 10.3 x10(3)/mcL Final RBC 4.60 3.90 - 5.20 x10(6)/mcL Final Hgb 14.3 11.2 - 15.7 g/dL Final Hct 43.2 34.0 - 45.0 % Final MCV 93.9 80.0 - 100.0 fL Final MCH 31.1 26.0 - 34.0 pg Final MCHC 33.1 30.7 - 35.5 g/dL Final RDW 11.9 <=14.9 % Final Platelet 232 155 - 369 x10(3)/mcL Final MPV 10.1 8.8 - 12.5 fL Final Neut Percent 66.1 % Final Comment: Neutrophils equals segs plus bands Imm Gran% 0.3 % Final Comment: Automated count of metamyelocytes, myelocytes and promyelocytes. Lymph Percent 24.6 % Final Webster Percent 6.5 % Final Eos Percent 1.9 % Final Baso Percent 0.6 % Final Neut # 4.8 1.6 - 6.1 x10(3)/mcL Final Comment: Neutrophils equals segs plus bands IMMGRAN# 0.0 0.0 - 0.1 x10(3)/mcL Final Comment: Automated count of metamyelocytes, myelocytes and promyelocytes. An absolute IG <0.1 is reportedas 0.0. Lymph # 1.8 1.2 - 3.9 x10(3)/mcL Final Webster # 0.5 0.3 - 0.9 x10(3)/mcL Final Eos# 0.1 0.0 - 0.5 x10(3)/mcL Final Baso # 0.0 0.0 - 0.1 x10(3)/mcL Final Comprehensive Metabolic Panel Component Value Flag Ref Range Units Status Sodium 141 136 - 145 mmol/L Final Potassium 4.2 3.5 - 5.0 mmol/L Final Chloride 101 98 - 107 mmol/L Final Total CO2 30 22 - 29 mmol/L Final Anion Gap 10 7 - 16 mmol/L Final Calcium 8.8 8.6 - 10.4 mg/dL Final Glucose Lvl 155 70 - 99 mg/dL Final BUN 10 6 - 20 mg/dL Final Creatinine 0.65 0.51 - 1.30 mg/dL Final Albumin 3.9 3.5 - 5.2 gm/dL Final Total Protein 6.3 6.4 - 8.3 gm/dL Final Bili Total 0.3 0.2 - 1.3 mg/dL Final ALT 29 <=41 U/L Final AST 32 <=40 U/L Final Alk Phos 84 36 - 123 U/L Final eGFR (CKD-EPIcr 2020) 113 >=60 mL/min/1.73 m2 Final Comment: Estimated GFR was calculated using the CKD-EPIcr (2020) equation refit without race. The equation is recommended by the National Kidney Foundation - [place] [employer] of Nephrology Task Force. HCG, quaNtitative, (QuaNt) Component Value Flag Ref Range Units Status Hcg Quant <1 <5 mIU/mL Final Sedimentation Rate Automated Component Value Flag Ref Range Units Status Sed Rate 12 0 - 20 mm/hr Final XR FOOT RIGHT AP LATERAL AND OBLIQUE XR FOOT RIGHT AP LATERAL AND OBLIQUE, 05/08/2025 4:35 PM CLINICAL HISTORY: -wound to dorsal aspect, patient is concened about osteomyelitits COMPARISON: None. PROCEDURE COMMENTS: XR FOOT RIGHT AP LATERAL AND OBLIQUE FINDINGS: No acute fracture or traumatic malalignment. Joint spaces overall well-maintained for age. No periostitis. IMPRESSION: No acute bony abnormality of the foot. - Note: Radiology results need to be interpreted within a comprehensive clinical context. If you have questions about the radiology report, please contact the office of the ordering clinician. COURSE & MEDICAL DECISION MAKING Pertinent Labs & Imaging studies reviewed. (See chart for details) ED Course as of 05/08/252026 Alberta Torrez's Documentation TueMay 08, 2025 170 Labs returned revealing no evidence of any leukocytosis or acute anemia no elevation in sed rate negative glucose of 155, otherwise no acute electrolyte abnormalities. 1701 X-ray of the right lower extremity is reassuring. 1720 Back to bedside, discussed labs look reassuring and imaging looks reassuring with the patient and her . They would like to wait until the hotel sales manager office calls back until we proceed with discharge home 174 Attempted to get a hold of the hotel sales manager to send the patient in. He was unable to get a hold of the hotel sales manager his intelligence officer basic called back and read me the charting that he had done when the patient was in the office. 175 According to the intelligence officer basic who called back the hotel sales manager concern was that the patient also needed daptomycin IV I called and discussed this with our pharmacist and linezolid has good coverage against Enterococcus we do not feel that additional antibiotics are necessary at this time encouraged the patient to keep her appointment with wound care on Tuesday we will discharge her home in stable condition. Afebrile nontoxic patient in no acute distress. Patient with chronic wounds to the right lower extremity provided with pain medication while in our department. wound cultures from outside facility evaluated, see below. She is taking appropriate antibiotics. workup reassuring. She has a wound care appointment in 2 days. She is discharged home in stable condition follow-up with wound care follow up as planned. FINAL IMPRESSION 1. Wound infection 2. Morbid obesity (HCC) This chart was completed using voice recognition technology and may contain unintended errors Alberta Torrez PA 05/08/252026 Cosigned by Kalyan Verma MD at 05/16/2025 7:58 AM EDT Associated attestation - Kalyan Verma MD - 05/16/2025 7:58 AM EDT Attending Hide Examiner Note: I have participated in the care of this patient and have reviewed the pertinent clinical information including physical exam findings, labs, and radiographic studies. I have reviewed and/or discussedthe plan of care, of which I personally approve and take responsibility for the patient management. This patient was seen in coordination with the PA/METAL FABRICATOR WELDER. ED Course as of 05/16/25 0758 Others' Documentation TueMay 08, 2025 1701 Labs returned revealing no evidence of any leukocytosis or acute anemia no elevation in sed rate negative glucose of 155, otherwise no acute electrolyte abnormalities. [AE] 1701 X-ray of the right lower extremity is reassuring. [AE] 1720 Back to bedside, discussed labs look reassuring and imaging looks reassuring with the patient and her . They would like to wait until the hotel sales manager office calls back until we proceed with discharge home [AE] 1741 Attempted to get a hold of the hotel sales manager to send the patient in. He was unable to get a hold of the hotel sales manager his intelligence officer basic called back and read me the charting that he had done when the patient was in the office. [AE] 1755 According to the intelligence officer basic who called back the hotel sales manager concern was that the patient also needed daptomycin IV I called and discussed this with our pharmacist and linezolid has good coverage against Enterococcus we do not feel that additional antibiotics are necessary at this time encouraged the patient to keep her appointment with wound care on Tuesday we will discharge her home in stable condition. [AE] ED Course User Index [AE] Alberta Torrez PA No orders to display Kalyan Verma MD This chart was completed using voice recognition technology and may contain unintended errors documented in this encounter Plan of Treatment Upcoming Encounters Date Type Department Care Team (Late st Contact Info) Description 05/30/2025 2:00 PM EDT Appointment [facility] [place] [address] [place] [address] Nette Ragsdale DPM [address] [address] 05/31/2025 2:00 PM EDT Office Visit [facility] [address] [place] [address] Kanchan Torres, MECHANICAL PRODUCT ENGINEER [address] [place] [place] [phone] documented as of this encounter Procedures Procedure Name Priority Date/Time Associated Diagnosis Comments XR FOOT RIGHT AP LATERAL AND OBLIQUE RENATA 05/08/2025 4:35 PM EDT SEDIMENTATION RATE AUTOMATED Routine 05/08/2025 3:50 PM EDT CBC WITH DIFF STAT 05/08/2025 3:50 PM EDT C-REACTIVE PROTEIN STAT 05/08/2025 3: 50 PM EDT HUMAN CHORIONIC GONADOTROPIN QUANTITATIVE STAT 05/08/2025 3:50 PM EDT COMPREHENSIVE METABOLIC PANEL STAT 05/08/2025 3:50 PM EDT SALINE LOCK IV STAT 05/08/2025 3:38 PM EDT documented in this encounter Results * XR FOOT RIGHT AP LATERAL AND OBLIQUE (05/08/2025 4:35 PM EDT) Anatomical Region Laterality Modality Foot Radiographic Helen ging 05/08/2025 4:35 PM EDT Impressions 05/08/2025 4:57 PM EDT No acute bony abnormality of the foot. - Note: Radiology results need to be interpreted within a comprehensive clinical context. If you have questions about the radiology report, please contact the office of the ordering clinician. Narrative 05/08/2025 4:57 PM EDT XR FOOT RIGHT AP LATERAL AND OBLIQUE, 05/08/2025 4:35 PM CLINICAL HISTORY: -wound to dorsal aspect, patient is concened about osteomyelitits COMPARISON: None. PROCEDURE COMMENTS: XR FOOT RIGHT AP LATERAL AND OBLIQUE FINDINGS: No acute fracture or traumatic malalignment. Joint spaces overall well-maintained for age. No periostitis. Procedure Note Gloria Jackson MD - 05/08/2025 XR FOOT RIGHT AP LATERAL AND OBLIQUE, 05/08/2025 4:35 PM CLINICAL HISTORY: -wound to dorsal aspect, patient is concened about osteomyelitits COMPARISON: None. PROCEDURE COMMENTS: XR FOOT RIGHT AP LATERAL AND OBLIQUE FINDINGS: No acute fracture or traumatic malalignment. Joint spaces overall well-maintained for age. No periostitis. IMPRESSION: No acute bony abnormality of the foot. - Note: Radiology results need to be interpreted within a comprehensiveclinical context. If you have questions about the radiology report, please contactthe office of the ordering clinician. us Alberta MAYORGA IMG DIAGNOSTIC IMAGING ORDERABL ES Final Result * (ABNORMAL) C-REACTIVE PROTEIN (05/08/2025 3:50 PM EDT) [facility] CRP 7.99(H) <=5.00 mg/L 05/08/2025 10:05 PM EDT [employer] Blood VENOUS BLOOD / Unknown Venipuncture / Unknown 05/08/2025 3:50 PM EDT 05/08/2025 3:53 PM EDT Alberta MAYORGA CHEMISTRY ORDERABLES Final Resu lt Performing Organization Address City/[facility]/ZIP Co de Phone Number [employer] [address] [place] [address] , [address] [place] [phone] * SEDIMENTATION RATE AUTOMATED (05/08/2025 3:50 PM EDT) [facility] Sed Rate 12 0 - 20 mm/hr 05/08/2025 4:00 PM EDT [facility] Blood VENOUS BLOOD / Unknown Venipuncture / Unknown 05/08/2025 3:50 PM EDT 05/08/2025 3:53 PM EDT Alberta MAYORGA HEMATOLOGY ORDERABLES Final Res ult Performing Organization Address City/[facility]/ZIP Co de Phone Number [facility] [address] [place] [address] * HUMAN CHORIONIC GONADOTROPIN QUANTITATIVE (05/08/2025 3:50 PM EDT) [facility] Hcg Quant <1 <5 mIU/mL 05/08/2025 4:09 PM EDT [facility] Blood VENOUS BLOOD / Unknown Venipuncture / Unknown 05/08/2025 3:50 PM EDT 05/08/2025 3:53 PM EDT Narrative [facility] - 05/08/2025 4:09 PM EDT Female (non-): 0-4.9 mIU/mL Female (postmenopausal): 0-8.1 mIU/mL Indeterminate values for (e.g., 5-25 mIU/mL) may be confirmed with a repeat test in 48-72 hours. Values in should double every 2-3 days for the first six weeks. Ingestion of nelly doses of biotin (>5 mg/day) taken within 8 hours of drawing blood sample can interfere with this immunoassay test. us Alberta MAYORGA CHEMISTRY ORDERABLES Final Resu lt [facility] [address] [place] [address] * (ABNORMAL) COMPREHENSIVE METABOLIC PANEL (05/08/2025 3:50 PM EDT) [facility] Sodium 141 136 - 145 mmol/L 05/08/2025 4:10 PM EDT [facility] Potassium 4.2 3.5 - 5.0 mmol/L 05/08/2025 4:10 PM EDT [facility] Chloride 101 98 - 107 mmol/L 05/08/2025 4:10 PM EDT [facility] Total CO2 30(H) 22 - 29 mmol/L 05/08/2025 4:10 PM EDT [facility] Anion Gap 10 7 - 16 mmol/L 05/08/2025 4:10 PM EDT [facility] Calcium 8.8 8.6 - 10.4 mg/dL 05/08/2025 4:10 PM EDT [facility] Glucose Lvl 155(H) 70 - 99 mg/dL 05/08/2025 4:10 PM EDT [facility] BUN 10 6 - 20 mg/dL 05/08/2025 4:10 PM EDT [facility] Creatinine 0.65 0.51 - 1.30 mg/dL 05/08/2025 4:10 PM EDT [facility] Albumin 3.9 3.5 - 5.2 gm/dL 05/08/2025 4:10 PM EDT [facility] Total Protein 6.3(L) 6.4 - 8.3 gm/dL 05/08/2025 4:10 PM EDT [facility] Bili Total 0.3 0.2 - 1.3 mg/dL 05/08/2025 4:10 PM EDT [facility] ALT 29 <=41 U/L 05/08/2025 4:10 PM EDT [facility] AST 32 <=40 U/L 05/08/2025 4:10 PM EDT [facility] Alk Phos 84 36 - 123 U/L 05/08/2025 4:10 PM EDT [facility] eGFR (CKD-EPIcr 2020) 113 >=60 mL/min/1.7 3 m2 05/08/2025 4:10 PM EDT [facility] Comment:Estimated GFR was ca lculated using the CKD-EPIcr (2020) equation refit without race. The equation is recommended by the National Kidney Foundation - [place] Society of Nephrology Task Force. Blood VENOUS BLOOD / Unknown Venipuncture / Unknown 05/08/2025 3:50 PM EDT 05/08/2025 3:53 PM EDT us Alberta MAYORGA CHEMISTRY ORDERABLES Final Resu lt [facility] [address] [place] [address] * CBC WITH DIFF (05/08/2025 3:50 PM EDT) WBC 7.3 3.7 - 10.3 x10(3)/mcL 05/08/2025 3:56 PM EDT [facility] RBC 4.60 3.90 - 5.20 x10(6)/mcL 05/08/2025 3:56 PM EDT [facility] Hgb 14.3 11.2 - 15.7 g/dL 05/08/2025 3:56 PM EDT [facility] Hct 43.2 34.0 - 45.0 % 05/08/2025 3:56 PM EDT [facility] MCV 93.9 80.0 - 100.0 fL 05/08/2025 3:56 PM EDT [facility] MCH 31.1 26.0 - 34.0 pg 05/08/2025 3:56 PM EDT [facility] MCHC 33.1 30.7 - 35.5 g/dL 05/08/2025 3:56 PM EDT [facility] RDW 11.9 <=14.9 % 05/08/2025 3:56 PM EDT [facility] Platelet 232 155 - 369 x10(3)/mcL 05/08/2025 3:56 PM EDT [facility] MPV 10.1 8.8 - 12.5 fL 05/08/2025 3:56 PM EDT [facility] Neut Percent 66.1 % 05/08/2025 3:56 PM EDT [facility] Comment:Neutrophils equals s egs plus bands Imm Gran% 0.3 % 05/08/2025 3:56 PM EDT [facility] Comment:Automated count of m etamyelocytes, myelocytes and promyelocytes. Lymph Percent 24.6 % 05/08/2025 3:56 PM EDT [facility] Webster Percent 6.5 % 05/08/2025 3:56 PM EDT [facility] Eos Percent 1.9 % 05/08/2025 3:56 PM EDT [facility] Baso Percent 0.6 % 05/08/2025 3:56 PM EDT [facility] Neut # 4.8 1.6 - 6.1 x10(3)/mcL 05/08/2025 3:56 PM EDT [facility] Comment:Neutrophils equals s egs plus bands IMMGRAN# 0.0 0.0 - 0.1 x10(3)/[facility] 05/08/2025 3:56 PM EDT [facility] Comment:Automated count of m etamyelocytes, myelocytes and promyelocytes. An absolute IG <0.1 is reported as 0.0. Lymph # 1.8 1.2 - 3.9 x10(3)/mcL 05/08/2025 3:56 PM EDT [facility] Webster # 0.5 0.3 - 0.9 x10(3)/[facility] 05/08/2025 3:56 PM EDT [facility] Eos# 0.1 0.0 - 0.5 x10(3)/[facility] 05/08/2025 3:56 PM EDT [facility] Baso # 0.0 0.0 - 0.1 x10(3)/[facility] 05/08/2025 3:56 PM EDT [facility] Blood VENOUS BLOOD / Unknown Venipuncture / Unknown 05/08/2025 3:50 PM EDT 05/08/2025 3:53 PM EDT us Alberta MAYORGA HEMATOLOGY ORDERABLES Final Res ult [facility] [address] [place] [address] documented in this encounter Visit Diagnoses Diagnosis Wound infection- Primary Posttraumatic wound infection not elsewhere classified Morbid obesity (HCC) Morbid obesity documented in this encounter Administered Medications Inactive Administered Medications - up to 1 most recent administrations Medication Order MAR Action Action Date Dose Rate Site HYDROcodone-acetaminophen (NORCO) 5-325 mg per tablet 1 Tablet 1 Tablet, Oral, ONCE, 1 dose, On Tue05/08/25 at 1545, Maximum adult dose of acetaminophen is 4000 mg from all sources in 24 hours. Given 05/08/2025 3:43 PM EDT 1 Tablet HYDROcodone-acetaminophen (NORCO) 5-325 mg per tablet 1 Tablet 1 Tablet, Oral, ONCE, 1 dose, On Tue05/08/25 at 1730, Maximum adult dose of acetaminophen is 4000 mg from all sources in 24 hours. Given 05/08/2025 5:29 PM EDT 1 Tablet sodium chloride 0.9% IV line flush 50 mL 50 mL, Intravenous, at 999 mL/hr, PRN, Starting on Tue05/08/25 at 1538, Until Tue05/08/25 at 2224, Line Care, Flush with 50 mL after IVPB to insure complete administration of the dose. May use the saline infusion to back flush IVPB tubing as needed., Use this order to document priming and flushing IV line after medication administration. sodium chloride 0.9% syringe 5-10 mL 5-10 mL, Intravenous, PRN, Starting on Tue05/08/25 at 1538, Until Tue05/08/25 at 2224, Line Care, Flush with 5 mL saline [...] Administered Medications Times are shown in EDT. Scheduled Medication Order 05/06/2025 05/07/2025 05/08/2025 HYDROcodone-acetaminophen (NORCO) 5-325 mg per tablet 1 Tablet (COMPLETED) 1 Tablet, Oral, ONCE, 1 dose, On Tue05/08/25 at 1545, Maximum adult dose of acetaminophen is 4000 mg from all sources in 24 hours. 1543 (Given - Provid er: Kami Gaines RN) HYDROcodone-acetaminophen (NORCO) 5-325 mg per tablet 1 Tablet (COMPLETED) 1 Tablet, Oral, ONCE, 1 dose, On Tue05/08/25 at 1730, Maximum adult dose of acetaminophen is 4000 mg from all sources in 24 hours. 1729 (Given - Provid er: Kami Corey RN) PRN Medication Order 05/06/2025 05/07/2025 05/08/2025 sodium chloride 0.9% IV line flush 50 mL 50 mL, Intravenous, at 999 mL/hr, PRN, Starting on Tue05/08/25 at 1538, Until Tue05/08/25 at 2224, Line Care, Flush with 50 mL after IVPB to insure complete administration of the dose. May use the saline infusion to back flush IVPB tubing as needed., Use this order to document priming and flushing IV line after medication administration. sodium chloride 0.9% syringe 5-10 mL 5-10 mL, Intravenous, PRN, Starting on Tue05/08/25 at 1538, Until Tue05/08/25 at 2224, Line Care, Flush with 5 mL saline [...] chloride 0.9% IV line flush 50 mL 05/08/2025 sodium chloride 0.9% syringe 5-10 mL 04/13 Nursing Count Last Ordered Date First Orde red Date NURSING COMMUNICATION 05/08/2025 IV Count Last Ordered Date First Orde red Date SALINE LOCK IV 1 05/08/2025 documented in this encounter Care Teams Bookie Relationship Specialty Start Date End Date Ab Lee MD PCP - General 09/15/08 documented as of this encounter
--- OUTSIDE RECORDS SUMMARY | 2025-05-10 13:45 | XMS_ITS | Encounter Summary ---
Author Organization [place] [address] Care Team Providers Care Patient Companion Name Role Phone Ab Lee MD Primary Care Provider [phone] Reason for Referral * In Office Procedure (Routine) - Pending Review Specialty Diagnoses / Procedures Referred By Contac t Referred To Contact Diagnoses Traumatic ulcer of right foot with necrosis of muscle (HCC) Procedures [place] DEBRIDEMENT SUBCUTANEOUS TISSUE 1ST 20 SQ CM/< Franko Page MD [address] [place] [address] Phone: tel: fax: Referral ID Status Reason Start Date Expiration Date V isits Requested Visits Authorized [id number] Pending Review 05/10/2025 05/10/2026 1 1 * (Routine) - Pending Review Specialty Diagnoses / Procedures Referred By Contac t Referred To Contact Diagnoses Full thickness burn of lower leg, initial encounter Procedures [facility] PRIMARY DRESSING Franko Page MD [address] [place] [address] Phone: tel: fax: Referral ID Status Reason Start Date Expiration Date V isits Requested Visits Authorized [id number] Pending Review 05/10/2025 05/10/2026 1 1 Reason for Visit * Reason Comments Wound Check * Consultation (Routine) - Pending Review Specialty Diagnoses / Procedures Referred By Contac t Referred To Contact Wound Care Diagnoses Wound Care Procedures [place] DEBRIDEMENT SUBCUTANEOUS TISSUE 1ST 20 SQ CM/< [place] DEBRIDEMENT MUSCLE &/FASCIA 1ST 20 SQ CM/< [place] DEBRIDEMENT BONE 1ST 20 SQ CM/< [place] DEBR[place]EMENT SUBCUTANEOUS TISSUE EA ADDL 20 SQ CM [place] DEBRIDEMENT MUSCLE &/FASCIA EA ADDL 20 SQ CM [place] DEBRIDEMENT BONE EACH ADDITIONAL 20 SQ CM [place] DEBRIDEMENT OPEN WOUND FIRST 20 SQ CM/< [place] DEBRIDEMENT OPN WND EA ADDL 20 SQ CM/PRT THEREOF [facility] [place] [address] [place] [address] Phone: tel: fax: Referral ID Status Reason Start Date Expiration Date Visits Requested Visits Authorized [id number] Pending Review Specialty Services Required 05/10/2025 05/10/2026 99 99 Encounter Details Date Type Department Care Team (Latest Contact Info) Description 05/10/2025 1:45 PM EDT - 05/10/2025 11:59 PM EDT Hospital Encounter [facility] W[facility] [place] [address] [place] [address] Franko Page MD [facility] [place] [place] [address] Full thickness burn of lower leg, initial encounter (Primary Dx); Traumatic ulcer of right foot with necrosis of muscle (HCC); Morbid obesity (HCC); Obesity hypoventilation syndrome (HCC); Tobacco abuse Discharge Disposition: Home or Self Care Social History Tobacco Use Types Packs/Day Years Used Date Smoking Tobacco: Former Cigarettes 1 10 Smokeless Tobacco: Never Alcohol Use Standard Drinks/Week Comments No 0 (1 standard drink = 0.6 oz pur e alcohol) [facility] Utilities Answer Date Recorded In the past 12 months has [employer] electric, gas, oil, or water company threatened to shut off services in your home? No 11/16/2024 Overall Financial Resource Strain (CARDIA) Answe r Date Recorded How hard is it for you to pa y for the very basics like food, housing, medical care, and heating? Not hard at all 11/16/2024 PHQ-2 Answer Date Recorded PHQ-2 Total Score 0 11/16/2024 [facility] - Occupational Stress [...] money to get more. Never true 11/16/2024 [facility] IP Transportation Answer D ate Recorded [...] Sign Reading Time Taken Comments Blood Pressure 111/62 05/10/2025 2:00 PM EDT Pulse 90 05/10/2025 2:00 PM EDT Temperature 36.8 C (98.3 F) 05/10/2025 2:00 PM EDT Respiratory Rate 16 05/10/2025 2:00 PM EDT Oxygen Saturation - - Inhaled Oxygen Concentration - - Weight 151 kg (333 lb) 05/10/2025 2:00 PM EDT Height 177.8 cm (5' 10 ) 05/10/2025 2:00 PM EDT Body Mass Index 47.78 05/10/2025 2:00 PM EDT documented in this encounter Functional [...] 11/17/2024 9:17 AM Soraida Willoughby RN documented as of this encounter Mental Status * Because of a physical, mental or emotional condition, does this person have serious difficulty concentrating, remembering or making decisions? Answer Entry Date Author No 11/17/2024 9:17 AM Soraida Willoughby RN documented in this encounter Medications at Time of Discharge ALPRAZolam (XANAX) 1 mg Oral TabletIndication s:Generalized anxiety disorder,Panic disorder with agoraphobia,Van c disorder,MIGUELINA (generalized anxiety disorder),Adjust ment disorder with anxiety,Anxiety and depression Take 1 Tablet by mouth 3 times daily as needed (anxiety). 90 Tablet 2 04/08/2025 doxycycline hyclate (VIBRA-TABS) 100 mg Oral Tablet Take 100 mg by mouth every 12 hours. esomeprazole (NEXIUM) 20 mg Oral Capsule, Delayed Release(E.C.) Take by mouth daily. FLUoxetine (PROZAC) 20 mg Oral Capsule TAKE 1 CAPSULE BY MOUTH DAILY 100 Capsule 1 04/15/2025 Gel Dressing Top Gel Apply 1 Each topically daily. 85 g 05/10/2025 linezolid (ZYVOX) 600 mg Oral Tablet Take 600 mg by mouth every 12 hours. dexmethylphenida te (FOCALIN) 10 mg Oral Tablet Take 1 Tablet by mouth 2 times daily. 60 Tablet 04/08/2025 documented as of this encounter Ordered Prescriptions Prescription Sig Dispense Quantity Refills Last Filled Start Date End Date Gel Dressing Top Gel Apply 1 Each topically daily. 85 g 05/10/2025 documented in this encounter Discharge Disposition Disposition Code Departure Means Destination Home or Self Care documented in this encounter Progress Notes * Franko Page MD - 05/10/2025 1:45 PM EDT Date of Visit: 05/10/2025 Referring Provider: Lashawn Whelan MD [address] [place] [address] DR DO[place], [facility] Presenting Chief Complaint/Reason for Consultation: Chief Complaint Patient presents with Wound Check HPI Arelis Bush is a 39 y.o. year old female patient with morbid obesity, obesity hypoventilation syndrome, HTN, fatty liver, TAD, fibromyalgia, hidradenitis suppurativa, PCOS, and history of TIA. Patient has been referred to us by Dr. Whelan for a dorsal right foot ulcer secondary to a suspected recluse spider bite and a thermal burn to the right medial calf. On chronic Doxy for HS. Patient states that in late March she developed a small area of phlebitis involving her right medialcalf for which she started using a heating pad and subsequently caused a full-thickness burn to hercalf. The following day she noticed a red, swollen, tender area over the dorsal right proximal midfoot of unclear etiology. [place] like she got bit or stung by something. Over the next several days this area became progressively more swollen, red, with blistering. Once the blisters ruptured she subsequently was left with an open ulcer which has been very slow to heal. Patient has been applying trace appointment to the medial Burn and her foot ulcer daily and covering with a nonstick dressing. She had a recent swab of her burn which grew vancomycin sensitive Enterococcus. Also had a recent swab culture of her foot which has grown Pseudomonas aeruginosa. She was seen in the ED on 05/08/2025 for these chen. Was placed on Zyvox and continued on her chronic suppressive Doxy. Had an x-ray of her right foot which did not show any evidence of bone destruction or significant deformities. Patient lives in [place] with her significant other. She vapes. She is not diabetic. 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 Not presently working as she is on FMLA. Medical History: Past Medical History: Diagnosis Date Anxiety Brain ischemia october 2012 Concussion hit her head Oct 23 Dystonia Fibromyalgia Fibromyalgia Heartburn Hypertension Miscarriage 2013 Obese PCOS (polycystic ovarian syndrome) TIA (transient ischemic attack) Past Surgical History: Procedure Laterality Date CHOLECYSTECTOMY 05/2016 GENITAL WARTS SURGERY WISDOM TOOTH EXTRACTION Medications: Current Outpatient Medications: ALPRAZolam (XANAX) 1 mg Oral Tablet, Take 1 Tablet by mouth 3 times daily as needed (anxiety)., Disp: 90 Tablet, Rfl: 2 dexmethylphenidate (FOCALIN) 10 mg Oral Tablet, Take 1 Tablet by mouth 2 times daily., Disp: 60 Tablet, Rfl: 0 doxycycline hyclate (VIBRA-TABS) 100 mg Oral Tablet, Take 100 mg by mouth every 12 hours., Disp: , Rfl: esomeprazole (NEXIUM) 20 mg Oral Capsule, Delayed Release(E.C.), Take by mouth daily., Disp: , Rfl: FLUoxetine (PROZAC) 20 mg Oral Capsule, TAKE 1 CAPSULE BY MOUTH DAILY, Disp: 100 Capsule, Rfl: 1 linezolid (ZYVOX) 600 mg Oral Tablet, Take 600 mg by mouth every 12 hours., Disp: , Rfl: Gel Dressing Top Gel, Apply 1 Each topically daily., Disp: 85 g, Rfl: 0 Current Facility-Administered Medications: lidocaine (XYLOCAINE) 5 % ointment, , Topical, Once, Franko Page MD Allergies: Allergies Allergen Reactions Chocolate Flavor Itching Thiazides Swelling Adhesive Tape-Silicones Amitriptyline Bromphed Lisinopril Other (See Comments) Angiodema Rexulti [Brexpiprazole] Nausea And Vomiting Social History: Social History Tobacco Use Smoking status: Former Current packs/day: 1.00 Average packs/day: 1 pack/day for 10.0 years (10.0 ttl pk-yrs) Types: Cigarettes Smokeless tobacco: Never Substance Use Topics Alcohol use: No Alcohol/week: 0.0 oz Family History: Family History Problem Relation Age of Onset Stroke Mother Diabetes Father Heart Disease Father High Blood Pressure Father Review Of Systems: CONSTITUTIONAL: Negative. HEENT: Negative PULMONARY: Negative CARDIAC: Negative GI: Negative : Negative MS: Negative NEURO: Negative PSYCH: Negative SKIN: Negative ENDOCRINE: Negative Physical Exam: Vitals: 05/10/25 1400 BP: 111/62 Pulse: 90 Resp: 16 Temp: 98.3 ??F (36.8 ??C) TempSrc: Oral Weight: (!) 333 lb (151 kg) Height: 5' 10 (1.778 m) Constitutional Exam: Alert, calm, cooperative, morbidly obese, middle-aged white female in no acutedistress. HENT Exam: Head: Normocephalic. Cardiovascular Exam: Cardiac: Regular rhythm, normal rate. No murmurs. No jugular distention. Respiratory Exam: Normal respiratory rate and effort No wheezing or rales. Normal air movement. Normal breath sounds. Musculoskeletal Exam: Full range of motion without clubbing, cyanosis, edema. Right upper medial calf with 2 small irregularly-shaped subcutaneous ulcers covered with desiccated, thickened, fibrotic eschars which were gently unroofed. Under these were fairly clean subcutaneousulcers without evidence of infection or deep tracking. Debrided SQ. Right dorsal proximal midfoot with a 2.5 x 1.3 x 0.1 cm elliptical soft tissue ulcer covered with adesiccated, fibrotic, darkened eschar. This eschar was debrided off of the wound following local anesthetic with 1% lidocaine without epinephrine. Under the eschar was some mild fat necrosis which was cleaned up today. No signs of infection. Following debridement patient was left with a somewhat deep soft tissue ulcer extending down to level of fascia and muscle. No exposed tendons or bone. No signs of infection. Integumentary: No rashes. Abdominal: Soft, morbidly obese, nontender, nondistended, active bowel sounds. Vascular: Good palpable pulses in lower extremities. No edema noted. Normal capillary refill. Neurological Exam: Level of consciousness: Alert and oriented times four. Cranial nerves intact. Motor function is grossly intact. Sensory function grossly intact. Psychological: Normal affect. Ulcer Progress and Procedure Please refer to the LDA for details of ulcer progress and procedure. Assessment and Plan Arelis was seen today for wound check. Diagnoses and all orders for this visit: Full thickness burn of lower leg, initial encounter - [facility] PRIMARY DRESSING - [place] DRS&/DBRDMT PRTL-THKNS CHEN 1ST/SBSQ SMALL Traumatic ulcer of right foot with necrosis of muscle (HCC) - [place] DEBRIDEMENT SUBCUTANEOUS TISSUE 1ST 20 SQ CM/< Morbid obesity (HCC) Obesity hypoventilation syndrome (HCC) Tobacco abuse Other orders - [facility] NURSING COMMUNICATION - lidocaine (XYLOCAINE) 5 % ointment - Gel Dressing Top Gel; Apply 1 Each topically daily. Morbid obesity. Would benefit from an aggressive weight loss program. TAD. Will obviously slow healing down. Full thickness thermal burn right upper medial calf. Secondary to a heating pad. Currently with 2 small subcutaneous ulcers complicated by fibrous eschar which was unroofed today. Debrided down to healthier granulating tissue. No signs of infection. Should heal with clean moist wound dressings. Traumatic right dorsal foot ulcer. Suspected secondary to some type of insect bite. Patient believes it was a brown recluse spider, although spider never seen. Ulcer complicated by a thickened fibrous eschar and some underlying fat necrosis. No signs of secondary infection. Wound was thoroughly debrided today after local anesthetic down to much healthier tissue. Some depth down to the level of fascia and muscle. No significant leg edema to compromise healing. Good palpable pulses of both feet, so circulation appears adequate for healing. Plan/ Collagen gel with Xeroform overlay and a DSD, RG to right foot ulcer daily. Right surgical shoe. Collagen gel with Xeroform overlay to right upper medial calf burn daily with a MFB or similar bordered dressing. Tylenol or Advil for pain. Follow-up in 1 week. Finish Zyvox as prescribed. Call in interim with any signs or symptoms of infection. documented in this encounter Miscellaneous Notes * Patient Instructions - Kaitlynn Matias RN - 05/10/2025 1:45 PM EDT HOME-CARE INSTRUCTIONS FOLLOWING YOUR WOUND CARE VISIT: Please thoroughly read through your after visit summary for your Home-Care instructions related to your visit with us. Our wound care clinic team strives to heal your wound as quickly as possible with you as a huge part of that team. Phone numbers are listed at the end of your paperwork for who to call if you have any issues at home. We hope your wound care visit was excellent! If there were any issues during your visit, please askto speak with a member of the leadership team. Please keep in mind your follow up visits will take an average of 1 hour per visit from start to finish. Follow up wound care next with Dr. Alex We have sent in a prescription for the collagen gel to your pharmacy Collagen gel then cover with Xeroform Location: right foot and right leg Frequency:Daily Wash your hands and apply gloves. Cleanse wound with saline. Cut xeroform dressing with clean scissors to fit wound size. Apply dressing to wound bed. Cover with dry gauze and roll gauze. You can use a large band aid to the thigh area [facility] specialists have been consulted to obtain medical supplies for you. Theirphone number is if you need to contact them. Your orders will be faxed to them today. Protein is essential for wound healing. Protein can be found in meat, fish, yogurt, nuts, and peanut butter. Try to consume 80-100 grams of protein a day, unless instructed otherwise by your physician. Read your labels carefully. You can find additional information in your wound care information folder. We recommend 80-100 GRAMS OF PROTEIN PER DAY unless otherwise instructed by your provider: Protein Rich foods Typical Serving [place] butter 2 tablespoons = 7 grams protein Almonds 1 ounce = 6 grams protein Wick (cooked) 1 slice - 3 grams protein Beans (cooked legumes) 1/2 cup = 7 grams protein Beef, ground (cooked 95% lean) 3 ounces = 23 grams protein Beef, steak (sirloin) 3 ounces = 23 grams protein Cashew 1 ounce = 5 grams protein Cheese (varies by type) 1 ounce = 7 grams protein Link seeds 1 ounce = 4.7 grams protein Chicken breasts 4 ounces = 36 grams protein Chicken thighs 4 ounces = 28 grams protein Cottage cheese (2%) 1/2 cup = 13 grams protein Edamame (cooked) 1 cup = 17 grams protein Egg whites 1 large = 3.6 grams protein Eggs 1 large = 6 grams protein Fish, Cod 3 ounce = 15 grams protein Fish, halibut (cooked) 3 ounce = 19 grams protein Fish, salmon (cooked) 3 ounce = 21 grams protein Fish, Tilapia 3 ounce = 22 grams Czech Yogurt nonfat (varies by brand) 1 cup = 24 grams protein Hemp seeds 3 tablespoons (30 g) = 9 grams protein Hummus (varies by brand or recipe) 2 tablespoons = 2 grams of protein Peanut butter 2 tablespoons = 7 grams protein Peanuts 1 ounce = 7 grams protein [place] nuts 1 ounce = 4 grams protein Pork chops (lean, cooked) 3 ounces = 18 grams protein Pork, tenderloin 3 ounces = 22 grams protein Protein Powder (whey) 38 grams (1 scoop) = 30 grams protein pumpkin seeds 1 ounce = 5 grams protein Refried beans 1/2 cup = 7 grams protein Ricotta Cheese (part skim) 1/2 cup = 14 grams protein Shrimp (cooked) 3 ounces = 19 grams protein [place] seeds 1/4 cup = 6 grams protein Tempeh 1 cup = 31 grams protein Tofu 1/2 cup = 10 grams protein Tuna 3 ounces = 24 grams protein [place] breast 3 ounces = 26 grams protein [place], deli meat 4 ounces = 20 grams protein [place], ground (93% lean) 3 ounces = 16.5 grams protein Yogurt (lowfat, plain) 1 cup = 11 grams *Check the Nutritional Information label to verify for accurate serving size and nutritional values. Follow Up Information: Check wound and surrounding skin for signs and symptoms of infection, such as fever, increase in redness, increase in amount of drainage or a foul odor from the drainage. Should you experience any ofthe above symptoms, notice a significant change in the wound, or have questions or problems following these instructions, please contact the Wound Care Center. You may be contacted by mail or e-mail to participate in a patient satisfaction survey regarding your visit today. We value your opinion and depend on your feedback to make improvements and provide the best possible experience. Your time in completing this survey is greatly appreciated. If you haveany issues during your visit with us please feel free to contact the nursing leadership at any of our offices to address immediate concerns. If you are in need of refills of any types of any types of medication that we have prescribed. It is best to contact your pharmacy to send a refill request electronically to our office. This is the best way to get your provider the information the most timely. Please note if you have paperwork that needs to be completed by our office for you such as disability, FMLA, etc... We will need 7-10 days to complete. Paperwork is not able to be completed on the same day. WHO TO CALL FOR PROBLEMS: Please call the wound care center with any problems or issues you may have after your visit or withany questions that may come up throughout the week. You can speak with a nurse or leave a non-urgent message for nursing using option #2. Each patient is assigned a case monitor who can assist with issues you may be having. Phones operate 8:00 am-4:30 pm Tuesday through Tuesday. We are closed on the . If you call after normal business hours and leave a message; please allow for up to 24 business hours fora response. Please do not leave any type of ???urgent?? messages on voicemail. We have an on-call nurse line available after-hours that can be reached by calling the main office number. Pressing option 3 after hours will transfer you to the nurse now helpline for after-hours immediate live support. Individual office numbers are listed below. Please follow the prompts. Office numbers: [phone] [facility] [phone] [facility] [phone] * Addendum Note - Kaitlynn Matias RN - 05/10/2025 1:45 PM EDTEncounter addended by: Kaitlynn Matias, RN on: 05/10/2025 4:45 PM Actions taken: Flowsheet accepted, Charge Capture section accepted * Addendum Note - Franko Page MD - 05/10/2025 1:45 PM EDTEncounter addended by: Farnko Page MD on: 05/12/2025 8:52 AM Actions taken: Clinical Note Signed, Charge Capture section accepted * Addendum Note - Kaitlynn Matias, RN - 05/10/2025 1:45 PM EDTEncounter addended by: Kaitlynn Matias, RN on: 05/14/2025 2:54 PM Actions taken: Charge Capture section accepted documented in this encounter Plan of Treatment Upcoming Encounters Date Type Department Care Team (Late st Contact Info) Description 05/30/2025 2:00 PM EDT Appointment [facility] Wound Care [facility] [place] [address] [place] [address] Nette [place], Maren [address] [id number] 05/31/2025 2:00 PM EDT Office Visit [facility] [address] [place] [address] Kanchan Torres, [facility] [address] [place] [address] Scheduled Orders Name Type Priority Associated Diagnoses Orde r Schedule [place] DEBRIDEMENT SUBCUTANEOUS TISSUE 1ST 20 SQ CM/< [place] Charge Routine Traumatic ulcer of right foot with necrosis of muscle (HCC) Ordered: 05/10/2025 [place] DRS&/DBRDMT PRTL-THKNS CHEN 1ST/SBSQ SMALL [place] Charge Routine Full thickness burn of lower leg, initial encounter Ordered: 05/10/2025 documented as of this encounter Goals Goal Patient Goal Type Associated Problems Recent Progress Patient-Stated? Author Wound Healing General Not on track(2024 10:41 AM EDT) No Kaitlynn Matias, RN Note: Wound Care Goals RIGHT FOOT AND RIGHT LEG Patient is an active participant in their wound care plan. Patient is attending wound care visits regularly as recommended by physician. Patient is following instructions on treatment plan including follow up appointments, dressing change recommendations, pressure relief if applicable, smoking cessation if applicable. Patient notifies wound care staff of any problems. Wound volume reduction goals 30% by week 4 50% by week 8 80% by week 12 100% by week 14 Nursing Diagnosis: Impairment of skin integrity as evidence by open wound. Risk for infection related to open wound. Nursing Interventions to assist with general wound healing. Assess pain status. Assess wound size, rodrick wound, drainage and odor. Educate patient and caregivers on signs and symptoms of infection, risk factors, wound care and importance of prompt treatment. Obtain initial physician orders for appropriate dressing to maintain microenvironment conducive to healing. For foot or leg ulcers: Assess for peripheral edema. If present , measure ankle, calf and foot circumference on initial visit and as indicated. Palpate pedal pulses. Use doppler if unable to palpate dorsalis pedal or posterior tibial pulses. documented as of this encounter Visit Diagnoses Diagnosis Full thickness burn of lower leg, initial encounter- Primary Traumatic ulcer of right foot with necrosis of muscle (HCC) Morbid obesity (HCC) Morbid obesity Obesity hypoventilation syndrome (HCC) Obesity hypoventilation syndrome Tobacco abuse Tobacco use disorder documented in this encounter Administered Medications Inactive Administered Medications - up to 1 most recent administrations Medication Order MAR Action Action Date Dose Rate Site lidocaine (XYLOCAINE) 5 % ointment Topical, ONCE, 1 dose, On Tue05/10/25 at 1500, Application site: right foot and foot Given 05/10/2025 4:03 PM EDT documented in this encounter Historical Medications * This list may reflect changes made after this encounter. linezolid (ZYVOX) 600 mg Oral Tablet Take 600 mg by mouth every 12 hours. doxycycline hyclate (VIBRA-TABS) 100 mg Oral Tablet Take 100 mg by mouth every 12 hours. added in this encounter Orders Medications Ordered That Cornelius ht Not Have Been Administered Count Last Ordered Date First Ordered Date lidocaine (XYLOCAINE) 5 % ointment 1 2024 Nursing Count Last Ordered Date First Orde red Date AMB NURSING COMMUNICATION 1 05/10/2025 AMB [facility] PRIMARY DRESSING 1 05/10/2025 documented in this encounter Care Teams Patient Companion Relationship Specialty Start Date End Date Ab Lee MD PCP - General 09/15/08 documented as of this encounter
--- OUTSIDE RECORDS SUMMARY | 2025-05-16 09:03 | XMS_ITS | Encounter Summary ---
Author Organization [place] [address] Care Team Providers Care Medical Support Specialist Name Role Phone Ab Lee MD Primary Care Provider [phone] Reason for Referral * In Office Procedure (Routine) - Pending Review Specialty Diagnoses / Procedures Referred By Contac t Referred To Contact Diagnoses Full thickness burn of lower leg, initial encounter Skin ulcer of right foot with necrosis of muscle (HCC) Procedures MS DEBRIDEMENT SUBCUTANEOUS TISSUE 1ST 20 SQ CM/< Alexandro Alex MD [address] [place] [address] Phone: tel: fax: Referral ID Status Reason Start Date Expiration Date V isits Requested Visits Authorized [id number] Pending Review 05/16/2025 05/16/2026 1 1 * (Routine) - Pending Review Specialty Diagnoses / Procedures Referred By Contac t Referred To Contact Diagnoses Full thickness burn of lower leg, initial encounter Procedures [facility] PRIMARY DRESSING Alexandro Alex MD [address] [place] [address] Phone: tel: fax: Referral ID Status Reason Start Date Expiration Date V isits Requested Visits Authorized [id number] Pending Review 05/16/2025 05/16/2026 1 1 Reason for Visit * Reason Comments Wound Check * Consultation (Routine) - Pending Review Specialty Diagnoses / Procedures Referred By Contac t Referred To Contact Wound Care Diagnoses Wound Care Procedures MS DEBRIDEMENT SUBCUTANEOUS TISSUE 1ST 20 SQ CM/< MS DEBRIDEMENT MUSCLE &/FASCIA 1ST 20 SQ CM/< MS DEBRIDEMENT BONE 1ST 20 SQ CM/< MS DEBRIDEMENT SUBCUTANEOUS TISSUE EA ADDL 20 SQ CM MS DEBRIDEMENT MUSCLE &/FASCIA EA ADDL 20 SQ CM MS DEBRIDEMENT BONE EACH ADDITIONAL 20 SQ CM MS DEBRIDEMENT OPEN WOUND FIRST 20 SQ CM/< MS DEBRIDEMENT OPN WND EA ADDL 20 SQ CM/PRT THEREOF [facility] [place] [address] [place] [address] Phone: tel: fax: Referral ID Status Reason Start Date Expiration Date Visits Requested Visits Authorized [id number] Pending Review Specialty Services Required 05/10/2025 05/10/2026 99 99 Encounter Details Date Type Department Care Team (Latest Contact Info) Description 05/16/2025 9:03 AM EDT - 05/16/2025 11:59 PM EDT Hospital Encounter [facility] [place] [address] [address] Alexandro Alex MD [address] [place] [address] Full thickness burn of lower leg, initial encounter (Primary Dx); Skin ulcer of right foot with necrosis of muscle (HCC) Discharge Disposition: Home or Self Care Social History Tobacco Use Types Packs/Day Years Used Date Smoking Tobacco: Former Cigarettes 1 10 Smokeless Tobacco: Never Alcohol Use Standard Drinks/Week Comments No 0 (1 standard drink = 0.6 oz pur e alcohol) [facility] Utilities Answer Date Recorded In [...] Date Recorded PHQ-2 Total Score 0 11/16/2024 [facility] [place] of Occupat ional Health - Occupational Stress [...] Never true 11/16/2024 [facility] IP Transportation Answer [...] Sign Reading Time Taken Comments Blood Pressure 149/86 05/16/2025 9:13 AM EDT Pulse 101 05/16/2025 9:13 AM EDT Temperature 36.1 C (97 F) 05/16/2025 9:13 AM EDT Respiratory Rate 18 05/16/2025 9:13 AM EDT Oxygen Saturation - - Inhaled Oxygen Concentration - - Weight - [...] as needed (anxiety). 90 Tablet 2 04/08/2025 dexmethylphenida te (FOCALIN) 10 mg Oral Tablet Take 1 Tablet by mouth 2 times daily. 60 Tablet 05/15/2025 doxycycline hyclate (VIBRA-TABS) 100 mg Oral Tablet [...] 600 mg by mouth every 12 hours. documented as of this encounter Discharge Disposition Disposition Code Departure Means Destination Home or Self Care documented in this encounter Progress Notes * Alexandro Alex MD - 05/16/2025 9:15 AM EDT Date of Visit:05/16/2025 Progress Note HPI Arelis Bush is a 39 y.o. [...] dorsal right proximal midfoot of unclear etiology. [place] like she got bit or stung by [...] in the ED on 05/08/2025 for these cehn. Was placed on Zyvox and continued on her chronic suppressive Doxy. Had an x-ray of her right foot which did not show any evidence of bone destruction or significant deformities. 05/16/25 No positive progression past week. ATBX prescribed by other. Wounds upper leg debrided, xeroform. Foot wound debrided and because of depth changed to WTD. Slough in all wounds. Foot wound injected with 2% Lidocaine With prior to debridement. Patients past medical, family and social histories were reviewed and updated. There were no changesexcept as noted. ROS See HPI for further details. Relevant review of systems otherwise negative. Physical Exam Vitals: 05/16/25 0913 BP: 149/86 Pulse: 101 Resp: 18 Temp: 97 ??F (36.1 ??C) TempSrc: Forehead Ulcer Progress and Procedure Please refer to the LDA for details of ulcer progress and procedure. Assessment and Plan Arelis was seen today for wound check. Diagnoses and all orders for this visit: Full thickness burn of lower leg, initial encounter - [facility] PRIMARY DRESSING Skin ulcer of right foot with necrosis of muscle (HCC) Other orders - lidocaine (XYLOCAINE) 5 % ointment - lidocaine-EPINEPHrine injection 5 mL 3. Discussed appropriate care of this ulcer: . 4. Patient instructions were given 5. Follow- up 1 week. documented in this encounter Miscellaneous Notes * Patient Instructions - Lea Oropeza RN - 05/16/2025 9:15 AM EDT HOME-CARE INSTRUCTIONS FOLLOWING YOUR WOUND CARE [...] Follow up wound care next with Dr. Isai Best FOOT- Normal saline wet to dry dressing- daily RLE- Collagen gel then cover with Xeroform Location: right leg Frequency:Daily Wash your hands and apply gloves. Cleanse wound with saline. Cut xeroform dressing with clean scissors to fit wound size. Apply dressing to wound bed. Cover with dry gauze and roll gauze. You can use a large band aid to lower leg Normal Saline Dressing Location: Right foot Frequency: Daily You will need scissors and, perhaps tweezers, if you are using ribbon gauze that comes in a bottle.Clean scissors and tweezers between uses with soap and water. Don???t use them for anything but your dressing changes. You???ll also need a plastic bag to deposit your old dressing in. 1. Wash your hands with soap and water. 2. Ensure that the old dressing is removed completely. Place it in the plastic bag and throw it in the trash. 3.Clean the wound with normal saline. 4. Moisten gauze square with Normal Saline, and squeeze out the excess moisture. If you are using ribbon gauze, cut a strip of gauze and moisten it with Normal Saline, then squeeze out excess moisture. (Do not cut gauze squares as fibers can come loose and stick in the wound.) It is important to use only 1 piece of gauze if you are packing a deep wound. 5. Place the moist gauze in the wound against the base of the wound. Do not allow the moist gauze to cover the normal skin around the wound. Wet gauze on normal skin can cause it to turn white and break down more easily. This is called maceration. 6. Cover the moist gauze with dry gauze. 7. If your wound is on an arm or leg, wrap the area with the wound with the rolled gauze and tape the rolled gauze. Avoid putting tape on your skin. If your wound is not on an extremity, you may haveto tape down the dressing. Use as little tape as you need to do the job and use hypoallergenic tape. Don???t stretch the skin as you tape. This can cause blisters under the tape. 8. Wash your hands again and put away your supplies in a clean, dry place. [facility] has been contacted to obtain your wound care supplies. Their team will verify insurance coverage and should deliver supplies to your home within 24-48hours. Some insurance providers require a prior authorization which may take longer. Please call their customer service team if you have supply questions . Protein is essential for wound healing. Protein [...] your provider: Protein Rich foods Typical Serving [place] butter 2 tablespoons = 7 grams protein [...] Fish, Tilapia 3 ounce = 22 grams Gabonese Yogurt nonfat (varies by brand) 1 cup = 24 grams protein Hemp seeds 3 tablespoons (30 g) = 9 grams protein Hummus (varies by brand or recipe) 2 tablespoons = 2 grams of protein Peanut butter 2 tablespoons = 7 grams protein Peanuts 1 ounce = 7 grams protein [place] nuts 1 ounce = 4 grams protein [...] (cooked) 3 ounces = 19 grams protein [place] seeds 1/4 cup = 6 grams protein Tempeh 1 cup = 31 grams protein Tofu 1/2 cup = 10 grams protein Tuna 3 ounces = 24 grams protein [place] breast 3 ounces = 26 grams protein [place], deli meat 4 ounces = 20 grams protein [place], ground (93% lean) 3 ounces = 16.5 [...] option #2. Each patient is assigned a trimming caser who can assist with issues you may be having. Phones operate 8:00 am-4:30 pm Tuesday through Tuesday. We are closed on the s. If you call after normal business hours [...] below. Please follow the prompts. Office numbers: [phone] [address]. [phone] [place]- [phone] * Addendum Note - Lea Oropeza RN - 05/16/2025 9:15 AM EDTEncounter addended by: Lea Oropeza, JUDI on: 05/16/2025 2:50 PM Actions taken: Flowsheet accepted, Charge Capture section accepted * Addendum Note - Lea Oropeza RN - 05/16/2025 9:15 AM EDTEncounter addended by: Lea Oropeza, JUDI on: 05/16/2025 3:46 PM Actions taken: Flowsheet accepted * Addendum Note - Lea Oropeza RN - 05/16/2025 9:15 AM EDTEncounter addended by: Lea Oropeza RN on: 05/16/2025 4:07 PM Actions taken: Order list changed, Diagnosis association updated documented in this encounter Plan of Treatment Upcoming Encounters Date Type Department Care Team (Late st Contact Info) Description 05/30/2025 2:00 PM EDT Appointment [facility] [address] [place] [address] Nette Rags[place], SHIMA [address] [address] 05/31/2025 2:00 PM EDT Office Visit [facility] [address] [place] [address] Kanchan Torres LCSW [address] [place] [address] Scheduled Orders Name Type Priority Associated Diagnoses Orde r Schedule MS DEBRIDEMENT SUBCUTANEOUS TISSUE 1ST 20 SQ CM/< MS Charge Routine Full thickness burn of lower leg, initial encounter Skin ulcer of right foot with necrosis of muscle (HCC) Ordered: 05/16/2025 MS JUANITO&/PARISH PRTL-THKNS CHEN 1ST/SBSQ SMALL MS Charge Routine Full thickness burn of lower leg, initial encounter Skin ulcer of right foot with necrosis of muscle (HCC) Ordered: 05/16/2025 documented as of this encounter Goals Goal Patient Goal Type Associated Problems Recent Progress Patient-Stated? Author Wound Healing General Not on track(2024 10:41 AM EDT) Kaitlynn Castelan, RN Note: Wound Care Goals RIGHT FOOT [...] burn of lower leg, initial encounter- Primary Skin ulcer of right foot with necrosis of muscle (HCC) documented in this encounter Administered Medications Inactive Administered Medications - up to 1 most recent administrations Medication Order MAR Action Action Date Dose Rate Site lidocaine (XYLOCAINE) 5 % ointment Topical, ONCE, 1 dose, On Afia 05/16/25 at 0945, Application site: RLE Given 05/16/2025 9:35 AM EDT lidocaine-EPINEPHrine injection 5 mL 5 mL, Infiltration, ONCE, 1 dose, On Afia 05/16/25 at 1030 Given 05/16/2025 10:16 AM EDT 5 mL documented in this encounter Orders Nursing Count Last Ordered Date First Orde red Date AMB W[facility] PRIMARY DRESSING 1 05/16/2025 documented in this encounter Care Teams Medical Support Specialist Relationship Specialty Start Date End Date Ab Lee MD PCP - General 09/15/08 documented as of this encounter
--- OUTSIDE RECORDS SUMMARY | 2025-05-20 13:00 | XMS_ITS | Encounter Summary ---
Author Organization [place] [address] Care Team Providers Care Needle Polisher Name Role Phone Ab Lee MD Primary Care Provider [phone] Reason for Visit * Reason Comments Depression Arelis reports sympt oms of depression that include little interest or pleasure in doing things, feeling down/depressed daily, fatigue, and negative thoughts/core beliefs of self. She stated, I am having a really hard time with adjustments. Anxiety Arelis reports sympt oms of anxiety that include feeling nervous/anxious/on-edge daily, difficulty controlling worry thoughts and relaxing, becoming easily annoyed/irritated, and feeling afraid. * Consultation (Routine) - Pending Review Specialty Diagnoses / Procedures Referred By Rao katz Referred To Contact Public Health Veterinarian / Behavioral Health Diagnoses Counseling, unspecified Procedures OK PSYCHOTHERAPY W/PATIENT 45 MINUTES OK PSYCHOTHERAPY W/PATIENT 60 MINUTES Kanchan Torres LCSW [address] [place] [address] Phone: tel: fax: Kanchan Torres LCSW [address] [place] [address] Phone: tel: fax: Referral ID Status Reason Start Date Expiration Date V isits Requested Visits Authorized [id number] Pending Review 05/01/2025 05/01/2026 99 99 Encounter Details Date Type Department Care Team (Late st Contact Info) Description 05/20/2025 1:00 PM EDT Telemedicine [address] [address] Kanchan Torres, MAGNETIC PROSPECTING SUPERVISOR [address] [facility] [place] [address] Major depressive disorder, recurrent episode, moderate with anxious distress (HCC) (Primary Dx) Social History Tobacco Use Types Packs/Day Years Used Date Smoking Tobacco: Former Cigarettes 1 10 Smokeless Tobacco: Never Alcohol Use Standard Drinks/Week Comments No 0 (1 standard drink = 0.6 oz pur e alcohol) [facility] Utilities Answer Date Recorded In the [...] Date Recorded PHQ-2 Total Score 0 11/16/2024 [facility] - Occupational Stress Questionnaire Answer Date Recorded [...] money to get more. Never true 11/16/2024 [facility] IP Transportation Answer D ate [...] as of this encounter Functional Status * Is the [...] Soraida Willoughby RN documented in this encounter Progress Notes * Kanchan Torres, MAGNETIC PROSPECTING SUPERVISOR - 05/20/2025 1:00 PM EDT INITIAL PSYCHOSOCIAL ASSESSMENT Chief Complaint Patient presents with Depression Arelis reports symptoms of depression that include little interest or pleasure in doing things, feeling down/depressed daily, fatigue, and negative thoughts/core beliefs of self. She stated, I am having a really hard time with adjustments. Anxiety Arelis reports symptoms of anxiety that include feeling nervous/anxious/on-edge daily, difficulty controlling worry thoughts and relaxing, becoming easily annoyed/irritated, and feeling afraid. Begin Time: 1:00 pm End Time: 2:00 pm History of Present Illness: Arelis Bush is a 39 y.o. yo female who appears via telehealth today for treatment of anxiety and depression symptoms. Client presented today for routine care follow-up through a video visit. Client has reviewed the terms and conditions of service as part of the registration for today's visit. Client is aware that a video visit does not replace a avth-od-dxsa exam and further services may be necessary. Client is advised that we are conducting the video visit in a private space on a secure network and this video visit is being conducted in accordance with [facility] telehealth/video visit regulations. Clienthad no questions prior to initiation of the visit. Client is located in the [facility] REVIEW OF SYSTEMS Psychiatric ROS - Manic symptoms -no Depression symptoms-yes Psychosis-no Anxiety-yes Problems with sleep-yes Appetite changes- yes Weight changes-no Problems with energy- yes Lack of interest/pleasure/anhedonia- yes Safety - Client denies any current SI/HI and is appropriate for outpatient management. Client denies any history of violence. [place] Suicide Severity Rating Scale- Initial Screener 1) Have you wished you were or wished you could go to sleep and not wake up? Lifetime: Yes, I have. Past Month: Yes, 2) Have you actually had any thoughts of killing yourself? Lifetime: Yes, when I was younger. Past Month: No If YES to 2, ask questions 3,4,5, and 6. If NO to 2, go directly to question 6 3) Have you been thinking about how you might do this? Lifetime: not really Past month:No 4) Have you had these thoughts and had some intention of acting on them? Lifetime:No Past month:No 5) Have you started to work out or worked out the details of how to kill yourself, and do you intend to carry out this plan? Lifetime:No, not with intention. It's been like a fleeting thought. Past month: No. 6) Have you done anything, started to do anything, or prepared to do anything to end your life? Lifetime: No Past 3 months: No If YES to ANY, complete full Lifetime/Recent CSSR-S Low risk = yes to 1 or 2 in the past month Moderate risk = yes to 3 in the past month, yes to 4,5, or 6 lifetime High risk = yes to 4 or 5 in the past month, or yes to 6 in the past 3 months Self-harm: Have you ever engaged in any non-suicidal self-harming behavior[s]? Yeh, I used to cut when I was in high school. And then I got a little older and stopped. No self-harm reported since. Arelis reported, I would get so full of anger, because nobody ever listened to me. I never had a voice. So I would get angry and there was nowhere to vent. Mental Status Examination - Appearance:Neat Dress:Appropriate Psychomotor Activity:Normal Abnormal Involuntary Movement: I have muscle spasms when I lay down. I used to have this shaking, generalized dystonia was [dx] by a provider. Attitude:Cooperative Responsiveness:Alert and Engaging Speech:Coherent Mood:Depressed and Anxious Affect:Appropriate and Congruent Thought Process:Normal Associations, Alert, Coherent, Logical, and Organized Thought Content:No Disturbances Perception:No Disturbances Orientation:Person, Place, and Time Memory: poor. My immediate memory will be good. Timelines and time frames are [challenging]. Arelis reports TBI that I think [impacts memory]. Insight:Developing Judgement:Good it's middle of the road, pretty good. I don't make terrible choices. Estimated Reliability:Reliable Family Medical History: see intake forms previously Family Psychiatric History: Arelis reported, my grandmother had the worry and anxiety and my mother. My mom had the self-harm stuff and [SI]. Substance abuse, addicted to pills. My stepdad had [JENNIFER]. Drug and Alcohol Use History: 1) Are you currently in recovery for alcohol or substance abuse? No, but I had a problem with pills and I stopped. I have been clean for at minimum 7 years. 2) Men: How many times in the past year have you had 5 or more drinks in a day? Women: How many times in the past year have you had 4 or more drinks in a day? I rarely have a drink. Maybe one socially rarely. 3) How many times in the past year have you used a recreational drug or used a prescription medication for nonmedical reasons (methamphetamines, cannabis, inhalants, tranquilizers, barbiturates, cocaine, ecstasy, hallucinogens, or narcotics)? I had a small relapse about 6 months ago. But other than that, no. Social History: Currently employed. Reports 1 family member in life currently. Arelis reports divorce recently. amicable divorce. No other friends, most of them have relocated out of state. Other: Is there anything about yourself I haven't asked that you'd like me to know about you? Arelis reported, I don't think so. Progress Note - Arelis reported, I've been in therapy for a really long time. [several] therapists over the years.We did CBT... She stated, I'm having a really hard time with adjustments. Reported family passing away suddenly including a by suicide. Arelis had been to the [facility] for a bit recently. Arelis reported having being told I have PTSD and recommended EMDR. I have heard about complex PTSD, and had providers tell me I have complex issues. Began scaling distress in session [SUDs scale] and noted SUDs move from 10 to 6 as session progressed. Arelis reported on how she gets a blip of something [past traumatic visual] and then feel a hotflash and then I [put it away]. I feel like I am just surviving, for a long time now. Introduced small amount of psychoeducation around EMDR, and the neurophysiology of traumatic memorystorage and trauma response [fight/flight feeling]. Arelis verbalized understanding. Discussed frequency of visits and will attempt weekly to start [as schedule allows]. Tracking - Medication: 100% Homework: n/a Treatment Plan: 1) Stabilize symptoms of anxiety and depression. 2) Improve self esteem/confidence/motivation 3) Maintain compliance with recommended attendance in therapy 4) Client will go to the emergency room should plans of harming self or others should ever arise. 5) Follow up with PCP for any medical needs. 6) Identify and process triggers for depression and anxiety. 7) Learn and practice three new coping/self care strategies. 8) Identify, challenge and replace negative thought patterns. Reviewed Treatment Plan with Patient: Developing/TBD Referral for other services/treatment needed: no Assessment/Plan - Arelis was seen today for depression and anxiety. Diagnoses and all orders for this visit: Major depressive disorder, recurrent episode, moderate with anxious distress (HCC) Return in about 1 week (around 05/27/2025) for outpatient psychotherapy. Plan of Care - -Continue with medications as prescribed. -Attend individual therapy sessions regularly, 2 times per month as indicated. -Client to maintain contact with treatment providers regarding worsening of symptoms. -Complete activities/exercises in-between therapy sessions. Summary - 1. Open-ended questioning, reflective listening, psychoeducation, and solution focused interventions provided for gathering hx, developing rapport, and investigating tx options. 2. Safety: Client denies active SI/HI at this time, clinician feels that client is less than imminent risk of danger to self or others; client informed to go to ED if they feel unsafe or experience SI/HI 3. Call outpatient office for any problems. Tracking/Commitment sent links to [place] for PTSD, cPTSD, and EMDRIA Future Visit: ATTEMPT WEEKLY FREQUENCY INITIALLY ---intro window of toleranc ---finish ACEs and PCL-5 [dx PTSD] ---explored tx goals ---send video on EMDR and the brain and/or attachment vs authenticity STICKY NOTE Consent Reviewed: Discussed risks and benefits of psychotherapy with client. Diagnoses and course of treatment may change control analyst time due to changes in clinical presentation, new information/collateral, and/or response to treatment. Reviewed limits of confidentiality, including mandatory reporting as required by law. documented in this encounter Plan of Treatment Upcoming Encounters Date Type Department Care Team (Late st Contact Info) Description 05/30/2025 2:00 PM EDT Appointment [facility] [address] [place] [address] [facility] [address] [address] 05/31/2025 2:00 PM EDT Office Visit [facility] [address] [place] [address] Kanchan Torres LCSW [address] [place] [address] documented as of this encounter Goals Goal [...] as of this encounter Visit Diagnoses Diagnosis Major depressive disorder, recurrent episode, moderate with anxious distress (HCC)- Primary documented in this encounter Care Teams Needle Polisher Relationship Specialty Start Date End Date Ab Lee MD PCP - General 09/15/08 documented as of this encounter
--- OUTSIDE RECORDS SUMMARY | 2025-05-23 09:12 | XMS_ITS | Encounter Summary ---
Author Organization [place] [address] Care Team Providers Care Learning Coordinator Name Role Phone Ab Lee MD Primary Care Provider [phone] Reason for Referral * In Office Procedure (Routine) - Pending Review Specialty Diagnoses / Procedures Referred By Contac t Referred To Contact Diagnoses Full thickness burn of lower leg, initial encounter Skin ulcer of right foot with necrosis of muscle (HCC) Procedures CT DEBRIDEMENT SUBCUTANEOUS TISSUE 1ST 20 SQ CM/< Alexandro Alex MD [address] [place] [address] Phone: tel: fax: Referral ID Status Reason Start Date Expiration Date V isits Requested Visits Authorized [id number] Pending Review 05/23/2025 05/23/2026 1 1 * (Routine) - Pending Review Specialty Diagnoses / Procedures Referred By Contac t Referred To Contact Diagnoses Full thickness burn of lower leg, initial encounter Skin ulcer of right foot with necrosis of muscle (HCC) Procedures [facility] Alexandro Alex MD [address] [place] [address] Phone: tel: fax: Referral ID Status Reason Start Date Expiration Date V isits Requested Visits Authorized [id number] Pending Review 05/23/2025 05/23/2026 1 1 Reason for Visit * Reason Comments Wound Check * Consultation (Routine) - Pending Review Specialty Diagnoses / Procedures Referred By Contsevero t Referred To Contact Wound Care Diagnoses Wound Care Procedures CT DEBRIDEMENT SUBCUTANEOUS TISSUE 1ST 20 SQ CM/< CT DEBRIDEMENT MUSCLE &/FASCIA 1ST 20 SQ CM/< CT DEBRIDEMENT BONE 1ST 20 SQ CM/< CT DEBRIDEMENT SUBCUTANEOUS TISSUE EA ADDL [address] DEBRIDEMENT MUSCLE &/FASCIA EA ADDL [address] DEBRIDEMENT BONE EACH ADDITIONAL [address] DEBRIDEMENT OPEN WOUND FIRST 20 SQ CM/< CT DEBRIDEMENT OPN WND EA ADDL 20 SQ CM/PRT THEREOF [facility] [place] [address] [place] [address] Phone: tel: fax: Referral ID Status Reason Start Date Expiration Date Visits Requested Visits Authorized [id number] Pending Review Specialty Services Required 05/10/2025 05/10/2026 99 99 Encounter Details Date Type Department Care Team (Latest Contact Info) Description 05/23/2025 9:12 AM EDT - 05/23/2025 11:59 PM EDT Hospital Encounter [facility] [place] [address] [place] [address] Alexandro Alxe MD [facility] [place] [address] Full thickness burn of lower leg, initial encounter (Primary Dx); Skin ulcer of right foot with necrosis of muscle (HCC) Discharge Disposition: Home or Self Care Social History Tobacco Use Types Packs/Day Years Used Date Smoking Tobacco: Former Cigarettes 1 10 Smokeless Tobacco: Never Alcohol Use Standard Drinks/Week Comments No 0 (1 standard drink = 0.6 oz pur e alcohol) [facility] Utilities Answer Date Recorded In the [...] Date Recorded PHQ-2 Total Score 0 11/16/2024 [facility] [place] [facility] - Occupational Stress [...] money to get more. Never true 11[facility]16/2024 [facility] IP Transportation Answer D [...] Sign Reading Time Taken Comments Blood Pressure 149/81 05/23/2025 9:17 AM EDT Pulse 81 05/23/2025 9:17 AM EDT Temperature 36.6 C (97.8 F) 05/23/2025 9:17 AM EDT Respiratory Rate 18 05/23/2025 9:17 AM EDT Oxygen Saturation - - Inhaled [...] Progress Notes * Alexandro Alex MD - 05/23/2025 9:15 AM EDT Date of Visit:05/23/2025 Progress Note HPI Arelis Bush is a [...] dorsal right proximal midfoot of unclear etiology. [place] like she got bit or stung by [...] in the ED on 05/08/2025 for these hein. Was placed on Zyvox and continued on [...] with 2% Lidocaine With prior to debridement. 05/23/25 Slight improvement in one of three wounds. History reviewed. Burn leg and ??insect bite???Foot. Happened about same time. Debrided all. Collagen and DSD. My biggest concern is foot. Will appreciate second look from Dr. Coello. Debrided all wounds Patients past medical, family and social histories were reviewed and updated. There were no changesexcept as noted. ROS See HPI for further details. Relevant review of systems otherwise negative. Physical Exam Vitals: 05/23/25 0917 BP: 149/81 Pulse: 81 Resp: 18 Temp: 97.8 ??F (36.6 ??C) TempSrc: Oral Ulcer Progress and Procedure Please refer to the LDA for details of ulcer progress and procedure. Assessment and Plan Arelis was seen today for wound check. Diagnoses and all orders for this visit: Full thickness burn of lower leg, initial encounter - [facility] Skin ulcer of right foot with necrosis of muscle (HCC) - [facility] Other orders - lidocaine (XYLOCAINE) 5 % ointment 3. Discussed appropriate care of this ulcer: . 4. Patient instructions were given 5. Follow- up [address] Coello documented in this encounter Miscellaneous Notes * Patient Instructions - Cheri Turner RN - 05/23/2025 9:15 AM EDT HOME-CARE INSTRUCTIONS FOLLOWING YOUR WOUND CARE VISIT: Please thoroughly read through your after visit summary for your Home-Care instructions related to your visit with us. Our wound care clinic team strives to heal your wound as quickly as possible with you as a huge part of that team. Phone numbers are listed at the end of your paperwork for who tocall if you have any issues at home. We hope your wound care visit was excellent! If there were any issues during your visit, please askto speak with a member of the leadership team. Please keep in mind your follow up visits will take an average of 1 hour per visit from start to finish. FOLLOW UP WITH PODIATRY - NEXT TUESDAY DR COELLO Collagen Dressing Location: RIGHT LEG AND DORSAL FOOT Frequency: 3X WEEK Wash your hands and apply gloves. Cleanse wound with saline. Cut dressing with clean scissors to fit wound size. Apply dressing to wound bed. Moisten the dressing with saline or hydrogel if the wound bed is dry.Cover with dry gauze and roll gauze. NOTE: PATIENT HAS NO DME COVERAGE Protein is essential for wound healing. Protein [...] your provider: Protein Rich foods Typical Serving [place] butter 2 tablespoons = 7 grams protein [...] Fish, Tilapia 3 ounce = 22 grams Cymraes Yogurt nonfat (varies by brand) 1 cup = 24 grams protein Hemp seeds 3 tablespoons (30 g) = 9 grams protein Hummus (varies by brand or recipe) 2 tablespoons = 2 grams of protein Peanut butter 2 tablespoons = 7 grams protein Peanuts 1 ounce = 7 grams protein [place] nuts 1 ounce = 4 grams protein [...] (cooked) 3 ounces = 19 grams protein [place] seeds 1/4 cup = 6 grams protein Tempeh 1 cup = 31 grams protein Tofu 1/2 cup = 10 grams protein Tuna 3 ounces = 24 grams protein [place] breast 3 ounces = 26 grams protein [place], deli meat 4 ounces = 20 grams protein [place], ground (93% lean) 3 ounces = 16.5 [...] option #2. Each patient is assigned a manager gas who can assist with issues you may be having. Phones operate 8:00 am-4:30 pm Tuesday through Tuesday. We are closed on the holidays. If you call after normal business hours [...] below. Please follow the prompts. Office numbers: [phone] Trina [phone] [place]- [phone] * Addendum Note - Cheri Turner RN - 05/23/2025 9:15 AM EDTEncounter addended by: Cheri Turner RN on: 05/23/2025 2:27 PM Actions taken: Flowsheet accepted documented in this encounter Plan of Treatment Upcoming Encounters Date Type Department Care Team (Late st Contact Info) Description 05/30/2025 2:00 PM EDT Appointment [facility] [place] [address] [place] [place] [address] Nette Coello, [address] [place] [address] 05/31/2025 2:00 PM EDT Office Visit [facility] [address] [place] [address] Kanchan Torres LCSW [address] [place] [address] Scheduled Orders Name Type Priority Associated Diagnoses Orde r Schedule CT DEBRIDEMENT SUBCUTANEOUS TISSUE 1ST 20 SQ CM/< CT Charge Routine Full thickness burn of lower leg, initial encounter Skin ulcer of right foot with necrosis of muscle (HCC) Ordered: 05/23/2025 documented as of this encounter Goals Goal [...] ointment Topical, ONCE, 1 dose, On Afia 05/23/25 at 0945, Application site: RIGHT LEG AND RIGHT FOOT Given 05/23/2025 9:30 AM EDT documented in this encounter Orders Medications Ordered That Cornelius ht Not Have Been Administered Count Last Ordered Date First Ordered Date lidocaine (XYLOCAINE) 5 % ointment 1 2024 Nursing Count Last Ordered Date First Orde red Date AMB [facility] PRIMARY DRESSING 1 05/23/2025 documented in this encounter Care Teams Learning Coordinator Relationship Specialty Start Date End Date Ab Lee MD PCP - General 09/15/08 documented as of this encounter
[2025-05-29 11:16] VITALS: BP 165/106; PULSE 99; O2SAT 97
[2025-05-29 11:21] VITALS: BP 165/106; PULSE 103; RESP 16; TEMP 36.7; O2SAT 97; BMI 50.8
--- NOTE | 2025-05-29 11:24 | ED_ITS ---
<Statement entered by Ritika Donaldson DO - 05/29/25 15:08> I was consulted by the ANTHONY, and we discussed the complexity of problems being addressed. I approved the treatment plan and management plan of this patient's care in the emergency department, thus performing a substantive portion of medical decision making. Ritika Donaldson DO Discharge Plan Disposition Patient Disposition: Home, Self-Care Condition: Good Prescriptions Prescriptions: New prednisone 20 mg tablet 40 mg PO DAILY 5 Days Qty: 10 0RF No Action cephalexin 500 mg capsule 500 mg PO Q6H 5 Days Qty: 20 0RF linezolid 600 mg tablet 600 mg PO BID 14 Days Qty: 28 0RF ketorolac 10 mg tablet 10 mg PO Q8H 3 Days Qty: 9 0RF cephalexin 500 mg capsule 500 mg PO Q8H 7 Days Qty: 21 0RF sulfamethoxazole-trimethoprim [Bactrim DS] 800-160 mg tablet 1 tab PO BID 5 Days Qty: 10 0RF Referrals Follow up/Referrals: Provider,MD Leann [Referring, Medical] - See instructions Matthew Frost III, MD [Referring, Neurosurgery] - See instructions Activity Restrictions/Add. Instructions Additional Instructions/Restrictions: You were evaluated on an emergency basis. It is very important that you follow- up with your primary care provider and any specialist who we discussed within the next 2 days in order to better assess your health more comprehensively. For example, incidental findings on imaging or laboratory results that were performed today may be discovered, which do not require immediate medical care, but may impact your health in the future. If your symptoms worsen or persist, please return to the emergency department immediately for reassessment. Take all medications as prescribed. In queue for allowing me to participate in your health care, and I hope you feel better soon. Clinical Impressions Clinical Impression: Herniated intervertebral disc of lumbar spine Instructions Patient Instructions: DI for Low Back Pain Print Language Print Language: [place] Citizen Discharge ED Provider: Ritika Donaldson General Adult HPI General Chief complaint: Back Pain/Injury Stated complaint: pain lower back down to foot. loss of feeling Time Seen by Provider: 05/29/25 11:24 History of Present Illness HPI narrative: 39-year-old female presents emergency department with complaints of acute exacerbation of chronic back pain. States that she has had pain for the past couple of days. She denies any new injury to the area. She reports that she is predominantly having the pain on the left side of her thoracic and lumbar spine that radiates down her left leg. She states that she has had decree sensation to her left lower extremity. She reports following pain management in [place] and states she takes Flexeril and gabapentin currently. She also states she feels like she does not know when she needs to use the restroom however she denies any bowel or bladder incontinence. Related Data Previous Rx's ?Medication ?Instructions ?Recorded cephalexin 500 mg capsule 500 mg PO Q8H 7 days #21 cap s 04/06/25 ketorolac 10 mg tablet 10 mg PO Q8H pain 3 days #9 tabs 04/06/25 sulfamethoxazole 800 1 tab PO BID 5 days #10 tabs 04/09/25 mg-trimethoprim 160 mg tablet (Bactrim DS) cephalexin 500 mg capsule 500 mg PO Q6H 5 days #20 cap s 05/01/25 linezolid 600 mg tablet 600 mg PO BID 14 days #28 ta bs 05/05/25 prednisone 20 mg tablet 40 mg (2 x 20 mg) PO DAILY 5 days 05/29/25 #10 tabs Allergies Allergy/AdvReac Type Severity Reaction Status Date / Time amitriptyline AdvReac Unknown Verified 04/06/25 16:08 allergy reaction brompheniramine (From AdvReac Unknown Verified 04/06/25 16:08 Bromfed) allergy reaction chocolate AdvReac Unknown Verified 04/06/25 16:08 allergy reaction phenylephrine (From Bromfed) AdvReac Unknown Verified 04/06/25 16:08 allergy reaction pseudoephedrine (From AdvReac Unknown Verified 04/06/25 16:08 Bromfed) allergy reaction PFSH [facility] Disclaimer: The information contained in this section may have been updated after the patient was seen, as this information can be updated by other users. Social History (Updated 04/07/25 @ 00:13 by Catherine Diaz DO) Smoking Status: Current every day smoker alcohol intake: never current occupational status: employed Travel in the last 8 weeks?: None Have you lived/traveled outside US in past 30 days?: No Contact w/someone who lives/traveled outside US past 30 days?: No Exposure to someone with infectious disease in past 14 days?: No Do you have a fever (greater than 100.4 F or 38 C)?: No Have you tested positive for COVID-19?: No Exposed to someone with COVID-19 in past 14 days?: No Do you have a sore throat?: No Do you have a cough?: No Do you have any weakness?: No Do you have any diarrhea?: No Are you experiencing any unusual bleeding?: No Do you have any muscle aches/pain?: No Do you have any abdominal pain?: No Are you experiencing loss of taste or smell?: No ROS Obtained: Yes other Musculoskeletal Musculoskeletal: Reports back pain and Reports muscle weakness Physical Exam Narrative Physical exam: General: Awake, aware, in no acute distress HEENT: Normal cephalic, no evidence of trauma CV: RRR, no murmurs, rubs, or gallops Pulm: CTA bilaterally with no rhonchi, rales, or wheezes ABD: Nontender, no swelling, guarding, or rebound Neuro: ANO x 4, GCS 15, no focal deficits noted. Sensations intact with 2+ pulses in all extremities. Patient with 5 out of 5 strength in bilateral upper extremities with 3 out of 5 strength in bilateral lower extremities. Psych: Appropriate mood and affect Musculoskeletal: Patient reports diffuse pain over thoracic and lumbar area. Patient was able to ambulate into the emergency department with use of cane. General General appearance: alert Respiratory Respiratory exam: Present normal lung sounds bilaterally Cardiovascular Cardiovascular exam: Present regular rate Neurological Exam Neurological exam: Present alert Medical Decision Making Medical Records Screening: Per USPSTF and CDC recommendations, given the prevalence of disease in our region, it is our hospital?s policy to screen for HIV and viral Hepatitis for all patients aged 18 and over and those with ongoing risk factors. Ac Inquiry Pt receiving controlled substance: No Vital Signs: 05/29/25 11:16 05/29/25 11:21 05/29/25 11:45 Temperature 98.1 F Temperature Source Oral Pulse Rate 99 H 91 H Pulse Rate [Right Radial] 103 H Respiratory Rate 16 Blood Pressure 165/106 H 148/100 H Blood Pressure [Right Arm] 165/106 H Blood Pressure Mean [Right Arm] 125 Blood Pressure Source [Right Arm] Automatic Cuff Blood Pressure Position [Right Arm] Supine 02 Sat by Pulse Oximetry 97 97 97 Oxygen Delivery Method Room Air 05/29/25 12:01 Temperature Temperature Source Pulse Rate 70 Pulse Rate [Right Radial] Respiratory Rate Blood Pressure 124/81 Blood Pressure [Right Arm] Blood Pressure Mean [Right Arm] Blood Pressure Source [Right Arm] Blood Pressure Position [Right Arm] 02 Sat by Pulse Oximetry 94 L Oxygen Delivery Method Lab Data Lab Results 05/29/25 11:05: Urine Color Yellow, Urine Appearance Sl cloudy, Urine pH 5.0, Ur Specific [place] >= 1.030, Urine Protein Negative, Urine Glucose (UA) Negative, Urine Ketones Negative, Urine Blood Negative, Urine Nitrate Negative, Urine Bilirubin Negative, Urine Urobilinogen 0.2, Ur Leukocyte Esterase Negative, Urine RBC None, Urine WBC 3-5, Ur Squamous Epith Cells 3-5, Urine Bacteria Trace, Urine Yeast 1+ 05/29/25 11:20: WBC 7.0, RBC 4.92, Hgb 15.6, Hct 44.9, MCV 91.3, MCH 31.7 H, MCHC 34.7, RDW 11.9, Plt Count 267, MPV 10.7 H, Neut % (Auto) 66.3, Lymph % (Auto) 25.5, Fisher % (Auto) 5.9, Eos % (Auto) 1.0, Baso % (Auto) 1.0, Neut # (Auto) 4.6, Lymph # (Auto) 1.8, Fisher # (Auto) 0.4, Eos # (Auto) 0.1, Baso # (Auto) 0.1, Sodium 138, Potassium 3.5, Chloride 99, Carbon Dioxide 30, Anion Gap 12.5, BUN 11, Creatinine 0.60, Estimated Creat Clear 129, Estimated GFR 110, Est GFR ( Amer) 133, Glucose 146 H, Calcium 9.2, Magnesium 1.6, Total Bilirubin 0.8, AST 48 H, ALT 31, Alkaline Phosphatase 67, Total Protein 7.7, Albumin 4.6, Globulin 3.1, Albumin/Globulin Ratio 1.5, Acetaminophen < 10 L, HCV Ab ABI w/Rflx PCR Qn Negative, HIV Ag/Ab Combo Qual Negative 05/29/25 11:20 05/29/25 11:20 Orders (Tests/Meds): ED MEDICATIONS Discontinued Medications Generic Name Dose Route Start Last Admin Trade Name Freq PRN Reason Stop Dose Admin Dexamethasone Sodium Phosphate 8 mg 05/29/25 11:45 05/29/25 12:09 Dexamethasone 4mg/Ml 1ml Vial IV 05/29/25 11:46 8 mg ONCE ONE Administration Fluconazole 200 mg 05/29/25 13:13 05/29/25 13:24 Fluconazole 100mg Tablet PO 05/29/25 13:14 200 mg ONCE ONE Administration ORDERS Category Date Time Status Acetaminophen Stat Lab 05/29/25 11:20 Completed CBC w/Auto Diff [Complete Blood Count Auto Diff] Stat Lab 05/29/25 11:20 Completed CMP [Comprehensive Metabolic Panel] Stat Lab 05/29/25 11:20 Completed HIV Combo Stat Lab 05/29/25 11:20 Completed Hepatitis C Ab Qual. W/ RFX Stat Lab 05/29/25 11:20 Completed Magnesium Stat Lab 05/29/25 11:20 Completed Urinalysis and Microscopic Stat Lab 05/29/25 11:05 Completed Medical Decision Narrative: Initial impression of presenting illness: 39-year-old female with a history of chronic back pain presents to the emergency department complaints of acute exacerbation of this pain. He reports pain in her thoracic and lumbar areas. She denies any new injury to the area. She states she has been taking gabapentin and Flexeril without relief of symptoms. She reports she is followed by pain management in [place]. She also states that she feels like she is not aware when she needs to use the restroom but denies any bowel or bladder incontinence. He was able to ambulate into the emergency department using a cane. Differential diagnosis includes but is not limited to: Degenerative disc disease, musculoskeletal strain, herniated disc, cauda equina Patient arrives hemodynamically stable, afebrile, without respiratory distress with vital signs interpreted by myself. Initial physical exam reveals diffuse tenderness on palpation of thoracic and lumbar area. Patient is intact with 2+ pulses in all extremities. Patient with 5 out of 5 strength in bilateral upper extremities with 3 out of 5 strength in bilateral lower extremities. Rest of exam is unremarkable Initial diagnostic plan: Pre and post void bladder scan, dexamethasone for pain control, MRI Patient has informed nursing staff that she has also been taking 4500 mg of Tylenol daily for the past month. We will also check laboratory studies while she is here including a CMP for liver function. Results from initial plan were reviewed and interpreted by myself, pertinent positives include: Laboratory studies were nonactionable. Urinalysis negative for urinary tract infection however there was yeast present. Postvoid bladder scan was negative. MRI of the lumbar spine without contrast shows moderate L4/L5 left paracentral disc protrusion which compresses the left L5 nerve root. 5/S1 annular bulge which compresses the right S1 nerve root also present. Interventions in the ED: Patient was given Diflucan for yeast infection. She was also given dexamethasone for pain control. Patient was made aware of the results and the findings, upon reevaluation patient has remained stable throughout stay, symptoms remained stable. Upon evaluation patient is resting comfortably in bed with no signs of acute distress. Patient has not had any episodes of bowel or bladder incontinence during her ER stay. She has also tolerated oral medication without difficulty. Disposition: Reviewed findings workup with patient and informed no acute abnormalities were noted on her workup other than yeast infection. Advised her that she needed to follow-up with orthopedic spine provider for further evaluation of her ongoing back pain as well as her pain management provider. Encouraged her to continue taking her gabapentin and Flexeril as previously prescribed informed her that we will also add a course of steroids to help with pain. Directed her to return to the emergency department for any new or worsening symptoms. Is agreeable to plan of care Patient made aware of findings and had a detailed discussion with symptomatic care and return precautions, patient voiced understanding. Critical Care Critical Care Time Critical Care Time: No
--- OUTSIDE RECORDS SUMMARY | 2025-05-29 11:40 | XMS_ITS | Encounter Summary ---
Author Organization [facility] P Address [facility] [place] [address] Phone Care Team Providers Care Water Control Supervisor Name Role Phone Ab Lee MD Primary Care Provider [phone] Reason for Visit * Reason Comments Refill Request Encounter Details Date Type Department Care Team (Late st Contact Info) Description 06/25/2024 Refill [facility] [address] [place] [address] Thalia Flaherty MD [address] [place] [address] Chronic pelvic pain in female; [...] Date Job End Date [employer] [address] [employer]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 Flaherty Last pap date : 10/31/23 Result: Normal Last annual color sprayer exam date 10/31/23 Future office visit: none [...] Description 09/16/2025 8:30 AM EST Office Visit [facility] [address] [place] [address] Flores Dawn, POULTRY FARMER [address] [facility] [address] [place] [address] documented as of this encounter Visit Diagnoses Diagnosis Chronic pelvic pain in female Unspecified symptom associated with female genital organs General counseling and advice for contraceptive management Other general counseling and advice for contraceptive management documented in this encounter Care Teams Water Control Supervisor Relationship Specialty Start Date End Date Ab Lee MD PCP - General 11/13/07 documented as of this encounter
--- OUTSIDE RECORDS SUMMARY | 2025-05-29 11:40 | XMS_ITS | Encounter Summary ---
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
--- OUTSIDE RECORDS SUMMARY | 2025-05-29 11:40 | XMS_ITS | Clinical Summary ---
Author Organization [facility] Address [address] [place] [address] Phone Care Team Providers Care Soda Drier Feeder Name Role Phone Ab Lee MD Primary Care Provider [phone] Allergies Active Allergy Reactions Criticality Noted Date Comments Amitriptyline 12/14/2002 moser Vlvcxnzoc-Qkccrgtq-Hw Other (See Comments) 10/22/2013 Blacked out. Shaking, hallucinations Chocolate (Food) 11/21/2007 Sneeze, itch Diclofenac 12/14/2002 diarrhea Lisinopril Anaphylaxis High 11/20/2024 Metoprolol Anaphylaxis High 11/20/2024 Nitrofurantoin Angioedema,Anaphyla xis High 09/17/2021 Thiazide-Type Diuretics Other (See Comments) 01/04/2014 Increased liver enzymes Medications ALPRAZolam (XANAX) 1 MG TABSIndications: PRN Take 1 mg by mouth. Active nystatin (MYCOSTATIN) 659720 UNIT/GM POWD Apply topically 2 (two) times daily. 45 g 1 020 Active Multiple Vitamin (MULTIVITAMIN) TABS Take 1 tablet by mouth daily. Active ibuprofen (ADVIL,MOTRIN) 200 mg tablet Take 200 mg by mouth every 6 (six) hours as needed for Mild Pain (1-3). Active Liniments (BIOFREEZE EX) Apply topically. Active chlorhexidine (HIBICLENS) 4 % LIQD Apply topically daily. Apply daily in shower 236 mL 5 023 Active nystatin (MYCOSTATIN) 634646 UNIT/GM OINT Apply topically 2 (two) times daily. 30 g 1 024 Active ketoconazole (NIZORAL) 2 % CREA Apply to affected areas BID 60 g 1 024 Active Additional Information Patient taking differently: No details specified, Reason: PRN for HS, Reported on 04/17/2025 famotidine (PEPCID) 20 mg TABS Take 1 tablet by mouth 2 (two) times daily. 180 tablet 5 3:24 PM EDT 025 Active amLODIPine (NORVASC) 5 MG TABS Take 1 tablet by mouth daily. 30 tablet 5 2:21 PM EDT 025 Active norethindrone (JENCYCLA) 0.35 MG TABSIndications: Chronic pelvic pain in female,Encounter for surveillance of contraceptive pills TAKE 1 TABLET BY MOUTH DAILY 84 tablet 4 025 Active fluconazole (DIFLUCAN) 150 mg tabletIndication s:Yeast vaginitis One now and repeat in 3 days. 2 tablet 1 025 Active gabapentin (NEURONTIN) 400 MG CAPSIndications: Neuropathic Pain Take 1 capsule by mouth 4 (four) times daily as needed for up to 180 days. Indications: Neuropathic Pain 360 capsule 1 5 11:55 AM EDT 025 2024 Active predniSONE (DELTASONE) 10 mg tablet 6 TABS (ALL AT ONCE) FOR ONE DAY, THEN DECREASE ONE TAB/DAY UNTIL GONE 21 tablet 025 Active predniSONE (DELTASONE) 10 mg tablet TAKE 6 TABS (ALL AT ONCE) FOR ONE DAY, THEN DECREASE ONE TAB/DAY UNTIL GONE 21 tablet 5 3:07 PM EDT 025 Active triamcinolone (KENALOG) 0.1 % OINT Apply to rash on foot twice daily as needed 30 g 5 3:58 PM EDT 025 Active doxycycline (VIBRA-TABS) 100 MG TABSIndications: Hidradenitis suppurativa TAKE 1 TABLET BY MOUTH 2 TIMES A DAY 60 tablet 2 025 Active cyclobenzaprine (FLEXERIL) 5 MG TABSIndications: Muscle Spasm Take 1-2 tablets by mouth daily as needed for up to 60 days. Indications: Muscle Spasm 60 tablet 1 025 2024 Active hydroCHLOROthiaz edd (MICROZIDE) 12.5 MG CAPS TAKE 1 CAPSULE BY MOUTH EVERY MORNING 90 capsule Active amLODIPine (NORVASC) 2.5 MG TABS TAKE 1 TABLET BY MOUTH DAILY 90 tablet 025 Active cyclobenzaprine (FLEXERIL) 5 MG TABSIndications: Muscle Spasm Take 1-2 tablets by mouth daily as needed for up to 15 days. Indications: Muscle Spasm 30 tablet 11:34 AM EDT 025 2024 Discontinued(R eorder) hydroCHLOROthiaz edd (MICROZIDE) 12.5 MG CAPS Take 1 capsule by mouth every morning. 90 capsule 025 2024 Discontinued amLODIPine (NORVASC) 2.5 MG TABS Take 1 tablet by mouth daily. 90 tablet 025 2024 Discontinued doxycycline (VIBRA-TABS) 100 MG TABSIndications: Hidradenitis suppurativa TAKE 1 TABLET BY MOUTH 2 TIMES A DAY 60 tablet 025 2024 Discontinued Active Problems Problem Noted Date [...] Encounters Date Type Department Care Team Description 05/24/2025 Refill [facility] [address] [place] [phone] Ab Lee MD 05/01/2025 Telephone [facility] [address] [facility] [place] [address] Flores Dawn CNP 04/30/2025 Refill [facility] [address] [place] [address] [place] [phone] Thalia Singer, CONE TRUCKER Hidradenitis suppurativa 04/17/2025 3:15 PM EDT Office Visit [facility] [address] [facility] [place] [phone] Thalia Singer, MIKA Wound of foot (Primary Dx) 04/15/2025 1:45 PM EDT Office Visit [facility] [address] [place] [phone] Ab Lee MD Right foot pain (Primary Dx); Controlled type 2 diabetes mellitus without complication, without long-term current use of insulin 04/15/2025 Telephone [facility] [address] [place] [address] Ab Lee MD 03/26/2025 Telephone [facility] Central Scheduling [address] [facility] [place] [address] Ariel Malhotra MD 03/25/2025 Refill [facility] [address] [place] [address] Thalia Singer, MIKA Hidradenitis suppurativa (Primary Dx) 03/06/2025 9:45 AM EDT Office Visit [facility] [address] [place] [address] Ab Lee MD Chronic tension-type headache, not intractable (Primary Dx); Loss of balance; Muscle twitching; Family history of stroke; Depression, recurrent (HCC); Essential hypertension; Morbid obesity with BMI of 45.0-49.9, adult (HCC); Controlled type 2 diabetes mellitus without complication, without long-term current use of insulin 03/05/2025 Telephone [facility] [address] [place] [address] Clinton Howell, Registered Nurse 03/04/2025 9:50 AM EDT Office Visit [address] [address] Cinthya May PA Essential hypertension (Primary Dx) 03/04/2025 8:30 AM EDT Office Visit [facility] [place] [address] [address] Flores Dawn, MIKA Lumbar radiculopathy (Primary Dx); Facet arthritis of lumbar region; Encounter for medication management; High risk medication use; Neuropathic pain; Idiopathic peripheral neuropathy; Neuralgia and neuritis, unspecified; Left hip pain 02/28/2025 Refill [facility] [place] [facility] [address] [place] [address] Flores Dawn CNP Idiopathic peripheral neuropathy; High risk medication use; Neuropathic pain; Lumbar radiculopathy; Neuralgia and neuritis, unspecified; Left hip pain; Encounter for medication management 02/26/2025 Refill 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 on file Not on file [...] Visit [facility] [place] [facility] [address] [place] [address] Flores Dawn, CONE TRUCKER 100 [facility] [address] [place], [place] [id number] Health Maintenance Due Date Last Done Comments Eye Exam 1983 HPV (1 - 3-dose SCDM series) 2010 Pneumococcal 0-49 (2 of 2 - PCV) 10/23/2014 10/23/2013 Mammogram Screening 2023 06/04/2010 Cholesterol Diabetic 09/12/2024 06/20/2023, 11/28/2020, 07/23/2019, Additional history exists Foot Exam 09/12/2024 Microalb/Creat Ratio 09/12/2024 10/11/2023, 11/27/19 22 HbA1c 04/11/2025 10/12/2024, 1005/2023, 06/03/2022, Additional history exists COVID-19 Vaccine (2024- season) 2025 07/31/2021, 12/04/2020, 11/06/2020 Influenza Vaccine (#1) 2025 , 07/06/2019, 06/22/2017, [...] this topic Medical Devices Implanted Type Area Bullet Assembly Press Operator Device Identifier Shelf Expiration Date Model / Serial / Lot Gallbladder Clip-06/03/2016 Implanted: 016 (Quantity not on file) Clip ETHICON LIGAMAX 5MM CLIP / / Description:3T OR LESS MAX SPATIAL GRADIENT OF 6.5T/M 1.7 W/KG FOR 20 MIN OF SCANNING (PER SEQUENCE) Procedures Procedure Name Priority Date/Time Associated Diagnosis Comments CYTOLOGY WATER REUSE PROGRAM MANAGER Today 01/28/2025 6:22 PM EDT Encounter for [...] Relevant to Health Maintenance Results * CYTOLOGY WATER REUSE PROGRAM MANAGER (01/28/2025 6:22 PM EDT) CYTOLOGY-WATER REUSE PROGRAM MANAGER CYTOLOGY GYNECOLOGICAL REPORT Name: JAYA BUSH EPI#: [id number] Case #: [id number] Final Cytologic Diagnosis A. Thinprep Cervical/Endocervic al with HPV screen and 16/18 Genotyping if Indicated: Adequacy: Satisfactory for evaluation, ABSENT endocervical transformation zone component. Interpretation: Negative for intraepithelial lesion or malignancy. Fungal organisms morphologically consistent with Ana spp. This specimen has been analyzed by the [employer] Imaging System ([employer] an automated imaging and review system, which assists the physician assistant surgery and/or pathologist in evaluation of cells on [...] Normal Contraceptive History: OC/BCP Signed out at [facility], [address] [place] [address] [facility] Non-Formatted Report [facility] 01/28/2025 6:22 PM EDT 01/29/2025 9:04 AM EDT us Cielo Mock CNP PATHOLOGY/CYTOLOGY ORDERABLES Fi nal Result [facility] [address] [place] [address] * (ABNORMAL) CMP (BMP,TP,ALB,TBIL,ALK,AST,ALT) (12/15/2024 10:13 AM EDT) Pathologist [facility] SODIUM 137 135 - 145 mmol/L [facility] POTASSIUM 4.4 3.6 - 5.1 mmol/L [facility] CHLORIDE 105 98 - 111 mmol/L [facility] CO2 27 21 - 31 mmol/L [facility] GLUCOSE, RANDOM 167(H) 70 - 99 mg/dL [facility] BLD UREA NITROGEN 8 8 - 26 mg/dL [facility] CREATININE 0.71 0.60 - 1.20 mg/dL [facility] CALCIUM 8.4(L) 8.5 - 10.4 mg/dL [facility] TOTAL PROTEIN 6.2 6.0 - 8.0 g/dL [facility] ALBUMIN 3.8 3.5 - 5.7 g/dL [facility] TOTAL BILIRUBIN 0.4 0.0 - 1.2 mg/dL [facility] ALK PHOSPHATASE 70 35 - 135 IU/L [facility] AST 43(H) 10 - 40 IU/L [facility] ALT 33 10 - 60 IU/L [facility] ESTIMATED GFR 109 >59 mL/min/1.7 3 m2 [facility] Comment:Estimated GFR was ca lculated using the CKD-EPI cr (2020) equation refit without race. The equation is recommended by the National Kidney Foundation - Citizen Of [place] Society of Nephrology Task Force. ANION GAP 5 4 - 16 mmol/L [facility] Comment:Tested at [facility] [address] [place] [address] Whole Blood 12/15/2024 10:1 3 AM EDT 12/15/2024 10:14 AM EDT us Ab Lee MD LAB BLOOD ORDERABLES Final Resu lt [facility] [address] [place] [address] [facility] [address] [place] [address] * (ABNORMAL) HEMOGLOBIN A1C (10/12/2024 1:47 PM EST) Pathologist [facility] HEMOGLOBIN A1C 5.7(H) 4.2 - 5.6 % [facility] TEST SITE EST AVERAGE GLUCOSE 117 mg/dL [facility] TEST SITE Comment: (NOTE) REFERENCE RANGE: Normal: 4.0-5.6% Pre-diabetes: 5.7-6.4% Provisional diagnosis of diabetes: >6.4% Hgb F>10% and anything which shortens red cell survival, such as hemolytic anemia, or unstable hemoglobin variants such as HbSS, HbSC, or HbCC, will lower the HbA1c value associated with a given level of glycemic control. Tested at: [place] [address] Whole Blood 10/12/2024 1:47 PM EST 10/12/2024 5:38 PM EST Ab Lee MD LAB BLOOD ORDERABLES Final Resu lt Performing Organization Address [facility] [place] [address] [facility] TEST SITE * MICROALBUMIN, URINE RANDOM (INCLUDES MALB/CREAT RATIO) (10/11/2023 9:57 AM EST) MICROALBUMIN, UR <12.0 mg/L KRYSTINAO Raegan [facility] 1 CREATININE, URINE RANDOM 127.5 mg/dL [facility] 1 MICROALB/CREAT RATIO See Comment mg/g CREAT GOOD [facility] 1 Comment: (NOTE) Because the albumin level is below the level of detection in this urine specimen, the laboratory is unable to calculate a reliable albumin/creatinine ratio. Microalbuminuria is unlikely if the urine albumin concentration is less than 20-30 mg/L in a random specimen. Tested at: [place] [address] Urine 10/11/2023 9:57 AM EST 10/11/2023 12:00 PM EST Ab Lee MD URINE ORDERABLES NO PER Final R esult Performing Organization Address [facility] [place] [address] [facility] 1 * (ABNORMAL) LIPID PANEL (CHOL, TRIG, HDL, LDL) (06/20/2023 8:39 AM EDT) CHOLESTEROL 191 <200 mg/dL [facility] TRIGLYCERIDE 142 <150 mg/dL [facility] Comment: Reference Interval: Fasting <150 mg/dL Non-Fasting <175 mg/dL HDL CHOLESTEROL 47(L) >50 mg/dL [facility] LDL CHOLESTEROL (CALCULATED) 116 <130 mg/dL [facility] Comment: Interpretive Guidelines: <100 Optimal 100-129 Near Optimal 130-159 Borderline High >159 High TOTAL NON HDL CHOL 144(H) <130 mg/dL [facility] Comment:Tested at [address] [address] Whole Blood 06/20/2023 8:39 AM EDT 06/20/2023 12:07 PM EDT us Nadia Graff CONE TRUCKER LAB BLOOD ORDERABLES Fin al Result [facility] [address] [place] [address] CHEMISTRY HEMATOLOGY [address] [place] [address] * Mammogram Bilat Digital W Cad (06/04/2010 2:57 PM EDT) Anatomical Region Laterality Modality Chest Bilateral Mammography 06/04/2010 2:57 PM EDT Narrative 06/05/2010 8:22 AM EDT This document is confidential medical information. Unauthorized disclosure or use of this information is prohibited by law. If you are not the intended recipient of this document, please advise us by calling immediately [phone]. [place], [place] [address] Mammography Report Date: 06/04/10 Name: JAYA GERMAN Unit #: [id number] Loc: [facility] Location: [facility] : 83 Ordering Physician: Paula Fink M.D. Procedure: Mammogram Bilat Digital W CAD Exam Date/Time: 06/04/10 3624 Admitting Diagnosis: RICKY BREAST LUMPS, POSSIBLE FBD [...] NEGATIVE Dictated by: Shahram Parmar M.D., DD 1523 12 Procedure Note Shahram Parmar MD - 02/12/2012 This document is confidential medical information. Unauthorizeddisclosure or use of this information is prohibited by law. If you are not the intended recipientof this document, please advise us by calling immediately [phone]. [place], [place] [address] Mammography Report Date: 06/04/10 Name: JAYA GERMAN Unit #: [id number] Loc: [facility] Location: [facility] : 83 Ordering Physician: Paula Fink M.D. [...] NEGATIVE Dictated by: Shahram Parmar M.D., DD 1523 12 Paula Fink MD [facility] Final Result from Last 3 Months or Most Recently Relevant to Health Maintenance Insurance [id number] [place] [phone] [facility] TIER 1 Advance Directives * Full Code (Latest Code Status on File) Date Activated Date Inactivated Comments 06/02/2016 4:37 PM 06/03/2016 6:05 PM Care Teams Soda Drier Feeder Relationship Specialty Start Date End Date Ab Lee MD PCP - General 11/13/07
--- OUTSIDE RECORDS SUMMARY | 2025-05-29 11:40 | XMS_ITS | Encounter Summary ---
Author Organization [facility] Address [facility] [address] [place] [address] Phone Care Team Providers Care Porcelain Enamel Installer Name Role Phone Ab Lee MD Primary Care Provider [phone] Reason for Visit * Reason Onset Date Comments Refill Request 03/20/2024 Encounter Details Date Type Department Care Team (Late st Contact Info) Description 03/20/[address] [place] [address] Flores Dawn, STAPLER MACHINE [address] [facility] [address] [place] [address] Neuropathic pain; Lumbar radiculopathy; Left [...] Start Date 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 Not on csott e Not on file Not on file [...] Author No 07/22/2021 8:[address] xenia Riec, Registered Nurse * Because of a physical, [...] Description 09/16/2025 8:30 AM EST Office Visit [facility] [place] [facility] [address] [place] [address] Flores Dawn, STAPLER MACHINE 100 [facility] [address] [place] [address] documented as of this encounter Visit Diagnoses Diagnosis Neuropathic pain Neuralgia, neuritis, and radiculitis, unspecified Lumbar radiculopathy Thoracic or lumbosacral neuritis or radiculitis, unspecified Left hip pain Pain in joint, pelvic region and thigh Idiopathic peripheral neuropathy Unspecified hereditary and idiopathic peripheral neuropathy High risk medication use Encounter for long-term (current) use of other medications documented in this encounter Care Teams Porcelain Enamel Installer Relationship Specialty Start Date End Date Ab Lee MD PCP - General 11/13/07 documented as of this encounter
--- OUTSIDE RECORDS SUMMARY | 2025-05-29 11:40 | XMS_ITS | Clinical Summary ---
Author Organization THOMAS GALVANEsvin OD Address [facility] [place] [address] Phone Care Team Providers Care Receiving Operator Name Role Phone Ab Lee MD Primary Care Provider [phone] Allergies Active Allergy Reactions Criticality Noted Date [...] needed (anxiety). 90 Tablet 2 5 Active FLUoxetine (PROZAC) 20 mg Oral Capsule TAKE 1 CAPSULE BY MOUTH DAILY 100 Capsule 1 5 Active doxycycline hyclate (VIBRA-TABS) 100 mg Oral Tablet Take 100 mg by mouth every 12 hours. Active linezolid (ZYVOX) 600 mg Oral Tablet Take 600 mg by mouth every 12 hours. Active Gel Dressing Top Gel Apply 1 Each topically daily. 85 g 5 Active Additional Information Patient not taking.Reason: Therapy Completed, Reported on 05/23/2025 dexmethylpheni date (FOCALIN) 10 mg Oral Tablet Take 1 Tablet by mouth 2 times daily. 60 Tablet 5 Active dexmethylpheni date (FOCALIN) 10 mg Oral Tablet Take 1 Tablet by mouth 2 times daily. 60 Tablet 5 05/14/20 25 Discontin ued(Reord er) Active Problems Patient Care Coordination No te Formatting of this note migh t be different from the original. Dr. Corrales CSA NEEDS UP DATED FOR DR.ZIEBA HAMILTON 09/27/16 DUE Ac 10/02/18 Problem Noted Date Diagnosed Date Skin ulcer of right foot with necrosis of muscle 05/16/2025 Full thickness burn of lower leg, initial encoun ter 05/10/2025 Delirium 11/16/2024 CO2 narcosis 11/16/2024 Acute on chronic respiratory failure with hyperc apnia 11/16/2024 Obesity hypoventilation syndrome 11/16/2024 Angioedema 11/16/2024 AMS (altered mental status) 04/26/2024 Episode of confusion 04/26/2024 Dizziness 04/26/2024 POTS (postural orthostatic tachycardia syndrome) 04/26/2024 Essential hypertension 04/26/2024 Decreased level of consciousness 04/25/2024 Occupation-related stress disorder 12/07/2016 Generalized anxiety disorder 12/07/2016 Binge eating 09/27/2016 Major depressive disorder, r ecurrent episode, moderate with anxious distress 09/27/2016 Overview (05/20/2025): Jaya reports moderate symptoms of depression and severe symptoms of anxiety. PHQ=14. MIGUELINA=19. Will finish PCL-5 assessment for PTSD next session. Chest pain 01/21/2016 Syncope, near 10/24/2013 Medication [...] organization. Date Type Department Care Team Description 05/23/2025 9:12 AM EDT - 05/23/2025 11:59 PM EDT Hospital Encounter [facility] [address] [place] [address] Alexandro Alex MD Full thickness burn of lower leg, initial encounter (Primary Dx); Skin ulcer of right foot with necrosis of muscle (HCC) Discharge Disposition: Home or Self Care 05/20/2025 1:00 PM EDT Telemedicine [facility] [address] [place] [address] Kanchan Torres LCSW Major depressive disorder, recurrent episode, moderate with anxious distress (HCC) (Primary Dx) 05/16/2025 9:03 AM EDT - 05/16/2025 11:59 PM EDT Hospital Encounter [facility] [place] [address] [place] [address] Alexandro Alex MD Full thickness burn of lower leg, initial encounter (Primary Dx); Skin ulcer of right foot with necrosis of muscle (HCC) Discharge Disposition: Home or Self Care 05/16/2025 Telephone [facility] [place] [address] [place] [address] Lea Oropeza, RN Follow-up; Dressing Change 05/15/2025 Telephone [facility] [place] [address] [place] [address] Vielka Rosenthal, RN Follow-up 05/10/2025 1:45 PM EDT - 05/10/2025 11:59 PM EDT Hospital Encounter [facility] [place] [address] [place] [place] [address] Franko Page MD Full thickness burn of lower leg, initial encounter (Primary Dx); Traumatic ulcer of right foot with necrosis of muscle (HCC); Morbid obesity (HCC); Obesity hypoventilation syndrome (HCC); Tobacco abuse Discharge Disposition: Home or Self Care 05/08/2025 2:42 PM EDT - 05/08/2025 6:24 PM EDT Emergency [facility] [address] [place] [address] Luis Valderrama MD Wound infection (Primary Dx); Morbid obesity (HCC) Discharge Disposition: Home or Self Care 03/05/2025 2:06 PM EDT - 03/05/2025 5:12 PM EDT Emergency [facility] [address] [place] [address] Lashawn Whelan MD Uncontrolled hypertension (Primary Dx) [...] drink = 0.6 oz pur e alcohol) [facility] Utilities Answer Date Recorded In the past 12 months has [employer], gas, oil, or water [employer] threatened to shut off services in your home? No 11/16/2024 Overall Financial Resource Strain (CARDIA) Answe r Date Recorded How hard is it for you to pa y for the very basics like food, housing, medical care, and heating? Not hard at all 11/16/2024 PHQ-2 Answer Date Recorded PHQ-2 Total Score 0 11/16/2024 [employer] [place] [facility] [employer] - Occupational Stress [...] money to get more. Never true 11/16/2024 [facility] IP Transportation Answer D ate Recorded [...] 18 05/23/2025 9:17 AM EDT Oxygen Saturation 100% 05/08/2025 5:30 PM EDT Inhaled Oxygen Concentration - - Weight 151 kg (333 lb) 05/10/2025 2:00 PM EDT Height 177.8 cm (5' 10 ) 05/10/2025 2:00 PM EDT Body Mass Index 47.78 05/10/2025 2:00 PM EDT Plan of Treatment Upcoming Encounters Date Type Department Care Team (Late st Contact Info) Description 05/30/2025 2:00 PM EDT Appointment [facility] [place] [address] [place] [address] Nette Ragsdale, DPMaren [address] [address] 05/31/2025 2:00 PM EDT Office Visit [facility] [address] [facility] [phone] Kanchan Torres, HEAD PIECE ASSEMBLER [address] [facility] [id number] Health Maintenance Due Date Last Done Comments Annual Wellness Exam 1986 Diabetic Eye Exam 2001 HPV/Pap Cotest 2013 Breast Cancer Screening 2023 Lipids 06/20/2024 06/20/2023, 11/10, 01/21/2016, Additional history exists Kidney Health: uACR 10/11/2024 10/11/2023 Hemoglobin A1c 04/11/2025 10/12/2024, 09/14, 06/20/2023, Additional history exists COVID-19 Vaccine ( season) 2025 06/03/2023, 07/31/2021, 12/04/2020, Additional history exists Influenza Vaccine (#1) 2025 , 06/25/2022, 07/06/2019, Additional history exists Kidney Health: eGFR 05/08/2026 05/08/2025, 03/05/2025, 11/17/2024, Additional history exists Cervical Cancer Screening 01/29/2028 Pap Smear 01/29/2028 01/28/2025, 10/13, 10/06/2021, Additional history exists DTaP/TDaP/Td (4 - Td or Tdap) 09/12/2030 09/12/2020, 01/05/2011, 01/03/1995 Hepatitis B Vaccine Completed 08/18/2000, 02/27/1999, 01/26/1999 Pneumococcal Vaccine 0-49 Aged Out 10/23/2013 No longer eligible based on patient's age to complete this topic Meningococcal B Vaccine Aged Out No l onger eligible based on patient's age to complete this topic Goals Goal Patient Goal Type Associated Problems [...] palpate dorsalis pedal or posterior tibial pulses. Procedures Procedure Name Priority Date/Time Associated Diagnosis Comments XR FOOT RIGHT AP LATERAL AND OBLIQUE RENATA 05/08/2025 4:35 PM EDT C-REACTIVE PROTEIN STAT 05/08/2025 3: 50 PM EDT SEDIMENTATION RATE AUTOMATED Routine 05/08/2025 3:50 PM EDT HUMAN CHORIONIC GONADOTROPIN QUANTITATIVE STAT 05/08/2025 3:50 PM EDT COMPREHENSIVE METABOLIC PANEL STAT 05/08/2025 3:50 PM EDT CBC WITH DIFF STAT 05/08/2025 3:50 PM EDT SALINE LOCK IV STAT 05/08/2025 3:38 PM EDT DRUG CONFIRMATION, CANNABINOIDS - URINE Routine 04/08/2025 [...] Recently Relevant to Health Maintenance Results * XR FOOT RIGHT AP LATERAL [...] please contactthe office of the ordering clinician. Alberta [facility]AGNOSTIC IMAGING ORDERABL ES Final Result * SEDIMENTATION RATE AUTOMATED (05/08/2025 3:50 PM EDT) Sed Rate 12 0 - 20 mm/hr 05/08/2025 4:00 PM EDT [facility] Blood VENOUS BLOOD / Unknown Venipuncture / Unknown 05/08/2025 3:50 PM EDT 05/08/2025 3:53 PM EDT us Alberta MAYORGA HEMATOLOGY ORDERABLES Final Res ult [facility] [address] [place] [address] * CBC WITH DIFF (05/08/2025 3:50 PM EDT) Only the most recent of2 resultswithin the time period is included. WBC 7.3 3.7 - 10.3 x10(3)/mcL 05/08/2025 3:56 PM EDT [facility] RBC 4.60 3.90 - 5.20 x10(6)/mcL 05/08/2025 3:56 PM EDT [facility] Hgb 14.3 11.2 - 15.7 g/dL 05/08/2025 3:56 PM EDT [facility] Hct 43.2 34.0 - 45.0 % 05/08/2025 3:56 PM EDT [facility] MCV 93.9 80.0 - 100.0 fL 05/08/2025 3:56 PM EDT [facility] MCH 31.1 26.0 - 34.0 pg 05/08/2025 3:56 PM EDT [facility] MCHC 33.1 30.7 - 35.5 g/dL 05/08/2025 3:56 PM EDT [facility] RDW 11.9 <=14.9 % 05/08/2025 3:56 PM EDT [facility] Platelet 232 155 - 369 x10(3)/mcL 05/08/2025 3:56 PM EDT [facility] MPV 10.1 8.8 - 12.5 fL 05/08/2025 3:56 PM EDT [facility] Neut Percent 66.1 % 05/08/2025 3:56 PM EDT [facility] Comment:Neutrophils equals s egs plus bands Imm Gran% 0.3 % 05/08/2025 3:56 PM EDT [facility] Comment:Automated count of m etamyelocytes, myelocytes and promyelocytes. Lymph Percent 24.6 % 05/08/2025 3:56 PM EDT [facility] Winn Percent 6.5 % 05/08/2025 3:56 PM EDT [facility] Eos Percent 1.9 % 05/08/2025 3:56 PM EDT [facility] Baso Percent 0.6 % 05/08/2025 3:56 PM EDT [facility] Neut # 4.8 1.6 - 6.1 x10(3)/mcL 05/08/2025 3:56 PM EDT [facility] Comment:Neutrophils equals s egs plus bands IMMGRAN# 0.0 0.0 - 0.1 x10(3)/mcL 05/08/2025 3:56 PM EDT [facility] Comment:Automated count of m etamyelocytes, myelocytes and promyelocytes. An absolute IG <0.1 is reported as 0.0. Lymph # 1.8 1.2 - 3.9 x10(3)/mcL 05/08/2025 3:56 PM EDT [facility] Winn # 0.5 0.3 - 0.9 x10(3)/mcL 05/08/2025 3:56 PM EDT [facility] Eos# 0.1 0.0 - 0.5 x10(3)/mcL 05/08/2025 3:56 PM EDT [facility] Baso # 0.0 0.0 - 0.1 x10(3)/mcL 05/08/2025 3:56 PM EDT [facility] Blood VENOUS BLOOD / Unknown Venipuncture / Unknown 05/08/2025 3:50 PM EDT 05/08/2025 3:53 PM EDT us Alberta MAYORGA HEMATOLOGY ORDERABLES Final Res ult [facility] [address] [place] [address] * (ABNORMAL) C-REACTIVE PROTEIN (05/08/2025 3:50 PM EDT) [facility] CRP 7.99(H) <=5.00 mg/L 05/08/2025 10:05 PM EDT [facility] Blood VENOUS BLOOD / Unknown Venipuncture / Unknown 05/08/2025 3:50 PM EDT 05/08/2025 3:53 PM EDT Alberta MAYORGA CHEMISTRY ORDERABLES Final Resu lt Performing Organization Address [facility] de Phone Number [facility] [address] [place] [address], [facility] [place] [address] * HUMAN CHORIONIC GONADOTROPIN QUANTITATIVE (05/08/2025 3:50 PM EDT) Only the most recent of2 resultswithin the time period is included. [facility] Hcg Quant <1 <5 mIU/mL 05/08/2025 4:09 PM EDT [facility] Blood VENOUS BLOOD / Unknown Venipuncture / Unknown 05/08/2025 3:50 PM EDT 05/08/2025 3:53 PM EDT Narrative [facility] - 05/08/2025 4:09 PM EDT Female [...] sample can interfere with this immunoassay test. Alberta MAYORGA CHEMISTRY ORDERABLES Final Resu lt Performing Organization Address [facility] de Phone Number [facility] [address] [place] [address] * (ABNORMAL) COMPREHENSIVE METABOLIC PANEL (05/08/2025 3:50 PM EDT) [facility] Sodium 141 136 - 145 mmol/L 05/08/2025 4:10 PM EDT [facility] Potassium 4.2 3.5 - 5.0 mmol/L 05/08/2025 4:10 PM EDT [facility] Chloride 101 98 - 107 mmol/L 05/08/2025 4:10 PM EDT [facility] Total CO2 30(H) 22 - 29 mmol/L 05/08/2025 4:10 PM [facility] Anion Gap 10 7 - 16 mmol/L 05/08/2025 4:10 PM [facility] Calcium 8.8 8.6 - 10.4 mg/dL 05/08/2025 4:10 PM [facility] Glucose Lvl 155(H) 70 - 99 mg/dL 05/08/2025 4:10 PM [facility] BUN 10 6 - 20 mg/dL 05/08/2025 4:10 PM [facility] Creatinine 0.65 0.51 - 1.30 mg/dL 05/08/2025 4:10 PM [facility] Albumin 3.9 3.5 - 5.2 gm/dL 05/08/2025 4:10 PM [facility] Total Protein 6.3(L) 6.4 - 8.3 gm/dL 05/08/2025 4:10 PM [facility] Bili Total 0.3 0.2 - 1.3 mg/dL 05/08/2025 4:10 PM [facility] ALT 29 <=41 U/L 05/08/2025 4:10 PM [facility] AST 32 <=40 U/L 05/08/2025 4:10 PM [facility] Alk Phos 84 36 - 123 U/L 05/08/2025 4:10 PM T [facility] eGFR (CKD-EPIcr 2020) 113 >=60 mL/min/1.7 3 m2 05/08/2025 4:10 PM EDT [facility] Comment:Estimated GFR was ca lculated using the CKD-EPIcr (2020) equation refit without race. The equation is recommended by the National Kidney Foundation - [place] Society of Nephrology Task Force. Blood VENOUS BLOOD / Unknown Venipuncture / Unknown 05/08/2025 3:50 PM EDT 05/08/2025 3:53 PM EDT us Alberta MAYORGA CHEMISTRY ORDERABLES Final Resu lt Performing Organization Address City/[facility]/ZIP Co de Phone Number [facility] [address] [place] [address] * (ABNORMAL) DRUG CONFIRMATION, CANNABINOIDS - URINE (04/08/2025 3:03 PM EDT) THC <10 Cutoff 10 ng/mL ng/mL 04/10/2025 8:24 AM EDT [facility] [employer] THC Glucuronide 35(H) Cutoff 10 ng/mL ng/mL 04/10/2025 8:24 AM EDT [facility] [employer] Urine STRUCTURE OF URINARY TRACT PROPER / Unknown 04/08/2025 3:03 PM EDT 04/08/2025 3:03 PM EDT Hi Corrales MD URINE ORDERABLES Final Result Performing Organization Address [facility] Co de Phone Number [facility] [address] , [place] [address] * (ABNORMAL) DRUG CONFIRMATION, BENZODIAZEPINES - URINE (04/08/2025 3:03 PM EDT) Diazepam <10 Cutoff 10 ng/mL ng/mL 04/10/2025 8:24 AM EDT [facility] Oxazepam <50 Cutoff 50 ng/mL ng/mL 04/10/2025 8:24 AM EDT [facility] Oxazepam Glucuronide <50 Cutoff 50 ng/mL [...] 3:03 PM EDT 04/08/2025 3:03 PM EDT Hi Corrales MD URINE ORDERABLES Final Result [facility] [address] [facility] , [place] [address] * (ABNORMAL) DRUGS OF ABUSE WITH REFLEX [...] PM EDT 04/08/2025 3:03 PM EDT Narrative [facility] [employer] [facility] - 04/08/2025 11:38 PM EDT These [...] Hi Corrales MD URINE ORDERABLES Final Result [facility] [employer] [address] [facility] , [place] [address] * SCANNED EKG (03/06/2025 9:33 AM EDT) [...] of the ordering clinician. Nette Wyatt APRN [facility] ORDERABLES Final Result * URINALYSIS REFLEX (03/05/2025 3:24 PM EDT) UA Color Yellow 03/05/2025 3:30 PM EDT [facility] UA Appear Clear Clear 03/05/2025 3:30 PM EDT [facility] UA Glucose Negative Negative mg/dL 03/05/2025 3:30 PM EDT [facility] UA Ketones Negative Negative mg/dL 03/05/2025 3:30 PM EDT [facility] UA Blood Negative Negative 03/05/2025 3:30 PM EDT [facility] UA pH 6.0 5.0 - 8.0 pH 03/05/2025 3:30 PM EDT [facility] UA Protein Negative Negative mg/dL 03/05/2025 3:30 PM EDT [facility] UA Urobilinogen 0.2 <=1 mg/dL 3:30 PM EDT [facility] UA Bili Negative Negative 03/05/2025 3:30 PM EDT [facility] UA Nitrite Negative Negative 03/05/2025 3:30 PM EDT [facility] UA Leuk Est Negative Negative 03/05/2025 3:30 PM EDT [facility] UA Spec Grav <=1.005 1.001 - 1.035 no units 03/05/2025 3:30 PM EDT [facility] Comment:Reference range pat d for random specimens only. Urine STRUCTURE OF URINARY TRACT PROPER / Unknown 03/05/2025 3:24 PM EDT 03/05/2025 3:27 PM EDT Nette Wyatt [employer] CAMER[employer] LENS TECHNICIAN URINE ORDERABLES Final Result Performing Organization Address [facility] de Phone Number [place] [phone] * EXTRA BAE URINE CX (03/05/2025 3:24 PM EDT) Urine STRUCTURE OF URINARY TRACT PROPER / Unknown 03/05/2025 3:24 PM EDT 03/05/2025 3:27 PM EDT Nette Wyatt [employer]ION [employer]URE CAMERA LENS TECHNICIAN MICROBIOLOGY - GENERAL ORDERABLES Final Result Performing Organization Address [facility] de Phone Number [address] [address] * XR CHEST PA AND [...] BASELINE W/ REFLEX (03/05/2025 2:22 PM EDT) yi-xHsfcstjo-G 9 <14 ng/L 03/05/2025 2:48 PM EDT [facility] Blood VENOUS BLOOD / Unknown Venipuncture / Unknown 03/05/2025 2:22 PM EDT 03/05/2025 2:26 PM EDT Narrative [facility] - 03/05/2025 2:48 PM EDT Ingestion of nelly doses of biotin (>5 mg/day) taken within 8 hours of drawing blood sample can interfere with this immunoassay test. Nette Wyatt APRN CHEMISTRY ORDERABLES Fi nal Result [address] [address] * (ABNORMAL) BASIC METABOLIC PANEL (03/05/2025 2:22 PM EDT) [facility] Sodium 139 136 - 145 mmol/L 03/05/2025 2:48 PM EDT [facility] Potassium 3.7 3.5 - 5.0 mmol/L 03/05/2025 2:48 PM EDT [facility] Chloride 103 98 - 107 mmol/L 03/05/2025 2:48 PM EDT [facility] Total CO2 22 22 - 29 mmol/L 03/05/2025 2:48 PM EDT [facility] Anion Gap 14 7 - 16 mmol/L 03/05/2025 2:48 PM EDT [facility] Calcium 8.8 8.6 - 10.4 mg/dL 03/05/2025 2:48 PM EDT [facility] Glucose Lvl 183(H) 70 - 99 mg/dL 03/05/2025 2:48 PM EDT [facility] BUN 8 6 - 20 mg/dL 03/05/2025 2:48 PM EDT [facility] Creatinine 0.60 0.51 - 1.30 mg/dL 03/05/2025 2:48 PM EDT [facility] eGFR (CKD-EPIcr 2020) 115 >=60 mL/min/1.7 3 m2 03/05/2025 2:48 PM EDT [facility] Comment:Estimated GFR was ca lculated using the CKD-EPIcr (2020) equation refit without race. The equation is recommended by the National Kidney Foundation - [place] Society of Nephrology Task Force. Blood VENOUS BLOOD / Unknown Venipuncture / Unknown 03/05/2025 2:22 PM EDT 03/05/2025 2:26 PM EDT Nette Wyatt APRN CHEMISTRY ORDERABLES Fi nal Result [facility] [address] [place] [address] * (ABNORMAL) GLUCOSE METER POC (03/05/2025 2:07 PM EDT) Glucose Meter POC 177(H) 70 - 100 mg/dL 03/05/2025 2:09 PM EDT [facility] Sample Type Capillary 03/05/2025 2:09 PM EDT [facility] Patient Status Non-Critical Patient 03/05/2025 2:09 PM EDT [facility] Blood BLOOD SPECIMEN / Unknown 03/05/2025 2:07 PM EDT 03/05/2025 2:09 PM EDT us Lab Test POINT OF CARE TEST ORDERABLES Fi nal Result [facility] [address] [place] [address] * EK EKG 12 LEAD (03/05/2025 2:01 PM EDT) Anatomical Region Laterality Modality Electrocardiogra phy 03/05/2025 2:14 PM EDT Impressions 03/05/2025 5:40 PM EDT [facility] Test Date: 2025-03-05 Pat Name: JAYA BUSH Department: DEPID Room: Gender: Female Last Dipper: Mamadou : 1985 Requested By: [facility] Order Number: [id number] Christiano MD: Frank Gloria Measurements Intervals [place] Rate: 103 P: -4 MT: 112 QRS: 32 QRSD: 110 T: 32 QT: 349 QTc: 459 Interpretive Statements SINUS TACHYCARDIA WITH SHORT MT INTERVAL ABNORMAL RHYTHM ECG WHEN COMPARED TO PREVIOUS ECG:NO SIGNIFICANT CHANGES ARE NOTED Electronically Signed On 03-05-2025 17:40:40 EDT by Frank Gloria Narrative Procedure Note Frank Gloria MD - 03/05/2025 IMPRESSION [facility] Test Date: 2025-03-05 Pat Name: JAYA GINNY Department: DEPID Room: Gender: Female Last Dipper: Mamadou : 1985 Requested By: [facility] Order Number: [id number] Reading MD: Frank Gloria Measurements Intervals [place] Rate: 103 P: -4 MT: 112 QRS: 32 QRSD: 110 T: 32 QT: 349 QTc: 459 Interpretive Statements SINUS TACHYCARDIA WITH SHORT MT INTERVAL ABNORMAL RHYTHM ECG WHEN COMPARED TO PREVIOUS ECG:NO SIGNIFICANT CHANGES ARE NOTED Electronically Signed On 03-05-2025 17:40:40 EDT by Frank Gloria Lashawn Whelan MD IMG ECG ORDERABLES Final Res ult * (ABNORMAL) LIPID SCREEN (01/21/2016 2:48 PM EDT) Cholesterol 200 <=200 mg/dL [facility] Comment: < 200 Desirable 200 - 239 Borderline High >= 240 High Triglyceride 116 <=150 mg/dL [facility] Comment: < 150 Normal 150 - 199 Borderline High 200 - 499 High >= 500 Very High HDL 49 >=40 mg/dL [facility] Comment: > 60 Optimal 40 - 60 Acceptable < 40 Low LDL Calculated 128(H) <=100 mg/dL [facility] Comment: < 100 Optimal 100 - 129 Near or above optimal 130 - 159 Borderline High 160 - 189 High >= 190 Very High Blood specimen (specimen) UPPER LIMB STRUCTURE / Unknown 01/21/2016 2:48 PM EDT 01/21/2016 2:54 PM EDT Joesph Crowder DO CHEMISTRY ORDERABLES Edited Resu lt - Final [facility] [address] [place] [address] * HEMOGLOBIN A1C (10/25/2012 12:02 PM EST) Hgb A1c 5.3 <=7.0 % [facility] Comment: Initial Diagnostic Criteria < 5.7 % Normal 5.7 - 6.4 % At risk for diabetes mellitus >= 6.5 % Consistent with diabetes mellitus Diabetes monitoring Target Value (ADA recommended): < 7 % Blood specimen (specimen) UPPER LIMB STRUCTURE / Unknown 10/25/2012 12:02 PM EST 10/25/2012 12:43 PM EST us Gloria Farrell MD CHEMISTRY ORDERABLES Final Resul t [facility] [address] [place] [address] from Last 3 Months or Most Recently Relevant to Health Maintenance Insurance MEDBEN [id number] [facility] MEDBE [id number] [facility] Advance Directives For more information, please contact: [phone] * Full Code (Latest Code Status on File) Date Activated Date Inactivated Comments 11/16/2024 8:25 AM 11/17/2024 4:10 PM * Full Code Date Activated Date Inactivated Comments 04/26/2024 2:35 AM 04/26/2024 6:24 PM * Full Code Date Activated Date Inactivated Comments 04/26/2024 12:03 AM 04/26/2024 2:35 AM * Full Code Date Activated Date Inactivated Comments 01/21/2016 2:02 PM 01/22/2016 6:55 PM Care Teams Receiving Operator Relationship Specialty Start Date End Date Ab Lee MD PCP - General 09/15/08
--- OUTSIDE RECORDS SUMMARY | 2025-05-29 11:40 | XMS_ITS | Encounter Summary ---
Author Organization [facility] SBO AND TP P Address [facility] [place] [address] Phone Care Team Providers Care Computer Game Tester Name Role Phone Ab Lee MD Primary Care Provider [phone] Encounter Details Date Type Department Care Team (Late st Contact Info) Description 02/11/2025 Results Follow-Up [facility] [address] [place] [address] Cielo Mock CNP [address] [place] [address] CYTOLOGY ASSOCIATE QUALITY ENGINEER Social History Tobacco Use Types Packs/Day [...] file Not on file Not on file 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
--- OUTSIDE RECORDS SUMMARY | 2025-05-29 11:40 | XMS_ITS | Encounter Summary ---
Author Organization [facility] Address [address] [place] [address] Phone Care Team Providers Care Graduate School Dean Name Role Phone Ab Lee MD Primary Care Provider [phone] Encounter Details Date Type Department Care Team (Late st Contact Info) Description 09/01/2011 [facility] [address] [facility] [place] [phone] Social History Tobacco Use Types Packs/Day Years [...] Description 09/16/2025 8:30 AM EST Office Visit [facility] [place] - [facility] [address] [place] [phone] Flores Dawn, CUSTOMER CARE ASSOCIATE 100 [facility] [address] [place] [address] documented as of this encounter [...] documented as of this encounter Care Teams Graduate School Dean Relationship Specialty Start Date End Date Ab Lee MD PCP - General 11/13/07 documented as of this encounter
--- OUTSIDE RECORDS SUMMARY | 2025-05-29 11:40 | XMS_ITS | Encounter Summary ---
Author Organization [facility] Address [address] [place] [address] Phone Care Team Providers Care Animal Care Assistant Name Role Phone Ab Lee MD Primary Care Provider [phone] Encounter Details Date Type Department Care Team (Late st Contact Info) Description 07/23/2009 [facility] Internal Medicine [address] [place] [phone] Social History Tobacco Use Types Packs/Day Years [...] Description 09/16/2025 8:30 AM EST Office Visit [facility] [place] - [facility] [address] [place] [address] Flores Dawn, PRODUCT SUPPORT SALES REPRESENTATIVE 100 [facility] [address] [place] [address] documented as of this encounter Procedures Procedure [...] documented as of this encounter Care Teams Animal Care Assistant Relationship Specialty Start Date End Date Ab Lee MD PCP - General 11/13/07 documented as of this encounter
--- OUTSIDE RECORDS SUMMARY | 2025-05-29 11:40 | XMS_ITS | Referral Summary ---
Author Organization [facility] Address [address] [place] [address] Phone Care Team Providers Care Automobile Damage Appraiser Name Role Phone Ab Lee MD Primary Care Provider Encounters Date Type Department Care Team Description 05/24/2025 Refill [facility] [address] [place] [address] Ab Lee MD 05/01/2025 Telephone [facility] [address] [facility] [place] [address] Flores Dawn CNP 04/30/2025 Refill [facility] [address] [place] [address] [place] [address] Thalia Singer, MIKA Hidradenitis suppurativa 04/17/2025 3:15 PM EDT Office Visit [facility] [address] [facility] [place] [address] Thalia Singer CNP Wound of foot (Primary Dx) 04/15/2025 Telephone [facility] [address] [place] [phone] Ab Lee MD 04/15/2025 1:45 PM EDT Office Visit [facility] [address] [place] [address] Ab Lee MD Right foot pain (Primary Dx); Controlled type 2 diabetes mellitus without complication, without long-term current use of insulin 03/26/2025 Telephone [facility] [address] [place] [address] Ariel Malhotra MD 03/25/2025 Refill [facility] [address] [place] [address] Thalia Singer, MIKA Hidradenitis suppurativa (Primary Dx) 03/06/2025 9:45 AM EDT Office Visit [facility] [address] [place] [address] Ab Lee MD Chronic tension-type headache, not intractable (Primary Dx); Loss of balance; Muscle twitching; Family history of stroke; Depression, recurrent (HCC); Essential hypertension; Morbid obesity with BMI of 45.0-49.9, adult (HCC); Controlled type 2 diabetes mellitus without complication, without long-term current use of insulin 03/05/2025 Telephone [facility] [address] [place] [address] Clinton Howell, Registered Nurse 03/04/2025 9:50 AM EDT Office Visit [address] [address] Cinthya May PA Essential hypertension (Primary Dx) 03/04/2025 8:30 AM EDT Office Visit [facility] [address] [address] Flores Dawn, MIKA Lumbar radiculopathy (Primary Dx); Facet arthritis of lumbar region; Encounter for medication management; High risk medication use; Neuropathic pain; Idiopathic peripheral neuropathy; Neuralgia and neuritis, unspecified; Left hip pain 02/28/2025 Refill [facility] [place] [facility] [address] [place] [address] Flores Dawn, EXTRUSION UTILITY WORKER Idiopathic peripheral neuropathy; High risk medication use; Neuropathic pain; Lumbar radiculopathy; Neuralgia and neuritis, unspecified; Left hip pain; Encounter for medication management 02/26/2025 Refill [facility] [address] [facility] [place] [address] Thalia Singer, MIKA from Last 3 Months Allergies Active Allergy Reactions Criticality Noted Date Comments Amitriptyline 12/14/2002 moser Vyhhivgzg-Mvymnoxw-Un Other (See Comments) 10/22/2013 Blacked out. Shaking, hallucinations Chocolate (Food) 11/21/2007 Sneeze, itch Diclofenac 12/14/2002 diarrhea Lisinopril Anaphylaxis High 11/20/2024 Metoprolol Anaphylaxis High 11/20/2024 Nitrofurantoin Angioedema,Anaphyla xis High 09/17/2021 Thiazide-Type Diuretics Other (See Comments) 01/04/2014 Increased liver enzymes Medications ALPRAZolam (XANAX) 1 MG TABSIndications: PRN Take 1 mg by mouth. 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 (5 years old or older) Answer Entry Date Author No 07/22/2021 8:[address] [facility] Marshall, Registered Nurse Plan of Treatment Upcoming Encounters Date Type Department Care Team (Late st Contact Info) Description 09/16/2025 8:30 AM EST Office Visit [facility] [place] [facility] [address] [place] [address] Flores Dawn, EXTRUSION UTILITY WORKER 100 [facility] [address] [place] [address] Medical Devices Implanted Type Area Windmill Technician Device Identifier Shelf Expiration Date Model / Serial / Lot Gallbladder Clip-06/03/2016 Implanted: 016 (Quantity not on file) Clip ETHICON LIGAMAX 5MM CLIP / / Description:3T OR LESS MAX SPATIAL GRADIENT OF 6.5T/M 1.7 W/KG FOR 20 MIN OF SCANNING (PER SEQUENCE) Procedures Procedure Name Priority Date/Time Associated Diagnosis Comments CYTOLOGY TAIL DOGGER Today 01/28/2025 6:22 PM EDT Encounter for [...] examination at a health care facility SURI ALICIA BILAT Routine 06/04/2010 2:57 PM EDT from Last 3 Months or Most Recently Relevant to Health Maintenance Results * CYTOLOGY TAIL DOGGER (01/28/2025 6:22 PM EDT) CYTOLOGY-TAIL DOGGER CYTOLOGY GYNECOLOGICAL REPORT Name: JAYA BUSH EPI#: [id number] Case #: [id number] Final Cytologic Diagnosis A. Thinprep Cervical/Endocervic al with HPV screen and 16/18 Genotyping if Indicated: Adequacy: Satisfactory for evaluation, ABSENT endocervical transformation zone component. Interpretation: Negative for intraepithelial lesion or malignancy. Fungal organisms morphologically consistent with Ana spp. This specimen has been analyzed by the ThinPrep Imaging System ([employer] an automated imaging and review system, which assists the nuclear medicine pet ct technologist and/or pathologist in evaluation of cells on [...] Normal Contraceptive History: OC/BCP Signed out at [facility], [address] [place] [address] [facility] Non-Formatted Report [facility] 01/28/2025 6:22 PM EDT 01/29/2025 9:04 AM EDT Cielo Mock CNP PATHOLOGY/CYTOLOGY ORDERABLES Fi nal Result [facility] [address] [place] [address] * (ABNORMAL) CMP (BMP,TP,ALB,TBIL,ALK,AST,ALT) (12/15/2024 10:13 AM EDT) SODIUM 137 135 - 145 mmol/L [facility] POTASSIUM 4.4 3.6 - 5.1 mmol/L [facility] CHLORIDE 105 98 - 111 mmol/L [facility] CO2 27 21 - 31 mmol/L [facility] GLUCOSE, RANDOM 167(H) 70 - 99 mg/dL [facility] BLD UREA NITROGEN 8 8 - 26 mg/dL [facility] CREATININE 0.71 0.60 - 1.20 mg/dL [facility] CALCIUM 8.4(L) 8.5 - 10.4 mg/dL [facility] TOTAL PROTEIN 6.2 6.0 - 8.0 g/dL [facility] ALBUMIN 3.8 3.5 - 5.7 g/dL [facility] TOTAL BILIRUBIN 0.4 0.0 - 1.2 mg/dL [facility] ALK PHOSPHATASE 70 35 - 135 IU/L [facility] AST 43(H) 10 - 40 IU/L [facility] ALT 33 10 - 60 IU/L [facility] ESTIMATED GFR 109 >59 mL/min/1.7 3 m2 [facility] Comment:Estimated GFR was ca lculated using the CKD-EPI cr (2020) equation refit without race. The equation is recommended by the National Kidney Foundation - [place] Society of Nephrology Task Force. ANION GAP 5 4 - 16 mmol/L [facility] Comment:Tested at [facility] [address] [facility] [address] Whole Blood 12/15/2024 10:1 3 AM EDT 12/15/2024 10:14 AM EDT Ab Lee MD LAB BLOOD ORDERABLES Final Resu lt Performing Organization Address City/[facility]/ZIP Co de Phone Number [facility] [address] [place] [address] [facility] [address] [place] [address] * (ABNORMAL) HEMOGLOBIN A1C (10/12/2024 1:47 PM [...] given level of glycemic control. Tested at: [place] [address] Whole Blood 10/12/2024 1:47 PM EST 10/12/2024 5:38 PM EST us Ab Lee MD LAB BLOOD ORDERABLES Final Resu lt Performing Organization Address City/[facility]/ZIP Co de Phone Number [facility] [address] [place] [address] [facility] TEST SITE * MICROALBUMIN, URINE RANDOM (INCLUDES MALB/CREAT RATIO) (10/11/2023 9:57 AM EST) MICROALBUMIN, UR <12.0 mg/L [place] [address] CREATININE, URINE RANDOM 127.5 mg/dL [place] [address] MICROALB/CREAT RATIO See Comment mg/g CREAT [place] [address] Comment: (NOTE) Because the albumin level is below the level of detection in this urine specimen, the laboratory is unable to calculate a reliable albumin/creatinine ratio. Microalbuminuria is unlikely if the urine albumin concentration is less than 20-30 mg/L in a random specimen. Tested at: [facility], [address] [place] [address] Urine 10/11/2023 9:57 AM EST 10/11/2023 12:00 PM EST us Ab Lee MD URINE ORDERABLES NO PER Final R esult Performing Organization Address [facility]/ZIP Co de Phone Number [facility] [address] [place] [address] [place] [address] * (ABNORMAL) LIPID PANEL (CHOL, TRIG, HDL, LDL) (06/20/2023 8:39 AM EDT) CHOLESTEROL 191 <200 mg/dL [employer] RY HEMATOLOGY TRIGLYCERIDE 142 <150 mg/dL [facility] Comment: Reference Interval: Fasting <150 mg/dL Non-Fasting <175 mg/dL HDL CHOLESTEROL 47(L) >50 mg/dL [facility] HEMAT[facility] LDL CHOLESTEROL (CALCULATED) 116 <130 mg/dL [facility] Comment: Interpretive Guidelines: <100 Optimal 100-129 Near Optimal 130-159 Borderline High >159 High TOTAL NON HDL CHOL 144(H) <130 mg/dL [facility] Comment:Tested at [place] [id number] Whole Blood 06/20/2023 8:39 AM EDT 06/20/2023 12:07 PM EDT us Nadia Graff EXTRUSION UTILITY WORKER LAB BLOOD ORDERABLES Fin al Result Performing Organization Address [facility]/ZIP Co de Phone Number [facility] [address] [place], [place] [id number] CHEMISTRY HEMATOLOGY [address] [place] [address] * Mammogram Bilat Digital W Cad (06/04/2010 2:57 PM EDT) Anatomical Region Laterality Modality Chest Bilateral Mammography 06/04/2010 2:57 PM EDT Narrative 06/05/2010 8:22 AM EDT This document is confidential medical information. Unauthorized disclosure or use of this information is prohibited by law. If you are not the intended recipient of this document, please advise us by calling immediately [phone]. [place], [place] [address] Mammography Report Date: 06/04/10 Name: JAYA GERMAN Unit #: [id number] Loc: [facility] Location: [facility] : 83 Ordering Physician: Paula [...] document, please advise us by calling immediately [phone]. [place], [place] [address] Mammography Report Date: 06/04/10 Name: JAYA GERMAN Unit #: [id number] Loc: [facility] Location: [facility] : 83 Ordering Physician: Paula [...] ACR CATEGORY 1: NEGATIVE Dictated by: Shahram Paramr M.D., DD 1523 [id number] Paula Fink MD [facility] Final Result from Last 3 Months or Most Recently Relevant to Health Maintenance Administered Medications Insurance Dorian Rey DUN[place] [phone] [facility] TIER [address] Dorian D[place] [phone] Dorian D[place]G [place] [phone] Care Teams Automobile Damage Appraiser Relationship Specialty Start Date End Date Ab Lee MD PCP - General 11/13/07
--- OUTSIDE RECORDS SUMMARY | 2025-05-29 11:40 | XMS_ITS | Encounter Summary ---
Author Organization 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
--- OUTSIDE RECORDS SUMMARY | 2025-05-29 11:40 | XMS_ITS | Encounter Summary ---
Author Organization [facility] Address [facility] [address] [place] [address] Phone Care Team Providers Care Cereal Chemist Name Role Phone Ab Lee MD Primary Care Provider [phone] Reason for Visit * Reason Onset Date Comments Refill Request 02/24/2024 Encounter Details Date Type Department Care Team (Late st Contact Info) Description 02/24/[address] [place] [address] Flores Dawn, COFFEE BREWER 100 [facility] [address] [place] [address] Neuropathic pain; Lumbar radiculopathy Social [...] Start Date Job End Date 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 Not [...] Description 09/16/2025 8:30 AM EST Office Visit [facility] [place] - [facility] [place] [address] [place] [address] Flores Dawn, COFFEE BREWER 100 [facility] [address] [place] [address] documented as of this encounter Visit Diagnoses Diagnosis Neuropathic pain Neuralgia, neuritis, and radiculitis, unspecified Lumbar radiculopathy Thoracic or lumbosacral neuritis or radiculitis, unspecified documented in this encounter Care Teams Cereal Chemist Relationship Specialty Start Date End Date Ab Lee MD PCP - General 11/13/07 documented as of this encounter
--- OUTSIDE RECORDS SUMMARY | 2025-05-29 11:40 | XMS_ITS | Encounter Summary ---
Author Organization 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 Not [...] Date Author No 07/22/2021 8:[address] exnia Rice Registered Nurse documented in this encounter Plan of Treatment Upcoming Encounters Date Type Department Care Team (Late st Contact Info) Description 09/16/2025 8:30 AM EST Office Visit [facility] [place] [facility] [address] [place] [address] Flores Dawn, CUSTOM SHOP WORKER 100 [facility] [address] [place] [address] documented as of this encounter Visit Diagnoses Diagnosis Pain in left hip Pain in joint, pelvic region and thigh documented in this encounter Care Teams Harbor Master Relationship Specialty Start Date End Date Ab Lee MD PCP - General 11/13/07 documented as of this encounter
--- OUTSIDE RECORDS SUMMARY | 2025-05-29 11:40 | XMS_ITS | Encounter Summary ---
Author Organization [facility] SBO AND TP P Address [facility] [place] [address] Phone Care Team Providers Care Excelsior Machine Feeder Name Role Phone Ab Lee MD Primary Care Provider [phone] Reason for Visit * Reason Onset Date Comments Refill Request 08/22/2024 Encounter Details Date Type Department Care Team (Late st Contact Info) Description 08/22/2024 Refill [facility] Medical Weight Management [facility] [address] [place] [address] [facility] [address] [place] [address] Controlled type 2 diabetes mellitus without complication, [...] Date Job End Date 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 Not [...] Description 09/16/2025 8:30 AM EST Office Visit [facility] [place] [facility] [address] [place] [address] Flores Dawn, PHOTO FINISH PHOTOGRAPHER 100 [facility] [address] [place] [address] documented as of this encounter Visit Diagnoses Diagnosis Controlled type 2 diabetes mellitus without complication, without long-term current use of insulin documented in this encounter Care Teams Excelsior Machine Feeder Relationship Specialty Start Date End Date Ab Lee MD PCP - General 11/13/07 documented as of this encounter
--- OUTSIDE RECORDS SUMMARY | 2025-05-29 11:40 | XMS_ITS | Encounter Summary ---
Author Organization [facility] SBO AND TP P Address [facility] [place] [address] Phone Care Team Providers Care Calender Operator Helper Name Role Phone Ab Lee MD Primary Care Provider Encounter Details Date Type Department Care Team (Latest Contact Info) Description 05/03/2024 Telephone - Conversion [address] [place] [address] Flores Dawn, CRIMINAL JUSTICE SOCIAL WORKER 100 [facility] [address] [place] [address] Neuralgia and neuritis, unspecified Social [...] Start Date Job End Date 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 [place] [facility] [address] [place] [address] Flores Dawn, CRIMINAL JUSTICE SOCIAL WORKER 100 [facility] [address] [place] [address] documented as of this encounter Visit Diagnoses Diagnosis Neuralgia and neuritis, unspecified documented in this encounter Care Teams Calender Operator Helper Relationship Specialty Start Date End Date Ab Lee MD PCP - General 11/13/07 documented as of this encounter
--- OUTSIDE RECORDS SUMMARY | 2025-05-29 11:40 | XMS_ITS | Encounter Summary ---
Author Organization [facility] SBO [facility] TP P Address [address] [place] [address] [place] [address] Phone Care Team Providers Care Water Engineer Name Role Phone Ab Lee MD Primary Care Provider Encounter Details Date Type Department Care Team (Late st Contact Info) Description 05/28/2024 Telephone - Conversion [facility] [place] - [facility] [address] [place] [address] Flores Dawn, CONTRACT RECRUITER 100 [facility] [address] [place] [address] Social History Tobacco Use Types [...] Start Date Job End Date 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
--- OUTSIDE RECORDS SUMMARY | 2025-05-29 11:40 | XMS_ITS | Encounter Summary ---
Author Organization [facility] SBO AND TP P Address [facility] [place] [address] Phone Care Team Providers Care Ring Cutter Lathe Operator Name Role Phone Ab Lee MD Primary Care Provider [phone] Reason for Visit * Reason Comments Refill Request Encounter Details Date Type Department Care Team (Late st Contact Info) Description 02/04/2024 Refill [facility] Medical Weight Management [facility] [address] [place] [address] [facility] [address] [place] [address] Controlled type 2 diabetes mellitus without complication, without long-term current use of insulin ([facility]) Social History Tobacco Use Types Packs/Day Years [...] Start Date Job End Date 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 Not [...] Description 09/16/2025 8:30 AM EST Office Visit [facility] Orthopedic & Sports [place] - [facility] [address] [place] [address] Flores Dawn, CURATORIAL ASSISTANT 100 [facility] [address] [place] [address] documented as of this encounter Visit Diagnoses Diagnosis Controlled type 2 diabetes mellitus without complication, without long-term current use of insulin documented in this encounter Care Teams Ring Cutter Lathe Operator Relationship Specialty Start Date End Date Ab Lee MD PCP - General 11/13/07 documented as of this encounter
--- OUTSIDE RECORDS SUMMARY | 2025-05-29 11:40 | XMS_ITS | Encounter Summary ---
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 Thank you. documented in this encounter Plan of Treatment Upcoming Encounters Date Type Department Care Team (Late st Contact Info) Description 09/16/2025 8:30 AM EST Office Visit [facility] Orthopedic & Sports [place] - [facility] [address] [place] [address] Flores Dawn, FANCY STITCHER 100 [facility] [address] [place] [address] documented as of this encounter Visit Diagnoses Not on filedocumented in this encounter Care Teams Arcgis Developer Relationship Specialty Start Date End Date Ab Lee MD PCP - General 11/13/07 documented as of this encounter
--- OUTSIDE RECORDS SUMMARY | 2025-05-29 11:40 | XMS_ITS | Encounter Summary ---
Author Organization [facility] SBO AND TP P Address [facility] [place] [address] Phone Care Team Providers Care Sheet Metal Mechanic Name Role Phone Ab Lee MD Primary Care Provider [phone] Encounter Details Date Type Department Care Team (Late st Contact Info) Description 02/09/2024 Telephone [facility] Medical Weight Management [facility] [address] [place] [address] Neha Katz, ETCH OPERATOR [employer] [address] [place] [address] Social History Tobacco Use Types Packs/Day Years [...] Date Job End Date 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
--- OUTSIDE RECORDS SUMMARY | 2025-05-29 11:40 | XMS_ITS | Encounter Summary ---
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
--- OUTSIDE RECORDS SUMMARY | 2025-05-29 11:40 | XMS_ITS | Patient Health Record ---
Author Organization [facility] Address [address] [place] [address] Care Team Providers Care Conductor Sleeping Car Name Role Phone [facility] ramirez bonds Primary Care Prov ider Unavailable Nancy Asencio Unavailable [phone] Allergies Allergen (clinical drug ingredient) Drug/Non Drug [...] Vaccine Route Administration Date Status Comme nts [id number] Quad PFS (0.5mL Admin) 18 y/o & older IM Intramuscular 06/02/2020 Administered [id number] Quad PFS (0.5 mL Admin) 6 months [...] Status Risk Notes Problem Gastroesophageal reflux disease (646916492) GERD (gastroesophageal reflux disease) (K21.9) Active confirmed Problem Essential hypertension (91308521) Essential hypertension (I10) Active confirmed Problem Anxiety (37067822) Anxiety (F41.9) Active confi rmed Problem Smoker (90909039) Smoker (F17.200) Active confi rmed Problem Essential hypertension (68777833) Essential (primary) hypertension (I10) Active confirmed Problem Fibromyalgia (246636422) Fibromyalgia (M79.7) Active confirmed Problem Type II diabetes mellitus without complication (586185481) Type 2 diabetes mellitus without complications (E11.9) Active confirmed Problem Anxiety disorder (087478338) Anxiety disorder, unspecified (F41.9) Active confirmed Problem Displacement of lumbar intervertebral disc without myelopathy (20155494) Other intervertebral disc displacement, 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) Active confirmed Problem Intervertebral disc disorder (09318638) Unspecified thoracic, thoracolumbar and lumbosacral intervertebral disc disorder (M51.9) Active confirmed Problem Generalized hyperhidrosis (990453819) Generalized hyperhidrosis (R61) Active confirmed Problem History of otitis media (732333077) History of otitis media (Z86.69) Active confirmed Problem Body mass index 40+ - severely obese (862896876) BMI 45.0-49.9, adult (Z68.42) Active confirmed Problem Essential hypertension (29103632) Elevated blood pressure reading with diagnosis of hypertension (I10) Active confirmed Plan Of Treatment No Information Insurance Providers Payer Name Payer Address Payer Phone Subscriber Number Group Number Insured Name Patient Relationship to Insured Coverage Start Date Coverage End Date [employer] [address] [address] [place] [address] [phone] [id number] Arelis Bush Self - patient is the insured Medical (General) History Medical History History ICD Code Essential (primary) hypertension I10 Fibromyalgia M79.7 Anxiety disorder, unspecified F41.9 Type 2 diabetes mellitus without complic ations E11.9 Other intervertebral disc displacement, lumbosacral region M51.27 Surgical History Surgery Date(Month/Year) wisdom teeth gallbladder 2011 Hospitalization History Reason Date(Month/Year) see above
--- OUTSIDE RECORDS SUMMARY | 2025-05-29 11:40 | XMS_ITS | Encounter Summary ---
Author Organization [facility] SBO AND TP P Address [facility] [place] [address] Phone Care Team Providers Care Hop Farmer Name Role Phone Ab Lee MD Primary Care Provider [phone] Reason for Visit * Reason Comments Refill Request Encounter Details Date Type Department Care Team (Late st Contact Info) Description 03/13/2023 Refill [facility] Medical Weight Management [facility] [address] [place] [address] [facility] [address] [place] [address] Controlled type 2 diabetes mellitus without complication, without long-term current use of insulin ([facility]) Social History Tobacco Use Types Packs/Day Years [...] 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 [...] 09/16/2025 8:30 AM EST Office Visit [facility] Orthopedic & Sports [place] [facility] [address] [place] [address] Flores Dawn, DIRECTOR CONSUMER AFFAIRS 100 [facility] [address] [place] [address] documented as of this encounter Visit Diagnoses Diagnosis Controlled type 2 diabetes mellitus without complication, without long-term current use of insulin documented in this encounter Care Teams Hop Farmer Relationship Specialty Start Date End Date Ab Lee MD PCP - General 11/13/07 documented as of this encounter
--- OUTSIDE RECORDS SUMMARY | 2025-05-29 11:41 | XMS_ITS | Encounter Summary ---
Author Organization [facility] Address [address] [address] Phone Care Team Providers Care Diamond Setter Apprentice Name Role Phone Ab Lee MD Primary Care Provider [phone] Encounter Details Date Type Department Care Team (Late st Contact Info) Description 01/18/2013 [facility] Internal Medicine [address] [place] [address] Social History Tobacco Use Types Packs/Day Years [...] Office Visit [facility] Orthopedic & Sports [place] - [facility] [address] [place] [address] Flores Dawn, HUMAN RESOURCES COMPLIANCE MANAGER 100 [facility] [address] [place] [address] documented as of this encounter [...] documented as of this encounter Care Teams Diamond Setter Apprentice Relationship Specialty Start Date End Date Ab Lee MD PCP - General 11/13/07 documented as of this encounter
--- OUTSIDE RECORDS SUMMARY | 2025-05-29 11:41 | XMS_ITS | Encounter Summary ---
Author Organization [place] [address] Care Team Providers Care Hot Frame Tender Name Role Phone Ab Lee MD Primary Care Provider [phone] Reason for Visit * Reason Onset Date Comments Follow-up 05/16/2025 Dressing Change 05/16/2025 Encounter Details Date Type Department Care Team (Late st Contact Info) Description 05/16/2025 Telephone [facility] Wound Care Center [place] [address] [address] [facility] [place] [id number] Lea Oropeza RN Follow-up; Dressing Change Social History Tobacco Use Types Packs/Day Years Used Date Smoking Tobacco: Former Cigarettes 1 10 Smokeless Tobacco: Never Alcohol Use Standard Drinks/Week Comments No 0 (1 standard drink = 0.6 oz pur e alcohol) [facility] Utilities Answer Date Recorded In the [...] Date Recorded PHQ-2 Total Score 0 11/16/2024 [facility] [place] [facility] - Occupational Stress [...] money to get more. Never true 11/16/2024 [facility] IP Transportation Answer D ate Recorded [...] Soraida Willoughby RN documented in this encounter Miscellaneous Notes * Telephone Encounter - Lea Oropeza, JUDI - 05/16/2025 3:15 PM EDT Called and left a voicemail for with regarding her insurance and lack of coverage for DME/ supplies. I said the DME company would be calling her to offer out of pocket rates for supplies and she could also look on amazon, drugstores if needed. If any questions regarding supplies, she should call usback. documented in this encounter Plan of Treatment Upcoming Encounters Date Type Department Care Team (Late st Contact Info) Description 05/30/2025 2:00 PM EDT Appointment [facility] W[facility] Care [facility] [place] [address] [place] [place] [place] [address] Nette R[place], [address] [address] 05/31/2025 2:00 PM EDT Office Visit [facility] 2[facility] [address] [place] [address] Kanchan Torres, [facility] [address] [place] [address] documented as of this encounter [...] on filedocumented in this encounter Care Teams Hot Frame Tender Relationship Specialty Start Date End Date Ab Lee MD PCP - General 09/15/08 documented as of this encounter
--- OUTSIDE RECORDS SUMMARY | 2025-05-29 11:41 | XMS_ITS | Encounter Summary ---
Author Organization [facility] SBO AND TP P Address [facility] [place] [address] Phone Care Team Providers Care Hardwood Faller Name Role Phone Ab Lee MD Primary Care Provider [phone] Encounter Details Date Type Department Care Team (Late st Contact Info) Description 06/28/2023 Telephone [facility] Medical Weight Management [facility] [address] [place] [address] [facility] [address] [place] [address] Social History Tobacco Use Types Packs/Day Years [...] 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
--- OUTSIDE RECORDS SUMMARY | 2025-05-29 11:41 | XMS_ITS | Encounter Summary ---
Author Organization [facility] SBO AND TP P Address [facility] [place] [address] Phone Care Team Providers Care Hair Or Beauty Salon Assistant Name Role Phone Ab Lee MD Primary Care Provider [phone] Reason for Visit * Reason Comments Refill Request Encounter Details Date Type Department Care Team (Late st Contact Info) Description 11/04/2024 Refill [facility] Medical Weight Management [facility] [address] [place] [address] [facility] [address] [place] [address] Controlled type 2 diabetes mellitus without complication, without long-term current use of insulin ([facility]) Social History Tobacco Use [...] Description 09/16/2025 8:30 AM EST Office Visit [facility] Orthopedic & Sports [place] - [facility] [address] [place] [address] Flores Dawn, ROTOR WINDER 100 [facility] [address] [place] [address] documented as of this encounter Visit Diagnoses Diagnosis Controlled type 2 diabetes mellitus without complication, without long-term current use of insulin documented in this encounter Care Teams Hair Or Beauty Salon Assistant Relationship Specialty Start Date End Date Ab Lee MD PCP - General 11/13/07 documented as of this encounter
--- OUTSIDE RECORDS SUMMARY | 2025-05-29 11:41 | XMS_ITS | Clinical Summary ---
Author Organization [facility] Address [address] [place] [address] Phone CareEverywhereSuppor Care Team Providers Care Research Tech Name Role Phone Melissa Lee MD Primary Care Provider [phone] Allergies Active Allergy Reactions Criticality Noted Date Comments Adhesive 10/24/2013 Amitriptyline 12/14/2002 moser Chocolate 11/21/2007 Sneeze, itch Diclofenac 12/14/2002 diarrhea Nitrofurantoin Anaphylaxis High 09/17/2021 [id number]-Tw Other (see comments) 10/22/2013 Blacked out. Shaking, [...] 01/05/2021 01/05/2011, 01/03/1995 Covid-19 Immunization ( - 2024- season) 2025 07/31/2021, 12/04/2020, 11/06/2020 Influenza Immunization (#1) 05/13/202506/12, [...] to complete this topic Insurance #[address] [place] [address] NO COPAY NB Care Teams Research Tech Relationship Specialty Start Date End Date Melissa Lee MD [address] [place] [address] PCP - General Internal Medicine 04/12/23
--- OUTSIDE RECORDS SUMMARY | 2025-05-29 11:41 | XMS_ITS | Encounter Summary ---
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 Orthopedic & Sports [place] - [facility] [address] [place] [address] Flores Dawn, STICKER MACHINE OPERATOR 100 [facility] [address] [place] [address] documented as of this encounter Visit Diagnoses Not on filedocumented in this encounter Care Teams Car Bracer Relationship Specialty Start Date End Date Ab Lee MD PCP - General 11/13/07 documented as of this encounter
--- OUTSIDE RECORDS SUMMARY | 2025-05-29 11:41 | XMS_ITS | Encounter Summary ---
Author Organization [facility] SBO AND TP P Address [facility] [place] [address] Phone Care Team Providers Care Telemarketing Representative Name Role Phone Ab Lee MD Primary Care Provider [phone] Reason for Visit * Reason Comments Refill Request Encounter Details Date Type Department Care Team (Late st Contact Info) Description 04/30/2025 Refill [facility] [address] [place] [address] [place] [address] Thalia Singer, SURFBOARD MAKER [address] [place] [address] Hidradenitis suppurativa Social History Tobacco [...] file Not on file Not on file office clerk routine Not on file Not on file Not [...] Encounter - Edmundo Bravo Registered Nurse - 05/01/2025 9:59 AM EDT Medication requested: doxycycline 100 mg Outcome of last refill request [Approved/denied/appt required/appt made]: approved Date/quantity dispensed/refills given at last refill: 03/25/25, 60 tab, 0 refills Date of last office visit: 04/17/25 Expected follow-up from last office visit note: as scheduled in August (but was cancelled by pt) Next scheduled dermatology visit:none No shows/cancellations since last office visit:none documented in this encounter Plan of Treatment Upcoming Encounters Date Type Department Care Team (Late st Contact Info) Description 09/16/2025 8:30 AM EST Office Visit [facility] Orthopedic & Sports [place] [address] [address] Flores Dawn, SURFBOARD MAKER 100 [facility] [address] [place] [address] documented as of this encounter Visit Diagnoses Diagnosis Hidradenitis suppurativa Hidradenitis documented in this encounter Care Teams Telemarketing Representative Relationship Specialty Start Date End Date Ab Lee MD PCP - General 11/13/07 documented as of this encounter
--- OUTSIDE RECORDS SUMMARY | 2025-05-29 11:41 | XMS_ITS | Encounter Summary ---
Author Organization [facility] SBO AND TP P Address [facility] [address] [address] Phone Care Team Providers Care Creel Clerk Name Role Phone Ab Lee MD Primary Care Provider [phone] Encounter Details Date Type Department Care Team (Late st Contact Info) Description 05/03/2023 Telephone [facility] Medical Weight Management [facility] [address] [place] [address] Neha Katz, SUPERVISOR TYPE BAR AND SEGMENT [address] [place] [address] Social History Tobacco Use Types [...] 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 on file [...] [place], Registered Nurse documented in this encounter Plan of Treatment Upcoming Encounters Date Type Department Care Team (Late st Contact Info) Description 09/16/2025 8:30 AM EST Office Visit [facility] Orthopedic & Sports [facility] [address] [place] [address] Flores Dawn, [facility] 100 [facility] [address] [place] [address] documented as of this encounter Visit Diagnoses Not on filedocumented in this encounter Care Teams Creel Clerk Relationship Specialty Start Date End Date Ab Lee MD PCP - General 11/13/07 documented as of this encounter
--- OUTSIDE RECORDS SUMMARY | 2025-05-29 11:41 | XMS_ITS | Encounter Summary ---
Author Organization [facility] SBO AND TP P Address [facility] [place] [address] Phone Care Team Providers Care Ob/Gyn Nurse Name Role Phone Ab Lee MD Primary Care Provider [phone] Reason for Visit * Reason Onset Date Comments Appt. Not Available 06/22/2023 Encounter Details Date Type Department Care Team (Late st Contact Info) Description 06/22/2023 Telephone 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
--- OUTSIDE RECORDS SUMMARY | 2025-05-29 11:41 | XMS_ITS | Encounter Summary ---
Author Organization [facility] Address [address] [place] [address] Phone Care Team Providers Care Fashion Buying Internship Name Role Phone Ab Lee MD Primary Care Provider [phone] Reason for Referral * - Closed Specialty Diagnoses / Procedures Referred By Rao katz Referred To Contact Radiology Procedures CT HEAD WO CONTRAST [facility] Internal Medicine [address] [place] [address] Phone: tel: Referral ID Status Reason Start Date Expiration Date Visits Re quested Visits Authorized [id number] Closed 01/04/2013 01/04/2014 1 1 Encounter Details Date Type Department Care Team ([facility] Contact Info) Description 01/04/2013 SCAN [facility] Internal Medicine [address] [place] [address] Social History Tobacco Use Types [...] [facility] [place] [facility] [address] [place] [address] Flores Dawn, BIOMETRICS HEAD [address] [facility] [address] [place] [address] documented as of this encounter Procedures Procedure Name Priority Date/Time Associated Diagnosis Comments CT HEAD WO CONTRAST Routine 10/25/2012 documented in this encounter Results * CT HEAD WO CONTRAST (10/25/2012) Anatomical Region Laterality Modality Brain Computed Tomogra phy [facility] Med CT Final Result documented in this encounter Visit Diagnoses Not on filedocumented in this encounter Additional Health Concerns Infection Onset Date Last Indicated Resolved Time COVID-19 Suspect 10/20/2021 10/20/2021 10/20/2021 3:59 PM EST COVID-19 Suspect 10/20/2021 10/20/2021 10/20/2021 4:10 PM EST documented as of this encounter Care Teams Fashion Buying Internship Relationship Specialty Start Date End Date Ab Lee MD PCP - General 11/13/07 documented as of this encounter
--- OUTSIDE RECORDS SUMMARY | 2025-05-29 11:42 | XMS_ITS | Encounter Summary ---
Author Organization [place] [address] Care Team Providers Care Medical Appliance Maker Name Role Phone Ab Lee MD Primary Care Provider [phone] Reason for Visit * Reason Onset Date Comments Follow-up 05/15/2025 Encounter Details Date Type Department Care Team (Late st Contact Info) Description 05/15/2025 Telephone [facility] [address] [place] [address] Vielka Rosenthal RN Follow-up Social History Tobacco Use Types Packs/Day Years Used Date Smoking Tobacco: Former Cigarettes 1 10 Smokeless Tobacco: Never Alcohol Use Standard Drinks/Week Comments No 0 (1 standard drink = 0.6 oz pur e alcohol) [facility] Utilities Answer Date Recorded In [...] Date Recorded PHQ-2 Total Score 0 11/16/2024 [facility] [place] [facility] - Occupational Stress [...] money to get more. Never true 11[facility]16[facility]2024 [facility] IP Transportation Answer D ate [...] encounter Miscellaneous Notes * Telephone Encounter - Vielka Rosenthal RN - 05/15/2025 9:42 AM EDT RN called to follow up after new patient appointment Tuesday. No answer. Left message and call backnumber. documented in this encounter Plan of Treatment Upcoming Encounters Date Type Department Care Team (Late st Contact Info) Description 05/30/2025 2:00 PM EDT Appointment [facility] [place] [address] [place] [address] Nette Ragsdale, DPM [address] [address] 05/31/2025 2:00 PM EDT Office Visit [facility] [place] [place] [address] [place] [address] Kanchan Torres, [facility] [address] [place] [address] documented as of this encounter Goals Goal Patient Goal Type Associated Problems Recent Progress Patient-Stated? Author Wound Healing General Not on track(2024 10:41 AM EDT) Kaitlynn Castelan RN Note: Wound Care Goals RIGHT FOOT [...] on filedocumented in this encounter Care Teams Medical Appliance Maker Relationship Specialty Start Date End Date Ab Lee MD PCP - General 09/15/08 documented as of this encounter
--- OUTSIDE RECORDS SUMMARY | 2025-05-29 11:42 | XMS_ITS | Encounter Summary ---
Author Organization [facility] Address [address] [place] [address] [place] [address] Phone Care Team Providers Care Spiral Machine Operator Name Role Phone Ab Lee MD Primary Care Provider Reason for Visit * Reason Comments Request Appointment Encounter Details Date Type Department Care Team (Late st Contact Info) Description 05/01/2025 Telephone [facility] [address] [place] [address] Flores Dawn, AUTOMOBILE BODY REPAIRER HELPER [address] [facility] [address] [place] [address] Social History Tobacco Use Types [...] file Not on file Not on file 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 I have scheduled you for 05/07/25 at [place] at 2:00 pm. Please let me know if this works for you. Thanks, Monique Cool Pain management Flores Dawn [phone] * Telephone Encounter - Pool Kang - 05/01/2025 7:51 AM EDT Patient scheduled appointment with Flores Dawn for bites and second degree hein on 05/10/2025 and is requesting a sooner appointment. Plant Attendant Or Assistant Operator not able to schedule for this. . Please advise the patient if Flores will see her for this. Patient can be reached at [phone] documented in this encounter Plan of Treatment Upcoming Encounters Date Type Department Care Team (Late st Contact Info) Description 09/16/2025 8:30 AM EST Office Visit [facility] [place] [facility] [address] [place] [address] Flores Dawn, AUTOMOBILE BODY REPAIRER HELPER [address] [facility] [address] [place] [address] documented as of this encounter Visit Diagnoses Not on filedocumented in this encounter Care Teams Spiral Machine Operator Relationship Specialty Start Date End Date Ab Lee MD PCP - General 11/13/07 documented as of this encounter
--- OUTSIDE RECORDS SUMMARY | 2025-05-29 11:42 | XMS_ITS | Encounter Summary ---
Author Organization [facility] Address [facility] [place] [address] Phone Care Team Providers Care Dirt Bike Mechanic Name Role Phone Ab Lee MD Primary Care Provider [phone] Reason for Visit * Reason Comments Refill Request Encounter Details Date Type Department Care Team (Late st Contact Info) Description 05/24/2025 Refill [facility] [address] [place] [address] Ab Lee MD [address] [place] [address] Social History Tobacco Use Types [...] file Not on file Not on file civil clerk Not on file Not on file [...] encounter Miscellaneous Notes * Telephone Encounter - Priscilla Fernandez - 05/27/2025 8:05 AM EDT Last OV or last med check/physical: 03/06/25 Pending OV pending documented in this encounter Plan of Treatment Upcoming Encounters Date Type Department Care Team (Late st Contact Info) Description 09/16/2025 8:30 AM EST Office Visit [facility] [place] [facility] [address] [place] [address] Flores Dawn, HEAD SETTER [address] [facility] [address] [place] [address] documented as of this encounter Visit Diagnoses Not on filedocumented in this encounter Care Teams Dirt Bike Mechanic Relationship Specialty Start Date End Date Ab Lee MD PCP - General 11/13/07 documented as of this encounter
[2025-05-29 11:45] VITALS: BP 148/100; PULSE 91; O2SAT 97
--- NOTE | 2025-05-29 11:50 | MR_ITS ---
FINAL REPORT TECHNIQUE: Multiplanar MR without gadolinium enhancement CLINICAL HISTORY: back pain. GROIN NUMBNESS. UNABLE TO FEEL TO URINATE. LEFT SIDED BACK AND LEG PAIN. COMPARISON: None FINDINGS: Sagittal images show normal vertebral height. Alignment is normal. There is a hemangioma present in theT11 vertebral body. The marrow signal pattern is otherwise unremarkable. T12-L1: No evidence of central canal stenosis or neural foraminal narrowing. L1-2: No evidence of central canal stenosis or neural foraminal narrowing. L2-3: No evidence of central canal stenosis or neural foraminal narrowing. L3-4: A tiny left paracentral disc protrusion is present without evidence of nerve root compression. L4-5: There is a moderate left paracentral disc protrusion which compresses the left L5 nerve root. L5-S1: A moderate annular bulge is present asymmetric to the right, which compresses the right S1 nerve root in the lateral recess. There is enlargement of the S1 nerve root which may reflect radiculitis/inflammation. IMPRESSION: 1. Moderate L4-5 left paracentral disc protrusion which compresses the left L5 nerve root. 2. L5-S1 annular bulge which compresses the right S1 nerve root in the lateral recess. Reviewed, Interpreted and Dictated by Blaine Zamudio MD Transcribed by Susan Rebolledo Authenticated and [facility]
[2025-05-29 11:59] LABS: Microscopic, Urine URINE MICROSCOPIC (MICROSCOPIC)
[2025-05-29 12:00] LABS: Hematocrit 44.9 % (37.0-47.0); Hemoglobin 15.6 g/dL (12.2-16.2); Immature Granulocytes % 0.3 %; Mean Corpuscular HGB Conc 34.7 g/dL (31.8-35.4); Mean Corpuscular Hemoglobin 31.7 pg (27.0-31.2); Mean Corpuscular Volume 91.3 fl (81-99); Nucleated Red Blood Cells % 0 %; Platelet Count 267 K/mm3 (142-424); Red Blood Count 4.92 M/mm3 (4.20-5.40); Red Cell Distribution Width-SD 39.4 fL; White Blood Count 7.0 K/mm3 (4.8-10.8)
[2025-05-29 12:01] VITALS: BP 124/81; PULSE 70; O2SAT 94
[2025-05-29] MEDS: DEXAMETHASONE 4MG/ML 1ML VIAL 8 MG IV (12:09)
--- NOTE | 2025-05-29 12:09 | PC.NURSE ---
received call from MRI, pt getting in a gown and they are on the way to get pt
[2025-05-29 12:11] LABS: Alanine Aminotransferase 31 U/L (12-78); Albumin Level 4.6 g/dl (3.5-5.0); Albumin/Globulin Ratio 1.5 (1.1-1.8); Alkaline Phosphatase 67 U/L (38-126); Anion Gap 12.5 mEq/L (5-15); Aspartate Amino Transferase 48 U/L (14-36); Bilirubin,Total 0.8 mg/dl (0.2-1.3); Blood Urea Nitrogen 11 mg/dl (7-17); Calcium 9.2 mg/dl (8.4-10.2); Carbon Dioxide 30 mmol/L (22.0-30.0); Chloride 99 mmol/L (98-107); Creatinine Clearance Estimated 129 mL/min (50-200); Creatinine,Serum 0.60 mg/dl (0.52-1.04); Estimated Glomerular Filt Rate 110 ml/min (>60); GFR (African American) 133 ML/MIN (>60); Globulin 3.1 g/dL (1.3-3.2); Glucose 146 mg/dl (74-100); Magnesium 1.6 mg/dl (1.6-2.3); Potassium 3.5 mmoL/L (3.5-5.1); Sodium 138 mmol/L (136-145); Total Protein,Serum 7.7 g/dl (6.3-8.2)
[2025-05-29 12:17] LABS: Bilirubin,Urine Negative (Negative); Color,Urine YELLOW (Yellow); Glucose,Urine (UA) Negative (Negative); Ketones,Urine Negative (Negative); Leukocyte Esterase,Urine Negative (Negative); PH,Urine 5.0 (5.0-8.5); Protein,Urine Negative (Negative); Specific Gravity, Urine >= 1.030 (1.005-1.030); Urobilinogen,Urine 0.2 EU/dl (0.2)
[2025-05-29 12:51] LABS: Bacteria,Urine Trace /lpf
[2025-05-29 12:51] LABS: Acetaminophen < 10 ug/ml (10-30)
--- NOTE | 2025-05-29 13:04 | PC.NURSE ---
Pt back from MRI
[2025-05-29 13:05] LABS: Hepatitis C Ab Qual. W/ RFX NEGATIVE (Negative)
[2025-05-29] MEDS: FLUCONAZOLE 100MG TABLET 200 MG PO (13:24)
[2025-05-29 14:48] VITALS: BP 150/85; PULSE 84; RESP 16; TEMP 36.7; O2SAT 99
== END 2025-05-29 14:49 | disposition home or self-care (01) ==
PROVIDERS: Nurse Practitioner Family; Emergency Provider Student in an Organized Health Care Education/Training Program; PCP Internal Medicine Cardiovascular Disease
DX: M51.26 Other intervertebral disc displacement, lumbar region (principal); F17.210 Nicotine dependence, cigarettes, uncomplicated
CPT/HCPCS: 51798; 72148; 80053; 80329; 81001; 83735; 85025; 86803; 87389; 96374; 99285; J1100